=== PATIENT | male | born 1955 | race Caucasian/White ===

== ENCOUNTER 2016-11-28 14:05 | Inpatient (IN) | payer MEDICARE, OTHER ==
[2016-11-28] MEDS ORDERED: HYDROmorphone 1 MG/ML 1 ML SYRINGE IVP STA ×2 (14:35→16:09)
[2016-11-28] MEDS ORDERED: SODIUM CHLORIDE 0.9% 1,000 ML IV STA (14:35)
[2016-11-28] MEDS ORDERED: ONDANSETRON 4 MG/2 ML VIAL IVP STA (14:35)
[2016-11-28] MEDS ORDERED: RX INFO: IV CONTRAST WAS GIVEN 1 EACH MISC MISCELLANE PRN (14:38)
--- NOTE | 2016-11-28 14:38 | ED ---
General Adult HPI - General Chief complaint: Nausea/Vomiting/Diarrhea Stated complaint: diarrhea/no appetite/weakness Time Seen by Provider: 11/28/16 14:30 Source: patient, RN notes reviewed Mode of arrival: ambulatory Limitations: no limitations - History of Present Illness Initial comments: Patient is a 61-year-old male who presents emergency room today with chief complaint of symptoms of nausea vomiting diarrhea times one week. He does admit to pain located in left lower quadrant. Patient describes it as sharp pain currently rates an 8/10. Denies any signs of blood in the emesis or stool. Denies ever having similar symptoms in the past. Denies History of abdominal surgeries. Patient denies any recent fever, chills, shortness of breath, chest pain, back pain, numbness or tingling, dysuria or hematuria, constipation, headaches or visual changes, or any other complaints. - Related Data Home Medications Medication Instructions Recorded Confirmed Morphine Sulfate [Morphine Sulfate 30 mg PO BID 11/28/16 11/28/16 ER] Sertraline [Zoloft] 100 mg PO HS 11/28/16 11/28/16 Zolpidem [Ambien] 10 mg PO HS PRN 11/28/16 11/28/16 busPIRone HCL 15 mg PO BID 11/28/16 11/28/16 Allergies Allergy/AdvReac Type Severity Reaction Status Date / Time No Known Allergies Allergy Verified 11/28/16 14:45 Review of Systems ROS Statement: Those systems with pertinent positive or pertinent negative responses have been documented in the HPI. ROS Other: All systems not noted in ROS Statement are negative. Past Medical History Past Medical History: Heart Failure, COPD, CVA/TIA Additional Past Medical History / Comment(s): chronic pain History of Any Multi-Drug Resistant Organisms: None Reported Additional Past Surgical History / Comment(s): cervical fusion Past Psychological History: Depression Smoking Status: Current every day smoker Past Alcohol Use History: None Reported Past Drug Use History: None Reported General Exam - General Exam Comments Initial Comments: General: The patient is awake and alert, in no distress, and does not appear acutely ill. Eye: Pupils are equal, round and reactive to light, extra-ocular movements are intact. No nystagmus. There is normal conjunctiva bilaterally. No signs of icterus. Ears, nose, mouth and throat: There are moist mucous membranes and no oral lesions. Neck: The neck is supple, there is no tenderness or JVD. Cardiovascular: There is a regular rate and rhythm. No murmur, rub or gallop is appreciated. Respiratory: Lungs are clear to auscultation, respirations are non-labored, breath sounds are equal. No wheezes, stridor, rales, or rhonchi. Gastrointestinal: Normal person. Normal bowel sounds. Soft on palpation. Patient does have tenderness lower quadrant. Mild tenderness epigastric. No rebound tenderness. No guarding. No CVA tenderness. Musculoskeletal: Normal ROM, no tenderness. Strength 5/5. Sensation intact. Pulses equal bilaterally 2+. Neurological: A&O x 3. CN II-XII intact, There are no obvious motor or sensory deficits. Coordination appears grossly intact. Speech is normal. Skin: Skin is warm and dry and no rashes or lesions are noted. Psychiatric: Cooperative, appropriate mood & affect, normal judgment. Limitations: no limitations Course Vital Signs 11/28/16 11/28/16 14:07 15:51 Temperature 98.5 F Pulse Rate 100 74 Respiratory 20 18 Rate Blood Pressure 170/101 148/91 O2 Sat by Pulse 98 99 Oximetry Medical Decision Making - Medical Decision Making Patient's labs reviewed shows 1000 white count. Urine culture pending. Patient 's CT reviewed 1. Findings most compatible with a mild colitis of infectious/ inflammatory etiology. 2. Polypoid filling defect within the descending duodenum. This Is recommended this could relate to it while polypoid mass. 3. Degenerative terminal mild compression deformities at T11 and T12 without retropulsion. Patient will be started on IV antibiotics in the emergency room. Admitted to the hospital. Patient with plan states understanding. - Lab Data Result diagrams: 11/28/16 14:55 11/28/16 14:55 Lab Results 11/28/16 11/28/16 11/28/16 Range/Units 14:55 14:55 14:55 WBC 11.9 H (3.8-10.6) k/uL RBC 5.69 (4.30-5.90) m/uL Hgb 18.0 H (13.0-17.5) gm/dL Hct 52.2 (39.0-53.0) % MCV 91.7 (80.0-100.0) fL MCH 31.6 (25.0-35.0) pg MCHC 34.5 (31.0-37.0) g/dL RDW 12.9 (11.5-15.5) % Plt Count 326 (150-450) k/uL Neutrophils % 79 % Lymphocytes % 13 % Monocytes % 5 % Eosinophils % 0 % Basophils % 0 % Neutrophils # 9.4 H (1.3-7.7) k/uL Lymphocytes # 1.6 (1.0-4.8) k/uL Monocytes # 0.6 (0-1.0) k/uL Eosinophils # 0.0 (0-0.7) k/uL Basophils # 0.0 (0-0.2) k/uL PT 12.8 H (9.0-12.0) sec INR 1.3 (<1.1) APTT 24.0 (22.0-30.0) sec Sodium 140 (137-145) mmol/L Potassium 3.9 (3.5-5.1) mmol/L Chloride 106 (98-107) mmol/L Carbon Dioxide 21 L (22-30) mmol/L Anion Gap 13 mmol/L BUN 17 (9-20) mg/dL Creatinine 0.90 (0.66-1.25) mg/dL Est GFR (MDRD) Af Amer >60 (>60 ml/min/1.73 sqM) Est GFR (MDRD) Non-Af >60 (>60 ml/min/1.73 sqM) Glucose 104 H (74-99) mg/dL Calcium 9.5 (8.4-10.2) mg/dL Total Bilirubin 0.8 (0.2-1.3) mg/dL AST 19 (17-59) U/L ALT 32 (21-72) U/L Alkaline Phosphatase 53 (38-126) U/L Total Protein 7.1 (6.3-8.2) g/dL Albumin 4.2 (3.5-5.0) g/dL Amylase 35 (30-110) U/L Lipase 96 (23-300) U/L Urine Color Urine Appearance (Clear) Urine pH (5.0-8.0) Ur Specific [place] (1.001-1.035) Urine Protein (Negative) Urine Glucose (UA) (Negative) Urine Ketones (Negative) Urine Blood (Negative) Urine Nitrite (Negative) Urine Bilirubin (Negative) Urine Urobilinogen (<2.0) mg/dL Ur Leukocyte Esterase (Negative) Urine RBC (0-5) /hpf Urine WBC (0-5) /hpf Ur Squamous Epith Cells (0-4) /hpf Amorphous Sediment (None) /hpf Urine Bacteria (None) /hpf Hyaline Casts (0-2) /lpf Urine Mucus (None) /hpf Urine Sperm (None) /hpf 11/28/16 Range/Units 15:00 WBC (3.8-10.6) k/uL RBC (4.30-5.90) m/uL Hgb (13.0-17.5) gm/dL Hct (39.0-53.0) % MCV (80.0-100.0) fL MCH (25.0-35.0) pg MCHC (31.0-37.0) g/dL RDW (11.5-15.5) % Plt Count (150-450) k/uL Neutrophils % % Lymphocytes % % Monocytes % % Eosinophils % % Basophils % % Neutrophils # (1.3-7.7) k/uL Lymphocytes # (1.0-4.8) k/uL Monocytes # (0-1.0) k/uL Eosinophils # (0-0.7) k/uL Basophils # (0-0.2) k/uL PT (9.0-12.0) sec INR (<1.1) APTT (22.0-30.0) sec Sodium (137-145) mmol/L Potassium (3.5-5.1) mmol/L Chloride (98-107) mmol/L Carbon Dioxide (22-30) mmol/L Anion Gap mmol/L BUN (9-20) mg/dL Creatinine (0.66-1.25) mg/dL Est GFR (MDRD) Af Amer (>60 ml/min/1.73 sqM) Est GFR (MDRD) Non-Af (>60 ml/min/1.73 sqM) Glucose (74-99) mg/dL Calcium (8.4-10.2) mg/dL Total Bilirubin (0.2-1.3) mg/dL AST (17-59) U/L ALT (21-72) U/L Alkaline Phosphatase (38-126) U/L Total Protein (6.3-8.2) g/dL Albumin (3.5-5.0) g/dL Amylase (30-110) U/L Lipase (23-300) U/L Urine Color Yellow Urine Appearance Clear (Clear) Urine pH 5.5 (5.0-8.0) Ur Specific [place] 1.028 (1.001-1.035) Urine Protein 1+ H (Negative) Urine Glucose (UA) Negative (Negative) Urine Ketones 2+ H (Negative) Urine Blood Trace H (Negative) Urine Nitrite Negative (Negative) Urine Bilirubin Negative (Negative) Urine Urobilinogen 2.0 (<2.0) mg/dL Ur Leukocyte Esterase Negative (Negative) Urine RBC 1 (0-5) /hpf Urine WBC 7 H (0-5) /hpf Ur Squamous Epith Cells 1 (0-4) /hpf Amorphous Sediment Occasional H (None) /hpf Urine Bacteria Occasional H (None) /hpf Hyaline Casts 2 (0-2) /lpf Urine Mucus Many H (None) /hpf Urine Sperm Few H (None) /hpf Disposition Clinical Impression: Colitis Disposition: ADMITTED IP TO THIS [facility] Condition: Stable Time of Disposition: 16:12
[2016-11-28 15:09] LABS: Basophils % (A) 0 %; CH 32.6; CHCM 35.7; Eosinophils % (A) 0 %; HCT 52.2 % (39.0-53.0); HDW 2.32; Luc # (Auto) 0.27; Luc % (Auto) 2; Lymphocytes # (A) 1.6 k/uL (1.0-4.8); Lymphocytes % (A) 13 %; MCH 31.6 pg (25.0-35.0); MCHC 34.5 g/dL (31.0-37.0); MCV 91.7 fL (80.0-100.0); Mean Platelet Volume 6.7; Monocytes # (A) 0.6 k/uL (0-1.0); Monocytes % (A) 5 %; Neutrophils # (A) 9.4 k/uL (1.3-7.7); Neutrophils % (A) 79 %; RBC 5.69 m/uL (4.30-5.90); RDW 12.9 % (11.5-15.5); WBC 11.9 k/uL (3.8-10.6); WBC (Perox) 11.74
[2016-11-28 15:19] LABS: INR 1.3 (<1.1); Prothrombin Time 12.8 sec (9.0-12.0)
[2016-11-28 15:20] LABS: ALT 32 U/L (21-72); AST 19 U/L (17-59); Alkaline Phosphatase 53 U/L (38-126); Amylase 35 U/L (30-110); Anion Gap 13 mmol/L; Blood Urea Nitrogen 17 mg/dL (9-20); Calcium 9.5 mg/dL (8.4-10.2); Carbon Dioxide 21 mmol/L (22-30); Chloride 106 mmol/L (98-107); Glucose 104 mg/dL (74-99); Non-African American GFR(MDRD) >60 (>60 ml/min/1.73 sqM); Potassium 3.9 mmol/L (3.5-5.1); Sodium 140 mmol/L (137-145); Total Bilirubin 0.8 mg/dL (0.2-1.3); Total Protein 7.1 g/dL (6.3-8.2)
[2016-11-28 15:40] LABS: Amorphous Sediment,Urine Occasional /hpf; Appearance,Urine Clear (Clear); Bacteria,Urine Occasional /hpf; Bilirubin,Urine Negative (Negative); Glucose,Urine (UA) Negative (Negative); Ketones,Urine 2+ (Negative); Leukocyte Esterase,Urine Negative (Negative); Mucus,Urine Many /hpf; Nitrite,Urine Negative (Negative); PH, Urine 5.5 (5.0-8.0); Particle Count 11809; Protein,Urine 1+ (Negative); RBC,Urine 1 /hpf (0-5); Specific Gravity,Urine 1.028 (1.001-1.035); Sperm,Urine Few /hpf; Squamous Epithelial Cell,Urine 1 /hpf (0-4); UA Billing (MACRO vs. MICRO) MICRO; WBC,Urine 7 /hpf (0-5)
--- NOTE | 2016-11-28 15:54 | CT ---
EXAMINATION TYPE: CT abdomen pelvis w con DATE OF EXAM: 11/28/2016 3:37 PM COMPARISON: 05/02/2016 report. Note images were not available for comparison at the time of dictation. HISTORY: Pt states of LLQ pain, nausea, and diarrhea. CT DLP: 532.5 mGycm Automated exposure control for dose reduction was used. TECHNIQUE: Helical acquisition of images was performed from the lung bases through the pelvis. CONTRAST: Performed without Oral Contrast and with IV Contrast, patient injected with 100 mL of Omnipaque 300. FINDINGS: LUNG BASES: No significant abnormality is appreciated. LIVER/GB: No significant abnormality is appreciated. PANCREAS: Mild pancreatic atrophy with numerous punctate pancreatic parenchymal calcifications are li hermelinda sequela of chronic pancreatitis. No pancreatic ductal dilatation is evident. SPLEEN: No significant abnormality is seen. ADRENALS: No significant abnormality is seen. KIDNEYS: Left lower pole renal cyst is appreciated measuring 8 mm. Right-sided renal lesion that is s ubcentimeter and too small to accurately characterize is seen within the posterior cortex of the uppe r pole. FREE AIR: No free air is visualized. RETROPERITONEAL ADENOPATHY: None visualized REPRODUCTIVE ORGANS: Again the prostate gland is mildly enlarged and heterogenous diffusely measuring up to 5.4 cm in transverse dimension. URINARY BLADDER: No significant abnormality is seen. PELVIC ADENOPATHY: None visualized. OSSEOUS STRUCTURES: Mild compression deformity of T11 and to a lesser degree of T12 are seen, which are age indeterminant without retropulsion. Mild degenerative changes are present of the thoracolumba r and lumbosacral spine. BOWEL: There is a small hiatal hernia present. Alternating segments of bowel wall thickening and abs ence of bowel wall thickening are seen throughout the large bowel. Long segments of bowel wall thicke esther are most pronounced within the ascending colon, hepatic flexure and transverse colon but also se en at the distal descending colon and sigmoid colon as well as within the rectum. Only mild subtle pe ricolonic fat stranding changes are seen with minimal engorgement of the vasa recta. There is also th ickening of the terminal ileum, likely reactive. Appendix is not enlarged. Polypoid filling defect is seen within the descending duodenum measuring approximately 2 cm. OTHER: Atheromatous changes are seen of the abdominal aorta and its branches, calcific and noncalcifi c. IMPRESSION: 1. FINDINGS MOST COMPATIBLE WITH MILD COLITIS OF INFECTIOUS/INFLAMMATORY ETIOLOGY. COLONOSCOPY IS REC OMMENDED AFTER RESOLUTION OF SYMPTOMS TO EXCLUDE UNDERLYING NEOPLASM. 2. POLYPOID FILLING DEFECT WITHIN THE DESCENDING DUODENUM. ENDOSCOPY IS RECOMMENDED THIS COULD REL ATE TO A DUODENAL POLYP OR MASS. 3. AGE-INDETERMINATE MILD COMPRESSION DEFORMITIES OF T11 AND T12 WITHOUT RETROPULSION.
[2016-11-28] MEDS ORDERED: LEVOFLOXACIN 500MG-D5W PMX 500 MG in DEXTROSE/WATER 1 100ML.BAG IVPB STA (16:09)
[2016-11-28] MEDS ORDERED: ONDANSETRON 4 MG/2 ML VIAL IVP PRN (16:13)
[2016-11-28] MEDS ORDERED: NALOXONE 0.4 MG/ML 1 ML VIAL IV PRN (16:13)
[2016-11-28] MEDS ORDERED: SODIUM CHLORIDE 0.9% 1,000 ML IV ONE (16:13)
[2016-11-28] MEDS ORDERED: metroNIDAZOLE-NS PMX 500 MG in SALINE 1 100ML.BAG IVPB STA (16:19)
[2016-11-28] MEDS ORDERED: POTASSIUM CHLORIDE ER 20 MEQ TAB.ER PO STA (16:57)
[2016-11-28 18:01] VITALS: BMI 25.8
[2016-11-28] MEDS ORDERED: ZOLPIDEM 10 MG TAB PO PRN (18:52)
--- NOTE | 2016-11-28 19:14 | XR ---
EXAMINATION TYPE: XR chest 1V portable DATE OF EXAM: 11/28/2016 7:08 PM COMPARISON: NONE HISTORY: Congestive heart failure TECHNIQUE: Single frontal view of the chest is obtained. FINDINGS: There is no focal air space opacity, pleural effusion, or pneumothorax seen. The cardiac silhouette size is within normal limits. Postop changes are noted to the cervical spine. Patient is rotated. The osseous structures are intact. IMPRESSION: No acute process.
[2016-11-28] MEDS: PANTOPRAZOLE 40 MG/10 ML VIAL IVP SCH (19:34)
[2016-11-28] MEDS: MORPHINE SULFATE ER 30 MG TABLET PO SCH (19:59)
[2016-11-28] MEDS: SERTRALINE 100 MG TAB PO SCH (20:00)
[2016-11-28] MEDS: HEPARIN SODIUM,PORCINE 5,000 UNIT/ML 1 ML VIAL SQ SCH (20:00)
[2016-11-28] MEDS: busPIRone HCl 5 MG TAB PO SCH (20:00)
[2016-11-28] MEDS: metroNIDAZOLE-NS PMX 500 MG in SALINE 1 100ML.BAG IVPB SCH (23:07)
[2016-11-28] MEDS: HYDROmorphone 1 MG/ML 1 ML SYRINGE IV PRN (23:10)
[2016-11-29 08:03] LABS: Basophils % (A) 0 %; CH 31.9; CHCM 34.9; Eosinophils # (A) 0.1 k/uL (0-0.7); Eosinophils % (A) 1 %; HCT 45.1 % (39.0-53.0); HDW 2.36; HGB 15.7 gm/dL (13.0-17.5); Luc # (Auto) 0.29; Luc % (Auto) 2; Lymphocytes % (A) 15 %; MCH 31.8 pg (25.0-35.0); MCHC 34.7 g/dL (31.0-37.0); MCV 91.5 fL (80.0-100.0); Mean Platelet Volume 6.6; Monocytes # (A) 0.7 k/uL (0-1.0); Monocytes % (A) 5 %; Neutrophils # (A) 10.2 k/uL (1.3-7.7); Neutrophils % (A) 76 %; RBC 4.93 m/uL (4.30-5.90); RDW 12.8 % (11.5-15.5); WBC 13.4 k/uL (3.8-10.6); WBC (Perox) 13.45
[2016-11-29 08:16] LABS: ALT 25 U/L (21-72); AST 18 U/L (17-59); Alkaline Phosphatase 44 U/L (38-126); Anion Gap 9 mmol/L; Blood Urea Nitrogen 14 mg/dL (9-20); Calcium 8.9 mg/dL (8.4-10.2); Carbon Dioxide 22 mmol/L (22-30); Chloride 107 mmol/L (98-107); Glucose 85 mg/dL (74-99); Non-African American GFR(MDRD) >60 (>60 ml/min/1.73 sqM); Potassium 3.9 mmol/L (3.5-5.1); Sodium 138 mmol/L (137-145); Total Protein 6.1 g/dL (6.3-8.2)
[2016-11-29] MEDS: busPIRone HCl 5 MG TAB PO SCH ×2 (08:20→20:09)
[2016-11-29] MEDS: HEPARIN SODIUM,PORCINE 5,000 UNIT/ML 1 ML VIAL SQ SCH ×2 (08:20→20:10)
[2016-11-29] MEDS: MORPHINE SULFATE ER 30 MG TABLET PO SCH ×2 (08:21→20:09)
[2016-11-29] MEDS: PANTOPRAZOLE 40 MG/10 ML VIAL IVP SCH (08:21)
[2016-11-29] MEDS: metroNIDAZOLE-NS PMX 500 MG in SALINE 1 100ML.BAG IVPB SCH ×3 (08:59→23:20)
--- NOTE | 2016-11-29 09:29 | P.CONS ---
History of Present Illness - Reason for Consult Consult date: 11/29/16 Colitis Requesting physician: Dylan Cooper - History of Present Illness 61-year-old gentleman patient Dr. Nowak with a past medical history of chronic neck pain with morphine sulfate maintenance, depression, long-standing nicotine cigarette dependency, COPD, CHF, and CVA/TIA. Patient presents with 1 week of nonbloody yellow colored diarrhea with lower abdominal cramping. Patient states he had multiple episodes that started a week ago Tuesday. Still having several episodes a day including several episodes last night. Denies hematemesis hematochezia melena fever or chills. He took some Pepto-Bismol 1 day after the start of his symptoms which change the color of his bowel movements to black. Once he discontinued the Pepto-Bismol his bowel movements cleared up to a yellow color. Pain is mostly in the lower abdomen intermittently crampy. No history of this type of presentation or diarrhea. No recent antibiotics changes in diet medications or recent travels. No sick contacts. Last colonoscopy to his memory may have been between 3-5 years ago in the [place] area he is unsure of the findings. No history of peptic ulcer disease or EGD. Smokes half pack of cigarettes more than 40 years. No history of alcohol abuse, NSAID or aspirin usage. Admission white count 11.9 currently 13.4. Hemoglobin 15.7. MCV 91. Platelets 326. INR 1.3. BUN 17. Creatinine 0.9. Chest x-ray no acute process. CT abdomen and pelvis with IV contrast only reported mild pancreatic atrophy with numerous punctate pancreatic, classification is likely sequelae of chronic pancreatitis. No free air. Small hiatal hernia present. Alternate segments of bowel wall thickening throughout the large bowel more pronounced in the ascending hepatic and transverse colon but also seen in the distal descending colon and sigmoid as well as within the rectum. Thickening of the terminal ileum likely reactive. Appendix not enlarged. Polypoid filling defects seen within the descending duodenum measuring 2 cm. Review of Systems Constitutional: Denies fever, chills, sweats, weight gain, or loss. HEENT: Negative for migraines, blurred vision or loss, earaches, drainage, tinnitus, oral mucosal lesions, dysphagia, or odynophagia. Cardiac: CHF. Negative for chest pain, arrhythmias, or palpitation. Respiratory: COPD. Long-standing nicotine cigarette dependency. Negative for shortness of breath, hemoptysis, cough, or sputum production. Gastrointestinal: See HPI for pertinent findings. Genitourinary: Negative for hematuria, urgency, frequency, polyuria, dysuria, or penile discharge. Musculoskeletal: Chronic back pain with history of cervical fusion. Negative for muscle aches, swelling, arthritis, and arthralgias. Neurologic: History of CVA TIA. Endocrine: Negative for thyroid problems. Skin: Negative for rash or itching. Psychiatric: Negative history for anxiety. History of depression. All systems: negative (See HPI) Past Medical History Past Medical History: Heart Failure, COPD, CVA/TIA Additional Past Medical History / Comment(s): chronic pain History of Any Multi-Drug Resistant Organisms: None Reported Additional Past Surgical History / Comment(s): cervical fusion Past Anesthesia/Blood Transfusion Reactions: No Reported Reaction Past Psychological History: Depression Smoking Status: Current every day smoker Past Alcohol Use History: None Reported Past Drug Use History: None Reported Medications and Allergies Home Medications Medication Instructions Recorded Confirmed Type Morphine Sulfate [Morphine Sulfate 30 mg PO BID 11/28/16 11/28/16 History ER] Sertraline [Zoloft] 100 mg PO HS 11/28/16 11/28/16 History Zolpidem [Ambien] 10 mg PO HS PRN 11/28/16 11/28/16 History busPIRone HCL 15 mg PO BID 11/28/16 11/28/16 History Allergies Allergy/AdvReac Type Severity Reaction Status Date / Time No Known Allergies Allergy Verified 11/28/16 14:45 Physical Exam Vitals: Vital Signs Temp Pulse Pulse Resp BP BP Pulse Ox 11/29/16 07:00 97.7 F 54 L 16 131/75 97 11/28/16 22:30 98.2 F 70 16 138/74 95 11/28/16 17:38 98.2 F 63 16 188/91 97 11/28/16 16:38 98.4 F 73 75 H 158/90 99 Intake and Output 11/28/16 11/29/16 11/29/16 22:59 06:59 14:59 Intake Total 450 Balance 450 Intake: IV 300 Sodium Chloride 0.9% 1, 300 000 ml @ 100 mls/hr IV . Q10H ONE Rx#:[id number] Amount of Fluid Infused ( 150 ml) Other: Voiding Method Toilet # Voids 1 1 # Bowel Movements 1 1 Weight 81.647 kg 81.647 kg General appearance: The patient is alert, oriented, in no acute distress. HET: Head is normocephalic and atraumatic. Pupils are equal and reactive. Oropharynx is clear without lesions. Neck: Supple without lymphadenopathy. Trachea midline. Heart: S1 S2. Regular rate and rhythm. Lungs: No crackles or wheezes are heard. Abdomen: Soft, very mild bilateral lower quadrant abdominal discomfort, nondistended with bowel sounds. No peritoneal signs. No palpable organomegaly or masses. Extremities: Normal skin color and turgor. No cyanosis, rash, ulceration, clubbing, or edema. Radial and pedal pulses are 2/4 bilaterally. Neurological: No focal deficits. Strength and sensation are grossly intact. Results CBC & Chem 7: 11/29/16 07:31 11/29/16 07:31 Labs: Abnormal Lab Results - Last 24 Hours (Table) 11/29/16 11/29/16 Range/Units 07:31 07:31 WBC 13.4 H (3.8-10.6) k/uL Neutrophils # 10.2 H (1.3-7.7) k/uL Total Protein 6.1 L (6.3-8.2) g/dL Albumin 3.4 L (3.5-5.0) g/dL CT scan - abdomen: report reviewed (Reviewed by Dr. Wallace) Assessment and Plan (1) Colitis Narrative/Plan: Gross colitis suspect self-limiting infectious colitis possible inflammatory. Clostridium difficile colitis cannot be excluded. Status: Acute (2) Diarrhea Status: Acute (3) Polyp of duodenum Narrative/Plan: 2 cm polypoid duodenal lesion per CT possible benign possible malignant Status: Acute Plan: 1. Patient has been started on empiric antibiotics Levaquin and Flagyl. 2. Stool studies including stool culture fecal leukocytes Hemoccult and Clostridium difficile testing have been requested. 3. Will proceed with EGD colonoscopy tomorrow for further evaluation. 4. Clear liquid diet. Nothing by mouth after midnight. The computer applications developer has discussed the risks, benefits and alternative therapies for the above-mentioned procedure and for both sedation/analgesia as well as necessary blood product administration, if indicated, as they pertain to this patient. The patient has indicated understanding and acceptance of the risks and procedures discussed. Thank you for this kind referral and the opportunity to participate in the care of your patient. This consultation was discussed with Dr. Wallace. The impression and plan of care have been directed as dictated.
--- NOTE | 2016-11-29 09:57 | HP ---
DATE OF ADMISSION: Chief complaints are nausea, vomiting and abdominal pain and diarrhea. HISTORY OF PRESENT ILLNESS: This 61-year-old gentleman with a past medical history of CHF, history of COPD, CVA/TIA, history of chronic pain syndrome, history of depression, being followed by Alondra Reyes in the outpatient setting, was complaining of abdominal pain, diarrhea for the last one day. Patient was vomiting also. There is no blood in the stool, but there were some melenic stools and because of concerns, patient came to [facility] and admitted for further evaluation and treatment. The patient had a CAT scan of the abdomen. The CAT scan of the abdomen showed mild colitis with long segment of bowel wall thickening most pronounced within the ascending colon, hepatic flexure and transverse colon. Also in the distal descending colon and sigmoid colon as well. The patient also had a polypoid filing defect seen in the descending duodenum measuring approximately 2 cm. Patient was admitted for further evaluation and treatment. There is no history of fever, chills or rigors. No history of headache, loss of consciousness, or seizures. PAST MEDICAL HISTORY: History of CHF, COPD, CVA/TIA, chronic pain syndrome, cervical fusion. Medications prior to admission include home medications are: 1. Buspirone 15 mg p.o. b.i.d. 2. Ambien 10 mg q.h.s. 3. Zoloft 100 mg q.h.s. 4. Morphine sulfate ER 30 mg p.o. daily. Allergies are none. Family history is no history of heart disease or strokes in the family. SOCIAL HISTORY: Previous history of smoking. No history of alcohol intake. REVIEW OF SYSTEMS: ENT: No diminishing hearing or diminished vision. CARDIOVASCULAR: No angina or palpitation. RESPIRATORY: No cough. GI: As mentioned earlier. : No dysuria. NERVOUS SYSTEM: No numbness are weakness. ALLERGY/IMMUNOLOGY: No asthma. MUSCULOSKELETAL: As mentioned earlier. HEMATOLOGY: No history of anemia. ENDOCRINE: No history of diabetes or hypothyroidism. CONSTITUTIONAL: As mentioned earlier. DERMATOLOGY: Negative. PSYCHIATRY: As mentioned earlier. PHYSICAL EXAMINATION: Patient is alert and oriented x3. The pulse is 75, blood pressure 158/90, respirations 20, temperature is 98.4, pulse ox 99% on room air. HEENT: Conjunctivae normal, oral mucosa moist. NECK: No jugular venous distention. No carotid bruit. No lymph node enlargement. CARDIOVASCULAR SYSTEM: S1, S2 muffled, no S3, no S4. RESPIRATORY: Diminished breath sounds at the bases. No rhonchi, no crackles. Abdomen is soft. Mild diffuse discomfort on palpation. Mild diffuse tenderness present. Otherwise, no guarding, no rigidity. No mass palpable. Bowel sounds present. No ascites. No bruit. LEGS: No edema. No swelling. NERVOUS SYSTEM: Higher function as mentioned. Moves all 4 limbs. No focal motor deficits. LYMPHATICS: No lymph node enlargement in the neck, axillae or groin. SKIN: No ulcer, rash or bleeding. LABS: WBC is 11.9, hemoglobin is 18, PT is 12.8. INR is 1.3. ASSESSMENT: 1. Abdominal pain with mild diffuse colitis for evaluation. Possible infectious or ischemic colitis. 2. Polypoid filling defect in the descending colon, rule out polyps. 3. Compression deformity of T11, T12 without any retropulsion. 4. Chronic pain syndrome. 5. Increased WBC. 6. Increased hemoglobin. 7. Possible urinary tract infection, mild. 8. History of congestive heart failure. 9. History of chronic obstructive pulmonary disease. 10. History of cerebrovascular accident, transient ischemic attack. 11. History of chronic pain syndrome. 12. Cervical fusion. 13. History of depression, not otherwise specified. 14. History of nicotine dependence. 15. FULL CODE. RECOMMENDATION: In this 61-year-old gentleman who presented with multiple complex medical issues, will monitor the patient closely. Continue with the current medications. Continue with the symptomatic treatment and broad-spectrum IV antibiotics. Otherwise, Gastroenterology consult, possibly both EGD and colonoscopy. Prognosis guarded because of multiple complex medical issues. Discussed with the patient who understands. Further recommendations to follow. A copy of this will be forwarded to Alondra Reyes and Dr. Nowak.
[2016-11-29] MEDS: ACETAMINOPHEN TAB 325 MG TAB PO PRN (15:41)
[2016-11-29] MEDS ORDERED: PEG 3350-NA SULF,BICARB,CL/KCL 4,000 ML BOTTLE PO ONE (16:00)
[2016-11-29] MEDS ORDERED: LEVOFLOXACIN 500MG-D5W PMX 500 MG in DEXTROSE/WATER 1 100ML.BAG IVPB SCH (16:00)
[2016-11-29] MEDS: PIPERACILLIN-TAZOBACTAM 3.375 GM in DEXTROSE/WATER 1 50ML.BAG IVPB SCH (17:17)
[2016-11-29] MEDS: HYDROmorphone 1 MG/ML 1 ML SYRINGE IV PRN ×2 (17:31→23:28)
[2016-11-29] MEDS: SERTRALINE 100 MG TAB PO SCH (20:10)
[2016-11-29] MEDS: TEMAZEPAM 15 MG CAP PO PRN (23:27)
[2016-11-30] MEDS: PIPERACILLIN-TAZOBACTAM 3.375 GM in DEXTROSE/WATER 1 50ML.BAG IVPB SCH ×3 (00:14→18:07)
--- NOTE | 2016-11-30 05:15 | PN ---
DATE OF SERVICE: 11/29/2016 This 61-year-old gentleman who was admitted with nausea, vomiting, abdominal pain and diarrhea had features of diffuse colitis. Patient also complained of abdominal discomfort. Gastroenterology is planning EGD and colonoscopy. No chest or palpitation. No fever. The chest x-ray shows no acute process. On exam, alert and oriented x3. The pulse is 54, blood pressure 131/75, respirations 16, temperature 97.7, pulse ox 97% on room air. HEENT: Conjunctivae normal. NECK: No jugular venous distention. CARDIOVASCULAR: S1 and S2, muffled. RESPIRATORY: Breath sounds diminished at the bases. No rhonchi or crackles. ABDOMEN: Soft, mild diffuse discomfort. No guarding. No mass palpable. Bowel sounds presents. No ascites. No bruits. LEGS: No edema, no swelling. NERVOUS SYSTEM: Higher function as mentioned earlier. Moves all 4 limbs. No focal deficits. LYMPHATICS: No lymphadenopathy of neck, axillae or groin. SKIN: No ulcers, rashes or bleeding. LABS: WBC 13.4. Otherwise, albumin is 3.4. ASSESSMENT: 1. Abdominal pain with diffuse colitis for evaluation, possibly infectious or ischemic colitis. 2. Polypoid filling defect in the descending colon, rule out polyps. 3. Compression deformity T11, T12 without any retropulsion. 4. Chronic pain syndrome. 5. Increased WBC. 6. Continued abdominal pain. 7. Increased hemoglobin. 8. Urinary tract infection. 9. History of congestive heart failure, ejection fraction unknown. 10. History of chronic obstructive pulmonary disease. 11. History of cerebrovascular accident and transient ischemic attack. 12. History of chronic pain syndrome. 13. History of cervical fusion and degenerative joint disease. 14. History of depression, not otherwise specified. 15. History nicotine dependence. 16. FULL CODE. RECOMMENDATIONS AND DISCUSSION: Recommend to continue current medications. Continues symptomatic treatment. I would recommend change the antibiotic to Zosyn. Continue to monitor the white count closely and Gastroenterology evaluation for endoscopies. Guarded prognosis. Further recommendations to follow.
[2016-11-30] MEDS: busPIRone HCl 5 MG TAB PO SCH ×2 (07:54→22:56)
[2016-11-30] MEDS: PANTOPRAZOLE 40 MG/10 ML VIAL IVP SCH (07:54)
[2016-11-30] MEDS: HEPARIN SODIUM,PORCINE 5,000 UNIT/ML 1 ML VIAL SQ SCH ×2 (07:54→22:57)
[2016-11-30] MEDS: MORPHINE SULFATE ER 30 MG TABLET PO SCH ×2 (07:55→22:57)
[2016-11-30] MEDS: metroNIDAZOLE-NS PMX 500 MG in SALINE 1 100ML.BAG IVPB SCH ×3 (07:56→22:57)
[2016-11-30 08:07] LABS: Basophils % (A) 0 %; CH 31.8; CHCM 34.5; Eosinophils # (A) 0.1 k/uL (0-0.7); Eosinophils % (A) 2 %; HCT 42.1 % (39.0-53.0); HDW 2.35; HGB 14.6 gm/dL (13.0-17.5); Luc # (Auto) 0.23; Luc % (Auto) 3; Lymphocytes # (A) 1.6 k/uL (1.0-4.8); Lymphocytes % (A) 19 %; MCHC 34.6 g/dL (31.0-37.0); MCV 92.6 fL (80.0-100.0); Mean Platelet Volume 6.6; Monocytes # (A) 0.6 k/uL (0-1.0); Monocytes % (A) 7 %; Neutrophils % (A) 70 %; RBC 4.55 m/uL (4.30-5.90); RDW 12.8 % (11.5-15.5); WBC 8.6 k/uL (3.8-10.6); WBC (Perox) 8.85
[2016-11-30 08:31] LABS: Anion Gap 9 mmol/L; Blood Urea Nitrogen 7 mg/dL (9-20); Calcium 8.6 mg/dL (8.4-10.2); Carbon Dioxide 21 mmol/L (22-30); Chloride 110 mmol/L (98-107); Glucose 83 mg/dL (74-99); Non-African American GFR(MDRD) >60 (>60 ml/min/1.73 sqM); Potassium 3.7 mmol/L (3.5-5.1); Sodium 140 mmol/L (137-145)
[2016-11-30] MEDS: ACETAMINOPHEN TAB 325 MG TAB PO PRN (13:06)
[2016-11-30] MEDS ORDERED: IV FLUID CONTINUATION 1,000 ML IV ONE (14:22)
[2016-11-30] MEDS ORDERED: LIDOCAINE 1% INJ 10MG/ML (20 ML MDV) ONE (14:26)
[2016-11-30] MEDS ORDERED: PROPOFOL 10 MG/ML 20 ML VIAL IV ONE (14:26)
--- NOTE | 2016-11-30 15:28 | P.PCN ---
Date of Procedure: 11/30/16 Procedure(s) Performed: Procedure: 1. Esophagogastroduodenoscopy and biopsy. 2. Colonoscopy and biopsy. Preoperative diagnosis: Diarrhea and abnormal CT of the abdomen. Postoperative diagnosis: 1. Mild gastritis and duodenitis. 2. 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 3. Nonspecific colitis consistent with resolving infectious colitis. 4. Flat polyploid area in the cecum probably representing tubulovillous adenoma. 5. Biopsies obtained from the duodenum, antrum, esophagus, random colon as well as duodenal and cecal polyp biopsies. Preparation: GoLYTELY prep. Sedation: Was provided by anesthesia. Brief clinical history: The patient is a 61-year-old male with a past medical history of chronic neck pain with morphine sulfate maintenance, depression, long -standing nicotine cigarette dependency, COPD, CHF, and CVA/TIA, who presented with 1 week of nonbloody, yellow colored, diarrhea with lower abdominal cramping. Patient states he had multiple episodes that started a week ago. Was having several episodes a day including several episodes at night. Denies hematemesis, hematochezia, melena, fever or chills. Pain is mostly in the lower abdomen intermittently crampy. CT of the abdomen and pelvis with IV contrast showed mild pancreatic atrophy with numerous punctate pancreatic, classification likely sequelae of chronic pancreatitis. Small hiatal hernia and a polypoid filling defects seen within the descending duodenum measuring 2 cm. Alternate segments of bowel wall thickening throughout the large bowel more pronounced in the ascending hepatic and transverse colon. The details are summarized in the history and physical and dictated consultation and progress notes. Procedure: with the patient on his left lateral decubitus position and after informed consent and adequate sedation, I passed the Olympus-GIF 160 video upper endoscope through the cricopharyngeus down the esophagus. GE junction was around 40-41 cm from the incisors and there was a small sliding hiatal hernia. no esophagitis or complicated reflux disease. The endoscope was then advanced into the stomach which was insufflated with air and inspected in detail including the retroflex view in the cardia. there was some mottling and erythema in the antrum but no ulcers or erosions. Pyloric channel did not show any ulcers. Duodenal bulb post bulbar area and descending duodenum showed some erythema and minimal friability. in the descending duodenum there was a 2 cm submucosal polypoid area consistent with a lipoma. I obtained biopsies from the duodenum, antrum and esophagus as well as from the duodenal polyp area then the endoscope was withdrawn and I proceeded with the colonoscopy. Perianal area did not show any fissures or fistulas. There were no masses felt on digital rectal examination. The Olympus CFQ 160L video colonoscope was then inserted in the rectum in the usual fashion and advanced to the cecum. The preparation was less than ideal, especially, in the right colon and cecum. There was a flat polypoid area in the cecum consistent with tubular or tubulovillous adenoma measuring around 2-3 cm in greatest dimension. Multiple biopsies were obtained. Otherwise, there were scattered aphthous-like ulcerations seen with, otherwise, normal looking mucosa consistent with resolving self-limited or infectious colitis. I obtained biopsies from the cecum as well as randomly from the colon and I obtained pictures then I retroflexed endoscope in the rectum before the endoscope was withdrawn. The patient tolerated the procedure well. Plan: The patient and his family were reassured. Will await biopsy results. In the meantime, will advance diet and continue symptomatic treatment. Based on the pathology results I anticipate repeating his colonoscopy to address definitively the cecal polyp.
--- NOTE | 2016-11-30 22:21 | PN ---
DATE OF SERVICE: 11/30/2016 This 61-year-old gentleman was admitted with nausea, vomiting, features of colitis as well as duodenal filling defect. The patient has been treated symptomatically. Dr. Wallace performed an EGD which showed mild gastritis and duodenitis and duodenal polyp, likely submucosal lipoma, and nonspecific colitis consistent with resolving infectious colitis was also noted. Otherwise, tubulovillous adenoma in the cecum was also noted. Multiple biopsies were taken, per Dr. Wallace's report. Patient is being closely monitored. On exam, alert and oriented x3. Pulse is 49, blood pressure 127/77, respiration 16, temperature 97.7, pulse ox 98% on room air. HEENT: Conjunctivae normal. NECK: No jugular venous distention. CARDIOVASCULAR SYSTEM: S1, S2 muffled. RESPIRATORY SYSTEM: Breath sounds diminished at the bases. A few scattered rhonchi. No crackles. ABDOMEN: Soft. Mild diffuse discomfort on palpation. No guarding. No mass palpable. LEGS: No edema. No swelling. NERVOUS SYSTEM: No focal deficit. LABS: CBC within normal limits. Sodium 140, potassium 3.7. Stool OB is negative. ASSESSMENT: 1. Abdominal pain, diffuse colitis for evaluation, possibly infectious and ischemic colitis. 2. Polypoid filling defect in the descending colon, possibly submucosal lipoma. 3. Status post esophagogastroduodenoscopy showing gastritis and duodenitis. 4. Status post colonoscopy showing nonspecific colitis consistent with resolving infectious colitis as well as flat polypoid area in the cecum, possibly representing tubulovillous adenoma, status post multiple biopsies in duodenum, antrum, esophagus and random colon as well as duodenal and cecal polyp biopsies. 5. Compression deformity, T11-T12, without any retropulsion. 6. Chronic pain syndrome. 7. Increased white count. 8. Continued abdominal pain. 9. Increased hemoglobin. 10. Urinary tract infection. 11. History of congestive heart failure; ejection fraction unknown. 12. History of chronic obstructive pulmonary disease. 13. History of cerebrovascular accident, transient ischemic attack. 14. History of cervical fusion and degenerative joint disease. 15. History of depression not otherwise specified. 16. History of nicotine dependence. 17. FULL CODE. RECOMMENDATIONS AND DISCUSSION: I recommend to continue with the current medications, continue with the monitoring, symptomatic treatment. Otherwise, at this time I would recommend continuing with the current medications, continue with empiric antibiotics. Await biopsy report. Advance diet per GI. Guarded prognosis. Further recommendations to follow.
[2016-11-30] MEDS: TEMAZEPAM 15 MG CAP PO PRN (22:57)
[2016-11-30] MEDS: SERTRALINE 100 MG TAB PO SCH (22:57)
[2016-12-01] MEDS: PIPERACILLIN-TAZOBACTAM 3.375 GM in DEXTROSE/WATER 1 50ML.BAG IVPB SCH ×2 (02:51→11:29)
[2016-12-01] MEDS: busPIRone HCl 5 MG TAB PO SCH (09:16)
[2016-12-01] MEDS: PANTOPRAZOLE 40 MG/10 ML VIAL IVP SCH (09:16)
[2016-12-01] MEDS: MORPHINE SULFATE ER 30 MG TABLET PO SCH (09:16)
[2016-12-01] MEDS: HEPARIN SODIUM,PORCINE 5,000 UNIT/ML 1 ML VIAL SQ SCH (09:16)
[2016-12-01 09:44] LABS: Basophils # (A) 0.1 k/uL (0-0.2); Basophils % (A) 1 %; CH 31.5; CHCM 33.7; Eosinophils # (A) 0.2 k/uL (0-0.7); Eosinophils % (A) 3 %; HDW 2.27; HGB 15.1 gm/dL (13.0-17.5); Luc # (Auto) 0.17; Luc % (Auto) 2; Lymphocytes # (A) 1.8 k/uL (1.0-4.8); Lymphocytes % (A) 24 %; MCH 31.4 pg (25.0-35.0); MCHC 33.5 g/dL (31.0-37.0); MCV 93.8 fL (80.0-100.0); Mean Platelet Volume 7.1; Monocytes # (A) 0.5 k/uL (0-1.0); Monocytes % (A) 7 %; Neutrophils # (A) 4.8 k/uL (1.3-7.7); Neutrophils % (A) 63 %; RBC 4.79 m/uL (4.30-5.90); RDW 13.1 % (11.5-15.5); WBC 7.5 k/uL (3.8-10.6); WBC (Perox) 7.63
[2016-12-01 10:13] LABS: Anion Gap 7 mmol/L; Blood Urea Nitrogen 7 mg/dL (9-20); Calcium 8.9 mg/dL (8.4-10.2); Carbon Dioxide 29 mmol/L (22-30); Chloride 105 mmol/L (98-107); Glucose 133 mg/dL (74-99); Non-African American GFR(MDRD) >60 (>60 ml/min/1.73 sqM); Potassium 3.8 mmol/L (3.5-5.1); Sodium 141 mmol/L (137-145)
--- NOTE | 2016-12-01 10:22 | P.PN ---
Subjective Principal diagnosis: Diarrhea 61-year-old gentleman presents with 1 week history of nonbloody diarrhea with CT findings of duodenal polyp. Status post EGD colonoscopy yesterday with findings of mild gastritis, duodenitis, duodenal polyp likely submucosal lipoma with nonspecific colitis consistent with resolving infectious colitis. Flat polypoid area in the cecum status post biopsies. Diarrhea has improved. Stool studies were requested prior to colonoscopy, unfortunately were not obtained. He has been afebrile. Tolerating regular diet. Denies abdominal pain. Objective - Vital Signs Vital signs: Vital Signs Temp 97.9 F 12/01/16 07:00 Pulse 50 L 12/01/16 07:00 Resp 16 12/01/16 07:00 BP 123/72 12/01/16 07:00 Pulse Ox 94 L 12/01/16 07:00 Intake & Output 11/30/16 12/01/16 12/01/16 18:59 06:59 18:59 Intake Total 300 400 Balance 300 400 Intake: IV 300 Oral 0 400 Other: Voiding Method Toilet Toilet # Voids 3 1 - Exam General appearance: The patient is alert, oriented, in no acute distress. HET: Head is normocephalic and atraumatic. Pupils are equal and reactive. Oropharynx is clear without lesions. Neck: Supple without lymphadenopathy. Trachea midline. Heart: S1 S2. Regular rate and rhythm. Lungs: No crackles or wheezes are heard. Abdomen: Soft, nontender, nondistended with bowel sounds. No peritoneal signs. No palpable organomegaly or masses. Extremities: Normal skin color and turgor. No cyanosis, rash, ulceration, clubbing, or edema. Radial and pedal pulses are 2/4 bilaterally. Neurological: No focal deficits. Strength and sensation are grossly intact. - Labs CBC & Chem 7: 12/01/16 08:57 12/01/16 08:57 Labs: Abnormal Lab Results - Last 24 Hours (Table) 12/01/16 Range/Units 08:57 BUN 7 L (9-20) mg/dL Glucose 133 H (74-99) mg/dL Assessment and Plan (1) Colitis Narrative/Plan: Status post EGD colonoscopy with suspected self-limiting infectious colitis status post biopsies Status: Acute (2) Diarrhea Status: Acute (3) Polyp of duodenum Narrative/Plan: Suspect lipoma, status post EGD with biopsy Status: Acute Plan: 1. Discharge per medicine. 2. Would advise continuance of antibiotics on discharge for additional 5 days. 3. Return to GI office in 1 week for reevaluation and discussion of biopsy results. 4. Antidiarrheals as needed. 5. Stool studies are still requested if patient is able to submit a sample. Assessment and plan a care discussed with Dr. Wallace.
[2016-12-01] MEDS ORDERED: IPRATROPIUM-ALBUTEROL 3 ML NEB INHALATION PRN (13:02)
[2016-12-01] MEDS: metroNIDAZOLE-NS PMX 500 MG in SALINE 1 100ML.BAG IVPB SCH (13:05)
[2016-12-01 15:48] VITALS: BP 134/67; PULSE 66; RESP 18; TEMP 97.6
[2016-12-01] MEDS ORDERED: metroNIDAZOLE 500 MG TAB PO SCH (16:00)
[2016-12-01] MEDS ORDERED: IPRATROPIUM-ALBUTEROL 3 ML NEB INHALATION SCH (16:00)
[2016-12-01] MEDS ORDERED: SYMBICORT 160-4.5 MCG INHALER INHALATION SCH (20:00)
--- NOTE | 2016-12-02 08:22 | DS ---
DATE OF ADMISSION: 11/28/2016 DATE OF DISCHARGE: 12/01/2016 Patient is admitted secondary to abdominal pain, nonbloody diarrhea. Patient underwent EGD and colonoscopy. EGD showed esophagitis, duodenitis and colonoscopy showed resolving infectious colitis and patient will be discharged on Augmentin. Patient also has COPD exacerbation. Patient will be discharged on systemic steroids and Spiriva will be added to his inhalational breathing treatment regimen. Patient is already taking Spiriva and Albuterol which he was asked to continue. Patient was seen and examined on the day of discharge. Vitals are stable. PHYSICAL EXAMINATION: RESPIRATORY: Significant expiratory wheezing and increased rate into bilateral lung crespo. GENERAL: The patient is alert and oriented x3, not in any acute distress. Well developed, well nourished. HEENT: Pupils are round and equally reacting to light. EOMI. No scleral icterus. No conjunctival pallor. Normocephalic, atraumatic. No pharyngeal erythema. No thyromegaly. CARDIOVASCULAR: S1 and S2 present. No murmurs, rubs, or gallops. ABDOMEN: Soft, nontender, nondistended, normoactive bowel sounds. No palpable organomegaly. MUSCULOSKELETAL: No joint swelling or deformity. EXTREMITIES: No cyanosis, clubbing, or pedal edema. NEUROLOGICAL: Gross neurological examination did not reveal any focal deficits. SKIN: No rashes. on other vitals are stable. He is unknown. Underwent expiratory wheezing and the latter lung crespo. NEUROLOGICAL: Gross neurological examination did not reveal any focal deficits. ASSESSMENT AND PLAN: 1. Infectious colitis leading to diarrhea. 2. Gastritis and duodenitis. 3. Chronic obstructive pulmonary disease with acute exacerbation. 4. Chronic pain syndrome. 5. Asymptomatic bacteria which does not need any antibiotics. Patient will be discharged today and ( ) home. Please refer to my depart summary for further list of discharge medications. Patient will follow with Dr. Wallace in 1 week, Dr. Starr Nowak in 3 to 7 days. Activity as tolerated and regular diet. Spent greater than 35 minutes in total discharge process.
== END 2016-12-01 15:50 | disposition home or self-care (01) | DRG 392 ==
LOC: EC 14:05 → 5MS5E 16:14
PROVIDERS: ADMIT Hospitalist; ATTEND Hospitalist
PROC: 0DB98ZX Excision of Duodenum, Via Natural or Artificial Opening Endoscopic, Diagnostic (ICD-10-PCS; 2016-11-30)
PROC: 0DB78ZX Excision of Stomach, Pylorus, Via Natural or Artificial Opening Endoscopic, Diagnostic (ICD-10-PCS; 2016-11-30)
PROC: 0DB58ZX Excision of Esophagus, Via Natural or Artificial Opening Endoscopic, Diagnostic (ICD-10-PCS; 2016-11-30)
PROC: 0DBH8ZX Excision of Cecum, Via Natural or Artificial Opening Endoscopic, Diagnostic (ICD-10-PCS; principal; 2016-11-30 12:15)
PROC: 0DBE8ZX Excision of Large Intestine, Via Natural or Artificial Opening Endoscopic, Diagnostic (ICD-10-PCS; 2016-11-30 12:15)
DX: A09 Infectious gastroenteritis and colitis, unspecified (principal); K63.3 Ulcer of intestine; I50.9 Heart failure, unspecified; J44.1 Chronic obstructive pulmonary disease with (acute) exacerbation; K86.1 Other chronic pancreatitis; K20.9 Esophagitis, unspecified; D72.829 Elevated white blood cell count, unspecified; K29.70 Gastritis, unspecified, without bleeding; K29.80 Duodenitis without bleeding; D12.0 Benign neoplasm of cecum; K31.7 Polyp of stomach and duodenum; F17.210 Nicotine dependence, cigarettes, uncomplicated; R82.71 Bacteriuria; R06.2 Wheezing; M51.34 Other intervertebral disc degeneration, thoracic region; M47.812 Spondylosis without myelopathy or radiculopathy, cervical region; K44.9 Diaphragmatic hernia without obstruction or gangrene; F32.9 Major depressive disorder, single episode, unspecified; G89.4 Chronic pain syndrome; Z86.73 Personal history of transient ischemic attack (TIA), and cerebral infarction without residual deficits; Z98.1 Arthrodesis status; Z79.899 Other long term (current) drug therapy; Z79.891 Long term (current) use of opiate analgesic
CPT/HCPCS: 36415; 43239; 45380; 71010; 74177; 80048; 80053; 81001; 82150; 82272; 83690; 84484; 85025; 85610; 85730; 88305; 88342

== ENCOUNTER 2016-12-07 09:18 | Inpatient (IN) | payer MEDICARE, OTHER ==
[2016-12-07] MEDS ORDERED: SODIUM CHLORIDE 0.9% 1,000 ML IV STA ×2 (09:26)
[2016-12-07] MEDS ORDERED: IPRATROPIUM-ALBUTEROL 3 ML NEB INHALATION STA (09:30)
[2016-12-07] MEDS ORDERED: ONDANSETRON 4 MG/2 ML VIAL IVP STA (09:31)
[2016-12-07] MEDS ORDERED: HYDROmorphone 1 MG/ML 1 ML SYRINGE IVP STA (09:31)
--- NOTE | 2016-12-07 09:42 | ED ---
Abdominal Pain HPI - General Source: patient, RN notes reviewed Mode of arrival: ambulatory Limitations: no limitations <Arnulfo Arias - Last Filed: 12/07/16 11:11> <Josue Perez - Last Filed: 12/07/16 11:32> - General Chief Complaint: Abdominal Pain Stated Complaint: dehydration Time Seen by Provider: 12/07/16 09:25 - History of Present Illness Initial Comments: 61-year-old male presents emergency Department with chief complaint of abdominal pain, dehydration not feeling well. Patient states he was discharged roughly 5 days ago followed up today with his primary care physician sent back to the hospital for admission. Patient states she's had one meal since discharge states she is unable to eat secondary to pain and no appetite. Patient's been have diarrhea once daily. Patient states on admission he was admitted for colitis and newly diagnosed colon cancer. Patient states that the pain is unbearable and that he is feeling very weak. Patient does have COPD continues to smoke. Patient states she's had some wheezing but denies any chest pain or palpitations. Patient denies fever but complains of chills and some hot flashes. Patient denies any dysuria or hematuria. (Arnulfo Arias) - Related Data Home Medications Medication Instructions Recorded Confirmed Morphine Sulfate [Morphine Sulfate 30 mg PO BID 11/28/16 12/07/16 ER] Sertraline [Zoloft] 100 mg PO HS 11/28/16 12/07/16 Zolpidem [Ambien] 10 mg PO HS PRN 11/28/16 12/07/16 busPIRone HCL 15 mg PO BID 11/28/16 12/07/16 Albuterol Sulfate [Proair Hfa] 2 puff INHALATION RT-Q6H PRN 12/07/16 12/07/16 Budesonide-Formot 160-4.5 Mcg 2 puff INHALATION RT-BID 12/07/16 12/07/16 [Symbicort 160-4.5 Mcg Inhaler] Previous Rx's Medication Instructions Recorded Amoxic-Pot Clav 875-125Mg 1 tab PO Q12HR #14 tablet 12/01/16 [Augmentin 875-125] Omeprazole [PriLOSEC] 40 mg PO AC-BRKFST #14 capsule. 12/01/16 Tiotropium [place] [Spiriva] 1 cap INHALATION DAILY #1 device 12/01/16 predniSONE 10 mg PO DAILY #30 tab 12/01/16 Allergies Allergy/AdvReac Type Severity Reaction Status Date / Time No Known Allergies Allergy Verified 12/07/16 09:50 Review of Systems ROS Other: All systems not noted in ROS Statement are negative. <Arnulfo Arias - Last Filed: 12/07/16 11:11> ROS Other: All systems not noted in ROS Statement are negative. <Josue Perez - Last Filed: 12/07/16 11:32> ROS Statement: Those systems with pertinent positive or pertinent negative responses have been documented in the HPI. Past Medical History Past Medical History: Heart Failure, COPD, CVA/TIA Additional Past Medical History / Comment(s): chronic pain History of Any Multi-Drug Resistant Organisms: None Reported Additional Past Surgical History / Comment(s): cervical fusion Past Anesthesia/Blood Transfusion Reactions: No Reported Reaction Past Psychological History: Depression Smoking Status: Current every day smoker Past Alcohol Use History: None Reported Past Drug Use History: None Reported - Past Family History Mother History Unknown: Yes Father History Unknown: Yes Sister(s) Family Medical History: Cancer Additional Family Medical History / Comment(s): lung cancer <Arnulfo Arias - Last Filed: 12/07/16 11:11> General Exam Limitations: no limitations General appearance: alert, in no apparent distress ENT exam: Present: mucous membranes dry Neck exam: Present: normal inspection, full ROM. Absent: tenderness, meningismus, lymphadenopathy Respiratory exam: Present: wheezes. Absent: normal lung sounds bilaterally, respiratory distress, rales, rhonchi, stridor Cardiovascular Exam: Present: regular rate, normal rhythm, normal heart sounds. Absent: systolic murmur, diastolic murmur, rubs, gallop, clicks GI/Abdominal exam: Present: soft, tenderness (Diffuse moderate tenderness), normal bowel sounds. Absent: distended, guarding, rebound, rigid Back exam: Absent: CVA tenderness (R), CVA tenderness (L) Neurological exam: Present: alert, oriented X3, CN II-XII intact Skin exam: Present: warm, dry, intact, normal color. Absent: rash <Arnulfo Arias - Last Filed: 12/07/16 11:11> Medical Decision Making - Lab Data Result diagrams: 12/07/16 09:37 12/07/16 09:37 <JuanaArnulfo Magdalena - Last Filed: 12/07/16 11:11> - Lab Data Result diagrams: 12/07/16 09:37 12/07/16 09:37 <Josue Perez - Last Filed: 12/07/16 11:32> - Medical Decision Making Patient reevaluated by myself, Dr. Perez. Patient resting comfortably in bed. Abdomen nontender to palpation at this time. Patient states he saw his doctor today and was diagnosed with colon cancer and advised to come back to the hospital. Case was discussed in detail with Dr. Mcwilliams, who will admit for Dr. Nowak. (Josue Perez) - Lab Data Lab Results 12/07/16 12/07/16 12/07/16 Range/Units 09:37 09:37 09:37 WBC 11.6 H (3.8-10.6) k/uL RBC 5.59 (4.30-5.90) m/uL Hgb 17.8 H (13.0-17.5) gm/dL Hct 51.8 (39.0-53.0) % MCV 92.7 (80.0-100.0) fL MCH 31.8 (25.0-35.0) pg MCHC 34.3 (31.0-37.0) g/dL RDW 13.3 (11.5-15.5) % Plt Count 391 (150-450) k/uL Neutrophils % 62 % Lymphocytes % 26 % Monocytes % 8 % Eosinophils % 1 % Basophils % 1 % Neutrophils # 7.1 (1.3-7.7) k/uL Lymphocytes # 3.0 (1.0-4.8) k/uL Monocytes # 0.9 (0-1.0) k/uL Eosinophils # 0.1 (0-0.7) k/uL Basophils # 0.1 (0-0.2) k/uL Sodium 141 (137-145) mmol/L Potassium 4.5 (3.5-5.1) mmol/L Chloride 105 (98-107) mmol/L Carbon Dioxide 21 L (22-30) mmol/L Anion Gap 15 mmol/L BUN 20 (9-20) mg/dL Creatinine 1.07 (0.66-1.25) mg/dL Est GFR (MDRD) Af Amer >60 (>60 ml/min/1.73 sqM) Est GFR (MDRD) Non-Af >60 (>60 ml/min/1.73 sqM) Glucose 104 H (74-99) mg/dL Plasma Lactic Acid Niels 1.9 (0.7-2.0) mmol/L Calcium 10.5 H (8.4-10.2) mg/dL Total Bilirubin 1.7 H (0.2-1.3) mg/dL AST 51 (17-59) U/L ALT 99 H (21-72) U/L Alkaline Phosphatase 57 (38-126) U/L Total Protein 8.3 H (6.3-8.2) g/dL Albumin 4.9 (3.5-5.0) g/dL Amylase 57 (30-110) U/L Lipase 291 (23-300) U/L Urine Color Urine Appearance (Clear) Urine pH (5.0-8.0) Ur Specific [place] (1.001-1.035) Urine Protein (Negative) Urine Glucose (UA) (Negative) Urine Ketones (Negative) Urine Blood (Negative) Urine Nitrite (Negative) Urine Bilirubin (Negative) Urine Urobilinogen (<2.0) mg/dL Ur Leukocyte Esterase (Negative) Urine RBC (0-5) /hpf Urine WBC (0-5) /hpf Urine Bacteria (None) /hpf Hyaline Casts (0-2) /lpf Urine Mucus (None) /hpf 12/07/16 Range/Units 10:05 WBC (3.8-10.6) k/uL RBC (4.30-5.90) m/uL Hgb (13.0-17.5) gm/dL Hct (39.0-53.0) % MCV (80.0-100.0) fL MCH (25.0-35.0) pg MCHC (31.0-37.0) g/dL RDW (11.5-15.5) % Plt Count (150-450) k/uL Neutrophils % % Lymphocytes % % Monocytes % % Eosinophils % % Basophils % % Neutrophils # (1.3-7.7) k/uL Lymphocytes # (1.0-4.8) k/uL Monocytes # (0-1.0) k/uL Eosinophils # (0-0.7) k/uL Basophils # (0-0.2) k/uL Sodium (137-145) mmol/L Potassium (3.5-5.1) mmol/L Chloride (98-107) mmol/L Carbon Dioxide (22-30) mmol/L Anion Gap mmol/L BUN (9-20) mg/dL Creatinine (0.66-1.25) mg/dL Est GFR (MDRD) Af Amer (>60 ml/min/1.73 sqM) Est GFR (MDRD) Non-Af (>60 ml/min/1.73 sqM) Glucose (74-99) mg/dL Plasma Lactic Acid Niels (0.7-2.0) mmol/L Calcium (8.4-10.2) mg/dL Total Bilirubin (0.2-1.3) mg/dL AST (17-59) U/L ALT (21-72) U/L Alkaline Phosphatase (38-126) U/L Total Protein (6.3-8.2) g/dL Albumin (3.5-5.0) g/dL Amylase (30-110) U/L Lipase (23-300) U/L Urine Color Yellow Urine Appearance Cloudy (Clear) Urine pH 5.5 (5.0-8.0) Ur Specific [place] 1.022 (1.001-1.035) Urine Protein 1+ H (Negative) Urine Glucose (UA) Negative (Negative) Urine Ketones Trace H (Negative) Urine Blood Trace H (Negative) Urine Nitrite Negative (Negative) Urine Bilirubin Negative (Negative) Urine Urobilinogen <2.0 (<2.0) mg/dL Ur Leukocyte Esterase Trace H (Negative) Urine RBC 1 (0-5) /hpf Urine WBC 4 (0-5) /hpf Urine Bacteria Rare H (None) /hpf Hyaline Casts 2 (0-2) /lpf Urine Mucus Few H (None) /hpf Disposition <Arnulfo Arias - Last Filed: 12/07/16 11:11> <Josue Perez - Last Filed: 12/07/16 11:32> Clinical Impression: Colitis, Diarrhea, Colon cancer, Intractable abdominal pain Disposition: ADMITTED IP TO THIS [facility] Condition: Fair Referrals: Milton Nowak III, MD [Primary Care Provider] - 1-2 days
--- NOTE | 2016-12-07 10:05 | XR ---
EXAMINATION TYPE: XR chest 2V DATE OF EXAM: 12/07/2016 9:59 AM COMPARISON: Chest x-ray November 28, 2016. HISTORY: Chest pain per order. Weight loss and shortness of breath. TECHNIQUE: Frontal and lateral views of the chest are obtained. FINDINGS: There is no focal air space opacity, pleural effusion, or pneumothorax seen. Underlying em physematous change is not excluded on lateral view with flattened hemidiaphragms noted. The cardiac silhouette size is within normal limits. Some multilevel spurring in the thoracic spine is present. S urgical changes lower cervical spine are partially imaged. IMPRESSION: No acute cardiopulmonary process. No significant change from prior.
--- NOTE | 2016-12-07 10:06 | XR ---
EXAMINATION TYPE: XR KUB DATE OF EXAM: 12/07/2016 9:59 AM CLINICAL HISTORY: Abdominal pain per order. Weight loss and diarrhea per patient. TECHNIQUE: 2 upright KUB images of the abdomen are obtained. COMPARISON: CT abdomen pelvis November 28, 2016. FINDINGS: Scattered gas is seen in non-distended small bowel loops. Gas and fecal material is seen in non-distended colon. Some scattered air-fluid levels are seen, this is nonspecific finding. No pne umoperitoneum is noted. No suspicious calcifications are seen. Lung bases are clear and the visualize d osseous structures are intact. Some vascular calcification in the lower pelvis is redemonstrated. IMPRESSION: Overall nonspecific favor nonobstructive bowel gas pattern.
[2016-12-07 10:17] LABS: Basophils # (A) 0.1 k/uL (0-0.2); Basophils % (A) 1 %; CH 31.8; CHCM 34.5; Eosinophils # (A) 0.1 k/uL (0-0.7); Eosinophils % (A) 1 %; HCT 51.8 % (39.0-53.0); HDW 2.08; HGB 17.8 gm/dL (13.0-17.5); Luc % (Auto) 3; Lymphocytes % (A) 26 %; MCH 31.8 pg (25.0-35.0); MCHC 34.3 g/dL (31.0-37.0); MCV 92.7 fL (80.0-100.0); Mean Platelet Volume 6.8; Monocytes # (A) 0.9 k/uL (0-1.0); Monocytes % (A) 8 %; Neutrophils # (A) 7.1 k/uL (1.3-7.7); Neutrophils % (A) 62 %; RBC 5.59 m/uL (4.30-5.90); RDW 13.3 % (11.5-15.5); WBC 11.6 k/uL (3.8-10.6)
[2016-12-07 10:27] LABS: ALT 99 U/L (21-72); AST 51 U/L (17-59); Alkaline Phosphatase 57 U/L (38-126); Amylase 57 U/L (30-110); Anion Gap 15 mmol/L; Blood Urea Nitrogen 20 mg/dL (9-20); Calcium 10.5 mg/dL (8.4-10.2); Carbon Dioxide 21 mmol/L (22-30); Chloride 105 mmol/L (98-107); Glucose 104 mg/dL (74-99); Non-African American GFR(MDRD) >60 (>60 ml/min/1.73 sqM); Potassium 4.5 mmol/L (3.5-5.1); Sodium 141 mmol/L (137-145); Total Bilirubin 1.7 mg/dL (0.2-1.3); Total Protein 8.3 g/dL (6.3-8.2)
[2016-12-07 11:07] LABS: Appearance,Urine Cloudy (Clear); Bacteria,Urine Rare /hpf; Bilirubin,Urine Negative (Negative); Glucose,Urine (UA) Negative (Negative); Ketones,Urine Trace (Negative); Leukocyte Esterase,Urine Trace (Negative); Mucus,Urine Few /hpf; Nitrite,Urine Negative (Negative); PH, Urine 5.5 (5.0-8.0); Particle Count 11860; Protein,Urine 1+ (Negative); RBC,Urine 1 /hpf (0-5); Specific Gravity,Urine 1.022 (1.001-1.035); UA Billing (MACRO vs. MICRO) MICRO; Urobilinogen,Urine <2.0 mg/dL (<2.0); WBC,Urine 4 /hpf (0-5)
[2016-12-07] MEDS ORDERED: NALOXONE 0.4 MG/ML 1 ML VIAL IV PRN (11:14)
[2016-12-07] MEDS ORDERED: ONDANSETRON 4 MG/2 ML VIAL IVP PRN (11:14)
[2016-12-07] MEDS ORDERED: ALBUTEROL NEBULIZED 2.5 MG/3 ML INHALATION PRN (15:22)
[2016-12-07] MEDS: NICOTINE 14MG/24HR PATCH TRANSDERM SCH (16:22)
[2016-12-07] MEDS: MORPHINE SULFATE ER 30 MG TABLET PO SCH (20:07)
[2016-12-07] MEDS: SERTRALINE 100 MG TAB PO SCH (20:08)
[2016-12-07] MEDS: busPIRone HCl 5 MG TAB PO SCH (20:08)
[2016-12-07] MEDS: SYMBICORT 160-4.5 MCG INHALER INHALATION SCH (20:30)
[2016-12-07] MEDS ORDERED: AMOXIC-POT CLAV 875-125MG 1 EACH TAB PO SCH (21:00)
[2016-12-07] MEDS: ZOLPIDEM 10 MG TAB PO PRN (22:07)
[2016-12-08 08:24] LABS: CH 31.2; CHCM 32.9; HCT 48.3 % (39.0-53.0); HDW 2.08; HGB 15.7 gm/dL (13.0-17.5); MCH 31.1 pg (25.0-35.0); MCHC 32.6 g/dL (31.0-37.0); MCV 95.5 fL (80.0-100.0); Mean Platelet Volume 6.6; RBC 5.06 m/uL (4.30-5.90); RDW 13.2 % (11.5-15.5); WBC 11.4 k/uL (3.8-10.6)
[2016-12-08 08:35] LABS: Anion Gap 8 mmol/L; Blood Urea Nitrogen 18 mg/dL (9-20); Calcium 9.3 mg/dL (8.4-10.2); Carbon Dioxide 26 mmol/L (22-30); Chloride 104 mmol/L (98-107); Glucose 82 mg/dL (74-99); Non-African American GFR(MDRD) >60 (>60 ml/min/1.73 sqM); Potassium 4.8 mmol/L (3.5-5.1); Sodium 138 mmol/L (137-145)
[2016-12-08] MEDS: MORPHINE SULFATE ER 30 MG TABLET PO SCH ×2 (08:50→21:39)
[2016-12-08] MEDS: busPIRone HCl 5 MG TAB PO SCH ×2 (08:50→19:59)
[2016-12-08] MEDS: PANTOPRAZOLE 40 MG TABLET PO SCH (08:50)
[2016-12-08] MEDS: NICOTINE 14MG/24HR PATCH TRANSDERM SCH (08:51)
[2016-12-08] MEDS ORDERED: predniSONE 10 MG TAB PO SCH (09:00)
[2016-12-08] MEDS: SYMBICORT 160-4.5 MCG INHALER INHALATION SCH ×2 (09:18→19:51)
--- NOTE | 2016-12-08 09:18 | HP ---
DATE OF ADMISSION: Patient is a 61-year-old was recently discharged from hospital after he was treated for colitis and esophagitis and duodenitis. Patient was discharged on Augmentin as patient was on Zosyn for colitis. The following day started having diarrhea again, did not each and diffuse nonspecific abdominal pain and nonradiating diffusely in the abdomen, pointing mostly to the epigastric area. We are opting C. diff testing and patient was readmitted and patient was started on IV fluids and Surgical Services were consulted. Patient denied any fever, chills. Patient denied any dysuria. Patient denied any blood in the stools and patient's biopsies from colonoscopy showed colonic adenocarcinoma. REVIEW OF SYSTEMS: All other systems were reviewed and were negative. Home medications include: 1. Morphine sulfate. 2. Sertraline. 3. Zolpidem. 4. Buspirone. 5. Albuterol. 6. Budesonide formoterol. 7. Augmentin. 8. Omeprazole. 9. Tiotropium. 10. Prednisone. ALLERGIES: No known drug allergies. PAST MEDICAL: Significant for congestive heart failure, COPD, CVA, TIA, colitis and recent present diagnosis of ( ) surgery, depression. SOCIAL HISTORY: Patient continues to smoke, denied any alcohol abuse or any drug abuse. FAMILY HISTORY: Lung cancer in sister. PHYSICAL EXAMINATION: VITAL SIGNS: Temperature 97.9, pulse of 68, respiratory rate of 16, blood pressure is 134/64, saturating at 94% on room air. GENERAL: The patient is alert and oriented x3, not in any acute distress. Well developed, well nourished. HEENT: Pupils are round and equally reacting to light. EOMI. No scleral icterus. No conjunctival pallor. Normocephalic, atraumatic. No pharyngeal erythema. No thyromegaly. CARDIOVASCULAR: S1 and S2 present. No murmurs, rubs, or gallops. PULMONARY: Chest is clear to auscultation, no wheezing or crackles. ABDOMEN: Soft, nontender, nondistended, normoactive bowel sounds. No palpable organomegaly. MUSCULOSKELETAL: No joint swelling or deformity. EXTREMITIES: No cyanosis, clubbing, or pedal edema. NEUROLOGICAL: Gross neurological examination did not reveal any focal deficits. SKIN: No rashes. LABORATORY DATA: CBC and CMP are abnormal for elevated WBC count of 11,600. This is secondary to COPD. Patient's hematocrit is elevated secondary to chronic hypoxemia from COPD, bicarbonate of 21, anion gap of 15., lactic acid is 1.9. LDL is minimally elevated, lipase is 291. Urine showed trace ketones, trace blood, 1+ protein, trace leukocyte esterase, trace bacteria, although ( ) has urinary tract infection. Chest x-ray, abdominal x-ray, no significant acute abnormality. ASSESSMENT AND PLAN: 1. Diarrhea. Will obtain Clostridium difficile testing and patient will be started on IV fluids. 2. Continued abdominal pain. Patient will be treated with Protonix and further imaging as per Surgical Services. 3. Recent diagnosis of colonic adenocarcinoma. As mentioned above, patient will need evaluation from Surgery for possible colectomy. 4. Gastritis and duodenitis. Will continue with proton pump inhibitor. 5. Patient was treated for chronic obstructive pulmonary disease with acute exacerbation, will continue with the Protonix for now. 6. Asymptomatic bacteriuria, which does not warrant any antibiotics. Patient was recently treated for infectious colitis. [facility]
[2016-12-08 09:49] VITALS: BMI 23.5
[2016-12-08 11:53] LABS: Glucose,Whole Blood 96 mg/dL (75-99)
--- NOTE | 2016-12-08 12:07 | P.GSCN ---
History of Present Illness Consult date: 12/07/16 Reason for Consult: Surgical eval abnormal colonoscopy biopsy report suggestive of in situ adenocarcinoma History of present illness: A 61-year-old gentleman is being seen for a surgical eval per the request of the attending. Patient underwent a colonoscopy and EGD November 30. Patient states that the workup was for persistent episodes of frequent loose nonbloody stools with left lower quadrant pain onset for the past several months . Patient stated his PCP referred him to gastroenterology service to undergo endoscopic . Patient states that he was at the PCPs office yesterday went over the path report and was told to come to the hospital to be admitted. Patient states he continues to have left lower quadrant pain. With frequent painless nonbloody stools. The colonoscopy report was reviewed. 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 The colon random biopsies path report shows acute colitis with ischemic type features suggestive of lymphocytic colitis. Biopsies of the esophagus chronic esophagitis. With mild chronic gastritis. H. pylori stain negative. Patient states for the last several months he has had no appetite and over the last several weeks has lost "14 pounds unintentionally. Patient states "every time I tried to eat something it goes right through me and causes pain on the left lower quadrant. Patient gives no other significant past abdominal surgical history. Patient states has had cervical spine surgery surgery on his left forearm otherwise no significant past surgical history. Patient denies any episodes of chest pain tightness or pressure heart palpitation. Patient gives no cardiac history. Patient also states he has not been treated in the past for colitis. He does state that over the last several years would have episodes of having frequent loose stools with left lower quadrant pain When questioning patient patient states he has not had episodes of vomiting has not been experiencing any nausea and there's been no blood in the stool. past medical history chronic pain syndrome, depression, COPD.. Patient states that he does smoke cigarettes greater than a 40 year history. Patient denies any use of alcohol Review of Systems Essentially unremarkable except as mentioned in the present illness Past Medical History Past Medical History: Cancer, Heart Failure, COPD, CVA/TIA, GERD/Reflux Additional Past Medical History / Comment(s): Pt recently admitted 11/28/16 with abdominal pain, esophagitis, infectious colitis and exacerbation of his COPD. He had EGD with bx and colonoscopy with bx-states he has also been diagnosed with colon cancer. Other hx: Recent diagnosis of infectious colitis, doudenal and cecal polyps, colon cancer, past chronic pain -in his back and lately abdomin, TIA, tuberculosis 5 yrs ago and completed treatments. History of Any Multi-Drug Resistant Organisms: None Reported Past Surgical History: Orthopedic Surgery Additional Past Surgical History / Comment(s): 12/01/16 EGD with bx and colonoscopy with bx, R forearm steel removed, cervical fusion. Past Anesthesia/Blood Transfusion Reactions: No Reported Reaction Past Psychological History: Depression Additional Psychological History / Comment(s): Pt states his depresssion is stable. He resides with his spouse. He uses no assistive device. Until recent illness he was driving. Smoking Status: Current every day smoker Past Alcohol Use History: None Reported Additional Past Alcohol Use History / Comment(s): Pt states he started smoking in 1969 and is less than a ppd smoker. Past Drug Use History: None Reported - Past Family History Mother History Unknown: Yes Father History Unknown: Yes Additional Family Medical History / Comment(s): Father during his AAA repair. Sister(s) Family Medical History: Cancer Additional Family Medical History / Comment(s): lung cancer Medications and Allergies Home Medications Medication Instructions Recorded Confirmed Type Morphine Sulfate [Morphine Sulfate 30 mg PO BID 11/28/16 12/07/16 History ER] Sertraline [Zoloft] 100 mg PO HS 11/28/16 12/07/16 History Zolpidem [Ambien] 10 mg PO HS PRN 11/28/16 12/07/16 History busPIRone HCL 15 mg PO BID 11/28/16 12/07/16 History Albuterol Sulfate [Proair Hfa] 2 puff INHALATION RT-Q6H PRN 12/07/16 12/07/16 History Budesonide-Formot 160-4.5 Mcg 2 puff INHALATION RT-BID 12/07/16 12/07/16 History [Symbicort 160-4.5 Mcg Inhaler] Allergies Allergy/AdvReac Type Severity Reaction Status Date / Time No Known Allergies Allergy Verified 12/07/16 09:50 Surgical - Exam Vital Signs Temp Pulse Resp BP Pulse Ox 98.8 F 82 20 184/93 99 12/07/16 09:20 12/07/16 09:20 12/07/16 09:20 12/07/16 09:20 12/07/16 09:20 GENERAL APPEARANCE: 61-year-old male patient is alert, oriented, in no acute distress. Sitting up on the edge of the bed currently taking a diet VITAL SIGNS: Reviewed HEENT: Head is normocephalic and atraumatic. Pupils are equal and reactive. The nares are patent. Oropharynx is clear without lesions. NECK: Supple without lymphadenopathy. Traches midline. HEART: S1, S2. Regular rate and rhythm. No murmur noted denying chest pain LUNGS: No crackles or wheezes are heard. Adequate air movement bilaterally no conversational dyspnea noted no cough noted ABDOMEN: Soft, nontender, nondistended with good bowel sounds. No peritoneal signs. No palpable organomegaly or masses. Denying abdominal pain when questioning denying any nausea or vomiting. Does report having 3 loose watery stools since midnight EXTREMITIES: Normal skin color and turgor. No cyanosis, rash, ulceration, clubbing or edema. Radial pedal pulses are 2/4 bilaterally. NEUROLOGICAL: No focal deficits. Strength and sensation are grossly intact. Results - Labs 12/08/16 07:24 12/08/16 07:24 Assessment and Plan Plan: Impression Present on admission left lower quadrant pain suspect due to colitis Chronic pain syndrome opiate dependency COPD with no evidence of acute exacerbation Recent EGD done on November 30 showing gastritis mild with duodenitis History of frequent stooling colonoscopy done November 30 shows acute colitis with ischemic type features suggestive of lymphocytic colitis Colonoscopy 30 of November biopsy colon Cecum biopsy in situ adenocarcinoma Unintentional weight loss 14 pounds Plan Await GIs eval At this time no surgical intervention warranted the patient needs to be treated for the colitis once stabilized will follow-up with further surgical intervention recommendations to address the biopsy of the colon of the cecum showing in situ adenocarcinoma Resume home meds as appropriate Pain control DVT and GI prophylaxis will follow surgical course closely with further surgical recommendations Thank you for allowing us to participate in the surgical management of your patient will follow closely. Patient was updated on the plan of care and the surgical approach. The above dictated assessment and findings were discussed with dr grayson Nair and the plan of care have been dictated as directed. Cindy Jean nurse practitioner acting as a scribe for dr owen
[2016-12-08] MEDS ORDERED: LOPERAMIDE 2 MG CAP PO STA (12:32)
[2016-12-08] MEDS ORDERED: LOPERAMIDE 2 MG CAP PO SCH (13:00)
[2016-12-08] MEDS ORDERED: predniSONE 20 MG TAB PO ONE (13:00)
[2016-12-08] MEDS: TIOTROPIUM 18 MCG/PUFF INHALER INHALATION SCH (13:01)
[2016-12-08] MEDS: HYDROmorphone 1 MG/ML 1 ML SYRINGE IV PRN ×2 (14:20→19:49)
[2016-12-08] MEDS: LOPERAMIDE 2 MG CAP PO SCH ×2 (18:00→21:39)
[2016-12-08] MEDS: CHOLESTYRAMINE (WITH SUGAR) 4 GM PACKET PO SCH (18:00)
[2016-12-08] MEDS: SERTRALINE 100 MG TAB PO SCH (19:59)
--- NOTE | 2016-12-08 20:04 | P.CONS ---
History of Present Illness - Reason for Consult Consult date: 12/08/16 Colon cancer - History of Present Illness The patient is 61-year-old gentleman, who was admitted in late 11/22, with complains of abdominal pain, as well as diarrhea that had been present over the last few weeks and had been progressive during that time. He reported some associated nausea, but no vomiting or any bleeding. He underwent a computed tomography scan of the abdomen and pelvis that was suggestive of possible colitis and mass lesion in the duodenum. He underwent an EGD and colonoscopy with Dr. Wallace on 11/30/16. EGD was normal. On colonoscopy a cecal polyp was found and removed. There was also evidence of colitis. Biopsies showed and adenocarcinoma in situ arising from a tubular polyp from the cecal biopsy. Patchy ischemic type colitis, with a background of possible lymphocytic colitis was noted. The patient was discharged, but readmitted with progressive complains of the same nature. Chest x-ray as well as x-ray KUB were negative. Consult was placed for further evaluation. The patient does not believe that he had a colonoscopy before. He denied any known history of colitis. Review of Systems Constitutional: Reports poor appetite (The liver), Reports weight loss ( Deliberate) Eyes: denies blurred vision, denies pain Ears: deny: decreased hearing, ear discharge, earache, tinnitus Ears, nose, mouth and throat: Denies headache, Denies sore throat Cardiovascular: Denies chest pain, Denies shortness of breath Respiratory: Denies cough Gastrointestinal: Reports as per HPI, Reports abdominal pain, Reports diarrhea, Reports nausea Genitourinary: Reports as per HPI Musculoskeletal: Reports low back pain, Reports neck pain, Reports neck stiffness Integumentary: Denies pruritus, Denies rash Neurological: Reports weakness Psychiatric: Reports depression Endocrine: Reports fatigue, Reports weight change Hematologic/Lymphatic: Reports as per HPI Past Medical History Past Medical History: Cancer, Heart Failure, COPD, CVA/TIA, GERD/Reflux Additional Past Medical History / Comment(s): Pt recently admitted 11/28/16 with abdominal pain, esophagitis, infectious colitis and exacerbation of his COPD. He had EGD with bx and colonoscopy with bx-states he has also been diagnosed with colon cancer. Other hx: Recent diagnosis of infectious colitis, doudenal and cecal polyps, colon cancer, past chronic pain -in his back and lately abdomin, TIA, tuberculosis 5 yrs ago and completed treatments. History of Any Multi-Drug Resistant Organisms: None Reported Past Surgical History: Orthopedic Surgery Additional Past Surgical History / Comment(s): 12/01/16 EGD with bx and colonoscopy with bx, R forearm steel removed, cervical fusion. Past Anesthesia/Blood Transfusion Reactions: No Reported Reaction Past Psychological History: Depression Additional Psychological History / Comment(s): Pt states his depresssion is stable. He resides with his spouse. He uses no assistive device. Until recent illness he was driving. Smoking Status: Current every day smoker Past Alcohol Use History: None Reported Additional Past Alcohol Use History / Comment(s): Pt states he started smoking in 1969 and is less than a ppd smoker. Past Drug Use History: None Reported - Past Family History Mother History Unknown: Yes Father History Unknown: Yes Additional Family Medical History / Comment(s): Father during his AAA repair. Sister(s) Family Medical History: Cancer Additional Family Medical History / Comment(s): lung cancer Medications and Allergies Home Medications Medication Instructions Recorded Confirmed Type Morphine Sulfate [Morphine Sulfate 30 mg PO BID 11/28/16 12/07/16 History ER] Sertraline [Zoloft] 100 mg PO HS 11/28/16 12/07/16 History Zolpidem [Ambien] 10 mg PO HS PRN 11/28/16 12/07/16 History busPIRone HCL 15 mg PO BID 11/28/16 12/07/16 History Albuterol Sulfate [Proair Hfa] 2 puff INHALATION RT-Q6H PRN 12/07/16 12/07/16 History Budesonide-Formot 160-4.5 Mcg 2 puff INHALATION RT-BID 12/07/16 12/07/16 History [Symbicort 160-4.5 Mcg Inhaler] Allergies Allergy/AdvReac Type Severity Reaction Status Date / Time No Known Allergies Allergy Verified 12/07/16 09:50 Physical Exam Vitals: Vital Signs Temp Pulse Resp BP Pulse Ox 12/08/16 14:58 98 F 61 20 118/72 98 12/08/16 07:00 97.9 F 59 L 20 120/76 98 12/07/16 21:07 97.3 F L 61 16 115/73 95 Intake and Output 12/08/16 12/08/16 12/08/16 06:59 14:59 22:59 Intake Total 200 Balance 200 Intake: Oral 200 Other: Voiding Method Toilet Toilet Toilet # Voids 1 # Bowel Movements 1 Weight 74.389 kg Patient Weight 12/09/16 06:59 Weight 74.389 kg - Constitutional General appearance: mild distress - EENT Eyes: EOMI, PERRLA ENT: hearing grossly normal, normal oropharynx - Neck Neck: no lymphadenopathy Thyroid: bilateral: normal size - Respiratory Respiratory: bilateral: CTA - Cardiovascular Rhythm: regular Heart sounds: normal: S1, S2 - Gastrointestinal General gastrointestinal: normal bowel sounds, soft Localized gastrointestinal: tender: RLQ, LLQ - Integumentary Integumentary: normal - Neurologic Neurologic: CNII-XII intact - Musculoskeletal Musculoskeletal: generalized weakness, strength equal bilaterally - Psychiatric Psychiatric: A&O x's 3, appropriate affect Results CBC & Chem 7: 12/08/16 07:24 12/08/16 07:24 Labs: Abnormal Lab Results - Last 24 Hours (Table) 12/08/16 Range/Units 07:24 WBC 11.4 H (3.8-10.6) k/uL Chest x-ray: report reviewed Abdominal x-ray: report reviewed CT scan - abdomen: report reviewed CT scan - pelvis: report reviewed Assessment and Plan (1) Colon cancer Narrative/Plan: The patient has very early stage disease, with actually carcinoma in situ arising in a tubular adenoma. The entire lesion may actually have been removed endoscopically. CT of the abdomen and pelvis did not show any evidence of metastasis, as expected with this early stage disease. Case was discussed with the surgery. The patient does need definitive surgery per guidelines. They will proceed with the same, when the patient is felt to be stable from the colitis standpoint. It is extremely unlikely, that this small in situ, early stage tumor is causing any symptoms. For in situ cancer, after surgery, no further oncologic intervention is required. He will need regular colonoscopy follow-up Status: Acute (2) Colitis Narrative/Plan: This is patchy, and appears to be somewhat ischemic in nature. Interestingly , there is a background of lymphocytic colitis with some infiltration of the mucosa with lymphoplasmacytic cells. Clinically this is more likely to be inflammatory. I will check protein electrophoresis studies, and also discuss with pathology if this could potentially represent a lympho-proliferative disorder Status: Acute
[2016-12-08] MEDS: ZOLPIDEM 10 MG TAB PO PRN (21:39)
[2016-12-09] MEDS: HYDROmorphone 1 MG/ML 1 ML SYRINGE IV PRN ×3 (00:34→08:12)
[2016-12-09] MEDS: NICOTINE 14MG/24HR PATCH TRANSDERM SCH (08:10)
[2016-12-09] MEDS: PANTOPRAZOLE 40 MG TABLET PO SCH (08:10)
[2016-12-09] MEDS: MORPHINE SULFATE ER 30 MG TABLET PO SCH (08:22)
[2016-12-09 08:24] VITALS: BP 145/84; PULSE 66; RESP 20; TEMP 98.2
[2016-12-09] MEDS: busPIRone HCl 5 MG TAB PO SCH (08:24)
[2016-12-09] MEDS: LOPERAMIDE 2 MG CAP PO SCH (08:24)
[2016-12-09] MEDS ORDERED: predniSONE 10 MG TAB PO SCH (09:00)
[2016-12-09] MEDS: SYMBICORT 160-4.5 MCG INHALER INHALATION SCH (09:12)
[2016-12-09] MEDS: TIOTROPIUM 18 MCG/PUFF INHALER INHALATION SCH (09:12)
--- NOTE | 2016-12-09 10:34 | P.CONS ---
History of Present Illness - Reason for Consult Consult date: 12/09/16 Lymphocytic colitis Requesting physician: Ellie Wray - History of Present Illness 61-year-old gentleman patient of Dr. Nowak with a past medical history of chronic neck pain with morphine sulfate maintenance, depression, long-standing nicotine cigarette dependency, COPD, CHF, and CVA/TIA patient presented about a week and a half ago with reports of nonbloody diarrhea for one to 2 weeks. He underwent EGD colonoscopy findings of lymphocytic colitis as well as signet ring adenocarcinoma in situ arising from a tubular adenoma in the cecum. Patient has been evaluated by general surgery there are plans to proceed with bowel resection in the near future. Consultation was requested for management of his lymphocytic colitis. He is still having 3-4 bowel movements a day loose nonbloody in nature with abdominal pain. He was started on loperamide, Questran and prednisone yesterday evening with good response. This morning he denies abdominal pain or diarrhea. Review of Systems Constitutional: Denies fever, chills, sweats, weight gain, or loss. HEENT: Negative for migraines, blurred vision or loss, earaches, drainage, tinnitus, oral mucosal lesions, dysphagia, or odynophagia. Cardiac: CHF. Negative for chest pain, arrhythmias, or palpitation. Respiratory: COPD. Long-standing nicotine cigarette dependency. Negative for shortness of breath, hemoptysis, cough, or sputum production. Gastrointestinal: See HPI for pertinent findings. Genitourinary: Negative for hematuria, urgency, frequency, polyuria, dysuria, or penile discharge. Musculoskeletal: Chronic back pain with history of cervical fusion. Negative for muscle aches, swelling, arthritis, and arthralgias. Neurologic: History of CVA TIA. Endocrine: Negative for thyroid problems. Skin: Negative for rash or itching. Psychiatric: Negative history for anxiety. History of depression. All systems: negative (see HPI) Past Medical History Past Medical History: Cancer, Heart Failure, COPD, CVA/TIA, GERD/Reflux Additional Past Medical History / Comment(s): Pt recently admitted 11/28/16 with abdominal pain, esophagitis, infectious colitis and exacerbation of his COPD. He had EGD with bx and colonoscopy with bx-states he has also been diagnosed with colon cancer. Other hx: Recent diagnosis of infectious colitis, doudenal and cecal polyps, colon cancer, past chronic pain -in his back and lately abdomin, TIA, tuberculosis 5 yrs ago and completed treatments. History of Any Multi-Drug Resistant Organisms: None Reported Past Surgical History: Orthopedic Surgery Additional Past Surgical History / Comment(s): 12/01/16 EGD with bx and colonoscopy with bx, R forearm steel removed, cervical fusion. Past Anesthesia/Blood Transfusion Reactions: No Reported Reaction Past Psychological History: Depression Additional Psychological History / Comment(s): Pt states his depresssion is stable. He resides with his spouse. He uses no assistive device. Until recent illness he was driving. Smoking Status: Current every day smoker Past Alcohol Use History: None Reported Additional Past Alcohol Use History / Comment(s): Pt states he started smoking in 1969 and is less than a ppd smoker. Past Drug Use History: None Reported - Past Family History Mother History Unknown: Yes Father History Unknown: Yes Additional Family Medical History / Comment(s): Father during his AAA repair. Sister(s) Family Medical History: Cancer Additional Family Medical History / Comment(s): lung cancer Medications and Allergies Home Medications Medication Instructions Recorded Confirmed Type Morphine Sulfate [Morphine Sulfate 30 mg PO BID 11/28/16 12/07/16 History ER] Sertraline [Zoloft] 100 mg PO HS 11/28/16 12/07/16 History Zolpidem [Ambien] 10 mg PO HS PRN 11/28/16 12/07/16 History busPIRone HCL 15 mg PO BID 11/28/16 12/07/16 History Albuterol Sulfate [Proair Hfa] 2 puff INHALATION RT-Q6H PRN 12/07/16 12/07/16 History Budesonide-Formot 160-4.5 Mcg 2 puff INHALATION RT-BID 12/07/16 12/07/16 History [Symbicort 160-4.5 Mcg Inhaler] Allergies Allergy/AdvReac Type Severity Reaction Status Date / Time No Known Allergies Allergy Verified 12/07/16 09:50 Physical Exam Vitals: Vital Signs Temp Pulse Resp BP BP Pulse Ox 12/09/16 07:00 98.2 F 66 20 145/84 97 12/09/16 00:36 119/77 12/09/16 00:00 16 12/08/16 21:39 113/62 12/08/16 20:43 97.8 F 55 L 16 122/71 97 12/08/16 14:58 98 F 61 20 118/72 98 Intake and Output 12/08/16 12/09/16 12/09/16 22:59 06:59 14:59 Intake Total 200 Balance 200 Intake: Oral 200 Other: Voiding Method Toilet Toilet AGeneral appearance: The patient is alert, oriented, in no acute distress. HET: Head is normocephalic and atraumatic. Pupils are equal and reactive. Oropharynx is clear without lesions. Neck: Supple without lymphadenopathy. Trachea midline. Heart: S1 S2. Regular rate and rhythm. Lungs: No crackles or wheezes are heard. Abdomen: Soft, nontender, nondistended with bowel sounds. No peritoneal signs. No palpable organomegaly or masses. Extremities: Normal skin color and turgor. No cyanosis, rash, ulceration, clubbing, or edema. Radial and pedal pulses are 2/4 bilaterally. Neurological: No focal deficits. Strength and sensation are grossly intact.m Results CBC & Chem 7: 12/08/16 07:24 12/08/16 07:24 Assessment and Plan (1) Lymphocytic colitis Status: Acute (2) Colon cancer Status: Acute Plan: 1. Agreeable for discharge. Questran 4 g twice daily. 2. Prednisone 30 mg daily 7 days, 25 mg daily 7 days, 20 mg times daily 7 days, 15 g daily 7 days, 10 mg daily 7 days. Prescription provided. 3. Loperamide 2 mg 3-4 times daily as needed for diarrhea titrate to keep bowel movements less than 4 times a day. Prescription provided. 4. Return to GI office in 7-[address] Wallace. 5. Follow-up with general surgery is advised. 6. Avoid NSAIDs as it can exacerbate colitis. 7. Diet as tolerated. Thank you for this kind referral and the opportunity to participate in the care of your patient. This consultation was discussed with Dr. Jett. The impression and plan of care have been directed as dictated.
[2016-12-09] MEDS: CHOLESTYRAMINE (WITH SUGAR) 4 GM PACKET PO SCH (11:00)
--- NOTE | 2016-12-09 14:25 | P.PN ---
Subjective 61-year-old male being seen on rounds this morning Dr. Lamb surgeon to discuss with the patient the plan of care. From a surgical perspective the patient would be appropriate to be discharged today in seen in the outpatient setting within the week. Patient did undergo an EGD and colonoscopy in November from GI service the findings showed lymphocytic colitis as well as a in situ adenocarcinoma from a tubular adenoma in the cecum. Dr. Lamb did discuss with the patient this is probably an incidental finding and that there would be a plan to surgically address it with a bowel resection in the near future but did not need to be done now that the colitis needed to be addressed. Patient continues to state that he has had nonbloody stools but less abdominal pain. Objective - Vital Signs Vital signs: Vital Signs Temp 98.2 F 12/09/16 07:00 Pulse 66 12/09/16 07:00 Resp 20 12/09/16 07:00 BP 145/84 12/09/16 07:00 Pulse Ox 97 12/09/16 07:00 Intake & Output 12/08/16 12/09/16 12/09/16 18:59 06:59 18:59 Intake Total 200 Balance 200 Weight 74.389 kg Intake: Oral 200 Other: Voiding Method Toilet Toilet - Exam Physical exam 61-year-old gentleman looking older than stated age resting in bed appears in no acute distress Lungs essentially clear adequate air movement Heart S1-S2 audible regular Abdomen soft and not distended bowel tones present currently denying any abdominal pain when questioning Extremities no edema - Labs CBC & Chem 7: 12/08/16 07:24 12/08/16 07:24 Assessment and Plan Plan: Impression Present on admission left lower quadrant pain suspect due to colitis Chronic pain syndrome opiate dependency COPD with no evidence of acute exacerbation Recent EGD done on November 30 showing gastritis mild with duodenitis History of frequent stooling colonoscopy done November 30 shows acute colitis with ischemic type features suggestive of lymphocytic colitis Colonoscopy 30 of November biopsy colon Cecum biopsy in situ adenocarcinoma Unintentional weight loss 14 pounds Plan Await GIs eval At this time no surgical intervention warranted the patient needs to be treated for the colitis once stabilized will follow-up with further surgical intervention recommendations to address the biopsy of the colon of the cecum showing in situ adenocarcinoma Resume home meds as appropriate Pain control DVT and GI prophylaxis will follow surgical course closely with further surgical recommendations From a surgical perspective patient is felt to be appropriate to be discharged we'll see patient in the outpatient setting and a follow-up visit for to the timing of the discharge to medical l service The above dictated assessment and findings were discussed with dr grayson Nair and the plan of care have been dictated as directed. Cindy Jean nurse practitioner acting as a scribe for dr owen
--- NOTE | 2016-12-09 19:41 | P.PN ---
Subjective Date of service 12/08/2016 Progress note being dictated for Dr. Mcwilliams. Interval history: This a 61-year-old gentleman admitted with abdominal pain, diarrhea, gastritis, duodenitis in a patient with recent diagnosis of colonic adenocarcinoma. Underwent EGD and colonoscopy November 30; Colon cecum biopsies reported adenocarcinoma, colon pathology reported acute colitis with ischemic features suggestive of lymphocytic colitis. to have continuous nonbloody diarrhea, abdominal pain, greater in left lower quadrant. states his food goes right through him. Denies nausea or vomiting Denies chest pain, palpitations or increasing shortness of breath. Objective - Vital Signs Vital signs: Vital Signs Temp 98 F 12/08/16 14:58 Pulse 61 12/08/16 14:58 Resp 20 12/08/16 14:58 BP 118/72 12/08/16 14:58 Pulse Ox 98 12/08/16 14:58 Intake & Output 12/07/16 12/08/16 12/08/16 18:59 06:59 18:59 Intake Total 1000 Balance 1000 Weight 74.389 kg Intake: Amount of Fluid Infused ( 1000 ml) Other: Voiding Method Toilet Toilet Toilet # Voids 1 1 # Bowel Movements 1 1 - Exam PHYSICAL EXAM: VITAL SIGNS: As above GENERAL: [Sitting up at side of bed, no acute distress] HEENT: [Pupils equal conjunctiva normal. No scleral icterus, Normocephalic] NECK: [Supple, no JVD] RESPIRATORY EFFORT:[Normal] LUNGS: [Lungs clear to auscultation, no wheezes rhonchi or crackles] CARDIOVASCULAR[regular S1 and S2, no edema] GI: [Abdomen soft, nondistended, nontender, positive bowel sounds. No guarding no rigidity] PSYCH: [Alert and oriented -3, mood and affect normal.] NEURO: No focal deficits, moves all 4 extremities, strength and sensation grossly intact - Labs CBC & Chem 7: 12/08/16 07:24 12/08/16 07:24 Labs: Abnormal Lab Results - Last 24 Hours (Table) 12/08/16 Range/Units 07:24 WBC 11.4 H (3.8-10.6) k/uL Assessment and Plan Plan: 1. Diarrhea, negative for C. difficile. 2. [Abdominal pain-left lower quadrant, lymphocytic colitis per endoscopy pathology. . 3. Recent colonoscopy of 11/30 with diagnosis of colonic adenocarcinoma] 4. Gastritis and duodenitis per recent EGD 5. COPD with no acute exacerbation 6. [Asymptomatic bacturia, in a patient recently treated for infectious colitis , antibiotics not warranted.]. Plan: Continue on current medication regime ,monitoring and symptomatic treatment. Maintain PPI, IV fluid hydration. GI consulted regarding findings of lymphocytic colitis with bowel resection after infection/inflammation treated as per surgery. Prognosis guarded. Further recommendations to follow. The impression and plan of care has been dictated as directed. : I performed a H&P examination of this patient and discussed the same with the dictator. I agree with the dictator's note. Any additional findings/opinions/ etc. will be noted.
--- NOTE | 2016-12-09 19:55 | P.DS ---
Providers Date of admission: 12/07/16 12:05 Expected date of discharge: 12/09/16 Attending physician: Dylan Mcwilliams Consults: Dr. Adonis Glass, general surgery Dr. Minna Jimenez, GI Dr. Leung, Oncology Primary care physician: Milton [facility] Course: Final Diagnoses: 1. Diarrhea, negative for C. difficile. 2. [Abdominal pain-left lower quadrant, lymphocytic colitis per endoscopy pathology. . 3. Recent colonoscopy of 11/30 with diagnosis of colonic adenocarcinoma] 4. Gastritis and duodenitis per recent EGD 5. COPD with no acute exacerbation 6. [Asymptomatic bacturia, in a patient recently treated for infectious colitis , antibiotics not warranted.]. Hospital course:This a 61-year-old gentleman admitted with abdominal pain, diarrhea, gastritis, duodenitis in a patient with recent diagnosis of colonic adenocarcinoma. Underwent EGD and colonoscopy November 30; Colon cecum biopsies reported adenocarcinoma, colon pathology reported acute colitis with ischemic features suggestive of lymphocytic colitis. Evaluated by oncology; early stage disease, recommends surgery with no further oncology intervention required at this time. CT of abdomen and pelvis did not report evidence of metastasis. Evaluated by surgery; stabilize colitis prior to surgery. Evaluated by GI. Maintained on loperamide , Questran and prednisone . Significant clinical improvement with diarrhea subsiding on the day of discharge. Patient has been cleared for discharge by all consults. Patient is being discharged home in a stable condition with guarded prognosis. The impression and plan of care has been dictated as directed. : I performed a H&P examination of this patient and discussed the same with the dictator. I agree with the dictator's note. Any additional findings/opinions/ etc. will be noted. Patient Condition at Discharge: Stable Plan - Discharge Summary New Discharge Prescriptions: Cholestyramine (with Sugar) [Questran Packet] 4 gm PO BID #60 packet Loperamide [Imodium] 2 mg PO QID PRN #120 capsule PRN Reason: Diarrhea Nicotine 14Mg/24Hr Patch [Habitrol] 1 patch TRANSDERM DAILY #30 patch predniSONE 0 mg PO DIRECTED #70 tab Discharge Medication List Morphine Sulfate [Morphine Sulfate ER] 30 mg PO BID 11/28/16 [History] Sertraline [Zoloft] 100 mg PO HS 11/28/16 [History] Zolpidem [Ambien] 10 mg PO HS PRN 11/28/16 [History] busPIRone HCL 15 mg PO BID 11/28/16 [History] Omeprazole [PriLOSEC] 40 mg PO ELIAS-DMITRIYFST #14 capsule. 12/01/16 [Rx] Tiotropium Roff [Spiriva] 1 cap INHALATION DAILY #1 device 12/01/16 [Rx] Albuterol Sulfate [Proair Hfa] 2 puff INHALATION RT-Q6H PRN 12/07/16 [History] Budesonide-Formot 160-4.5 Mcg [Symbicort 160-4.5 Mcg Inhaler] 2 puff INHALATION RT-BID 12/07/16 [History] Cholestyramine (with Sugar) [Questran Packet] 4 gm PO BID #60 packet 12/09/16 [ Rx] Loperamide [Imodium] 2 mg PO QID PRN #120 capsule 12/09/16 [Rx] Nicotine 14Mg/24Hr Patch [Habitrol] 1 patch TRANSDERM DAILY #30 patch 12/09/16 [ Rx] predniSONE 0 mg PO DIRECTED #70 tab 12/09/16 [Rx] Follow up Appointment(s)/Referral(s): Phong Leung MD [STAFF PHYSICIAN] - As Needed Hilton Wallace MD [STAFF PHYSICIAN] - 12/21/16 4:30 pm Milton Nowak III, MD [Primary Care Provider] - 12/14/16 8:30 am Ellie Wray MD [STAFF PHYSICIAN] - 12/16/16 3:00 pm (Call and confirm appointment prior to discharge.) Ambulatory/Diagnostic Orders: Complete Blood Count w/diff [LAB.AMB] Time Frame: 3 Days, Location: Determined By Patient Patient Instructions/Handouts: Loperamide (By mouth), Cholestyramine (By mouth) , Prednisone (By mouth), Nicotine (Absorbed through the skin), Colorectal Cancer (DC) Activity/Diet/Wound Care/Special Instructions: No NSAIDS No SMoking Diet as tolerated Activity as tolerated Discharge Disposition: HOME SELF-CARE
[2016-12-10 13:58] LABS: Free Kappa Lt Chain Qnt, Serum 1.45 mg/dL (0.33 - 1.94); Kappa/Lambda Light Chain Ratio 1.11 (0.26 - 1.65)
== END 2016-12-09 14:40 | disposition home or self-care (01) | DRG 392 ==
LOC: EC 09:18 → 5ONC 12:05
PROVIDERS: ADMIT Hospitalist; ATTEND Hospitalist
DX: K52.832 Lymphocytic colitis (principal); I50.9 Heart failure, unspecified; C18.0 Malignant neoplasm of cecum; F11.20 Opioid dependence, uncomplicated; E86.0 Dehydration; J44.9 Chronic obstructive pulmonary disease, unspecified; K29.80 Duodenitis without bleeding; R82.71 Bacteriuria; G89.4 Chronic pain syndrome; K29.50 Unspecified chronic gastritis without bleeding; R23.2 Flushing; R11.0 Nausea; R53.1 Weakness; K21.0 Gastro-esophageal reflux disease with esophagitis; M54.5 Low back pain; D01.0 Carcinoma in situ of colon; M54.2 Cervicalgia; F32.9 Major depressive disorder, single episode, unspecified; R09.02 Hypoxemia; R63.4 Abnormal weight loss; R68.83 Chills (without fever); F17.210 Nicotine dependence, cigarettes, uncomplicated; Z79.899 Other long term (current) drug therapy; Z80.1 Family history of malignant neoplasm of trachea, bronchus and lung; Z86.73 Personal history of transient ischemic attack (TIA), and cerebral infarction without residual deficits; Z71.3 Dietary counseling and surveillance; Z79.51 Long term (current) use of inhaled steroids; Z79.52 Long term (current) use of systemic steroids; Z98.1 Arthrodesis status; Z86.19 Personal history of other infectious and parasitic diseases; Z86.11 Personal history of tuberculosis; Z87.19 Personal history of other diseases of the digestive system; Z82.49 Family history of ischemic heart disease and other diseases of the circulatory system; Z86.010 Personal history of colon polyps
CPT/HCPCS: 36415; 71020; 74000; 80048; 80053; 81001; 82150; 83605; 83690; 83883; 84165; 85025; 85027; 86334; 87040; 87324; 94640

== ENCOUNTER 2016-12-10 14:13 | Inpatient (IN) | payer MEDICARE, OTHER ==
[2016-12-10] MEDS ORDERED: ONDANSETRON 4 MG/2 ML VIAL IVP STA (15:16)
[2016-12-10] MEDS ORDERED: HYDROmorphone 1 MG/ML 1 ML SYRINGE IVP STA (15:16)
[2016-12-10] MEDS ORDERED: SODIUM CHLORIDE 0.9% 1,000 ML IV STA (15:16)
[2016-12-10 16:03] LABS: Appearance,Urine Cloudy (Clear); Bacteria,Urine Occasional /hpf; Bilirubin,Urine Negative (Negative); Glucose,Urine (UA) Negative (Negative); Granular Casts,Urine 9 /lpf (0); Ketones,Urine Negative (Negative); Leukocyte Esterase,Urine Trace (Negative); Mucus,Urine Many /hpf; Nitrite,Urine Negative (Negative); PH, Urine 5.5 (5.0-8.0); Particle Count 15719; Protein,Urine 2+ (Negative); RBC,Urine 1 /hpf (0-5); Specific Gravity,Urine 1.028 (1.001-1.035); Sperm,Urine Occasional /hpf; Squamous Epithelial Cell,Urine <1 /hpf (0-4); UA Billing (MACRO vs. MICRO) MICRO; WBC,Urine 2 /hpf (0-5)
--- NOTE | 2016-12-10 16:10 | ED ---
General Adult HPI - General Chief complaint: Abdominal Pain Stated complaint: revisit abd pain Time Seen by Provider: 12/10/16 14:49 Source: patient, RN notes reviewed Mode of arrival: ambulatory Limitations: no limitations - History of Present Illness Initial comments: Patient is a 61-year-old male who presents emergency room today with a chief complaint of increased nausea vomiting diarrhea and abdominal pain over the last 2 weeks. Patient does admit that he was recently diagnosed with colon cancer of colonoscopy. States was recently admitted and discharged just yesterday due to the symptoms. Patient states that still having same symptoms at home. States still having abdominal pain with nausea vomiting diarrhea. Patient states he has noticed dark black bowel movements. Denies any signs of blood in the emesis. Patient denies any other complaints. Patient denies any recent fever, chills, shortness of breath, chest pain, back pain, numbness or tingling, dysuria or hematuria, constipation or diarrhea, headaches or visual changes, or any other complaints. - Related Data Home Medications Medication Instructions Recorded Confirmed Morphine Sulfate [Morphine Sulfate 30 mg PO BID 11/28/16 12/10/16 ER] Sertraline [Zoloft] 100 mg PO HS 11/28/16 12/10/16 Zolpidem [Ambien] 10 mg PO HS PRN 11/28/16 12/10/16 busPIRone HCL 15 mg PO BID 11/28/16 12/10/16 Albuterol Sulfate [Proair Hfa] 2 puff INHALATION RT-Q6H PRN 12/07/16 12/10/16 Budesonide-Formot 160-4.5 Mcg 2 puff INHALATION RT-BID 12/07/16 12/10/16 [Symbicort 160-4.5 Mcg Inhaler] Previous Rx's Medication Instructions Recorded Omeprazole [PriLOSEC] 40 mg PO BLACKFSJuan #14 capsule. 12/01/16 Tiotropium [place] [Spiriva] 1 cap INHALATION DAILY #1 device 12/01/16 Cholestyramine (with Sugar) 4 gm PO BID #60 packet 12/09/16 [Questran Packet] Loperamide [Imodium] 2 mg PO QID PRN #120 capsule 12/09/16 predniSONE 0 mg PO DIRECTED #70 tab 12/09/16 Allergies Allergy/AdvReac Type Severity Reaction Status Date / Time No Known Allergies Allergy Verified 12/10/16 15:54 Review of Systems ROS Statement: Those systems with pertinent positive or pertinent negative responses have been documented in the HPI. ROS Other: All systems not noted in ROS Statement are negative. Past Medical History Past Medical History: Cancer, Heart Failure, COPD, CVA/TIA, GERD/Reflux Additional Past Medical History / Comment(s): Pt recently admitted 11/28/16 with abdominal pain, esophagitis, infectious colitis and exacerbation of his COPD. He had EGD with bx and colonoscopy with bx-states he has also been diagnosed with colon cancer. Other hx: Recent diagnosis of infectious colitis, doudenal and cecal polyps, colon cancer, past chronic pain -in his back and lately abdomin, TIA, tuberculosis 5 yrs ago and completed treatments. History of Any Multi-Drug Resistant Organisms: None Reported Past Surgical History: Orthopedic Surgery Additional Past Surgical History / Comment(s): 12/01/16 EGD with bx and colonoscopy with bx, R forearm steel removed, cervical fusion. Past Anesthesia/Blood Transfusion Reactions: No Reported Reaction Past Psychological History: Depression Additional Psychological History / Comment(s): Pt states his depresssion is stable. He resides with his spouse. He uses no assistive device. Until recent illness he was driving. Smoking Status: Current every day smoker Past Alcohol Use History: None Reported Additional Past Alcohol Use History / Comment(s): Pt states he started smoking in 1969 and is less than a ppd smoker. Past Drug Use History: None Reported - Past Family History Mother History Unknown: Yes Father History Unknown: Yes Additional Family Medical History / Comment(s): Father during his AAA repair. Sister(s) Family Medical History: Cancer Additional Family Medical History / Comment(s): lung cancer General Exam - General Exam Comments Initial Comments: General: The patient is awake and alert, in no distress, and does not appear acutely ill. Eye: Pupils are equal, round and reactive to light, extra-ocular movements are intact. No nystagmus. There is normal conjunctiva bilaterally. No signs of icterus. Ears, nose, mouth and throat: There are moist mucous membranes and no oral lesions. Neck: The neck is supple, there is no tenderness or JVD. Cardiovascular: There is a regular rate and rhythm. No murmur, rub or gallop is appreciated. Respiratory: Lungs are clear to auscultation, respirations are non-labored, breath sounds are equal. No wheezes, stridor, rales, or rhonchi. Gastrointestinal: No increased abdomen. Normal bowel sounds. Abdomen soft on palpation. Patient does have mild diffuse tenderness throughout the abdomen. No rebound tenderness. No guarding. No CVA tenderness. Musculoskeletal: Normal ROM, no tenderness. Strength 5/5. Sensation intact. Pulses equal bilaterally 2+. Neurological: A&O x 3. CN II-XII intact, There are no obvious motor or sensory deficits. Coordination appears grossly intact. Speech is normal. Skin: Skin is warm and dry and no rashes or lesions are noted. Psychiatric: Cooperative, appropriate mood & affect, normal judgment. Limitations: no limitations Course Vital Signs 12/10/16 12/10/16 14:46 15:25 Temperature 97.6 F 97.0 F L Pulse Rate 124 H 89 Respiratory 18 16 Rate Blood Pressure 136/95 164/119 O2 Sat by Pulse 98 96 Oximetry Medical Decision Making - Medical Decision Making Patient reexamined at this time and feels improved here in the emergency room but is still having some discomfort to the abdomen. States still feeling nauseated and having pain. Patient's labs reviewed does show 22,000 white count. Bicarb decreased from previous labs from 1 day ago. Patient does have increased diarrhea. Patient is currently on steroids 30 mg of prednisone. Case discussed and seen by admitting physician here in the ER. - Lab Data Result diagrams: 12/10/16 15:59 12/10/16 15:59 Lab Results 12/10/16 12/10/16 12/10/16 Range/Units 15:26 15:26 15:41 WBC (3.8-10.6) k/uL RBC (4.30-5.90) m/uL Hgb (13.0-17.5) gm/dL Hct (39.0-53.0) % MCV (80.0-100.0) fL MCH (25.0-35.0) pg MCHC (31.0-37.0) g/dL RDW (11.5-15.5) % Plt Count (150-450) k/uL Neutrophils % % Lymphocytes % % Monocytes % % Eosinophils % % Basophils % % Neutrophils # (1.3-7.7) k/uL Lymphocytes # (1.0-4.8) k/uL Monocytes # (0-1.0) k/uL Eosinophils # (0-0.7) k/uL Basophils # (0-0.2) k/uL Sodium (137-145) mmol/L Potassium (3.5-5.1) mmol/L Chloride (98-107) mmol/L Carbon Dioxide (22-30) mmol/L Anion Gap mmol/L BUN (9-20) mg/dL Creatinine (0.66-1.25) mg/dL Est GFR (MDRD) Af Amer (>60 ml/min/1.73 sqM) Est GFR (MDRD) Non-Af (>60 ml/min/1.73 sqM) Glucose (74-99) mg/dL Plasma Lactic Acid Niels (0.7-2.0) mmol/L Calcium (8.4-10.2) mg/dL Total Bilirubin (0.2-1.3) mg/dL AST (17-59) U/L ALT (21-72) U/L Alkaline Phosphatase (38-126) U/L Total Protein (6.3-8.2) g/dL Albumin (3.5-5.0) g/dL Lipase (23-300) U/L Urine Color Yellow Urine Appearance Cloudy (Clear) Urine pH 5.5 (5.0-8.0) Ur Specific [place] 1.028 (1.001-1.035) Urine Protein 2+ H (Negative) Urine Glucose (UA) Negative (Negative) Urine Ketones Negative (Negative) Urine Blood Trace H (Negative) Urine Nitrite Negative (Negative) Urine Bilirubin Negative (Negative) Urine Urobilinogen 4.0 (<2.0) mg/dL Ur Leukocyte Esterase Trace H (Negative) Urine RBC 1 (0-5) /hpf Urine WBC 2 (0-5) /hpf Ur Squamous Epith Cells <1 (0-4) /hpf Urine Bacteria Occasional H (None) /hpf Granular Casts 9 (0) /lpf Urine Mucus Many H (None) /hpf Urine Sperm Occasional H (None) /hpf Stool Occult Blood Negative (Negative) C. difficile (EIA) Intrp Negative (Negative) 12/10/16 12/10/16 12/10/16 Range/Units 15:59 15:59 15:59 WBC 22.5 H (3.8-10.6) k/uL RBC 6.23 H (4.30-5.90) m/uL Hgb 19.6 H D (13.0-17.5) gm/dL Hct 57.0 H (39.0-53.0) % MCV 91.5 (80.0-100.0) fL MCH 31.5 (25.0-35.0) pg MCHC 34.4 (31.0-37.0) g/dL RDW 13.1 (11.5-15.5) % Plt Count 405 (150-450) k/uL Neutrophils % 87 % Lymphocytes % 5 % Monocytes % 6 % Eosinophils % 0 % Basophils % 0 % Neutrophils # 19.6 H (1.3-7.7) k/uL Lymphocytes # 1.1 (1.0-4.8) k/uL Monocytes # 1.3 H (0-1.0) k/uL Eosinophils # 0.0 (0-0.7) k/uL Basophils # 0.0 (0-0.2) k/uL Sodium 137 (137-145) mmol/L Potassium 4.7 (3.5-5.1) mmol/L Chloride 108 H (98-107) mmol/L Carbon Dioxide 19 L (22-30) mmol/L Anion Gap 10 mmol/L BUN 23 H (9-20) mg/dL Creatinine 1.00 (0.66-1.25) mg/dL Est GFR (MDRD) Af Amer >60 (>60 ml/min/1.73 sqM) Est GFR (MDRD) Non-Af >60 (>60 ml/min/1.73 sqM) Glucose 126 H (74-99) mg/dL Plasma Lactic Acid Niels 1.6 (0.7-2.0) mmol/L Calcium 10.1 (8.4-10.2) mg/dL Total Bilirubin 1.1 (0.2-1.3) mg/dL AST 21 (17-59) U/L ALT 70 (21-72) U/L Alkaline Phosphatase 52 (38-126) U/L Total Protein 7.3 (6.3-8.2) g/dL Albumin 4.3 (3.5-5.0) g/dL Lipase 73 (23-300) U/L Urine Color Urine Appearance (Clear) Urine pH (5.0-8.0) Ur Specific [place] (1.001-1.035) Urine Protein (Negative) Urine Glucose (UA) (Negative) Urine Ketones (Negative) Urine Blood (Negative) Urine Nitrite (Negative) Urine Bilirubin (Negative) Urine Urobilinogen (<2.0) mg/dL Ur Leukocyte Esterase (Negative) Urine RBC (0-5) /hpf Urine WBC (0-5) /hpf Ur Squamous Epith Cells (0-4) /hpf Urine Bacteria (None) /hpf Granular Casts (0) /lpf Urine Mucus (None) /hpf Urine Sperm (None) /hpf Stool Occult Blood (Negative) C. difficile (EIA) Intrp (Negative) Disposition Clinical Impression: Dehydration, Leukocytosis, Nausea vomiting and diarrhea, Colitis, Polyp of duodenum Disposition: ADMITTED IP TO THIS [facility] Condition: Stable Time of Disposition: 17:43
[2016-12-10 16:15] LABS: Basophils % (A) 0 %; CH 31.7; CHCM 34.8; Eosinophils % (A) 0 %; HDW 2.18; HGB 19.6 gm/dL (13.0-17.5); Luc # (Auto) 0.41; Luc % (Auto) 2; Lymphocytes # (A) 1.1 k/uL (1.0-4.8); Lymphocytes % (A) 5 %; MCH 31.5 pg (25.0-35.0); MCHC 34.4 g/dL (31.0-37.0); MCV 91.5 fL (80.0-100.0); Mean Platelet Volume 6.7; Monocytes # (A) 1.3 k/uL (0-1.0); Monocytes % (A) 6 %; Neutrophils # (A) 19.6 k/uL (1.3-7.7); Neutrophils % (A) 87 %; RBC 6.23 m/uL (4.30-5.90); RDW 13.1 % (11.5-15.5); WBC (Perox) 22.71
[2016-12-10 16:23] LABS: ALT 70 U/L (21-72); AST 21 U/L (17-59); Alkaline Phosphatase 52 U/L (38-126); Anion Gap 10 mmol/L; Blood Urea Nitrogen 23 mg/dL (9-20); Calcium 10.1 mg/dL (8.4-10.2); Carbon Dioxide 19 mmol/L (22-30); Chloride 108 mmol/L (98-107); Glucose 126 mg/dL (74-99); Non-African American GFR(MDRD) >60 (>60 ml/min/1.73 sqM); Potassium 4.7 mmol/L (3.5-5.1); Sodium 137 mmol/L (137-145); Total Bilirubin 1.1 mg/dL (0.2-1.3); Total Protein 7.3 g/dL (6.3-8.2)
[2016-12-10 16:25] LABS: WBC 22.5 k/uL (3.8-10.6)
--- NOTE | 2016-12-10 16:39 | XR ---
EXAMINATION TYPE: XR KUB DATE OF EXAM ORDERED: 12/10/2016 4:33 PM HISTORY: pain. COMPARISON: Previous study dated 12/07/2016. FINDINGS: The abdominal gas pattern is within normal limits. There is no evidence of obstruction or free air. There are scattered air-fluid levels. There are stable phleboliths within the pelvis. IMPRESSION: NO ACUTE INTRA-ABDOMINAL ABNORMALITY.
[2016-12-10] MEDS ORDERED: NALOXONE 0.4 MG/ML 1 ML VIAL IV PRN (17:43)
[2016-12-10] MEDS ORDERED: ONDANSETRON 4 MG/2 ML VIAL IVP PRN (17:43)
[2016-12-10] MEDS ORDERED: LORazepam 2 MG/ML SYRINGE IV PRN (17:43)
[2016-12-10] MEDS ORDERED: SODIUM CHLORIDE 0.9% 1,000 ML IV ONE (17:43)
[2016-12-10] MEDS: HYDROmorphone 1 MG/ML 1 ML SYRINGE IV PRN ×2 (18:16→21:55)
--- NOTE | 2016-12-10 20:00 | HP ---
DATE OF ADMISSION: 12/10/2016 REASON FOR ADMISSION: Persistent diarrhea. HISTORY OF PRESENTING ILLNESS: This is a 61-year-old gentleman who was discharged home on 12/09/2016. He comes into the hospital with persistent diarrhea and focal abdominal pain on the left side. Patient was admitted to the hospital previously for persistent symptoms for about 2 to 3 months, underwent an EGD and colonoscopy. Patient was noted to have findings of adenocarcinoma in situ and diffuse inflammation along the colon, concerning for lymphocytic colitis. Patient was discharged home on a burst of steroids to follow up outpatient for additional treatment plans. The patient was feeling well for a few hours on discharge; however, noted to have about 5 to 6 bowel associated with crampy abdominal pain, predominantly on the left abdominal quadrant. Patient also had multiple episodes of chills overnight; hence came back into the emergency room today for further evaluation. In the ER, abdominal flat panel did not reveal any free air. Laboratory values were noted to show a white count of 22,000 from 11,000 on discharge and hemoglobin and hematocrit concerning for hemoconcentration with a non-anion gap metabolic acidosis as well. Home medications include: 1. Morphine. 2. Sertraline. 3. Zolpidem. 4. Buspirone. 5. Albuterol. 6. Budesonide. 7. Omeprazole. 8. Tiotropium. 9. Prednisone. 10. Prednisolone. 11. Loperamide. 12. Questran. Doses were appropriately reviewed and reconciled on admission. Past medical history includes: 1. Congestive heart failure, diastolic in nature. 2. COPD. 3. CVA. 4. Colitis. 5. Depression. 6. Adenocarcinoma in situ of the colon. 7. Lymphocytic colitis. Past surgical history includes colonoscopy and EGD. FAMILY HISTORY: Significant for lung carcinoma. SOCIAL HISTORY: Ongoing tobacco use. Denies illicit drug use or alcohol use. REVIEW OF SYSTEMS: Fourteen-point review of systems was done; none pertinent other than was mentioned above PHYSICAL EXAM: VITALS: Temperature 97.9. Heart rate is 95; it was initially 124 on emergency room admission. Blood pressure 162/105. Saturating 95% on room air. GENERAL APPEARANCE: Alert, oriented x3. Does not appear to be in distress. LUNGS: Diminished breath sounds all over. No rhonchi, wheezes or crackles. HEART: S1, S2 heard. Regular rate and rhythm. At the time of my evaluation, a pansystolic murmur is appreciated. ABDOMEN: Soft. Focally tender to palpation on the left side. LOWER EXTREMITIES: No significant edema noted. NEURO: No focal motor or sensory deficits noted. Laboratory data include hemoglobin of 19.6, hematocrit of 57, white count of 22.5, platelets of 405; sodium 137, potassium 4.7, chloride 108, bicarb 19. BUN 23, creatinine 1. C difficile toxin is negative. ASSESSMENT AND PLAN: 1. Acute exacerbation of lymphocytic colitis. Rule out an infectious etiology. 2. Recent diagnosis of adenocarcinoma of the colon. 3. Hypertension. 4. Non-anion gap metabolic acidosis secondary to persistent watery diarrhea. 5. Chronic obstructive pulmonary disease that is stable. 6. Suspected sepsis, likely secondary to an inflammatory etiology; however, underlying infectious etiology causing the flare is not ruled out at this time. 7. Hypertension, slightly accelerated. 8. Depression. 9. Chronic pain syndrome. PLAN: With the patient's current symptomatology and elevated white count, will start the patient empirically on intra-abdominal organism coverage with Rocephin and Flagyl. Patient will also be started on a higher dose of steroids with Solu-Medrol 60 mg q.8 hours. If it is an acute inflammation of lymphocytic colitis as was seen on the recent colonoscopy, would benefit from this higher dose within the next 24 to 48 hours. C difficile toxin is negative; hence will start the patient on Imodium at this time. If patient's symptoms continue to persist, will repeat a CT scan of the abdomen and pelvis in the next 24 hours. GI consultation will also be obtained, depending on patient's clinical status tomorrow. Patient is on Protonix with high-dose steroids. Will continue ongoing care. SCDs for DVT prophylaxis. Will follow.
[2016-12-10] MEDS: SYMBICORT 160-4.5 MCG INHALER INHALATION SCH (20:20)
[2016-12-10] MEDS: LOPERAMIDE 2 MG CAP PO SCH (21:09)
[2016-12-10] MEDS: methylPREDNISolone SOD SUCCI 125 MG/2 ML VIAL IV SCH (21:09)
[2016-12-10] MEDS: SERTRALINE 100 MG TAB PO SCH (21:10)
[2016-12-10] MEDS: busPIRone HCl 5 MG TAB PO SCH (21:10)
[2016-12-10] MEDS: metroNIDAZOLE-NS PMX 500 MG in SALINE 1 100ML.BAG IVPB SCH (21:48)
[2016-12-11] MEDS: methylPREDNISolone SOD SUCCI 125 MG/2 ML VIAL IV SCH ×3 (02:01→18:03)
[2016-12-11] MEDS: LOPERAMIDE 2 MG CAP PO SCH ×4 (02:01→18:03)
[2016-12-11] MEDS: PANTOPRAZOLE 40 MG TABLET PO SCH (07:31)
[2016-12-11] MEDS: INSULIN LISPRO (humaLOG) 300 UNIT/3 ML VIAL SQ SCH ×4 (07:31→21:19)
[2016-12-11] MEDS: busPIRone HCl 5 MG TAB PO SCH ×2 (07:31→20:59)
[2016-12-11 07:34] LABS: Glucose,Whole Blood 120 mg/dL (75-99)
[2016-12-11] MEDS: HYDROmorphone 1 MG/ML 1 ML SYRINGE IV PRN ×5 (07:34→22:45)
[2016-12-11] MEDS: metroNIDAZOLE-NS PMX 500 MG in SALINE 1 100ML.BAG IVPB SCH ×3 (08:36→20:59)
[2016-12-11 09:18] LABS: ALT 63 U/L (21-72); AST 35 U/L (17-59); Alkaline Phosphatase 43 U/L (38-126); Anion Gap 11 mmol/L; Blood Urea Nitrogen 19 mg/dL (9-20); Carbon Dioxide 21 mmol/L (22-30); Chloride 105 mmol/L (98-107); Glucose 122 mg/dL (74-99); Non-African American GFR(MDRD) >60 (>60 ml/min/1.73 sqM); Potassium 4.5 mmol/L (3.5-5.1); Sodium 137 mmol/L (137-145); Total Bilirubin 1.1 mg/dL (0.2-1.3); Total Protein 5.9 g/dL (6.3-8.2)
[2016-12-11 09:22] LABS: Basophils % (A) 0 %; CH 31.7; CHCM 33.2; Eosinophils % (A) 0 %; HCT 49.8 % (39.0-53.0); HDW 2.06; Luc # (Auto) 0.18; Luc % (Auto) 1; Lymphocytes % (A) 5 %; MCH 30.7 pg (25.0-35.0); MCHC 32.1 g/dL (31.0-37.0); MCV 95.6 fL (80.0-100.0); Mean Platelet Volume 7.1; Monocytes # (A) 0.6 k/uL (0-1.0); Monocytes % (A) 3 %; Neutrophils # (A) 18.3 k/uL (1.3-7.7); Neutrophils % (A) 91 %; RBC 5.21 m/uL (4.30-5.90); RDW 13.2 % (11.5-15.5); WBC 20.1 k/uL (3.8-10.6); WBC (Perox) 20.15
[2016-12-11 12:00] LABS: Glucose,Whole Blood 98 mg/dL (75-99)
[2016-12-11] MEDS: SYMBICORT 160-4.5 MCG INHALER INHALATION SCH ×2 (12:19→19:31)
[2016-12-11 13:24] VITALS: BMI 23.5
[2016-12-11 13:40] LABS: Hemoglobin A1C 5.8 % (4.2-6.1)
--- NOTE | 2016-12-11 16:26 | P.PN ---
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 Patient was discharged on a dose of steroids however came back in to the hospital with 6 bowel movements on the day of admission. Patient denies having any nausea vomiting or bloody bowel movements. However patient was noted to have episodes of chills or graft I evaluated the patient and emergency room started patient on Rocephin and the Flagyl for intra- abdominal prophylaxis patient was also put on slight medical 60 every 6 with the lymphocytic colitis a previous computed tomography scan showed diffuse inflammation. Today patient states that he continues to be ill denies any significant improvement has had only 1 bowel movement this morning Denies having fevers chills nausea vomiting. Has not been really able to tolerate diet Objective - Vital Signs Vital signs: Vital Signs Temp 97.4 F L 12/11/16 15:00 Pulse 63 12/11/16 15:00 Resp 19 12/11/16 15:00 BP 138/69 12/11/16 15:00 Pulse Ox 97 12/11/16 15:00 Intake & Output 12/10/16 12/11/16 12/11/16 18:59 06:59 18:59 Weight 74.389 kg Other: Voiding Method Toilet # Voids 2 2 - Exam Physical exam Gen. appearance oriented 3 in no distress Neck is supple no JVD Lungs good air entry clear to auscultation no rhonchi or wheezing Heart S1-S2 heard regular rate and rhythm no murmurs appreciated Abdomen soft nontender some focal tenderness appreciated Neurologically cranial nerves II-12 grossly intact no focal motor or sensory deficits noted Skin no abnormalities appreciated - Labs CBC & Chem 7: 12/11/16 08:07 12/11/16 08:07 Labs: Abnormal Lab Results - Last 24 Hours (Table) 12/11/16 12/11/16 12/11/16 Range/Units 07:31 08:07 08:07 WBC 20.1 H (3.8-10.6) k/uL Neutrophils # 18.3 H (1.3-7.7) k/uL Carbon Dioxide 21 L (22-30) mmol/L Glucose 122 H (74-99) mg/dL POC Glucose (mg/dL) 120 H (75-99) mg/dL Total Protein 5.9 L (6.3-8.2) g/dL Albumin 3.3 L (3.5-5.0) g/dL Assessment and Plan Plan: #1 acute exacerbation of lymphocytic colitis underlying infectious etiology #2 adenocarcinoma the colon #3 hypertension #4 anion gap metabolic acidosis that is improved #5 COPD #6 suspected sepsis continue antibiotic therapy #7 hypertension #8 depression per graph #9 chronic pain syndrome Plan continue antibiotic therapy will obtain a computed tomography scan of the abdomen pelvis with oral contrast if anything on the findings we'll obtain a GI consultation thereafter. IV fluids at 100 mL will be initiated today continue current management DVT prophylaxis.
[2016-12-11] MEDS: SODIUM CHLORIDE 0.9% 1,000 ML IV SCH (16:52)
[2016-12-11] MEDS: IOHEXOL 350 MG/ML 25 ML BOTTLE (ORAL USE) PO PRN ×2 (16:52→18:03)
[2016-12-11 17:17] LABS: Glucose,Whole Blood 103 mg/dL (75-99)
--- NOTE | 2016-12-11 19:00 | CT ---
EXAMINATION TYPE: CT abdomen pelvis wo con DATE OF EXAM: 12/11/2016 6:44 PM COMPARISON: 11/28/2016 INDICATION: Persistent Nausea, vomiting and diarrhea DLP: 401 mGycm, Automated exposure control for dose reduction was used. CONTRAST: 0 mL of Omnipaque 300. Study performed with Oral Contrast TECHNIQUE: Axial images were obtained from above the diaphragm to the pubic rami in the axial plane a t 5 mm thick sections. Reconstructed images are reviewed on the computer in the coronal plane. FINDINGS: Limited CT sections are obtained the lung bases. The lung bases are clear. CT ABDOMEN: Filling defects previously described within the second portion of the duodenum remain pre sent on the current examination. Liver: Normal Spleen: Normal Pancreas: Normal Adrenal glands: The adrenal glands are normal. Gallbladder: Normal Kidneys: No masses are evident. No hydronephrosis is present. No cysts are present. Delayed images were obtained through the kidneys, which remain unremarkable. Aorta: Vascular calcification is within the aorta. Inferior vena cava: Normal. CT PELVIS: There is some wall thickening through the proximal descending colon. Subtle inflammatory changes ana luisa cent. Correlate for colitis. There are scattered diverticuli within the sigmoid colon. No acute diver ticulitis sigmoid colon. There are loops of bowel which are incompletely distended or lack oral contr ast limiting their evaluation. Contrast extends distal small bowel loops. Appendix: Normal as visualized. Urinary bladder: Normal. Genitourinary structures: Prostate is prominent. Osseous structures: No suspicious lytic or sclerotic lesions. IMPRESSIONS: 1. Clinical correlation recommended for ascending colon colitis 2. Follow-up of filling defects within the 2nd-3rd portions of duodenum is again recommended.
[2016-12-11] MEDS: SERTRALINE 100 MG TAB PO SCH (20:59)
[2016-12-11 21:16] LABS: Glucose,Whole Blood 130 mg/dL (75-99)
[2016-12-12] MEDS: LOPERAMIDE 2 MG CAP PO SCH ×4 (01:53→18:02)
[2016-12-12] MEDS: methylPREDNISolone SOD SUCCI 125 MG/2 ML VIAL IV SCH ×3 (01:53→18:54)
[2016-12-12] MEDS: SODIUM CHLORIDE 0.9% 1,000 ML IV SCH ×3 (01:54→23:51)
[2016-12-12] MEDS: HYDROmorphone 1 MG/ML 1 ML SYRINGE IV PRN ×4 (03:09→21:16)
[2016-12-12 07:31] LABS: Glucose,Whole Blood 111 mg/dL (75-99)
[2016-12-12] MEDS: SYMBICORT 160-4.5 MCG INHALER INHALATION SCH ×2 (08:00→19:14)
[2016-12-12] MEDS: INSULIN LISPRO (humaLOG) 300 UNIT/3 ML VIAL SQ SCH ×4 (08:39→21:16)
[2016-12-12] MEDS: metroNIDAZOLE-NS PMX 500 MG in SALINE 1 100ML.BAG IVPB SCH ×3 (08:47→23:51)
[2016-12-12] MEDS: PANTOPRAZOLE 40 MG TABLET PO SCH (08:47)
[2016-12-12] MEDS: busPIRone HCl 5 MG TAB PO SCH ×2 (08:47→21:16)
[2016-12-12 09:41] LABS: Basophils % (A) 0 %; CH 31.4; Eosinophils % (A) 0 %; HCT 43.7 % (39.0-53.0); HDW 2.06; HGB 14.5 gm/dL (13.0-17.5); Luc # (Auto) 0.16; Luc % (Auto) 1; Lymphocytes # (A) 0.6 k/uL (1.0-4.8); Lymphocytes % (A) 3 %; MCH 31.7 pg (25.0-35.0); MCHC 33.2 g/dL (31.0-37.0); MCV 95.7 fL (80.0-100.0); Mean Platelet Volume 6.9; Monocytes # (A) 0.5 k/uL (0-1.0); Monocytes % (A) 3 %; Neutrophils # (A) 16.6 k/uL (1.3-7.7); Neutrophils % (A) 93 %; RBC 4.57 m/uL (4.30-5.90); RDW 13.2 % (11.5-15.5); WBC 17.8 k/uL (3.8-10.6); WBC (Perox) 18.68
[2016-12-12 09:57] LABS: ALT 59 U/L (21-72); AST 24 U/L (17-59); Alkaline Phosphatase 37 U/L (38-126); Anion Gap 10 mmol/L; Blood Urea Nitrogen 20 mg/dL (9-20); Calcium 8.8 mg/dL (8.4-10.2); Carbon Dioxide 23 mmol/L (22-30); Chloride 105 mmol/L (98-107); Glucose 170 mg/dL (74-99); Non-African American GFR(MDRD) >60 (>60 ml/min/1.73 sqM); Potassium 4.1 mmol/L (3.5-5.1); Sodium 138 mmol/L (137-145); Total Bilirubin 0.6 mg/dL (0.2-1.3); Total Protein 5.5 g/dL (6.3-8.2)
[2016-12-12 12:15] LABS: Glucose,Whole Blood 92 mg/dL (75-99)
[2016-12-12] MEDS ORDERED: MESALAMINE 250 MG CAPSULE.ER PO STA (12:20)
--- NOTE | 2016-12-12 12:20 | P.PN ---
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 Patient was discharged on a dose of steroids however came back in to the hospital with 6 bowel movements on the day of admission. Patient denies having any nausea vomiting or bloody bowel movements. However patient was noted to have episodes of chills or graft I evaluated the patient and emergency room started patient on Rocephin and the Flagyl for intra- abdominal prophylaxis patient was also put on slight medical 60 every 6 with the lymphocytic colitis a previous computed tomography scan showed diffuse inflammation. Today patient states that he continues to be ill denies any significant improvement has had only 1 bowel movement this morning Denies having fevers chills nausea vomiting. Has not been really able to tolerate diet 12/12/2016 Patient continues to have loose bowel movements. States to have diffuse abdominal pain. Has not tolerated any significant oral intake. CT of the abdomen pelvis was reviewed. Was noted to have significant inflammation around the ascending colon and there is some filling defect in the second and third part of the duodenum. Is having any significant fevers chills at this time Objective - Vital Signs Vital signs: Vital Signs Temp 97.8 F 12/12/16 07:00 Pulse 56 L 12/12/16 07:00 Resp 18 12/12/16 07:00 BP 117/69 12/12/16 07:00 Pulse Ox 94 L 12/12/16 07:00 Intake & Output 12/11/16 12/12/16 12/12/16 18:59 06:59 18:59 Weight 74.389 kg Other: Voiding Method Toilet # Voids 2 3 # Bowel Movements 2 - Exam Physical exam Gen. appearance oriented 3 in no distress Neck is supple no JVD Lungs good air entry clear to auscultation no rhonchi or wheezing Heart S1-S2 heard regular rate and rhythm no murmurs appreciated Abdomen soft nontender some focal tenderness appreciated Neurologically cranial nerves II-12 grossly intact no focal motor or sensory deficits noted Skin no abnormalities appreciated - Labs CBC & Chem 7: 12/12/16 08:53 12/12/16 08:53 Labs: Abnormal Lab Results - Last 24 Hours (Table) 12/11/16 12/11/16 12/12/16 Range/Units 17:03 21:14 07:08 WBC (3.8-10.6) k/uL Neutrophils # (1.3-7.7) k/uL Lymphocytes # (1.0-4.8) k/uL Glucose (74-99) mg/dL POC Glucose (mg/dL) 103 H 130 H 111 H (75-99) mg/dL Alkaline Phosphatase (38-126) U/L Total Protein (6.3-8.2) g/dL Albumin (3.5-5.0) g/dL 12/12/16 12/12/16 Range/Units 08:53 08:53 WBC 17.8 H (3.8-10.6) k/uL Neutrophils # 16.6 H (1.3-7.7) k/uL Lymphocytes # 0.6 L (1.0-4.8) k/uL Glucose 170 H (74-99) mg/dL POC Glucose (mg/dL) (75-99) mg/dL Alkaline Phosphatase 37 L (38-126) U/L Total Protein 5.5 L (6.3-8.2) g/dL Albumin 3.1 L (3.5-5.0) g/dL Assessment and Plan Plan: #1 acute exacerbation of lymphocytic colitis underlying infectious etiology #2 adenocarcinoma the colon #3 hypertension #4 anion gap metabolic acidosis that is improved #5 COPD #6 suspected sepsis continue antibiotic therapy #7 hypertension #8 depression per graph #9 chronic pain syndrome Plan Continue with the assignment of 60 mg every 8 hours. Continue the Rocephin and Flagyl to cover for intra-abdominal organisms We'll obtain a GI consultation patient did have a recent upper endoscopy the filling defect on the computed tomography scan would need. Need to be further investigated. With patient having lymphocytic colitis question of adding Mesalamine. We'll start the first dose will defer to the GI subspecialist in regards to use of that agent thereafter IV fluids at 100 mL will be initiated today continue current management DVT prophylaxis.
[2016-12-12 17:19] LABS: Glucose,Whole Blood 89 mg/dL (75-99)
[2016-12-12] MEDS: ALBUTEROL NEBULIZED 2.5 MG/3 ML INHALATION PRN (19:14)
[2016-12-12] MEDS: SERTRALINE 100 MG TAB PO SCH (21:16)
[2016-12-12] MEDS: ZOLPIDEM 10 MG TAB PO PRN (21:21)
[2016-12-12 21:25] LABS: Glucose,Whole Blood 156 mg/dL (75-99)
[2016-12-13] MEDS: LOPERAMIDE 2 MG CAP PO SCH ×4 (01:03→17:55)
[2016-12-13] MEDS: HYDROmorphone 1 MG/ML 1 ML SYRINGE IV PRN ×5 (01:58→21:29)
[2016-12-13] MEDS: methylPREDNISolone SOD SUCCI 125 MG/2 ML VIAL IV SCH ×3 (04:07→17:54)
[2016-12-13 07:05] LABS: Glucose,Whole Blood 98 mg/dL (75-99)
[2016-12-13] MEDS: INSULIN LISPRO (humaLOG) 300 UNIT/3 ML VIAL SQ SCH ×4 (07:51→21:21)
[2016-12-13] MEDS: PANTOPRAZOLE 40 MG TABLET PO SCH (07:52)
[2016-12-13] MEDS: busPIRone HCl 5 MG TAB PO SCH ×2 (07:52→21:22)
[2016-12-13] MEDS: SODIUM CHLORIDE 0.9% 1,000 ML IV SCH ×2 (07:53→17:56)
[2016-12-13] MEDS: ALBUTEROL NEBULIZED 2.5 MG/3 ML INHALATION PRN (08:15)
[2016-12-13] MEDS: SYMBICORT 160-4.5 MCG INHALER INHALATION SCH ×2 (08:16→23:40)
[2016-12-13 08:53] LABS: ALT 67 U/L (21-72); AST 40 U/L (17-59); Alkaline Phosphatase 41 U/L (38-126); Anion Gap 10 mmol/L; Blood Urea Nitrogen 18 mg/dL (9-20); Calcium 8.8 mg/dL (8.4-10.2); Carbon Dioxide 22 mmol/L (22-30); Chloride 106 mmol/L (98-107); Glucose 114 mg/dL (74-99); Magnesium 2.2 mg/dL (1.6-2.3); Non-African American GFR(MDRD) >60 (>60 ml/min/1.73 sqM); Potassium 4.5 mmol/L (3.5-5.1); Sodium 138 mmol/L (137-145); Total Bilirubin 0.8 mg/dL (0.2-1.3); Total Protein 5.8 g/dL (6.3-8.2)
[2016-12-13 08:54] LABS: Basophils # (A) 0.1 k/uL (0-0.2); Basophils % (A) 0 %; CH 31.4; CHCM 32.5; Eosinophils % (A) 0 %; HCT 44.6 % (39.0-53.0); HDW 2.19; HGB 14.8 gm/dL (13.0-17.5); Luc # (Auto) 0.22; Luc % (Auto) 1; Lymphocytes # (A) 0.7 k/uL (1.0-4.8); Lymphocytes % (A) 4 %; MCH 32.3 pg (25.0-35.0); MCHC 33.1 g/dL (31.0-37.0); MCV 97.3 fL (80.0-100.0); Mean Platelet Volume 8.8; Monocytes # (A) 1.2 k/uL (0-1.0); Monocytes % (A) 7 %; Neutrophils # (A) 15.8 k/uL (1.3-7.7); Neutrophils % (A) 88 %; RBC 4.58 m/uL (4.30-5.90); RDW 13.3 % (11.5-15.5); WBC 17.9 k/uL (3.8-10.6); WBC (Perox) 17.92
[2016-12-13] MEDS: metroNIDAZOLE-NS PMX 500 MG in SALINE 1 100ML.BAG IVPB SCH ×3 (09:04→21:22)
[2016-12-13 12:11] LABS: Glucose,Whole Blood 214 mg/dL (75-99)
[2016-12-13] MEDS: MESALAMINE 250 MG CAPSULE.ER PO SCH (12:25)
--- NOTE | 2016-12-13 13:16 | P.PN ---
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 Patient was discharged on a dose of steroids however came back in to the hospital with 6 bowel movements on the day of admission. Patient denies having any nausea vomiting or bloody bowel movements. However patient was noted to have episodes of chills or graft I evaluated the patient and emergency room started patient on Rocephin and the Flagyl for intra- abdominal prophylaxis patient was also put on slight medical 60 every 6 with the lymphocytic colitis a previous computed tomography scan showed diffuse inflammation. Today patient states that he continues to be ill denies any significant improvement has had only 1 bowel movement this morning Denies having fevers chills nausea vomiting. Has not been really able to tolerate diet 12/12/2016 Patient continues to have loose bowel movements. States to have diffuse abdominal pain. Has not tolerated any significant oral intake. CT of the abdomen pelvis was reviewed. Was noted to have significant inflammation around the ascending colon and there is some filling defect in the second and third part of the duodenum. Is having any significant fevers chills at this time 12/13/2016 Patient states to have a formed bowel movement today Continues to have pain however slightly improved No fevers nausea vomiting, chest pain, difficulty breathing Objective - Vital Signs Vital signs: Vital Signs Temp 97.8 F 12/13/16 07:00 Pulse 62 12/13/16 08:28 Resp 18 12/13/16 07:00 BP 124/71 12/13/16 07:00 Pulse Ox 96 12/13/16 07:00 Intake & Output 12/12/16 12/13/16 12/13/16 18:59 06:59 18:59 Intake Total 1430 500 Balance 1430 500 Intake: IV 950 500 Sodium Chloride 0.9% 1, 800 000 ml @ 100 mls/hr IV . Q10H [facility] Rx#:[id number] cefTRIAXone 1 mg In 50 Sodium Chloride 0.9% 50 ml @ 100 mls/hr IVPB Q24H [facility] Rx#:[id number] cefTRIAXone 1,000 mg In 0 400 Sodium Chloride 0.9% 50 ml @ 100 mls/hr IVPB Q24H [facility] Rx#:[id number] metroNIDAZOLE-NS PMX 500 100 100 mg In Saline 1 100ml.bag @ 100 mls/hr IVPB TID [facility] Rx#:[id number] Oral 480 Other: # Voids 1 1 # Bowel Movements 1 1 - Exam Physical exam Gen. appearance oriented 3 in no distress Neck is supple no JVD Lungs good air entry clear to auscultation no rhonchi or wheezing Heart S1-S2 heard regular rate and rhythm no murmurs appreciated Abdomen soft nontender some focal tenderness appreciated Neurologically cranial nerves II-12 grossly intact no focal motor or sensory deficits noted Skin no abnormalities appreciated - Labs CBC & Chem 7: 12/13/16 07:35 12/13/16 07:35 Labs: Abnormal Lab Results - Last 24 Hours (Table) 12/12/16 12/13/16 12/13/16 Range/Units 21:06 07:35 07:35 WBC 17.9 H (3.8-10.6) k/uL Plt Count 103 L D (150-450) k/uL Neutrophils # 15.8 H (1.3-7.7) k/uL Lymphocytes # 0.7 L (1.0-4.8) k/uL Monocytes # 1.2 H (0-1.0) k/uL Glucose 114 H (74-99) mg/dL POC Glucose (mg/dL) 156 H (75-99) mg/dL Total Protein 5.8 L (6.3-8.2) g/dL Albumin 3.2 L (3.5-5.0) g/dL 12/13/16 Range/Units 12:06 WBC (3.8-10.6) k/uL Plt Count (150-450) k/uL Neutrophils # (1.3-7.7) k/uL Lymphocytes # (1.0-4.8) k/uL Monocytes # (0-1.0) k/uL Glucose (74-99) mg/dL POC Glucose (mg/dL) 214 H (75-99) mg/dL Total Protein (6.3-8.2) g/dL Albumin (3.5-5.0) g/dL Assessment and Plan Plan: #1 acute exacerbation of lymphocytic colitis underlying infectious etiology #2 adenocarcinoma the colon #3 hypertension #4 anion gap metabolic acidosis that is improved #5 COPD #6 suspected sepsis continue antibiotic therapy #7 hypertension #8 depression per graph #9 chronic pain syndrome Plan Continue with the assignment of 60 mg every 8 hours. Continue the Rocephin and Flagyl to cover for intra-abdominal organisms, day 3 await GI consultation patient did have a recent upper endoscopy the filling defect on the computed tomography scan would need. Need to be further investigated. With patient having lymphocytic colitis question of adding Mesalamine. We'll start the first dose will defer to the GI subspecialist in regards to use of that agent thereafter IV fluids at 100 mL \ continue current management DVT prophylaxis.
[2016-12-13 17:13] LABS: Glucose,Whole Blood 88 mg/dL (75-99)
[2016-12-13 21:15] LABS: Glucose,Whole Blood 145 mg/dL (75-99)
[2016-12-13] MEDS: SERTRALINE 100 MG TAB PO SCH (21:21)
[2016-12-13] MEDS: ZOLPIDEM 10 MG TAB PO PRN (21:28)
[2016-12-14] MEDS: SYMBICORT 160-4.5 MCG INHALER INHALATION SCH ×2 (00:02→07:49)
[2016-12-14] MEDS: LOPERAMIDE 2 MG CAP PO SCH ×3 (02:52→12:42)
[2016-12-14] MEDS: methylPREDNISolone SOD SUCCI 125 MG/2 ML VIAL IV SCH (03:49)
[2016-12-14] MEDS: HYDROmorphone 1 MG/ML 1 ML SYRINGE IV PRN ×3 (04:08→12:43)
[2016-12-14] MEDS: SODIUM CHLORIDE 0.9% 1,000 ML IV SCH ×2 (05:28→14:13)
[2016-12-14 07:38] LABS: Glucose,Whole Blood 95 mg/dL (75-99)
[2016-12-14 07:48] VITALS: BP 149/81; RESP 20; TEMP 97.8
[2016-12-14] MEDS: metroNIDAZOLE-NS PMX 500 MG in SALINE 1 100ML.BAG IVPB SCH (07:51)
[2016-12-14] MEDS: busPIRone HCl 5 MG TAB PO SCH (07:51)
[2016-12-14] MEDS: INSULIN LISPRO (humaLOG) 300 UNIT/3 ML VIAL SQ SCH ×2 (07:51→12:40)
[2016-12-14] MEDS: MESALAMINE 250 MG CAPSULE.ER PO SCH (07:51)
[2016-12-14] MEDS: PANTOPRAZOLE 40 MG TABLET PO SCH (07:51)
[2016-12-14 09:40] LABS: Basophils % (A) 0 %; CH 31.8; CHCM 33.4; Eosinophils % (A) 0 %; HCT 43.8 % (39.0-53.0); HDW 2.21; HGB 14.6 gm/dL (13.0-17.5); Luc % (Auto) 1; Lymphocytes # (A) 0.6 k/uL (1.0-4.8); Lymphocytes % (A) 4 %; MCH 31.9 pg (25.0-35.0); MCHC 33.3 g/dL (31.0-37.0); MCV 95.7 fL (80.0-100.0); Mean Platelet Volume 6.8; Monocytes # (A) 0.8 k/uL (0-1.0); Monocytes % (A) 6 %; Neutrophils # (A) 13.3 k/uL (1.3-7.7); Neutrophils % (A) 89 %; RBC 4.58 m/uL (4.30-5.90); RDW 13.3 % (11.5-15.5); WBC (Perox) 14.18
[2016-12-14 10:07] LABS: ALT 156 U/L (21-72); AST 61 U/L (17-59); Alkaline Phosphatase 39 U/L (38-126); Anion Gap 7 mmol/L; Blood Urea Nitrogen 17 mg/dL (9-20); Calcium 8.6 mg/dL (8.4-10.2); Carbon Dioxide 25 mmol/L (22-30); Chloride 107 mmol/L (98-107); Glucose 188 mg/dL (74-99); Non-African American GFR(MDRD) >60 (>60 ml/min/1.73 sqM); Potassium 3.9 mmol/L (3.5-5.1); Sodium 139 mmol/L (137-145); Total Bilirubin 0.5 mg/dL (0.2-1.3); Total Protein 5.4 g/dL (6.3-8.2)
[2016-12-14] MEDS: ALBUTEROL NEBULIZED 2.5 MG/3 ML INHALATION PRN (11:43)
[2016-12-14 11:54] LABS: Glucose,Whole Blood 82 mg/dL (75-99)
[2016-12-14 11:56] VITALS: PULSE 66
--- NOTE | 2016-12-14 13:44 | P.CONS ---
History of Present Illness - Reason for Consult Consult date: 12/14/16 Lymphocytic colitis Requesting physician: Paco Mayfield - History of Present Illness 61-year-old gentleman patient of Dr. Nowak with a past medical history of chronic neck pain with morphine sulfate maintenance, depression, long-standing nicotine cigarette dependency, COPD, CHF, and CVA/TIA patient presented about 2 weeks ago with reports of nonbloody diarrhea for one to 2 weeks. He underwent EGD colonoscopy 12/01/16 findings of lymphocytic colitis as well as signet ring adenocarcinoma in situ arising from a tubular adenoma in the cecum. Patient has been evaluated by general surgery there are plans to proceed with bowel resection in the near future. He was placed on prednisone Questran and loperamide with good response prior to discharge in fact he reported minimal abdominal discomfort and no diarrhea on discharge. He was discharged last with prednisone, Questran, and loperamide for treatment of his colitis. Consultation was requested for management of his lymphocytic colitis. Readmitted 24 hours later with reported loose nonbloody bowel movements and abdominal discomfort. He is still having 3-4 bowel movements a day loose nonbloody in nature with abdominal pain. Nursing staff reports bowel movements that are smal and formed/soft. CT abdomen and pelvis reported thickening proximal descending colon correlate for colitis. White count 22.5 presently 15. Hemoglobin 14.6. Stool occult blood negative. Clostridium difficile negative. Review of Systems Constitutional: Denies fever, chills, sweats, weight gain, or loss. HEENT: Negative for migraines, blurred vision or loss, earaches, drainage, tinnitus, oral mucosal lesions, dysphagia, or odynophagia. Cardiac: CHF. Negative for chest pain, arrhythmias, or palpitation. Respiratory: COPD. Long-standing nicotine cigarette dependency. Negative for shortness of breath, hemoptysis, cough, or sputum production. Gastrointestinal: See HPI for pertinent findings. Genitourinary: Negative for hematuria, urgency, frequency, polyuria, dysuria, or penile discharge. Musculoskeletal: Chronic back pain with history of cervical fusion. Negative for muscle aches, swelling, arthritis, and arthralgias. Neurologic: History of CVA TIA. Endocrine: Negative for thyroid problems. Skin: Negative for rash or itching. Psychiatric: Negative history for anxiety. History of depression. All systems: negative (See HPI) Past Medical History Past Medical History: Cancer, Heart Failure, COPD, CVA/TIA, GERD/Reflux Additional Past Medical History / Comment(s): Pt recently admitted 11/28/16 with abdominal pain, esophagitis, infectious colitis and exacerbation of his COPD. He had EGD with bx and colonoscopy with bx-states he has also been diagnosed with colon cancer. Other hx: Recent diagnosis of infectious colitis, doudenal and cecal polyps, colon cancer, past chronic pain -in his back and lately abdomin, TIA, tuberculosis 5 yrs ago and completed treatments. History of Any Multi-Drug Resistant Organisms: None Reported Past Surgical History: Orthopedic Surgery, Tonsillectomy Additional Past Surgical History / Comment(s): 12/01/16 EGD with bx and colonoscopy with bx, sx on R forearm to removed a peiece of steel from work related accident, cervical fusion. Past Anesthesia/Blood Transfusion Reactions: No Reported Reaction Past Psychological History: Depression Additional Psychological History / Comment(s): Pt states his depression is stable. He resides with his spouse,1 son. has 5 steps to get into home. He uses no assistive device.has no home care sevices. 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 Past Drug Use History: None Reported - Past Family History Mother History Unknown: Yes Father History Unknown: Yes Additional Family Medical History / Comment(s): Father during his AAA repair. Sister(s) Family Medical History: Cancer Additional Family Medical History / Comment(s): lung cancer Medications and Allergies Home Medications Medication Instructions Recorded Confirmed Type Morphine Sulfate [Morphine Sulfate 30 mg PO BID 11/28/16 12/10/16 History ER] Sertraline [Zoloft] 100 mg PO HS 11/28/16 12/10/16 History Zolpidem [Ambien] 10 mg PO HS PRN 11/28/16 12/10/16 History busPIRone HCL 15 mg PO BID 11/28/16 12/10/16 History Albuterol Sulfate [Proair Hfa] 2 puff INHALATION RT-Q6H PRN 12/07/16 12/10/16 History Budesonide-Formot 160-4.5 Mcg 2 puff INHALATION RT-BID 12/07/16 12/10/16 History [Symbicort 160-4.5 Mcg Inhaler] Allergies Allergy/AdvReac Type Severity Reaction Status Date / Time No Known Allergies Allergy Verified 12/10/16 15:54 Physical Exam Vitals: Vital Signs Temp Pulse Resp BP Pulse Ox 12/14/16 07:00 97.8 F 50 L 20 149/81 95 12/13/16 23:00 97.0 F L 65 16 124/69 97 12/13/16 14:43 97.3 F L 64 16 128/65 95 Intake and Output 12/13/16 12/14/16 12/14/16 22:59 06:59 14:59 Intake Total 200 Balance 200 Intake: Oral 200 Other: # Voids 1 1 # Bowel Movements 0 1 General appearance: The patient is alert, oriented, in no acute distress. HET: Head is normocephalic and atraumatic. Pupils are equal and reactive. Oropharynx is clear without lesions. Neck: Supple without lymphadenopathy. Trachea midline. Heart: S1 S2. Regular rate and rhythm. Lungs: No crackles or wheezes are heard. Abdomen: Soft, mild mid abdominal tenderness, nondistended with bowel sounds. No peritoneal signs. No palpable organomegaly or masses. Extremities: Normal skin color and turgor. No cyanosis, rash, ulceration, clubbing, or edema. Radial and pedal pulses are 2/4 bilaterally. Neurological: No focal deficits. Strength and sensation are grossly intact. Results CBC & Chem 7: 12/14/16 09:18 12/14/16 09:18 Labs: Abnormal Lab Results - Last 24 Hours (Table) 12/13/16 12/13/16 12/14/16 Range/Units 12:06 21:05 09:18 WBC 15.0 H (3.8-10.6) k/uL Neutrophils # 13.3 H (1.3-7.7) k/uL Lymphocytes # 0.6 L (1.0-4.8) k/uL POC Glucose (mg/dL) 214 H 145 H (75-99) mg/dL CT scan - abdomen: report reviewed (reviewed by Dr. mcginnis) Assessment and Plan (1) Lymphocytic colitis Status: Acute (2) Colon cancer Status: Acute Plan: 1. Medications reviewed. Discontinue IV steroids change to prednisone 30 mg daily. Entocort preferred but is not formulary at this hospital. 2. Discontinue mesalamine; GI research shows no difference in placebo effect when treating lymphocytic colitis. 3. Questran 4 g twice daily 2 hours before or after meals. 4. Agree with loperamide 4 times daily. 5. Light diet as tolerated. 6. Monitor bowel movement frequency and consistency, record for evaluation. 7. Overall patient appears clinically stable and fairly comfortable considering his symptoms. No further workup at this time. We'll follow with you. Thank you for this kind referral and the opportunity to participate in the care of your patient. This consultation was discussed with Dr. Mcginnis. The impression and plan of care have been directed as dictated.
[2016-12-14] MEDS ORDERED: metroNIDAZOLE 500 MG TAB PO SCH (16:00)
--- NOTE | 2016-12-14 17:59 | P.DS ---
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 Patient was discharged on a dose of steroids however came back in to the hospital with 6 bowel movements on the day of admission. Patient denies having any nausea vomiting or bloody bowel movements. However patient was noted to have episodes of chills or graft I evaluated the patient and emergency room started patient on Rocephin and the Flagyl for intra- abdominal prophylaxis patient was also put on slight medical 60 every 6 with the lymphocytic colitis a previous computed tomography scan showed diffuse inflammation. Today patient states that he continues to be ill denies any significant improvement has had only 1 bowel movement this morning Denies having fevers chills nausea vomiting. Has not been really able to tolerate diet 12/12/2016 Patient continues to have loose bowel movements. States to have diffuse abdominal pain. Has not tolerated any significant oral intake. CT of the abdomen pelvis was reviewed. Was noted to have significant inflammation around the ascending colon and there is some filling defect in the second and third part of the duodenum. Is having any significant fevers chills at this time 12/13/2016 Patient states to have a formed bowel movement today Continues to have pain however slightly improved No fevers nausea vomiting, chest pain, difficulty breathing 12/14/16 tolerating diet formed bowel movements tolerating activity. - Exam Physical exam Gen. appearance oriented 3 in no distress Neck is supple no JVD Lungs good air entry clear to auscultation no rhonchi or wheezing Heart S1-S2 heard regular rate and rhythm no murmurs appreciated Abdomen soft nontender some focal tenderness appreciated Neurologically cranial nerves II-12 grossly intact no focal motor or sensory deficits noted Skin no abnormalities appreciated Assessment and Plan Plan: #1 acute exacerbation of lymphocytic colitis underlying infectious etiology. prednisone . #2 adenocarcinoma the colon #3 hypertension #4 anion gap metabolic acidosis that is improved #5 COPD #6 suspected sepsis continue antibiotic therapy #7 hypertension #8 depression #9 chronic pain syndrome. Does appear to be more concerned about pain medications and not being able to receive them discussed, that he would given his home regimen for 10 -12 days needs to follow up with his PCP some pain seeking behaviour is questioned, as does not seem to have questions or concerns in regards to his recent diagnosis of cancer. intraabdominal abx prednisone 30mg follow up with Dr grayson roy Patient Condition at Discharge: Stable Plan - Discharge Summary New Discharge Prescriptions: Cholestyramine (with Sugar) [Questran Packet] 4 gm PO BID@1000,1800 #20 packet Ciprofloxacin HCl [Cipro] 500 mg PO Q12HR #10 tablet Loperamide [Imodium] 4 mg PO Q6H #20 cap Morphine Sulfate ER [Ms Contin] 30 mg PO Q12HR #24 tab metroNIDAZOLE [Flagyl] 500 mg PO TID #15 tab predniSONE 30 mg PO DAILY #10 tab Discharge Medication List Morphine Sulfate [Morphine Sulfate ER] 30 mg PO BID 11/28/16 [History] Sertraline [Zoloft] 100 mg PO HS 11/28/16 [History] Zolpidem [Ambien] 10 mg PO HS PRN 11/28/16 [History] busPIRone HCL 15 mg PO BID 11/28/16 [History] Omeprazole [PriLOSEC] 40 mg PO AC-BRKFST #14 capsule. 12/01/16 [Rx] Tiotropium [place] [Spiriva] 1 cap INHALATION DAILY #1 device 12/01/16 [Rx] Albuterol Sulfate [Proair Hfa] 2 puff INHALATION RT-Q6H PRN 12/07/16 [History] Budesonide-Formot 160-4.5 Mcg [Symbicort 160-4.5 Mcg Inhaler] 2 puff INHALATION RT-BID 12/07/16 [History] Cholestyramine (with Sugar) [Questran Packet] 4 gm PO BID #60 packet 12/09/16 [ Rx] Loperamide [Imodium] 2 mg PO QID PRN #120 capsule 12/09/16 [Rx] Cholestyramine (with Sugar) [Questran Packet] 4 gm PO BID@1000,1800 #20 packet 12/14/16 [Rx] Ciprofloxacin HCl [Cipro] 500 mg PO Q12HR #10 tablet 12/14/16 [Rx] Loperamide [Imodium] 4 mg PO Q6H #20 cap 12/14/16 [Rx] Morphine Sulfate ER [Ms Contin] 30 mg PO Q12HR #24 tab 12/14/16 [Rx] metroNIDAZOLE [Flagyl] 500 mg PO TID #15 tab 12/14/16 [Rx] predniSONE 30 mg PO DAILY #10 tab 12/14/16 [Rx] Follow up Appointment(s)/Referral(s): Milton Nowak III, MD [Primary Care Provider] - 12/17/16 1:00 pm (With CABRERA Boss) Ellie Wray MD [STAFF PHYSICIAN] - 12/24/16 8:45 am Minna Jett MD [STAFF PHYSICIAN] - 1 Week (Office unavailable at this time, please call for appointment. ) Patient Instructions/Handouts: Ulcerative Colitis (DC) Activity/Diet/Wound Care/Special Instructions: Cardiac diet. NO smoking, cessation information provided. Discharge Disposition: HOME SELF-CARE
[2016-12-14] MEDS ORDERED: CHOLESTYRAMINE (WITH SUGAR) 4 GM PACKET PO SCH (18:00)
[2016-12-15] MEDS ORDERED: predniSONE 10 MG TAB PO SCH (09:00)
== END 2016-12-14 14:17 | disposition home or self-care (01) | DRG 872 ==
LOC: EC 14:13 → 4MS4W 17:56
PROVIDERS: ADMIT Internal Medicine; ATTEND Internal Medicine
DX: A41.9 Sepsis, unspecified organism (principal); E87.2 Acidosis; C18.9 Malignant neoplasm of colon, unspecified; I11.0 Hypertensive heart disease with heart failure; I50.32 Chronic diastolic (congestive) heart failure; F32.9 Major depressive disorder, single episode, unspecified; K21.9 Gastro-esophageal reflux disease without esophagitis; K52.832 Lymphocytic colitis; J44.9 Chronic obstructive pulmonary disease, unspecified; F17.200 Nicotine dependence, unspecified, uncomplicated; G89.4 Chronic pain syndrome; Z79.899 Other long term (current) drug therapy; Z86.73 Personal history of transient ischemic attack (TIA), and cerebral infarction without residual deficits
CPT/HCPCS: 36415; 74000; 74176; 80053; 81001; 82272; 83036; 83605; 83690; 83735; 85025; 87045; 87046; 87324; 94640; 96361; 96365; 96375; 99285

== ENCOUNTER → 2017-10-04 | Outpatient (CLI) | payer MEDICARE ==
--- NOTE | 2017-10-04 12:20 | CT ---
EXAMINATION TYPE: CT abdomen pelvis w con DATE OF EXAM: 10/04/2017 COMPARISON: 12/11/2016 HISTORY: 62-year-old male LLQ pain TECHNIQUE: Contiguous axial scanning of the abdomen and pelvis following administration of 100 ml Omn ipaque 300 IV contrast. Delayed images through the kidneys and coronal/sagittal reconstructions perf ormed. CT DLP: 889 mGycm Automated exposure control for dose reduction was used. FINDINGS: The heart is normal size without pericardial effusion. Lung bases clear without pleural effusion. Tiny hiatal hernia. Liver is borderline enlarged measuring 17.0 cm craniocaudal. No focal lesion is seen. Portal venous s ystem is patent. No biliary ductal dilatation. Gallbladder, adrenal glands, spleen, and mildly atrophic pancreas show no gross abnormality. Tiny 8 mm nodularity along the junction of the second and third portions of the duodenum, and axial i mage 33 and coronal image 44 shows low density suggestive of a small lipoma. The prominent nodularity seen on prior exam is not evident. Borderline enlarged 1.5 cm portacaval lymph node. Otherwise, no mesenteric or retroperitoneal lymphad enopathy seen. Moderate atherosclerotic plaque and calcifications within the abdominal aorta and iliac arteries with out aneurysm. Postsurgical changes of partial descending colonic resection with ileocolonic anastomosis just prior to the hepatic flexure. There is some mural based nodularity in this region, axial image 34 which can be correlated with direct visualization. Refer to coronal image 34 and 39. Oral contrast has progres sed to the mid transverse colon. Mild to moderate stool is present. Occasional proximal sigmoid diver ticulosis. No pericolonic inflammatory change. No dilated small bowel, free fluid, or free air. Mild circumferential bladder wall thickening likely secondary to chronic bladder wall hypertrophy. Pr ostate gland is enlarged at 5.6 cm wide with a posterior impression on to the bladder base. No abnorm al fluid collection in the pelvis or pelvic lymphadenopathy seen. Bones: Mild degenerative changes at the hips. Endplate spondylosis lower thoracic spine. No osseous d estructive process. IMPRESSION: 1. RIGHT-SIDED ILEOCOLONIC ANASTOMOSIS AFTER PARTIAL ASCENDING COLON RESECTION. THERE IS SOME NODULAR MURAL THICKENING OF THE COLON AT THE ANASTOMOSIS FOR WHICH DIRECT VISUALIZATION IS RECOMMENDED TO EX CLUDE POLYPS OR ABNORMAL MUCOSAL MASS. 2. A COUPLE DIVERTICULA ALONG THE PROXIMAL SIGMOID. NO EVIDENCE FOR ACUTE DIVERTICULITIS. 3. BORDERLINE ENLARGED 1.5 CM PORTACAVAL LYMPH NODE IN THE UPPER ABDOMEN IS NONSPECIFIC, PROBABLY KENNA CTIVE/POST INFLAMMATORY. 4. PROSTATOMEGALY (5.6 CM WIDE). MILD CIRCUMFERENTIAL BLADDER WALL THICKENING COULD REFLECT CYSTITIS OR CHRONIC BLADDER WALL HYPERTROPHY SUCH IN THE SETTING OF BPH.
== END | disposition home or self-care (01) ==
LOC: RADCTMAIN 09:39
PROVIDERS: ATTEND Surgery
DX: N40.0 Benign prostatic hyperplasia without lower urinary tract symptoms (principal); K63.89 Other specified diseases of intestine; K57.30 Diverticulosis of large intestine without perforation or abscess without bleeding; N32.89 Other specified disorders of bladder; Z98.890 Other specified postprocedural states
CPT/HCPCS: 74177; Q9967

== ENCOUNTER → 2017-11-15 | Day surgery (SDC) | payer MEDICARE ==
[2017-11-10 12:01] VITALS: BMI 25.8
[~2017-11-15] MED LIST: LACTATED RINGERS 1,000 ML IV SCH; LIDOCAINE 1% 20 ML VIAL (10MG/ML) FOR IV START INTRADERMA ONE; LIDOCAINE 1% INJ 10MG/ML (20 ML MDV) ONE; MIDAZOLAM 2 MG/2 ML VIAL ONE; PROPOFOL 10 MG/ML 20 ML VIAL IV ONE; fentaNYL (PF) 50 MCG/ML 2 ML AMP ONE
[2017-11-15 07:55] VITALS: TEMP 98
--- NOTE | 2017-11-15 09:01 | P.DS ---
Providers Attending physician: Ellie Wray Primary care physician: Milton Nowak Plan - Discharge Summary New Discharge Prescriptions: No Action busPIRone HCL 30 mg PO BID Sertraline [Zoloft] 100 mg PO HS Budesonide-Formot 160-4.5 Mcg [Symbicort 160-4.5 Mcg Inhaler] 2 puff INHALATION RT-BID Albuterol Sulfate [Proair Hfa] 2 puff INHALATION RT-Q6H PRN PRN Reason: Shortness Of Breath Or Wheezing Morphine Sulfate ER [Ms Contin] 30 mg PO Q12HR #24 tab HYDROcodone/APAP 10-325MG [[place] 10-325] 1 tab PO Q6H PRN PRN Reason: Pain Discharge Medication List Sertraline [Zoloft] 100 mg PO HS 11/28/16 [History] busPIRone HCL 30 mg PO BID 11/28/16 [History] Albuterol Sulfate [Proair Hfa] 2 puff INHALATION RT-Q6H PRN 12/07/16 [History] Budesonide-Formot 160-4.5 Mcg [Symbicort 160-4.5 Mcg Inhaler] 2 puff INHALATION RT-BID 12/07/16 [History] Morphine Sulfate ER [Ms Contin] 30 mg PO Q12HR #24 tab 12/14/16 [Rx] HYDROcodone/APAP 10-325MG [[place] 10-325] 1 tab PO Q6H PRN 11/10/17 [History] Follow up Appointment(s)/Referral(s): Ellie Wray MD [STAFF PHYSICIAN] - As Needed Patient Instructions/Handouts: *Surgery [facility] - (Anesthesia) Endoscopy Discharge Instructions, Colonoscopy (DC) Activity/Diet/Wound Care/Special Instructions: REST TODAY, ENCOURAGE FLUIDS AT HOME Call office on Tuesday for results of polypectomy Any questions or concerns call Dr. Lamb Discharge Disposition: HOME SELF-CARE
--- NOTE | 2017-11-15 09:01 | P.OP ---
Date of Procedure: 11/15/17 Preoperative Diagnosis: Right colon resection for cancer, CT questionable change at the anastomosis Postoperative Diagnosis: No evidence of recurrent cancer, polyp at distal transverse colon, enlarged firm prostate Procedure(s) Performed: Colonoscopy, polypectomy Anesthesia: MAC Surgeon: Ellie Wray Estimated Blood Loss (ml): 0 IV fluids (ml): 500 Pathology: other (Polyp distal transverse colon) Condition: stable Disposition: PACU Indications for Procedure: Patient prior right colon cancer status post resection recent computed tomography scan suspicious for changes at anastomosis Operative Findings: No evidence of recurrence at anastomosis, polyp distal transverse colon, firm prostate Description of Procedure: Patient was taken to the endoscopy suite and placed in the left lateral decubitus position. Following sedation rectal exam was performed. Patient's prostate was noted to be firm no masses otherwise noted. Colonoscope was passed through the anus into the rectum. He was passed to the sigmoid colon splenic flexure to the transverse colon. In the distal transverse colon a small polyp was identified which was removed with snare polypectomy and retrieved. Scope continued to be advanced to the area of the hepatic flexure were anastomosis was identified. No evidence of recurrence abnormality was seen at the anastomosis. The scope was carefully withdrawn taking approximately 6 minutes to withdraw the scope. No lesions of concern were noted in the transverse colon. No lesions of concern in the left colon or sigmoid colon. Scope was brought down to the rectum where it was retroflexed no lesions of concern identified. Impression/plan: 1. No evidence of recurrent disease at the anastomosis 2. Polyps removed from distal transverse colon await results Plan: 1. Most likely repeat scope in 2-3 years secondary to polyp retrieved from distal transverse colon
[2017-11-15 09:05] VITALS: RESP 16
[2017-11-15 09:20] VITALS: BP 106/66; PULSE 58
== END | disposition home or self-care (01) ==
LOC: ORWHC2ENDO 07:04
PROVIDERS: ATTEND Surgery
DX: D12.3 Benign neoplasm of transverse colon (principal); J44.9 Chronic obstructive pulmonary disease, unspecified; K21.9 Gastro-esophageal reflux disease without esophagitis; I50.9 Heart failure, unspecified; F41.9 Anxiety disorder, unspecified; N40.0 Benign prostatic hyperplasia without lower urinary tract symptoms; Z90.49 Acquired absence of other specified parts of digestive tract; Z98.0 Intestinal bypass and anastomosis status; Z86.73 Personal history of transient ischemic attack (TIA), and cerebral infarction without residual deficits; Z08 Encounter for follow-up examination after completed treatment for malignant neoplasm; Z87.891 Personal history of nicotine dependence; Z79.891 Long term (current) use of opiate analgesic; Z85.038 Personal history of other malignant neoplasm of large intestine
CPT/HCPCS: 45385; 88305; J2250; J2001; J3010; J2704

== ENCOUNTER 2018-09-11 08:14 | Emergency (ER) | payer MEDICARE ==
[2018-09-11] MEDS ORDERED: SODIUM CHLORIDE 0.9% 1,000 ML IV STA (08:41)
[2018-09-11] MEDS ORDERED: SODIUM CHLORIDE 0.9% 500 ML 500 ML IV STA (08:41)
--- NOTE | 2018-09-11 09:01 | ED ---
General Adult HPI - General Chief complaint: Urogenital Stated complaint: Unable to urinate Time Seen by Provider: 09/11/18 08:20 Source: patient, RN notes reviewed Mode of arrival: ambulatory Limitations: no limitations - History of Present Illness Initial comments: 63-year-old male presents emergency Department with chief complaint of unable to urinate. Patient states that this has been having for last few days worsen. He states she's only had a few drops of the last 12 hours. Patient states she 's had no history of any large prostate. Patient denies any nausea vomiting. He does complain of lower abdominal pain and pressure. Patient denies flank pain, chest pain, shortness breath, fever, chills, dysuria or hematuria. - Related Data Home Medications Medication Instructions Recorded Confirmed busPIRone HCL 30 mg PO BID 11/28/16 09/11/18 Albuterol Sulfate [Proair Hfa] 2 puff INHALATION RT-Q6H PRN 12/07/16 09/11/18 Budesonide-Formot 160-4.5 Mcg 2 puff INHALATION RT-BID 12/07/16 09/11/18 [Symbicort 160-4.5 Mcg Inhaler] DULoxetine HCL [Cymbalta] 30 mg PO DAILY 09/11/18 09/11/18 Pantoprazole [Protonix] 40 mg PO DAILY 09/11/18 09/11/18 oxyCODONE HCL/ACETAMINOPHEN 1 tab PO QID PRN 09/11/18 09/11/18 [Percocet 10-325 mg] Previous Rx's Medication Instructions Recorded Phenazopyridine [Pyridium] 200 mg PO TID #6 tablet 09/11/18 Sulfamethox-Tmp 800-160Mg [Bactrim 1 each PO Q12HR #20 tab 09/11/18 Ds] Allergies Allergy/AdvReac Type Severity Reaction Status Date / Time No Known Allergies Allergy Verified 09/11/18 09:23 Review of Systems ROS Statement: Those systems with pertinent positive or pertinent negative responses have been documented in the HPI. ROS Other: All systems not noted in ROS Statement are negative. Past Medical History Past Medical History: Cancer, Heart Failure, COPD, CVA/TIA, GERD/Reflux Additional Past Medical History / Comment(s): states "current lower left abdominal pain with alot of gas",Pt recently admitted 11/28/16 with abdominal pain, esophagitis, infectious colitis and exacerbation of his COPD. He had EGD with bx and colonoscopy with bx-states he has also been diagnosed with colon cancer-no chemo or rad. Other hx: Recent diagnosis of infectious colitis, doudenal and cecal polyps, colon cancer, past chronic pain -in his back and lately abdomin, TIA, tuberculosis 5 yrs ago and completed treatments. History of Any Multi-Drug Resistant Organisms: None Reported Past Surgical History: Appendectomy, Bowel Resection, Orthopedic Surgery, Tonsillectomy Additional Past Surgical History / Comment(s): 12/01/16 EGD with bx and colonoscopy with bx, sx on R forearm to removed a piece of steel from work related accident, cervical fusion. Past Anesthesia/Blood Transfusion Reactions: No Reported Reaction Past Psychological History: Depression Smoking Status: Current some day smoker Past Alcohol Use History: None Reported Past Drug Use History: None Reported - Past Family History Mother History Unknown: Yes Father History Unknown: Yes Additional Family Medical History / Comment(s): Father during his AAA repair. Sister(s) Family Medical History: Cancer Additional Family Medical History / Comment(s): lung cancer General Exam Limitations: no limitations General appearance: alert, in no apparent distress Head exam: Present: atraumatic, normocephalic, normal inspection Eye exam: Present: normal appearance, PERRL, EOMI. Absent: scleral icterus, conjunctival injection, periorbital swelling ENT exam: Present: normal exam, normal oropharynx, mucous membranes moist Neck exam: Present: normal inspection. Absent: tenderness, meningismus, lymphadenopathy Respiratory exam: Present: normal lung sounds bilaterally. Absent: respiratory distress, wheezes, rales, rhonchi, stridor Cardiovascular Exam: Present: regular rate, normal rhythm, normal heart sounds. Absent: systolic murmur, diastolic murmur, rubs, gallop, clicks GI/Abdominal exam: Present: soft, tenderness (Moderate suprapubic), normal bowel sounds. Absent: distended, guarding, rebound, rigid Back exam: Absent: CVA tenderness (R), CVA tenderness (L) Skin exam: Present: warm, dry, intact, normal color. Absent: rash Course Vital Signs 09/11/18 08:16 Temperature 98.2 F Pulse Rate 94 Respiratory 18 Rate Blood Pressure 182/100 O2 Sat by Pulse 98 Oximetry Medical Decision Making - Medical Decision Making 63-year-old male presented for difficult to urinate. Patient states he had no urine output recently Muñoz catheter was placed so minimal output. Symptoms most likely related to urinary tract infection. Patient will be given Rocephin emergency department patient was offered admission the hospital with states that he rather go home. Patient advised follow-up with on-call surgeon. Return parameters were discussed. - Lab Data Result diagrams: 09/11/18 08:50 09/11/18 08:50 Lab Results 09/11/18 09/11/18 09/11/18 Range/Units 08:50 08:50 08:50 WBC 11.1 H (3.8-10.6) k/uL RBC 5.90 (4.30-5.90) m/uL Hgb 17.9 H (13.0-17.5) gm/dL Hct 54.4 H (39.0-53.0) % MCV 92.2 (80.0-100.0) fL MCH 30.4 (25.0-35.0) pg MCHC 32.9 (31.0-37.0) g/dL RDW 12.7 (11.5-15.5) % Plt Count 329 (150-450) k/uL Neutrophils % 60 % Lymphocytes % 30 % Monocytes % 7 % Eosinophils % 1 % Basophils % 1 % Neutrophils # 6.7 (1.3-7.7) k/uL Lymphocytes # 3.3 (1.0-4.8) k/uL Monocytes # 0.7 (0-1.0) k/uL Eosinophils # 0.1 (0-0.7) k/uL Basophils # 0.1 (0-0.2) k/uL Sodium 139 (137-145) mmol/L Potassium 4.2 (3.5-5.1) mmol/L Chloride 105 (98-107) mmol/L Carbon Dioxide 24 (22-30) mmol/L Anion Gap 10 mmol/L BUN 18 (9-20) mg/dL Creatinine 1.12 (0.66-1.25) mg/dL Est GFR (CKD-EPI)AfAm 81 (>60 ml/min/1.73 sqM) Est GFR (CKD-EPI)NonAf 70 (>60 ml/min/1.73 sqM) Glucose 109 H (74-99) mg/dL Calcium 9.7 (8.4-10.2) mg/dL Total Bilirubin 0.6 (0.2-1.3) mg/dL AST 22 (17-59) U/L ALT 26 (21-72) U/L Alkaline Phosphatase 51 (38-126) U/L Total Protein 7.7 (6.3-8.2) g/dL Albumin 4.7 (3.5-5.0) g/dL Amylase 38 (30-110) U/L Lipase 144 (23-300) U/L Urine Color Light Red Urine Appearance Cloudy (Clear) Urine pH 5.5 (5.0-8.0) Ur Specific [place] 1.026 (1.001-1.035) Urine Protein 1+ H (Negative) Urine Glucose (UA) Negative (Negative) Urine Ketones Trace H (Negative) Urine Blood Large H (Negative) Urine Nitrite Negative (Negative) Urine Bilirubin Negative (Negative) Urine Urobilinogen 4.0 (<2.0) mg/dL Ur Leukocyte Esterase Trace H (Negative) Urine RBC >182 H (0-5) /hpf Urine WBC 59 H (0-5) /hpf Urine Bacteria Rare H (None) /hpf Urine Mucus Rare H (None) /hpf Disposition Clinical Impression: Urinary tract infection, Colonic mass, Abdominal pain Disposition: HOME SELF-CARE Condition: Stable Instructions (If sedation given, give patient instructions): Urinary Tract Infection in Men (ED) Additional Instructions: Please return to the Emergency Department if symptoms worsen or any other concerns. Please follow-up with surgeon discussed possibility need for exploratory surgery or colonoscopy. Prescriptions: Phenazopyridine [Pyridium] 200 mg PO TID #6 tablet Sulfamethox-Tmp 800-160Mg [Bactrim Ds] 1 each PO Q12HR #20 tab Is patient prescribed a controlled substance at d/c from ED?: No Referrals: Milton Nowak III, MD [Primary Care Provider] - 1-2 days Ck Brink MD [STAFF PHYSICIAN] - 1-2 days Time of Disposition: 10:49
[2018-09-11] MEDS ORDERED: ONDANSETRON 4 MG/2 ML VIAL IVP STA (09:02)
[2018-09-11] MEDS ORDERED: MORPHINE SULFATE 4 MG/ML SYRINGE IVP STA (09:02)
[2018-09-11 09:09] LABS: Basophils # (A) 0.1 k/uL (0-0.2); Basophils % (A) 1 %; Eosinophils # (A) 0.1 k/uL (0-0.7); Eosinophils % (A) 1 %; HCT 54.4 % (39.0-53.0); HGB 17.9 gm/dL (13.0-17.5); Lymphocytes # (A) 3.3 k/uL (1.0-4.8); Lymphocytes % (A) 30 %; MCH 30.4 pg (25.0-35.0); MCHC 32.9 g/dL (31.0-37.0); MCV 92.2 fL (80.0-100.0); Mean Platelet Volume 6.2; Monocytes # (A) 0.7 k/uL (0-1.0); Monocytes % (A) 7 %; Neutrophils # (A) 6.7 k/uL (1.3-7.7); Neutrophils % (A) 60 %; Platelet Count 329 k/uL (150-450); RDW 12.7 % (11.5-15.5); WBC 11.1 k/uL (3.8-10.6)
[2018-09-11 09:19] LABS: Albumin 4.7 g/dL (3.5-5.0); Appearance,Urine Cloudy (Clear); Bacteria,Urine Rare /hpf; Bilirubin,Urine Negative (Negative); Blood,Urine Large (Negative); Calcium 9.7 mg/dL (8.4-10.2); Color,Urine Light Red; Glucose,Urine (UA) Negative (Negative); Ketones,Urine Trace (Negative); Leukocyte Esterase,Urine Trace (Negative); Mucus,Urine Rare /hpf; Nitrite,Urine Negative (Negative); PH, Urine 5.5 (5.0-8.0); Potassium 4.2 mmol/L (3.5-5.1); Protein,Urine 1+ (Negative); RBC,Urine >182 /hpf (0-5); Specific Gravity,Urine 1.026 (1.001-1.035); Total Bilirubin 0.6 mg/dL (0.2-1.3); Total Protein 7.7 g/dL (6.3-8.2); WBC,Urine 59 /hpf (0-5)
--- NOTE | 2018-09-11 10:34 | CT ---
EXAMINATION TYPE: CT abdomen pelvis w con DATE OF EXAM: 09/11/2018 COMPARISON: 10/04/2017 HISTORY: Right flank pain, dysuria, gross hematuria. CT DLP: 821.5 mGycm Automated exposure control for dose reduction was used. TECHNIQUE: Helical acquisition of images was performed from the lung bases through the pelvis. CONTRAST: Performed without Oral Contrast and with IV Contrast, patient injected with 100 mL of Isovue 300. FINDINGS: LUNG BASES: Minimal bibasilar subsegmental dependent atelectasis is seen. LIVER/GB: Hepatic parenchyma is diffusely hypoattenuated in comparison to that of the spleen, most co mmonly seen in hepatic steatosis. This finding limits evaluation for hepatic masses. No gross evidenc e of hepatic mass is seen. No intrahepatic biliary ductal dilatation. No cholelithiasis PANCREAS: Pancreatic parenchymal calcifications are noted, sequela chronic pancreatitis. SPLEEN: No significant abnormality is seen. ADRENALS: No significant abnormality is seen. KIDNEYS: Right 7 mm renal cyst is noted. No hydronephrosis of either kidney. REPRODUCTIVE ORGANS: Prostate gland is heterogenous containing central zone calcifications. URINARY BLADDER: Area is noted within the urinary bladder with Munroe catheter placement. Air is like ly from recent instrumentation. Catheter tip tents the urinary bladder wall. There is circumferential urinary bladder wall thickening. PELVIC ADENOPATHY: None visualized. OSSEOUS STRUCTURES: Moderate multilevel degenerative changes are noted of the spine. BOWEL: Large bowel anastomotic site is seen at the hepatic flexure. Soft tissue density surrounds th is anastomotic site from series 201 image 21 through 29. OTHER: Moderate calcific and noncalcific atheromatous plaquing is seen of the abdominal aorta and its branches. IMPRESSION: 1. CIRCUMFERENTIAL URINARY BLADDER WALL THICKENING, LIKELY DUE TO CYSTITIS. CORRELATE WITH URINALYSIS . AIR WITHIN THE URINARY BLADDER MAY BE ON THE BASIS OF AIR PRODUCING INFECTIOUS ORGANISM OR MORE LIK JUDD FROM RECENT INSTRUMENTATION IS A MUNROE CATHETER IS PRESENT. 2. SOFT TISSUE DENSITY SURROUNDING THE COLONIC ANASTOMOTIC SITE AT THE HEPATIC FLEXURE. RECURRENT KELSIE PLASM IS POSSIBLE.
[2018-09-11] MEDS ORDERED: NALOXONE 0.4 MG/ML 1 ML VIAL IV PRN (11:03)
--- NOTE | 2018-09-11 11:03 | ED ---
Medical Decision Making - Medical Decision Making Patient stated that he change his mind and would like to be admitted at this time. Patient be admitted for IV antibiotics and surgery consult. - Lab Data Result diagrams: 09/11/18 08:50 09/11/18 08:50 Lab Results 09/11/18 09/11/18 09/11/18 Range/Units 08:50 08:50 08:50 WBC 11.1 H (3.8-10.6) k/uL RBC 5.90 (4.30-5.90) m/uL Hgb 17.9 H (13.0-17.5) gm/dL Hct 54.4 H (39.0-53.0) % MCV 92.2 (80.0-100.0) fL MCH 30.4 (25.0-35.0) pg MCHC 32.9 (31.0-37.0) g/dL RDW 12.7 (11.5-15.5) % Plt Count 329 (150-450) k/uL Neutrophils % 60 % Lymphocytes % 30 % Monocytes % 7 % Eosinophils % 1 % Basophils % 1 % Neutrophils # 6.7 (1.3-7.7) k/uL Lymphocytes # 3.3 (1.0-4.8) k/uL Monocytes # 0.7 (0-1.0) k/uL Eosinophils # 0.1 (0-0.7) k/uL Basophils # 0.1 (0-0.2) k/uL Sodium 139 (137-145) mmol/L Potassium 4.2 (3.5-5.1) mmol/L Chloride 105 (98-107) mmol/L Carbon Dioxide 24 (22-30) mmol/L Anion Gap 10 mmol/L BUN 18 (9-20) mg/dL Creatinine 1.12 (0.66-1.25) mg/dL Est GFR (CKD-EPI)AfAm 81 (>60 ml/min/1.73 sqM) Est GFR (CKD-EPI)NonAf 70 (>60 ml/min/1.73 sqM) Glucose 109 H (74-99) mg/dL Calcium 9.7 (8.4-10.2) mg/dL Total Bilirubin 0.6 (0.2-1.3) mg/dL AST 22 (17-59) U/L ALT 26 (21-72) U/L Alkaline Phosphatase 51 (38-126) U/L Total Protein 7.7 (6.3-8.2) g/dL Albumin 4.7 (3.5-5.0) g/dL Amylase 38 (30-110) U/L Lipase 144 (23-300) U/L Urine Color Light Red Urine Appearance Cloudy (Clear) Urine pH 5.5 (5.0-8.0) Ur Specific [place] 1.026 (1.001-1.035) Urine Protein 1+ H (Negative) Urine Glucose (UA) Negative (Negative) Urine Ketones Trace H (Negative) Urine Blood Large H (Negative) Urine Nitrite Negative (Negative) Urine Bilirubin Negative (Negative) Urine Urobilinogen 4.0 (<2.0) mg/dL Ur Leukocyte Esterase Trace H (Negative) Urine RBC >182 H (0-5) /hpf Urine WBC 59 H (0-5) /hpf Urine Bacteria Rare H (None) /hpf Urine Mucus Rare H (None) /hpf Disposition Clinical Impression: Urinary tract infection, Colonic mass, Abdominal pain Disposition: ADMITTED IP TO THIS HOSP Condition: Stable Instructions (If sedation given, give patient instructions): Urinary Tract Infection in Men (ED) Additional Instructions: Please return to the Emergency Department if symptoms worsen or any other concerns. Please follow-up with surgeon discussed possibility need for exploratory surgery or colonoscopy. Prescriptions: Phenazopyridine [Pyridium] 200 mg PO TID #6 tablet Sulfamethox-Tmp 800-160Mg [Bactrim Ds] 1 each PO Q12HR #20 tab Referrals: Milton Nowak III, MD [Primary Care Provider] - 1-2 days Ck Brink MD [STAFF PHYSICIAN] - 1-2 days
[2018-09-11] MEDS ORDERED: ALBUTEROL NEBULIZED 2.5 MG/3 ML INHALATION PRN (11:06)
[2018-09-11] MEDS ORDERED: LORazepam 2 MG/ML INJ IV STA (11:39)
[2018-09-11] MEDS: SODIUM CHLORIDE 0.9% 1,000 ML IV SCH ×2 (11:49→20:27)
[2018-09-11] MEDS ORDERED: IPRATROPIUM-ALBUTEROL 3 ML NEB INHALATION PRN (15:17)
--- NOTE | 2018-09-11 15:23 | P.HPIM ---
History of Present Illness Reason for [id number] gentleman came with complaints of urinary retention and hematuria and started yesterday. Patient had hematuria today morning as well and patient was comparing of dysuria as well as suprapubic pain. Patient denied any fever chills nausea vomiting. CAT scan of the abdomen was opted which showed bladder thickening consistent with either cystitis or a malignancy for which patient will need cystoscopy patient will be admitted and neurology will be consulted patient had a history of colon cancer and the head colectomy in the past: Cancer is in remission although the CAT scan did show some soft tissue density around the colonic anastomotic site. General surgery was consulted from ER. Patient does have leukocytosis. Patient denied any fever chills denied any prostate problems. Review of Systems REVIEW OF SYSTEMS: CONSTITUTIONAL: No fever, no malaise, no fatigue. HEENT: No recent visual problems or hearing problems. Denied any sore throat. CARDIOVASCULAR: No chest pain, orthopnea, PND, no palpitations, no syncope. PULMONARY: No shortness of breath, no cough, no hemoptysis. GASTROINTESTINAL: No diarrhea, no nausea, no vomiting, no abdominal pain. NEUROLOGICAL: No headaches, no weakness, no numbness. HEMATOLOGICAL: Denies any bleeding or petechiae. GENITOURINARY: As mentioned in HPI MUSCULOSKELETAL/RHEUMATOLOGICAL: Denies any joint pain, swelling, or any muscle pain. ENDOCRINE: Denies any polyuria or polydipsia. The rest of the 14-point review of systems is negative. Past Medical History Past Medical History: Cancer, Heart Failure, COPD, CVA/TIA, GERD/Reflux Additional Past Medical History / Comment(s): states "current lower left abdominal pain with alot of gas",Pt recently admitted 11/28/16 with abdominal pain, esophagitis, infectious colitis and exacerbation of his COPD. He had EGD with bx and colonoscopy with bx-states he has also been diagnosed with colon cancer-no chemo or rad. Other hx: Recent diagnosis of infectious colitis, doudenal and cecal polyps, colon cancer, past chronic pain -in his back and lately abdomin, TIA, tuberculosis 5 yrs ago and completed treatments. History of Any Multi-Drug Resistant Organisms: None Reported Past Surgical History: Appendectomy, Bowel Resection, Orthopedic Surgery, Tonsillectomy Additional Past Surgical History / Comment(s): 12/01/16 EGD with bx and colonoscopy with bx, sx on R forearm to removed a piece of steel from work related accident, cervical fusion. Past Anesthesia/Blood Transfusion Reactions: No Reported Reaction Past Psychological History: Depression Smoking Status: Current some day smoker Past Alcohol Use History: None Reported Past Drug Use History: None Reported - Past Family History Mother History Unknown: Yes Father History Unknown: Yes Additional Family Medical History / Comment(s): Father during his AAA repair. Sister(s) Family Medical History: Cancer Additional Family Medical History / Comment(s): lung cancer Medications and Allergies Home Medications Medication Instructions Recorded Confirmed Type busPIRone HCL 30 mg PO BID 11/28/16 09/11/18 History Albuterol Sulfate [Proair Hfa] 2 puff INHALATION RT-Q6H PRN 12/07/16 09/11/18 History Budesonide-Formot 160-4.5 Mcg 2 puff INHALATION RT-BID 12/07/16 09/11/18 History [Symbicort 160-4.5 Mcg Inhaler] DULoxetine HCL [Cymbalta] 30 mg PO DAILY 09/11/18 09/11/18 History Pantoprazole [Protonix] 40 mg PO DAILY 09/11/18 09/11/18 History Phenazopyridine [Pyridium] 200 mg PO TID #6 tablet 09/11/18 Rx Sulfamethox-Tmp 800-160Mg [Bactrim 1 each PO Q12HR #20 tab 09/11/18 Rx Ds] oxyCODONE HCL/ACETAMINOPHEN 1 tab PO QID PRN 09/11/18 09/11/18 History [Percocet 10-325 mg] Allergies Allergy/AdvReac Type Severity Reaction Status Date / Time No Known Allergies Allergy Verified 09/11/18 09:23 Physical Exam Vitals: Vital Signs Temp Pulse Resp BP Pulse Ox 09/11/18 13:23 98.4 F 73 16 127/85 95 09/11/18 11:51 98.0 F 75 18 160/88 96 09/11/18 08:16 98.2 F 94 18 182/100 98 Intake and Output 09/11/18 09/11/18 09/11/18 06:59 14:59 22:59 Other: Weight 81.647 kg PHYSICAL EXAMINATION: GENERAL: The patient is alert and oriented x3, not in any acute distress. Well developed, well nourished. HEENT: Pupils are round and equally reacting to light. EOMI. No scleral icterus. No conjunctival pallor. Normocephalic, atraumatic. No pharyngeal erythema. No thyromegaly. CARDIOVASCULAR: S1 and S2 present. No murmurs, rubs, or gallops. PULMONARY: Significant expiratory wheezing on exam ABDOMEN: Soft, nontender, nondistended, normoactive bowel sounds. No palpable organomegaly. MUSCULOSKELETAL: No joint swelling or deformity. EXTREMITIES: No cyanosis, clubbing, or pedal edema. NEUROLOGICAL: Gross neurological examination did not reveal any focal deficits. SKIN: No rashes. Results CBC & Chem 7: 09/11/18 08:50 09/11/18 08:50 Labs: Abnormal Lab Results - Last 24 Hours (Table) 09/11/18 09/11/18 09/11/18 Range/Units 08:50 08:50 08:50 WBC 11.1 H (3.8-10.6) k/uL Hgb 17.9 H (13.0-17.5) gm/dL Hct 54.4 H (39.0-53.0) % Glucose 109 H (74-99) mg/dL Urine Protein 1+ H (Negative) Urine Ketones Trace H (Negative) Urine Blood Large H (Negative) Ur Leukocyte Esterase Trace H (Negative) Urine RBC >182 H (0-5) /hpf Urine WBC 59 H (0-5) /hpf Urine Bacteria Rare H (None) /hpf Urine Mucus Rare H (None) /hpf Assessment and Plan Plan: Hematuria urinary tension: Possibility of UTI, patient is on Rocephin which will be continued neurology will be consulted for for cystoscopy -COPD with possible exacerbation we'll continue with inhaled steroids inhalational treatments if patient doesn't improve will use the systemic steroids. -History of colon cancer in remission with some density in the colonic anastomotic site, Gen. surgery was consulted -Leukocytosis can be reactive or May be secondary to urinary tract infection -Gastroesophageal reflux disease -Patient will need a pharmacologic GI prophylaxis, will not require pharmacologic DVT prophylaxis as patient has which
[2018-09-11] MEDS ORDERED: PEG 3350-NA SULF,BICARB,CL/KCL 4,000 ML BOTTLE PO ONE (15:34)
[2018-09-11] MEDS: IPRATROPIUM-ALBUTEROL 3 ML NEB INHALATION SCH ×2 (16:22→20:14)
[2018-09-11] MEDS: TAMSULOSIN 0.4 MG CAP.ER.24H PO SCH (16:58)
[2018-09-11] MEDS: oxyCODONE-APAP 10-325MG 1 EACH TAB PO PRN (17:07)
--- NOTE | 2018-09-11 17:45 | P.PN ---
Progress Note - Text Progress Note Date: 09/11/18 Patient will be scheduled for colonoscopy in the a.m.
--- NOTE | 2018-09-11 17:57 | P.GSCN ---
History of Present Illness Consult date: 09/11/18 History of present illness: This is a 63-year-old gentleman who came to the hospital difficulty with urination and hematuria. He was evaluated in the emergency room. In the emergency room he had inflamed as well as bloody urine. He was admitted to the hospital for further evaluation. He had a CAT scan that was incompletely evaluated. He has a history of colon cancer and had a colectomy by in 2017. Prior to this blood which is been in the last 24 hours he does have problems with a slowing urinary stream frequent and incomplete voiding dribbling as well as nocturia. He is not seen a urologist before. He was not on urologic medication prior to this hospitalization is now on tamsulosin and Bactrim. Review of Systems All systems: negative - Genitourinary Reports as per HPI Past Medical History Past Medical History: Cancer, Heart Failure, COPD, CVA/TIA, GERD/Reflux Additional Past Medical History / Comment(s): states "current lower left abdominal pain with alot of gas",Pt recently admitted 11/28/16 with abdominal pain, esophagitis, infectious colitis and exacerbation of his COPD. He had EGD with bx and colonoscopy with bx-states he has also been diagnosed with colon cancer-no chemo or rad. Other hx: Recent diagnosis of infectious colitis, doudenal and cecal polyps, colon cancer, past chronic pain -in his back and lately abdomin, TIA, tuberculosis 5 yrs ago and completed treatments. History of Any Multi-Drug Resistant Organisms: None Reported Past Surgical History: Appendectomy, Bowel Resection, Orthopedic Surgery, Tonsillectomy Additional Past Surgical History / Comment(s): 12/01/16 EGD with bx and colonoscopy with bx, sx on R forearm to removed a piece of steel from work related accident, cervical fusion. Past Anesthesia/Blood Transfusion Reactions: No Reported Reaction Smoking Status: Current some day smoker - Past Family History Mother History Unknown: Yes Father History Unknown: Yes Additional Family Medical History / Comment(s): Father during his AAA repair. Sister(s) Family Medical History: Cancer Additional Family Medical History / Comment(s): lung cancer Medications and Allergies Home Medications Medication Instructions Recorded Confirmed Type busPIRone HCL 30 mg PO BID 11/28/16 09/11/18 History Albuterol Sulfate [Proair Hfa] 2 puff INHALATION RT-Q6H PRN 12/07/16 09/11/18 History Budesonide-Formot 160-4.5 Mcg 2 puff INHALATION RT-BID 12/07/16 09/11/18 History [Symbicort 160-4.5 Mcg Inhaler] DULoxetine HCL [Cymbalta] 30 mg PO DAILY 09/11/18 09/11/18 History Pantoprazole [Protonix] 40 mg PO DAILY 09/11/18 09/11/18 History Phenazopyridine [Pyridium] 200 mg PO TID #6 tablet 09/11/18 Rx Sulfamethox-Tmp 800-160Mg [Bactrim 1 each PO Q12HR #20 tab 09/11/18 Rx Ds] oxyCODONE HCL/ACETAMINOPHEN 1 tab PO QID PRN 09/11/18 09/11/18 History [Percocet 10-325 mg] Allergies Allergy/AdvReac Type Severity Reaction Status Date / Time No Known Allergies Allergy Verified 09/11/18 09:23 Surgical - Exam Vital Signs Temp Pulse Resp BP Pulse Ox 98.2 F 94 18 182/100 98 09/11/18 08:16 09/11/18 08:16 09/11/18 08:16 09/11/18 08:16 09/11/18 08:16 - General well developed, well nourished - Eyes PERRL - ENT no hearing loss - Neck trachea midline - Respiratory normal expansion, normal respiratory effort - Cardiovascular Rhythm: regular - Abdomen Abdomen: soft, non tender - Genitourinary Prostate is 40-50 g benign normal penis with no external lesions, testicles present - Rectum Rectum: normal sphincter tone - Integumentary no rash, no growths - Musculoskeletal normal gait, normal posture - Psychiatric oriented to time, oriented to person, oriented to place, speech is normal, memory intact Results - Labs 09/11/18 08:50 09/11/18 08:50 Abnormal Lab Results - Last 24 Hours (Table) 09/11/18 09/11/18 09/11/18 Range/Units 08:50 08:50 08:50 WBC 11.1 H (3.8-10.6) k/uL Hgb 17.9 H (13.0-17.5) gm/dL Hct 54.4 H (39.0-53.0) % Glucose 109 H (74-99) mg/dL Urine Protein 1+ H (Negative) Urine Ketones Trace H (Negative) Urine Blood Large H (Negative) Ur Leukocyte Esterase Trace H (Negative) Urine RBC >182 H (0-5) /hpf Urine WBC 59 H (0-5) /hpf Urine Bacteria Rare H (None) /hpf Urine Mucus Rare H (None) /hpf Diabetes panel 09/11/18 Range/Units 08:50 Sodium 139 (137-145) mmol/L Potassium 4.2 (3.5-5.1) mmol/L Chloride 105 (98-107) mmol/L Carbon Dioxide 24 (22-30) mmol/L BUN 18 (9-20) mg/dL Creatinine 1.12 (0.66-1.25) mg/dL Glucose 109 H (74-99) mg/dL Calcium 9.7 (8.4-10.2) mg/dL AST 22 (17-59) U/L ALT 26 (21-72) U/L Alkaline Phosphatase 51 (38-126) U/L Total Protein 7.7 (6.3-8.2) g/dL Albumin 4.7 (3.5-5.0) g/dL Calcium panel 09/11/18 Range/Units 08:50 Calcium 9.7 (8.4-10.2) mg/dL Albumin 4.7 (3.5-5.0) g/dL Pituitary panel 09/11/18 Range/Units 08:50 Sodium 139 (137-145) mmol/L Potassium 4.2 (3.5-5.1) mmol/L Chloride 105 (98-107) mmol/L Carbon Dioxide 24 (22-30) mmol/L BUN 18 (9-20) mg/dL Creatinine 1.12 (0.66-1.25) mg/dL Glucose 109 H (74-99) mg/dL Calcium 9.7 (8.4-10.2) mg/dL Adrenal panel 09/11/18 Range/Units 08:50 Sodium 139 (137-145) mmol/L Potassium 4.2 (3.5-5.1) mmol/L Chloride 105 (98-107) mmol/L Carbon Dioxide 24 (22-30) mmol/L BUN 18 (9-20) mg/dL Creatinine 1.12 (0.66-1.25) mg/dL Glucose 109 H (74-99) mg/dL Calcium 9.7 (8.4-10.2) mg/dL Total Bilirubin 0.6 (0.2-1.3) mg/dL AST 22 (17-59) U/L ALT 26 (21-72) U/L Alkaline Phosphatase 51 (38-126) U/L Total Protein 7.7 (6.3-8.2) g/dL Albumin 4.7 (3.5-5.0) g/dL - Imaging CT scan - abdomen: report reviewed, image reviewed CT scan - pelvis: report reviewed, image reviewed Assessment and Plan Assessment: Impression: Gross hematuria possible urinary infection. 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 Recommendations: Urine has been cultured. He has been placed on Bactrim and tamsulosin. Pending the results as to when cystoscopy would be appropriate. If he continues to void well and has a urine infection and I would wait until after the infection is treated before performing cystoscopy. If there is no infection and cystoscopy will be performed when the blood clears. Most likely this can be done in the office. I'll follow this patient with you.
[2018-09-11] MEDS: SYMBICORT 160-4.5 MCG INHALER INHALATION SCH (20:14)
[2018-09-11] MEDS: busPIRone HCl 10 MG TAB PO SCH (20:24)
[2018-09-11] MEDS ORDERED: MELATONIN 5 MG TABLET PO PRN (23:10)
[2018-09-12] MEDS: IPRATROPIUM-ALBUTEROL 3 ML NEB INHALATION SCH ×4 (07:14→20:37)
[2018-09-12] MEDS: SYMBICORT 160-4.5 MCG INHALER INHALATION SCH ×2 (07:14→20:37)
[2018-09-12 09:11] LABS: HCT 46.9 % (39.0-53.0); HGB 15.2 gm/dL (13.0-17.5); MCH 30.6 pg (25.0-35.0); MCHC 32.5 g/dL (31.0-37.0); MCV 94.1 fL (80.0-100.0); Mean Platelet Volume 6.8; Platelet Count 265 k/uL (150-450); RBC 4.98 m/uL (4.30-5.90); RDW 12.7 % (11.5-15.5); WBC 8.1 k/uL (3.8-10.6)
[2018-09-12 09:23] LABS: Anion Gap 4 mmol/L; Blood Urea Nitrogen 11 mg/dL (9-20); Carbon Dioxide 26 mmol/L (22-30); Chloride 109 mmol/L (98-107); Glucose 96 mg/dL (74-99); Potassium 4.5 mmol/L (3.5-5.1); Sodium 139 mmol/L (137-145)
[2018-09-12] MEDS ORDERED: IV FLUID CONTINUATION 1,000 ML IV ONE (10:50)
[2018-09-12] MEDS ORDERED: PROPOFOL 10 MG/ML 20 ML VIAL IV ONE (10:53)
[2018-09-12] MEDS ORDERED: LIDOCAINE 1% INJ 10MG/ML (20 ML MDV) ONE (10:53)
--- NOTE | 2018-09-12 10:54 | P.GSCN ---
History of Present Illness Consult date: 09/12/18 Reason for Consult: Possible colonic mass History of present illness: This a 63-year-old male who's had a previous right colectomy by Dr. Leilani clifford. Patient was admitted through the emergency room with complaints of urinary retention and dysuria. Patient underwent CAT scan and was found have thickening of the colonic anastomosis near the hepatic flexure. I been consult for colonoscopy to evaluate this area. Patient denies any difficulty having bowel movements. Past Medical History Past Medical History: Cancer, Heart Failure, COPD, CVA/TIA, GERD/Reflux Additional Past Medical History / Comment(s): states "current lower left abdominal pain with alot of gas",Pt recently admitted 11/28/16 with abdominal pain, esophagitis, infectious colitis and exacerbation of his COPD. He had EGD with bx and colonoscopy with bx-states he has also been diagnosed with colon cancer-no chemo or rad. Other hx: Recent diagnosis of infectious colitis, doudenal and cecal polyps, colon cancer, past chronic pain -in his back and lately abdomin, TIA, tuberculosis 5 yrs ago and completed treatments. History of Any Multi-Drug Resistant Organisms: None Reported Past Surgical History: Appendectomy, Bowel Resection, Orthopedic Surgery, Tonsillectomy Additional Past Surgical History / Comment(s): 12/01/16 EGD with bx and colonoscopy with bx, sx on R forearm to removed a piece of steel from work related accident, cervical fusion. Past Anesthesia/Blood Transfusion Reactions: No Reported Reaction Smoking Status: Current some day smoker - Past Family History Mother History Unknown: Yes Father History Unknown: Yes Additional Family Medical History / Comment(s): Father during his AAA repair. Sister(s) Family Medical History: Cancer Additional Family Medical History / Comment(s): lung cancer Medications and Allergies Home Medications Medication Instructions Recorded Confirmed Type busPIRone HCL 30 mg PO BID 11/28/16 09/11/18 History Albuterol Sulfate [Proair Hfa] 2 puff INHALATION RT-Q6H PRN 12/07/16 09/11/18 History Budesonide-Formot 160-4.5 Mcg 2 puff INHALATION RT-BID 12/07/16 09/11/18 History [Symbicort 160-4.5 Mcg Inhaler] DULoxetine HCL [Cymbalta] 30 mg PO DAILY 09/11/18 09/11/18 History Pantoprazole [Protonix] 40 mg PO DAILY 09/11/18 09/11/18 History Phenazopyridine [Pyridium] 200 mg PO TID #6 tablet 09/11/18 Rx Sulfamethox-Tmp 800-160Mg [Bactrim 1 each PO Q12HR #20 tab 09/11/18 Rx Ds] oxyCODONE HCL/ACETAMINOPHEN 1 tab PO QID PRN 09/11/18 09/11/18 History [Percocet 10-325 mg] Allergies Allergy/AdvReac Type Severity Reaction Status Date / Time No Known Allergies Allergy Verified 09/11/18 09:23 Surgical - Exam Vital Signs Temp Pulse Resp BP Pulse Ox 98.2 F 94 18 182/100 98 09/11/18 08:16 09/11/18 08:16 09/11/18 08:16 09/11/18 08:16 09/11/18 08:16 - General well developed, well nourished, no distress - Eyes PERRL - ENT normal pinna - Neck no masses - Respiratory normal expansion - Cardiovascular Rhythm: regular - Abdomen Abdomen: soft, non tender Results - Labs 09/12/18 08:11 09/12/18 08:11 Abnormal Lab Results - Last 24 Hours (Table) 09/12/18 Range/Units 08:11 Chloride 109 H (98-107) mmol/L Diabetes panel 09/12/18 Range/Units 08:11 Sodium 139 (137-145) mmol/L Potassium 4.5 (3.5-5.1) mmol/L Chloride 109 H (98-107) mmol/L Carbon Dioxide 26 (22-30) mmol/L BUN 11 (9-20) mg/dL Creatinine 1.00 (0.66-1.25) mg/dL Glucose 96 (74-99) mg/dL Calcium 9.0 (8.4-10.2) mg/dL Calcium panel 09/12/18 Range/Units 08:11 Calcium 9.0 (8.4-10.2) mg/dL Pituitary panel 09/12/18 Range/Units 08:11 Sodium 139 (137-145) mmol/L Potassium 4.5 (3.5-5.1) mmol/L Chloride 109 H (98-107) mmol/L Carbon Dioxide 26 (22-30) mmol/L BUN 11 (9-20) mg/dL Creatinine 1.00 (0.66-1.25) mg/dL Glucose 96 (74-99) mg/dL Calcium 9.0 (8.4-10.2) mg/dL Adrenal panel 09/12/18 Range/Units 08:11 Sodium 139 (137-145) mmol/L Potassium 4.5 (3.5-5.1) mmol/L Chloride 109 H (98-107) mmol/L Carbon Dioxide 26 (22-30) mmol/L BUN 11 (9-20) mg/dL Creatinine 1.00 (0.66-1.25) mg/dL Glucose 96 (74-99) mg/dL Calcium 9.0 (8.4-10.2) mg/dL - Imaging CT scan - abdomen: report reviewed (Soft tissue density at the ileocolonic anastomosis) Assessment and Plan Assessment: Possible colonic mass. Patient will undergo colonoscopy to evaluate the ileocolonic anastomosis
--- NOTE | 2018-09-12 11:05 | P.OP ---
Date of Procedure: 09/12/18 Preoperative Diagnosis: Possible right colon mass Postoperative Diagnosis: Normal colonoscopy status post right colectomy No evidence of ileocolonic anastomotic mass Procedure(s) Performed: Colonoscopy Anesthesia: MAC Surgeon: Ck Brink Pathology: none sent Condition: stable Disposition: PACU Description of Procedure: The patient's placed on the endoscopy table in the lateral position. He received IV sedation. Digital rectal exam is performed this revealed no abnormalities. Flexible colonoscope was then placed patient anus and passed throughout the colon. Patient had a previous right collecting. The ileocolonic anastomosis visualized near the hepatic flexure. There is no evidence of any obstruction of the ileocolonic anastomosis. There is no evidence of any masses seen in the colon. The scope could not be passed into the ileocolonic anastomosis. However there is free stool and fluid coming in through the ileocolonic anastomosis. This point the scope was withdrawn. The remainder of the transverse colon, descending colon sigmoid colon and rectum appeared normal. The scope was withdrawn for patient.
[2018-09-12] MEDS: busPIRone HCl 10 MG TAB PO SCH ×2 (12:04→22:02)
[2018-09-12] MEDS: TAMSULOSIN 0.4 MG CAP.ER.24H PO SCH (12:04)
[2018-09-12] MEDS: PANTOPRAZOLE 40 MG TABLET PO SCH (12:04)
[2018-09-12] MEDS: DULoxetine HCL 30 MG CAPSULE.DR PO SCH (12:04)
[2018-09-12] MEDS: SODIUM CHLORIDE 0.9% 1,000 ML IV SCH ×2 (12:08→18:39)
[2018-09-12] MEDS: oxyCODONE-APAP 10-325MG 1 EACH TAB PO PRN ×2 (12:17→18:28)
--- NOTE | 2018-09-12 15:23 | P.PN ---
Subjective Progress Note Date: 09/12/18 The patient had a normal colonoscopy today. He should be sent home on antibiotic is no culture was done. I will see in the office in 2 weeks for cystoscopy Objective - Vital Signs Vital signs: Vital Signs Temp 97.9 F 09/12/18 11:59 Pulse 62 09/12/18 11:59 Resp 16 09/12/18 11:59 BP 144/86 09/12/18 11:59 Pulse Ox 99 09/12/18 11:59 Intake & Output 09/11/18 09/12/18 09/12/18 18:59 06:59 18:59 Intake Total 1250 200 Output Total 101 161 Balance -101 1250 39 Weight 81.647 kg Intake: IV 150 Intake, IV Titration 1250 50 Amount Sodium Chloride 0.9% 1, 1200 000 ml @ 100 mls/hr IV . Q10H [facility] Rx#:[id number] cefTRIAXone 1,000 mg In 50 50 Sodium Chloride 0.9% 50 ml @ 100 mls/hr IVPB Q12HR [facility] Rx#:[id number] Output: Post Void Residual 101 161 Other: Voiding Method Toilet Toilet Toilet # Voids 3 # Bowel Movements 3 - Labs CBC & Chem 7: 09/12/18 08:11 09/12/18 08:11 Labs: Abnormal Lab Results - Last 24 Hours (Table) 09/12/18 Range/Units 08:11 Chloride 109 H (98-107) mmol/L
--- NOTE | 2018-09-12 17:19 | P.PN ---
Subjective Progress Note Date: 09/12/18 Hospital course:Reason for [id number] gentleman came with complaints of urinary retention and hematuria and started yesterday. Patient had hematuria today morning as well and patient was comparing of dysuria as well as suprapubic pain. Patient denied any fever chills nausea vomiting. CAT scan of the abdomen was opted which showed bladder thickening consistent with either cystitis or a malignancy for which patient will need cystoscopy patient will be admitted and neurology will be consulted patient had a history of colon cancer and the head colectomy in the past: Cancer is in remission although the CAT scan did show some soft tissue density around the colonic anastomotic site. General surgery was consulted from ER. Patient does have leukocytosis. Patient denied any fever chills denied any prostate problems. 09/12/2018 Maintaining nebulized bronchodilators, Symbicort, Rocephin with O2 sats of high 90s on room air. NPO,scheduled for colonoscopy today. Reports multiple voiding with no further hematuria. Denies abdominal pain. Received Percocet during the night for chronic back pain. Afebrile, normal WBC. Urine culture ordered Evaluated by urology with cystoscopy recommended pending no infection and clearance of hematuria.Mild pressure with voiding reported. REVIEW OF SYSTEMS: CONSTITUTIONAL: No fever, no malaise, no fatigue. HEENT: No recent visual problems or hearing problems. Denied any sore throat. CARDIOVASCULAR: No chest pain, orthopnea, PND, no palpitations, no syncope. PULMONARY: No shortness of breath, no cough, no hemoptysis. GASTROINTESTINAL: No diarrhea, no nausea, no vomiting, no abdominal pain. NEUROLOGICAL: No headaches, no weakness, no numbness. HEMATOLOGICAL: Denies any bleeding or petechiae. GENITOURINARY: No further hematuria ENDOCRINE: Denies any polyuria or polydipsia. The rest of the 14-point review of systems is negative. Active Medications Albuterol/Ipratropium (Duoneb 0.5 Mg-3 Mg/3 Ml Soln) 3 ml INHALATION RT-QID PRN PRN Reason: Shortness Of Breath Or Wheezing Albuterol/Ipratropium (Duoneb 0.5 Mg-3 Mg/3 Ml Soln) 3 ml INHALATION RT-QID [facility] Last Admin: 09/12/18 11:30 Dose: 3 ml Budesonide/Formoterol Fumarate (Symbicort 160-4.5 Mcg Inhaler) 2 puff INHALATION RT-BID [facility] Last Admin: 09/12/18 07:14 Dose: 2 puff Buspirone HCl (Buspar) 30 mg PO BID [facility] Last Admin: 09/12/18 12:04 Dose: 30 mg Duloxetine HCl (Cymbalta) 30 mg PO DAILY [facility] Last Admin: 09/12/18 12:04 Dose: 30 mg Ceftriaxone Sodium 1,000 mg/ (Sodium Chloride) 50 mls @ 100 mls/hr IVPB Q12HR [facility] Last Admin: 09/12/18 08:14 Dose: 100 mls/hr Sodium Chloride (Saline 0.9%) 1,000 mls @ 100 mls/hr IV .Q10H [facility] Last Admin: 09/12/18 12:08 Dose: 100 mls/hr Melatonin (Melatonin) 5 mg PO HS PRN PRN Reason: Insomnia Naloxone HCl (Narcan) 0.2 mg IV Q2M PRN PRN Reason: Opioid Reversal Oxycodone/Acetaminophen (Percocet 10-325) 1 each PO QID PRN PRN Reason: Pain Last Admin: 09/12/18 12:17 Dose: 1 each Pantoprazole Sodium (Protonix) 40 mg PO AC-BRKFST [facility] Last Admin: 09/12/18 12:04 Dose: Not Given Tamsulosin HCl (Flomax) 0.4 mg PO PC-BRKFST [facility] Last Admin: 09/12/18 12:04 Dose: 0.4 mg Objective - Vital Signs Vital signs: Vital Signs Temp 97.9 F 09/12/18 11:59 Pulse 62 09/12/18 11:59 Resp 16 09/12/18 11:59 BP 144/86 09/12/18 11:59 Pulse Ox 99 09/12/18 11:59 Intake & Output 09/11/18 09/12/18 09/12/18 18:59 06:59 18:59 Intake Total 1250 150 Output Total 101 Balance -101 1250 150 Weight 81.647 kg Intake: IV 150 Intake, IV Titration 1250 Amount Sodium Chloride 0.9% 1, 1200 000 ml @ 100 mls/hr IV . Q10H [facility] Rx#:[id number] cefTRIAXone 1,000 mg In 50 Sodium Chloride 0.9% 50 ml @ 100 mls/hr IVPB Q12HR [facility] Rx#:[id number] Output: Post Void Residual 101 Other: Voiding Method Toilet Toilet Toilet # Voids 3 # Bowel Movements 3 - Exam GENERAL: The patient is alert and oriented x3, not in any acute distress. HEENT: Pupils are round and equally reacting to light. EOMI. No scleral icterus. No conjunctival pallor. Normocephalic, atraumatic. CARDIOVASCULAR: S1 and S2 present. No murmurs, rubs, or gallops. PULMONARY: Significant expiratory wheezing on exam ABDOMEN: Soft, nontender, nondistended, normoactive bowel sounds. No palpable organomegaly. MUSCULOSKELETAL: No joint swelling or deformity. EXTREMITIES: No cyanosis, clubbing, or pedal edema. NEUROLOGICAL: Gross neurological examination did not reveal any focal deficits. SKIN: No rashes. - Labs CBC & Chem 7: 09/12/18 08:11 09/12/18 08:11 Labs: Abnormal Lab Results - Last 24 Hours (Table) 09/12/18 Range/Units 08:11 Chloride 109 H (98-107) mmol/L Assessment and Plan Assessment: Hematuria ,Possible UTI -COPD with possible exacerbation -History of colon cancer in remission with some density in the colonic anastomotic site -Leukocytosis can be reactive,possibly secondary to urinary tract infection -Gastroesophageal reflux disease -BPH Plan: Continue on current medication regime ,monitoring and symptomatic treatment. Urine culture ordered. Continue on Flomax. Maintain nebulized bronchodilators, antibiotics. Follow closely with urology and general surgery. Discharge planning in progress for tomorrow. Increase ambulation as tolerated. The impression and plan of care has been dictated as directed. : I performed a history and examination of this patient, discussed the same with the dictator. I agree with the dictator's note ,documented as a scribe. Any additional findings or plans will be noted.
[2018-09-12] MEDS ORDERED: TEMAZEPAM 15 MG CAP PO PRN (22:55)
[2018-09-13] MEDS: oxyCODONE-APAP 10-325MG 1 EACH TAB PO PRN (00:05)
[2018-09-13] MEDS: SODIUM CHLORIDE 0.9% 1,000 ML IV SCH ×2 (04:09→13:19)
[2018-09-13] MEDS: IPRATROPIUM-ALBUTEROL 3 ML NEB INHALATION SCH ×3 (07:27→15:17)
[2018-09-13] MEDS: SYMBICORT 160-4.5 MCG INHALER INHALATION SCH (07:27)
[2018-09-13 07:58] LABS: Basophils % (A) 0 %; Eosinophils # (A) 0.2 k/uL (0-0.7); Eosinophils % (A) 2 %; HCT 47.4 % (39.0-53.0); HGB 15.4 gm/dL (13.0-17.5); Lymphocytes # (A) 2.7 k/uL (1.0-4.8); Lymphocytes % (A) 31 %; MCH 30.7 pg (25.0-35.0); MCHC 32.5 g/dL (31.0-37.0); MCV 94.7 fL (80.0-100.0); Mean Platelet Volume 6.3; Monocytes # (A) 0.5 k/uL (0-1.0); Monocytes % (A) 5 %; Neutrophils # (A) 5.4 k/uL (1.3-7.7); Neutrophils % (A) 60 %; Platelet Count 297 k/uL (150-450); RDW 12.7 % (11.5-15.5)
[2018-09-13 08:03] LABS: Anion Gap 4 mmol/L; Blood Urea Nitrogen 11 mg/dL (9-20); Calcium 8.9 mg/dL (8.4-10.2); Carbon Dioxide 26 mmol/L (22-30); Chloride 110 mmol/L (98-107); Glucose 100 mg/dL (74-99); Potassium 4.6 mmol/L (3.5-5.1); Sodium 140 mmol/L (137-145)
[2018-09-13] MEDS: PANTOPRAZOLE 40 MG TABLET PO SCH (08:45)
[2018-09-13] MEDS: TAMSULOSIN 0.4 MG CAP.ER.24H PO SCH (08:45)
[2018-09-13] MEDS: busPIRone HCl 10 MG TAB PO SCH (08:45)
[2018-09-13] MEDS: DULoxetine HCL 30 MG CAPSULE.DR PO SCH (08:45)
[2018-09-13 11:58] VITALS: BP 146/84; PULSE 72; RESP 17; TEMP 98.1
== END 2018-09-13 15:45 | disposition other institution (70) ==
LOC: EC 08:14 → 3NMEDONC 14:42
PROVIDERS: ADMIT Hospitalist; ATTEND Hospitalist
DX: N39.0 Urinary tract infection, site not specified (principal); K63.89 Other specified diseases of intestine; R33.9 Retention of urine, unspecified; J44.9 Chronic obstructive pulmonary disease, unspecified; K21.9 Gastro-esophageal reflux disease without esophagitis; F32.9 Major depressive disorder, single episode, unspecified; F17.200 Nicotine dependence, unspecified, uncomplicated; Z79.51 Long term (current) use of inhaled steroids; Z79.899 Other long term (current) drug therapy; Z85.038 Personal history of other malignant neoplasm of large intestine; Z87.19 Personal history of other diseases of the digestive system; Z90.49 Acquired absence of other specified parts of digestive tract; Z98.1 Arthrodesis status
CPT/HCPCS: 99285; 51702; 96365; 96375 ×3; 96361; 36415; 94640 ×2; 80053; 80048 ×2; 82150; 83690; 85025 ×2; 85027; 81001; 87086; 74177; 45378; G0378 ×3; J2060; J2270; J2405; J0696 ×3; Q9967

== ENCOUNTER → 2019-08-25 | Outpatient (CLI) | payer MEDICARE ==
--- NOTE | 2019-08-25 13:50 | CT ---
EXAMINATION TYPE: CT abdomen pelvis w con DATE OF EXAM: 08/25/2019 COMPARISON: HISTORY: Follow up colon cancer. LLQ pain with diarrhea. CT DLP: 1642.4 mGycm Automated exposure control for dose reduction was used. TECHNIQUE: Helical acquisition of images from the lung bases through the pelvis have been completed. CONTRAST: Performed with Oral Contrast and with IV Contrast, patient injected with 100 mL of Isovue 300. FINDINGS: LUNG BASES: No significant abnormality is appreciated. AORTA: Atheromatous changes are present without sizable aneurysm LIVER/GB: The liver shows low attenuation likely due to hepatic steatosis. The liver is enlarged. Gal lbladder is unremarkable.. PANCREAS: No significant abnormality is seen. SPLEEN: No significant abnormality is seen. ADRENALS: No significant abnormality is seen. KIDNEYS: Small cortical cyst are associated with the right and left kidney REPRODUCTIVE ORGANS: Prostate is enlarged and shows associated calcification BOWEL: Scattered diverticular changes associated with the colon. Previous identified findings at the level of the hepatic flexure are not identified, recurrence is not evident FREE AIR: No Free Air visible. ASCITES: None visible. PELVIC ADENOPATHY: None visualized. RETROPERITONEAL ADENOPATHY: No Retroperitoneal Adenopathy visible. URINARY BLADDER: No significant abnormality is seen. OSSEOUS STRUCTURES: No significant abnormality is seen. IMPRESSION: NO EVIDENT RECURRENCE. Hepatomegaly, possible hepatic steatosis.
== END | disposition home or self-care (01) ==
LOC: RADCTMAIN 08:34
PROVIDERS: ATTEND Surgery
DX: R16.1 Splenomegaly, not elsewhere classified (principal); C18.9 Malignant neoplasm of colon, unspecified
CPT/HCPCS: 74177; Q9967

== ENCOUNTER → 2020-09-29 | Outpatient (CLI) | payer MEDICARE ==
--- NOTE | 2020-09-29 15:33 | XR ---
Cervical spine HISTORY: Cervical fusion and weakness and increased numbness and pain in both arms and neck 6 views of the cervical spine Postop changes are noted at C5-6 and C6-7, intervertebral blocks with screws have been placed. Obliqu e images show foraminal encroachment on the left at C3-4, C4-5 and C5-6 and on the right at C3-4 and C4-5, lower foramina not well seen bilaterally. Dense calcifications are present in the distribution of the carotid bulbs. Cervical vertebral bodies show preserved height. There is some loss of disc height at C3-4. Minimal r etrolisthesis grade 1 C3-4. Prevertebral soft tissues are normal. There may be a spinal curvature. IMPRESSION: Postop changes, degenerative disc disease, additional findings above.
== END | disposition home or self-care (01) ==
LOC: RADXRYALE 14:03
PROVIDERS: ATTEND Physician Assistant Medical
DX: M43.12 Spondylolisthesis, cervical region (principal); M50.30 Other cervical disc degeneration, unspecified cervical region; M50.80 Other cervical disc disorders, unspecified cervical region
CPT/HCPCS: 72050

== ENCOUNTER → 2020-10-17 | Outpatient (CLI) | payer MEDICARE ==
--- NOTE | 2020-10-17 18:55 | US ---
EXAMINATION TYPE: US carotid duplex BILAT DATE OF EXAM: 10/17/2020 COMPARISON: NONE CLINICAL HISTORY: I65.21 Occlusion stenosis of right carot, I65.22. EXAM MEASUREMENTS: RIGHT: Peak Systolic Velocity (PSV) cm/sec ----- Right CCA: 87.1 ----- Right ICA: 79.5 ----- Right ECA: 124.6 ICA/CCA ratio: 0.9 RIGHT: End Diastole cm/sec ----- Right CCA: 25.7 ----- Right ICA: 26.7 ----- Right ECA: 22.4 LEFT: Peak Systolic Velocity (PSV) cm/sec ----- Left CCA: 97.4 ----- Left ICA: 75.9 ----- Left ECA: 70.1 ICA/CCA ratio: 0.8 LEFT: End Diastole cm/sec ----- Left CCA: 27.0 ----- Left ICA: 30.7 ----- Left ECA: 14.1 VERTEBRALS (direction of flow): Right Vertebral: Antegrade Left Vertebral: Antegrade Rhythm: Normal Bilateral intimal thickening, elevated velocities: right proximal CCA and left proximal CCA, no signi ficant stenosis. IMPRESSION: 1. Bilateral intimal thickening and atherosclerotic plaque with no significant hemodynamic stenosis a s visualized. Criteria for Assigning % of Stenosis / Diameter reduction (Estimation based on the indirect measurements of the internal carotid artery velocities (ICA PSV). 1. Normal (no stenosis)=ICA PSV < 125 cm/s: ratio < 2.0: ICA EDV<40 cm/s. 2. Less than 50% stenosis=ICA PSV < 125 cm/s: ratio < 2.0: ICA EDV<40 cm/s. 3. 50 to 69% stenosis=ICA PSV of 125 to 230 cm/s: ration 2.0 ? 4.0: ICA EDV 40-100 cm/s. 4. Greater than 70% stenosis to near occlusion= ICA PSV > 230 cm/s: ratio > 4.0: ICA EDV > 100 cm/s. 5. Near occlusion= ICA PSV velocities may be low or undetectable: variable ratio and ICA EDV. 6. Total occlusion=unable to detect flow.
== END ==
LOC: RADUSWWP 15:55
PROVIDERS: ATTEND Family Medicine
DX: I65.22 Occlusion and stenosis of left carotid artery (principal); I65.21 Occlusion and stenosis of right carotid artery
CPT/HCPCS: 93880

== ENCOUNTER 2022-02-27 14:44 | Emergency (ER) | payer MEDICARE ==
[2022-02-27] MEDS ORDERED: LIDOCAINE 1% INJ 10MG/ML (5 ML VIAL-PF) SQ ONE (15:19)
[2022-02-27] MEDS ORDERED: DIPH,PERTUS(ACELL)TETVAC-LF 0.5 ML VIAL IM ONE (15:20)
--- NOTE | 2022-02-27 15:28 | XR ---
EXAMINATION TYPE: XR elbow complete LT DATE OF EXAM: 02/27/2022 3:19 PM INDICATION: Patient age:Male; 66 years old; Reason for study: laceration; COMPARISON: None TECHNIQUE: The left elbow was examined in AP, lateral, and oblique projections. FINDINGS: No evidence of any acute osseous pathology, joint dislocation, or soft tissue swelling is n oted. No evidence of joint effusion is present. IMPRESSION: No evidence of acute fracture.
--- NOTE | 2022-02-27 16:16 | ED ---
Wound/Laceration HPI - General Chief Complaint: Wound/Laceration Stated Complaint: L arm lac Time Seen by Provider: 02/27/22 15:07 Source: patient, family Mode of arrival: wheelchair Limitations: no limitations - History of Present Illness Initial Comments: Patient is a 66-year-old male presenting with chief complaint of left arm laceration. Patient was standing on a chair and fell through a chicken coop window sustaining a laceration to the left forearm. Fell from approximately a 2 foot height, he denies any head or neck injury. He denies any loss of consciousness or use of blood thinners. Denies any extremity pain. Denies any nausea, vomiting, headache, vision changes, chest pain, shortness of breath, numbness, tingling, weakness, loss of range of motion, dizziness. - Related Data Home Medications Medication Instructions Recorded Confirmed busPIRone HCL 30 mg PO BID 11/28/16 09/11/18 Albuterol Sulfate [Proair Hfa] 2 puff INHALATION RT-Q6H PRN 12/07/16 09/11/18 Budesonide-Formot 160-4.5 Mcg 2 puff INHALATION RT-BID 12/07/16 09/11/18 [Symbicort 160-4.5 Mcg Inhaler] DULoxetine HCL [Cymbalta] 30 mg PO DAILY 09/11/18 09/11/18 Pantoprazole [Protonix] 40 mg PO DAILY 09/11/18 09/11/18 oxyCODONE HCL/ACETAMINOPHEN 1 tab PO QID PRN 09/11/18 09/11/18 [Percocet 10-325 mg] Previous Rx's Medication Instructions Recorded Tamsulosin [Flomax] 0.4 mg PO PC-BRKFST #30 cap.er.24h 09/13/18 Zolpidem Tartrate [Ambien] 5 mg PO HS PRN 3 Days #3 tab 09/13/18 cefUROXime axetiL [Ceftin] 500 mg PO BID #14 tab 09/13/18 Sulfamethox-Tmp 800-160Mg [Bactrim 1 tab PO Q12HR 5 Days #10 tab 02/27/22 DS 800-160 mg] Allergies Allergy/AdvReac Type Severity Reaction Status Date / Time No Known Allergies Allergy Verified 02/27/22 14:49 Review of Systems ROS Statement: Those systems with pertinent positive or pertinent negative responses have been documented in the HPI. ROS Other: All systems not noted in ROS Statement are negative. Past Medical History Past Medical History: Cancer, Heart Failure, COPD, CVA/TIA, GERD/Reflux Additional Past Medical History / Comment(s): states "current lower left abdominal pain with alot of gas",Pt recently admitted 11/28/16 with abdominal pain, esophagitis, infectious colitis and exacerbation of his COPD. He had EGD with bx and colonoscopy with bx-states he has also been diagnosed with colon cancer-no chemo or rad. Other hx: Recent diagnosis of infectious colitis, doudenal and cecal polyps, colon cancer, past chronic pain -in his back and lately abdomin, TIA, tuberculosis 5 yrs ago and completed treatments. History of Any Multi-Drug Resistant Organisms: None Reported Past Surgical History: Appendectomy, Bowel Resection, Orthopedic Surgery, Tonsillectomy Additional Past Surgical History / Comment(s): 12/01/16 EGD with bx and colonoscopy with bx, sx on R forearm to removed a piece of steel from work related accident, cervical fusion. Past Anesthesia/Blood Transfusion Reactions: No Reported Reaction Past Psychological History: Depression Past Alcohol Use History: None Reported Past Drug Use History: None Reported - Past Family History Mother History Unknown: Yes Father History Unknown: Yes Additional Family Medical History / Comment(s): Father during his AAA repair. Sister(s) Family Medical History: Cancer Additional Family Medical History / Comment(s): lung cancer General Exam Limitations: no limitations General appearance: alert, in no apparent distress Head exam: Present: atraumatic, normocephalic, normal inspection Eye exam: Present: normal appearance, EOMI. Absent: scleral icterus, periorbital swelling Neck exam: Present: normal inspection, full ROM. Absent: tenderness Respiratory exam: Present: normal lung sounds bilaterally. Absent: respiratory distress, wheezes, rales, rhonchi, stridor Cardiovascular Exam: Present: regular rate, normal rhythm, normal heart sounds. Absent: systolic murmur, diastolic murmur, rubs, gallop, clicks Extremities exam: Present: full ROM. Absent: tenderness, joint swelling Neurological exam: Present: alert, oriented X3, CN II-XII intact Expanded Patient oriented to: Present: person, place, time Speech: Present: fluid speech Cranial nerves: EOM's Intact: Normal, Facial Sensation: Normal Sensory exam: Upper Extremity Light Touch: Normal, Lower Extremity Light Touch: Normal Motor strength exam: RUE: 5, LUE: 5, RLE: 5, LLE: 5 Eye Response: (4) open spontaneously Motor Response: (6) obeys commands Verbal Response: (5) oriented Vero Total: 15 Psychiatric exam: Present: normal affect, normal mood Skin exam: Present: warm, dry, normal color. Absent: rash Expanded Type of lesion: Present: laceration (5 cm linear laceration to the left forearm) Course Vital Signs 02/27/22 02/27/22 14:46 17:27 Temperature 98.0 F 98.4 F Pulse Rate 87 78 Respiratory 18 16 Rate Blood Pressure 177/102 139/78 O2 Sat by Pulse 96 98 Oximetry Procedures - Laceration Laceration #1 Consent Obtained: verbal consent Indication: laceration Site: upper extremity Description: linear Depth: simple, single layer (Fascia is visible) Anesthetic Used: lidocaine 1%, with epi, without epi Anesthesia Technique: local infiltration Amount (mls): 5 Pre-repair: wound explored, irrigated extensively, deep structures intact Type of Sutures: nylon Size of Sutures: 4-0 Number of Sutures: 9 Technique: simple, interrupted Complications: bleeding (Visible hematoma after procedure) Patient Tolerated Procedure: well Medical Decision Making - Medical Decision Making Patient is a 66-year-old male presenting with chief complaint of laceration to the left forearm. This was sustained after falling off a chair and threw window with his chicken coop. Patient denies any head injury, no head or neck pain, no loss of consciousness, no use of blood thinners. On examination there are no focal neurological deficits, there is a 5 cm laceration to the left forearm. The fascia is visible, no joint involvement. Wound is anesthetized with lidocaine 1% without epi, initially 6 simple interrupted sutures were applied to the wound using 4-0 nylon. Wound developed a hematoma and continued to have some bleeding, and additional 3 sutures were added and lidocaine 1% with epi was utilized to help control the bleeding. Pressure was applied and pressure dres sing was applied, after observation bleeding had ceased. Patient started on antibiotics due to proximity to the elbow. Tetanus was updated. Educated on supportive treatment. Instructed to have sutures removed in 7-10 days. Report back to ER if any new or worsening symptoms. Follow-up with your PCP. I educated on return parameters answered all questions. Patient conveyed verbal understanding and agreed to the plan. I discussed this case with my attending Dr. Chou. Disposition Clinical Impression: Laceration Disposition: HOME SELF-CARE Condition: Good Instructions (If sedation given, give patient instructions): Care For Your Stitches (ED), Laceration (ED) Additional Instructions: Follow-up with PCP. Report back to ER with any new or worsening symptoms. Take medication as prescribed. Sutures may be removed in 7-10 days, this can be done at your PCP, this ER, or local urgent care. Monitor for signs of infection, including but not limited to redness, swelling, discharge, warmth, pain, fever, chills. Prescriptions: Sulfamethox-Tmp 800-160Mg [Bactrim DS 800-160 mg] 1 tab PO Q12HR 5 Days #10 tab Is patient prescribed a controlled substance at d/c from ED?: No Referrals: Arnulfo Blackwell DO [Primary Care Provider] - 1-2 days Time of Disposition: 16:15
[2022-02-27] MEDS ORDERED: LIDOCAINE 1%-EPI 1:100,000 20 ML VIAL SQ STA (16:27)
[2022-02-27] MEDS ORDERED: SULFAMETHOX-TMP 800-160MG 1 EACH TAB PO STA (17:22)
[2022-02-27 17:30] VITALS: BP 139/78; PULSE 78; RESP 16; TEMP 98.4
== END 2022-02-27 17:27 | disposition home or self-care (01) ==
LOC: EC 14:44
DX: S51.812A Laceration without foreign body of left forearm, initial encounter (principal); J44.9 Chronic obstructive pulmonary disease, unspecified; K21.9 Gastro-esophageal reflux disease without esophagitis; I50.9 Heart failure, unspecified; Z86.73 Personal history of transient ischemic attack (TIA), and cerebral infarction without residual deficits; Z79.899 Other long term (current) drug therapy; Z79.51 Long term (current) use of inhaled steroids; Z23 Encounter for immunization; W07.XXXA Fall from chair, initial encounter; Y92.009 Unspecified place in unspecified non-institutional (private) residence as the place of occurrence of the external cause
CPT/HCPCS: 73080; 90715; 99283; 12002; 90471; J2001

== ENCOUNTER → 2023-02-04 | Outpatient (CLI) | payer MEDICARE ==
--- NOTE | 2023-02-04 11:42 | XR ---
EXAMINATION TYPE: XR cervical spine comp DATE OF EXAM: 02/04/2023 COMPARISON: 09/29/2020 HISTORY: History of neck surgery TECHNIQUE: 5 view cervical spine FINDINGS: Disc spacers are present at C5-6 and C6-7. Remaining disc heights appear preserved. Prevert ebral space appears normal. Posterior spinal lamellar line is intact. There is some right foraminal n arrowing present C3-4 to a milder degree C4-5. Moderate foraminal narrowing is present on the left at C3-4 due to mild degree C4-5 C5-6 Note is made of vascular calcification in the regions of the carotid bifurcations. IMPRESSION: 1. Upper cervical spine foraminal stenosis similar to comparison. 2. Carotid artery calcifications
== END | disposition home or self-care (01) ==
LOC: RADXRMAIN 07:25
PROVIDERS: ATTEND Physical Medicine & Rehabilitation
DX: M50.30 Other cervical disc degeneration, unspecified cervical region (principal); M99.71 Connective tissue and disc stenosis of intervertebral foramina of cervical region; I25.10 Atherosclerotic heart disease of native coronary artery without angina pectoris
CPT/HCPCS: 72050

== ENCOUNTER 2023-06-30 08:26 | Inpatient (IN) | payer MEDICARE ==
[2023-06-30] MEDS ORDERED: NALOXONE 0.4 MG/ML 1 ML VIAL IV PRN (08:52)
[2023-06-30] MEDS ORDERED: ACETAMINOPHEN TAB 325 MG TAB PO PRN (08:52)
--- NOTE | 2023-06-30 09:02 | ED ---
General Adult HPI - General Chief complaint: Shortness of Breath Stated complaint: ANNEMARIE Time Seen by Provider: 06/30/23 08:30 Source: patient, EMS Mode of arrival: EMS Limitations: no limitations - History of Present Illness Initial comments: Dictation was produced using [employer] dictation software. please excuse any grammatical, word or spelling errors. Chief Complaint: 67-year-old male transferred from outside emergency department for further care History of Present Illness: Patient 67-year-old male he has past medical history of tobacco abuse. He presented to [facility] emergency department where he was evaluated for 1 week of pleuritic chest pain and shortness of breath. States that it's a sharp pain to his right lower anterior chest. He ended up having a CT angiography of the chest which showed a right hilar mass extending into the mediastinum. Patient has no fever or constitutional symptoms. Patient was told he was transferred to our facility for something going on with his right lung. The ROS documented in this emergency department record has been reviewed and confirmed by me. Those systems with pertinent positive or negative responses have been documented in the HPI. All other systems are other negative and/or noncontributory. - Related Data Home Medications Medication Instructions Recorded Confirmed busPIRone HCL 30 mg PO BID 11/28/16 09/11/18 Albuterol Sulfate [Proair Hfa] 2 puff INHALATION RT-Q6H PRN 12/07/16 09/11/18 Budesonide-Formot 160-4.5 Mcg 2 puff INHALATION RT-BID 12/07/16 09/11/18 [Symbicort 160-4.5 Mcg Inhaler] DULoxetine HCL [Cymbalta] 30 mg PO DAILY 09/11/18 09/11/18 Pantoprazole [Protonix] 40 mg PO DAILY 09/11/18 09/11/18 oxyCODONE HCL/ACETAMINOPHEN 1 tab PO QID PRN 09/11/18 09/11/18 [Percocet 10-325 mg] Previous Rx's Medication Instructions Recorded Tamsulosin [Flomax] 0.4 mg PO PC-BRKFST #30 cap.er.24h 09/13/18 Zolpidem Tartrate [Ambien] 5 mg PO HS PRN 3 Days #3 tab 09/13/18 cefUROXime axetiL [Ceftin] 500 mg PO BID #14 tab 09/13/18 Sulfamethox-Tmp 800-160Mg [Bactrim 1 tab PO Q12HR 5 Days #10 tab 02/27/22 DS 800-160 mg] Allergies Allergy/AdvReac Type Severity Reaction Status Date / Time No Known Allergies Allergy Verified 06/30/23 08:36 Review of Systems ROS Statement: Those systems with pertinent positive or pertinent negative responses have been documented in the HPI. ROS Other: All systems not noted in ROS Statement are negative. Past Medical History Past Medical History: Cancer, Heart Failure, COPD, CVA/TIA, GERD/Reflux Additional Past Medical History / Comment(s): states "current lower left abdominal pain with alot of gas",Pt recently admitted 11/28/16 with abdominal p ain, esophagitis, infectious colitis and exacerbation of his COPD. He had EGD with bx and colonoscopy with bx-states he has also been diagnosed with colon cancer-no chemo or rad. Other hx: Recent diagnosis of infectious colitis, doudenal and cecal polyps, colon cancer, past chronic pain -in his back and lately abdomin, TIA, tuberculosis 5 yrs ago and completed treatments. History of Any Multi-Drug Resistant Organisms: None Reported Past Surgical History: Appendectomy, Bowel Resection, Orthopedic Surgery, Tonsillectomy Additional Past Surgical History / Comment(s): 12/01/16 EGD with bx and colonoscopy with bx, sx on R forearm to removed a piece of steel from work related accident, cervical fusion. Past Anesthesia/Blood Transfusion Reactions: No Reported Reaction Past Psychological History: Depression Smoking Status: Current every day smoker Past Alcohol Use History: None Reported Past Drug Use History: None Reported - Past Family History Mother History Unknown: Yes Father History Unknown: Yes Additional Family Medical History / Comment(s): Father during his AAA repair. Sister(s) Family Medical History: Cancer Additional Family Medical History / Comment(s): lung cancer General Exam - General Exam Comments Initial Comments: PHYSICAL EXAM: General Impression: Alert and oriented x3, not in acute distress HEENT: Normocephalic atraumatic, extra-ocular movements intact, pupils equal and reactive to light bilaterally, mucous membranes moist. Cardiovascular: Heart regular rate and rhythm Chest: Able to complete full sentences, no retractions, no tachypnea, mild wheezing diffusely Abdomen: abdomen soft, non-tender, non-distended, no organomegaly Musculoskeletal: Pulses present and equal in all extremities, no peripheral e yves Motor: no focal deficits noted Neurological: CN II-XII grossly intact, no focal motor or sensory deficits noted Skin: Intact with no visualized rashes Psych: Normal affect and mood Limitations: no limitations Course Vital Signs 06/30/23 08:28 Temperature 97.9 F Pulse Rate 112 H Respiratory 24 Rate Blood Pressure 143/110 O2 Sat by Pulse 94 L Oximetry EKG Findings - EKG Comments: EKG Findings:: My EKG interpretation: Ventricular rate 94, sinus rhythm, MN interval 147, QRS 70, QTC 394. No MN prolongation, no QTC prolongation, no ST or T-wave changes noted. Overall, this EKG is unremarkable Medical Decision Making - Medical Decision Making Was pt. sent in by a medical professional or institution (, [facility], [employer]ING [employer]ILER, urgent care, hospital, or retirement...) When possible be specific @ -No Did you speak to anyone other than the patient for history (EMS, parent, family, police, friend...)? What history was obtained from this source @ -No Did you review nursing and triage notes (agree or disagree)? Why? @ -I reviewed and agree with nursing and triage notes Were old charts reviewed (outside hosp., previous admission, EMS record, old EKG, old radiological studies, urgent care reports/EKG's, retirement records)? Report findings @ -Ernesto documentation from [facility] was reviewed. Labs were within acceptable limits. He did have a CT angiography which showed a right hilar mass extending into the right mediastinum. Differential Diagnosis (chest pain, altered mental status, abdominal pain women, abdominal pain men, vaginal bleeding, musculoskeletal, weakness, fever, dyspnea, syncope, headache, dizziness, GI bleed, back pain, seizure, CVA, palpatations, mental health)? @ -Differential Dyspnea: Coronary syndrome, arrhythmia, tamponade, asthma, COPD, pulmonary embolism, pneumonia, pneumothorax, pulmonary effusion, anaphylaxis, diabetic ketoacidosis, flailed chest, pulmonary contusion, diaphragmatic rupture, anemia, neuromuscular, this is not meant to be an all-inclusive list. EKG interpreted by me (3pts min.). @ -See above X-rays interpreted by me (1pt min.). @ -None done CT interpreted by me (1pt min.). @ -None done U/S interpreted by me (1pt. min.). @ -None done What testing was considered but not performed or refused? (CT, X-rays, U/S, labs)? Why? @ -None What meds were considered but not given or refused? Why? @ -None Did you discuss the management of the patient with other professionals (professionals i.e. DrAnder, PA, R[employer] BACKING STENCILER, lab, RT, psych nurse, social services analyst, farmworker field crop, teacher, front desk officer, director case management)? Give summary @ - Hospitalist for admission Was smoking cessation discussed for >3mins.? @ -No Was critical care preformed (if so, how long)? @ -No Were there social determinants of health that impacted care today? How? (Homelessness, low income, unemployed, alcoholism, drug addiction, transportation, low edu. Level, literacy, decrease access to med. care, [facility], rehab)? @ -No Was there de-escalation of care discussed even if they declined (Discuss DNR or withdrawal of care, Hospice)? DNR status @ -No What co-morbidities impacted this encounter? (DM, HTN, Smoking, COPD, CAD, Cancer, CVA, ARF, Chemo, Hep., AIDS, mental health diagnosis, sleep apnea, morbid obesity)? @ -None Was patient admitted / discharged? Hospital course, mention meds given and route, prescriptions, significant lab abnormalities, going to OR and other pertinent info. @ -67-year-old male transferred from outside emergency department for suspicious pulmonary mass. Vital signs stable. Patient will be admitted with pulmonary consult. Undiagnosed new problem with uncertain prognosis? @ -No Drug Therapy requiring intensive monitoring for toxicity (Heparin, Nitro, Insulin, Cardizem)? @ -No Were any procedures done? @ -No Diagnosis/symptom? Acute, or Chronic, or Acute on Chronic? Uncomplicated (without systemic symptoms) or Complicated (systemic symptoms)? @ -Lung mass Side effects of treatment? @ -No Exacerbation, Progression, or Severe Exacerbation? @ -No Poses a threat to life or bodily function? How? (Chest pain, [place], [place], pneumonia, PE, COPD, DKA, ARF, appy, cholecystitis, CVA, Diverticulitis, Homicidal, Suicidal, threat to staff... and all critical care pts) @ -yes Disposition Clinical Impression: Lung mass Disposition: ADMITTED IP TO THIS HOSP Condition: Fair Referrals: Arnulfo Blackwell DO [Primary Care Provider] - 1-2 days Decision Time: 09:02
--- NOTE | 2023-06-30 10:39 | XR ---
EXAMINATION TYPE: XR chest 1V portable DATE OF EXAM: 06/30/2023 HISTORY: Shortness of breath. COMPARISON: 12/07/2026 TECHNIQUE: Single view of the chest is submitted. FINDINGS: Demonstrated are scattered senescent parenchymal change. Increased opacity right hilum may reflect underlying mass or infiltrate. There is also paratracheal f ullness suggesting adenopathy. CT recommended to exclude malignancy. The heart is stable. Degenerative changes are seen of the dorsal spine. IMPRESSION: 1. Increased opacity right hilum may reflect underlying mass.There is also paratracheal fullness sug gesting adenopathy. CT recommended to exclude malignancy.
--- NOTE | 2023-06-30 11:28 | P.CNPUL ---
History of Present Illness Consult date: 06/30/23 Requesting physician: Tru Gonzalez Reason for consult: COPD, hypoxemia, abnormal CXR/CT Chief complaint: Shortness of breath, cough, congestion History of present illness: This is a pleasant 67-year-old male patient with a known history of colon cancer, infectious colitis, tuberculosis greater than 5 years ago and completed treatment, congestive heart failure, chronic obstructive pulmonary disease, CVA/TIAs, chronic and ongoing tobacco dependence of greater than 50 years. He had been having issues with increasing shortness of breath and right-sided pleuritic type chest discomfort and was seen at [facility] where he had a chest x-ray reveals increased opacity of the right hilum reflecting underlying mass. There is also paratracheal fullness suggesting adenopathy and a CAT scan that revealed a significant right hilar mass and mediastinal lymphadenopathy. He was referred here for further treatment. He is seen today in consultation in the emergency department. Currently sitting up in a stretcher. Awake and alert. He is dyspneic with conversation. Dyspneic with minimal minimal exertion. Bronchospastic and wheezing. He denies any significant weight loss. He denies any hemoptysis. Review of Systems REVIEW OF SYSTEMS: CONSTITUTIONAL: Denies any recent significant weight loss or weight gain. EYES: Denies change in vision. EARS, NOSE, MOUTH, THROAT: Denies headaches, denies sore throat. CARDIOVASCULAR: Right-sided pleuritic chest pain, palpitations or syncopal episodes. RESPIRATORY: Positive for shortness of breath, cough, congestion no hemoptysis. GASTROINTESTINAL: Denies change in appetite, denies abdominal pain GENITOURINARY: Denies hematuria, denies infections. MUSKULOSKELETAL: Denies pain, denies swelling. INTEGUMENTARY: Denies rash, denies eczema. NEUROLOGICAL: Denies recent memory loss, no recent seizure activity. PSYCHIATRIC: Denies anxiety, denies depression. HEMATOLOGIC/LYMPHATIC: Denies anemia, denies enlarged lymph nodes. Past Medical History Past Medical History: Cancer, Heart Failure, COPD, CVA/TIA, GERD/Reflux Additional Past Medical History / Comment(s): states "current lower left abdominal pain with alot of gas",Pt recently admitted 11/28/16 with abdominal pain, esophagitis, infectious colitis and exacerbation of his COPD. He had EGD with bx and colonoscopy with bx-states he has also been diagnosed with colon cancer-no chemo or rad. Other hx: Recent diagnosis of infectious colitis, doudenal and cecal polyps, colon cancer, past chronic pain -in his back and lately abdomin, TIA, tuberculosis 5 yrs ago and completed treatments. History of Any Multi-Drug Resistant Organisms: None Reported Past Surgical History: Appendectomy, Bowel Resection, Orthopedic Surgery, Tonsillectomy Additional Past Surgical History / Comment(s): 12/01/16 EGD with bx and colonoscopy with bx, sx on R forearm to removed a piece of steel from work related accident, cervical fusion. Past Anesthesia/Blood Transfusion Reactions: No Reported Reaction Smoking Status: Current every day smoker - Past Family History Mother History Unknown: Yes Father History Unknown: Yes Additional Family Medical History / Comment(s): Father during his AAA repair. Sister(s) Family Medical History: Cancer Additional Family Medical History / Comment(s): lung cancer Medications and Allergies Home Medications Medication Instructions Recorded Confirmed Type busPIRone HCL 30 mg PO BID 11/28/16 09/11/18 History Albuterol Sulfate [Proair Hfa] 2 puff INHALATION RT-Q6H PRN 12/07/16 09/11/18 History Budesonide-Formot 160-4.5 Mcg 2 puff INHALATION RT-BID 12/07/16 09/11/18 History [Symbicort 160-4.5 Mcg Inhaler] DULoxetine HCL [Cymbalta] 30 mg PO DAILY 09/11/18 09/11/18 History Pantoprazole [Protonix] 40 mg PO DAILY 09/11/18 09/11/18 History oxyCODONE HCL/ACETAMINOPHEN 1 tab PO QID PRN 09/11/18 09/11/18 History [Percocet 10-325 mg] Tamsulosin [Flomax] 0.4 mg PO PC-BRKFST #30 cap.er.24h 09/13/18 Rx Zolpidem Tartrate [Ambien] 5 mg PO HS PRN 3 Days #3 tab 09/13/18 Rx cefUROXime axetiL [Ceftin] 500 mg PO BID #14 tab 09/13/18 Rx Sulfamethox-Tmp 800-160Mg [Bactrim 1 tab PO Q12HR 5 Days #10 tab 02/27/22 Rx DS 800-160 mg] Allergies Allergy/AdvReac Type Severity Reaction Status Date / Time No Known Allergies Allergy Verified 06/30/23 08:36 Physical Exam Vitals: Vital Signs Temp Pulse Pulse Resp BP BP Pulse Ox 06/30/23 10:50 97.8 F 91 20 159/83 94 L 06/30/23 10:29 101 H 22 151/101 94 L 06/30/23 09:59 94 22 164/94 94 L 06/30/23 09:14 106 H 20 175/105 94 L 06/30/23 08:28 97.9 F 112 H 24 143/110 94 L Intake and Output 06/29/23 06/30/23 06/30/23 22:59 06:59 14:59 Other: Weight 99.79 kg GENERAL EXAM: Alert, obese, 67-year-old male, on 2 L nasal cannula, fairly comfortable in no apparent distress. HEAD: Normocephalic. EYES: Normal reaction of pupils, equal size. NOSE: Clear with pink turbinates. THROAT: No erythema or exudates. NECK: No masses, no JVD. CHEST: No chest wall deformity. LUNGS: Equal air entry with bilateral wheezing, diminished. CVS: S1 and S2 normal with no audible murmur, regular rhythm. ABDOMEN: No hepatosplenomegaly, normal bowel sounds, no guarding or rigidity. SPINE: No scoliosis or deformity SKIN: No rashes CENTRAL NERVOUS SYSTEM: No focal deficits, tone is normal in all 4 extremities. EXTREMITIES: There is no peripheral edema. No clubbing, no cyanosis. Perip heral pulses are intact. Results - Diagnostic Findings Chest x-ray: image reviewed Assessment and Plan Assessment: Acute hypoxemic respiratory failure secondary to an acute exacerbation of chronic obstructive pulmonary disease Right hilar mass and mediastinal lymphadenopathy suspicious for malignancy Chronic and ongoing tobacco dependence of greater than 50 years Hypertension History of CVA/TIAs Have history of colon cancer status post right colectomy Gastroesophageal reflux disease Benign prosthetic hyperplasia History of depression Plan: The patient was seen and evaluated Computed tomography scan, chest x-ray, labs and medications reviewed Initiate DuoNeb inhalations, Pulmicort and Perforomist inhalations Initiate IV Solu-Medrol Plan for bronchoscopy with biopsies in a.m. Nothing by mouth after midnight Discussed in detail with the patient and his and daughter who are at the bedside Agreeable to the plan Educated regarding the importance of complete smoking cessation NicoDerm patch will be offered We will continue to follow and make further recommendations based on his clinical status I have personally seen and examined the patient, performed the documentation and the assessment and plan as written. Number of minutes spent on the visit: 20.
[2023-06-30] MEDS: IPRATROPIUM-ALBUTEROL 3 ML NEB INHALATION SCH ×3 (11:35→19:53)
[2023-06-30] MEDS: methylPREDNISolone SOD SUCCI 125 MG/2 ML VIAL IV SCH ×3 (15:13→21:31)
[2023-06-30] MEDS: PANTOPRAZOLE 40 MG TABLET PO SCH (15:14)
[2023-06-30] MEDS: NICOTINE 21MG/24HR PATCH TRANSDERM SCH (15:14)
--- NOTE | 2023-06-30 15:14 | P.HPIM ---
History of Present Illness H&P Date: 06/30/23 Patient is a 67-year-old male with history of colon cancer status post resection and supposedly in remission, tobacco dependence, hypertension, COPD, chronic back pain presented for right-sided chest pain and increased shortness of breath. He claims that he has been noticing increase shortness of breath and right-sided chest pain for the last few days. He has very minimal cough, nonproductive, denies any abdominal pain, palpitations, nausea, vomiting, urinary or bowel complaints. He initially presented to [facility]. At the hospital he was noted to have WBC of 11.16, creatinine of 1.36, protein increased over 8.4. CTA chest showed right hilar 5 cm mass with right hilar bronchovascular compression with probable postobstructive pneumonia and multiple scattered right pulmonary nodules. Patient was also hypoxic and started on oxygen. He was sent transferred over to our facility. On arrival to our emergency department, temperature was 97.9, pulse 112, blood pressure 143/110, respiratory rate 24, saturating at 94% on 2 L. Patient being admitted for acute hypoxic respiratory failure likely in the setting of lung mass as well as possible postobstructive pneumonia as well as COPD exacerbation. Pulmonology consulted. Patient claims that he has not seen oncology in over 2 years. Pertinent positives and negatives as discussed in HPI, a complete review of systems was performed and all other systems are negative. Patient seen and examined at bedside. Vital signs reviewed General: nontoxic, no distress, appears at stated age, obese Derm: warm, dry Head: atraumatic, normocephalic, symmetric Eyes: EOMI, no lid lag, anicteric sclera, pupils equal round reactive to light ENT: Nose and ears atraumatic Neck: No thyromegaly, supple Mouth: no lip lesion, mucus membranes moist Cardiovascular: S1S2 reg, no murmur, no edema Lungs: Scattered wheeze, no accessory muscle use, supplemental oxygen Abdominal: soft, nontender to palpation, no guarding, no appreciable organomegaly Ext: no gross muscle atrophy, muscle strength muscle strength 5 out of 5 in all 4 extremities, no contractures Neuro: CN II-XII grossly intact Psych: Alert, oriented, appropriate affect Assessment/Plan: Active: Right lung mass suspected metastatic disease versus primary malignancy History of colon cancer status post resection Acute hypoxic respiratory failure Acute COPD exacerbation Tobacco dependence -Pulmonology note reviewed, pending bronchoscopy tomorrow -On bronchodilators as well as IV Solu-Medrol 60 mg every 6 hours -Continue to wean oxygen -Counseled regarding smoking cessation -Patient will likely need oncology follow-up outpatient Chronic: Hypertension GERD Chronic pain Depression The patient is admitted with an anticipated greater than 2 midnight stay as inpatient status for evaluation of acute COPD exacerbation. Surrogate decision-maker: Spouse CODE STATUS: Full code DVT prophylaxis: SCDs Anticipated discharge date: Pending clinical course Anticipated discharge place: Pending clinical course A total of 55 minutes was spent on the care of this complex patient more than 50% of the time was spent in counseling and care coordination. Past Medical History Past Medical History: Cancer, Heart Failure, COPD, CVA/TIA, GERD/Reflux Additional Past Medical History / Comment(s): states "current lower left abdominal pain with alot of gas",Pt recently admitted 11/28/16 with abdominal pain, esophagitis, infectious colitis and exacerbation of his COPD. He had EGD with bx and colonoscopy with bx-states he has also been diagnosed with colon cancer-no chemo or rad. Other hx: Recent diagnosis of infectious colitis, doudenal and cecal polyps, colon cancer, past chronic pain -in his back and lately abdomin, TIA, tuberculosis 5 yrs ago and completed treatments. History of Any Multi-Drug Resistant Organisms: None Reported Past Surgical History: Appendectomy, Bowel Resection, Orthopedic Surgery, Tonsillectomy Additional Past Surgical History / Comment(s): 12/01/16 EGD with bx and colonoscopy with bx, sx on R forearm to removed a piece of steel from work related accident, cervical fusion. Past Anesthesia/Blood Transfusion Reactions: No Reported Reaction Smoking Status: Current every day smoker - Past Family History Mother History Unknown: Yes Father History Unknown: Yes Additional Family Medical History / Comment(s): Father during his AAA repair. Sister(s) Family Medical History: Cancer Additional Family Medical History / Comment(s): lung cancer Medications and Allergies Home Medications Medication Instructions Recorded Confirmed Type busPIRone HCL 30 mg PO BID 11/28/16 06/30/23 History Budesonide-Formot 160-4.5 Mcg 2 puff INHALATION RT-BID 12/07/16 06/30/23 History [Symbicort 160-4.5 Mcg Inhaler] DULoxetine HCL [Cymbalta] 30 mg PO DAILY 09/11/18 06/30/23 History Pantoprazole [Protonix] 40 mg PO DAILY 09/11/18 06/30/23 History oxyCODONE HCL/ACETAMINOPHEN 1 tab PO Q6H PRN 09/11/18 06/30/23 History [Percocet 10-325 mg] Amoxic-Pot Clav 875-125Mg 1 tab PO BID 06/30/23 06/30/23 History [Augmentin 875-125] Doxycycline Monohydrate 100 mg PO BID 06/30/23 06/30/23 History Losartan [Cozaar] 25 mg PO DAILY 06/30/23 06/30/23 History Mirtazapine 45 mg PO HS 06/30/23 06/30/23 History amLODIPine [Norvasc] 5 mg PO DAILY 06/30/23 06/30/23 History Allergies Allergy/AdvReac Type Severity Reaction Status Date / Time No Known Allergies Allergy Verified 06/30/23 08:36 Physical Exam Vitals: Vital Signs Temp Pulse Pulse Resp BP BP Pulse Ox 06/30/23 11:47 106 H 06/30/23 11:39 95 06/30/23 11:35 101 H 06/30/23 10:50 97.8 F 91 20 159/83 94 L 06/30/23 10:29 101 H 22 151/101 94 L 06/30/23 09:59 94 22 164/94 94 L 06/30/23 09:14 106 H 20 175/105 94 L 06/30/23 08:28 97.9 F 112 H 24 143/110 94 L Intake and Output 06/30/23 06/30/23 06/30/23 06:59 14:59 22:59 Other: Weight 99.79 kg Thrombosis Risk Factor Assmnt - Choose All That Apply Each Factor Represents 1 point: Abnormal pulmonary function (COPD) Other Risk Factors: No Thrombosis Risk Factor Assessment Total Risk Factor Score: 1 Thrombosis Risk Factor Assessment Level: Low Risk
[2023-06-30] MEDS: oxyCODONE-APAP 10-325MG 1 EACH TAB PO PRN ×2 (15:19→21:31)
[2023-06-30] MEDS: SODIUM CHLORIDE 0.9% 1,000 ML IV SCH (18:27)
[2023-06-30] MEDS: BUDESONIDE 1 MG/2 ML NEBU INHALATION SCH (19:53)
[2023-06-30] MEDS: FORMOTEROL FUMARATE 20 MCG/2 ML NEBU INHALATION SCH (19:53)
[2023-06-30] MEDS ORDERED: SYMBICORT 160-4.5 MCG INHALER INHALATION SCH (20:00)
[2023-06-30] MEDS: busPIRone HCl 10 MG TAB PO SCH (21:37)
[2023-06-30] MEDS: MIRTAZAPINE 45 MG TABLET PO SCH (21:37)
[2023-06-30 22:23] LABS: Glucose,Whole Blood 218 mg/dL (70-110)
[2023-06-30] MEDS: IPRATROPIUM-ALBUTEROL 3 ML NEB INHALATION PRN (22:24)
[2023-06-30 22:46] LABS: Basophils % (A) 0 %; Eosinophils % (A) 0 %; HCT 47.6 % (39.0-53.0); HGB 15.8 gm/dL (13.0-17.5); Lymphocytes % (A) 7 %; MCH 31.8 pg (25.0-35.0); MCHC 33.2 g/dL (31.0-37.0); MCV 95.7 fL (80.0-100.0); Mean Platelet Volume 7.6; Monocytes # (A) 0.7 k/uL (0-1.0); Monocytes % (A) 4 %; Neutrophils # (A) 13.4 k/uL (1.3-7.7); Neutrophils % (A) 88 %; Platelet Count 312 k/uL (150-450); RBC 4.97 m/uL (4.30-5.90); RDW 12.6 % (11.5-15.5); WBC 15.2 k/uL (3.8-10.6)
[2023-06-30] MEDS ORDERED: ALPRAZolam 0.5 MG TAB PO STA (22:46)
[2023-06-30 23:02] LABS: African American GFR (CKD) 61 (>60 ml/min/1.73 sqM); Anion Gap 15 mmol/L; Blood Urea Nitrogen 27 mg/dL (9-20); Calcium 9.9 mg/dL (8.4-10.2); Carbon Dioxide 19 mmol/L (22-30); Chloride 104 mmol/L (98-107); Glucose 211 mg/dL (74-99); Magnesium 1.8 mg/dL (1.6-2.3); Non-African American GFR(CKD) 53 (>60 ml/min/1.73 sqM); Potassium 4.7 mmol/L (3.5-5.1); Sodium 138 mmol/L (137-145)
--- NOTE | 2023-06-30 23:39 | XR ---
EXAM: XR Chest, 1 View CLINICAL HISTORY: XR Reason: Resp distress TECHNIQUE: Frontal view of the chest. COMPARISON: June 30, 2023 FINDINGS: Lungs: Unremarkable. No consolidation. Pleural space: Unremarkable. No pneumothorax. Heart: Unremarkable. No cardiomegaly. Mediastinum: Unremarkable. Normal mediastinal contour. Bones/joints: Previous 2 level fusion the lower cervical spine. Mild osteophytosis in the lower thoracic spine. No acute fracture. Lymph nodes: Mild perihilar soft tissue fullness. Possible mass or lymphadenopathy, similar to previous. Upper abdomen: Unremarkable as visualized. No pneumoperitoneum under the diaphragm. IMPRESSION: Mild right perihilar soft tissue fullness. Possible mass or lymphadenopathy, similar to previous. CT was recommended. No acute change identified.
[2023-07-01] MEDS ORDERED: SODIUM CHLORIDE 0.9% 1,000 ML IV ONE (00:02)
[2023-07-01] MEDS: SODIUM CHLORIDE 0.9% 1,000 ML IV SCH ×4 (01:01→18:43)
[2023-07-01 02:35] LABS: Basophils % (A) 0 %; Eosinophils % (A) 0 %; HCT 44.5 % (39.0-53.0); HGB 14.9 gm/dL (13.0-17.5); Lymphocytes # (A) 0.9 k/uL (1.0-4.8); Lymphocytes % (A) 7 %; MCH 31.8 pg (25.0-35.0); MCHC 33.4 g/dL (31.0-37.0); MCV 95.1 fL (80.0-100.0); Mean Platelet Volume 7.8; Monocytes # (A) 0.4 k/uL (0-1.0); Monocytes % (A) 3 %; Neutrophils # (A) 11.8 k/uL (1.3-7.7); Neutrophils % (A) 89 %; Platelet Count 306 k/uL (150-450); RBC 4.68 m/uL (4.30-5.90); RDW 12.6 % (11.5-15.5); WBC 13.3 k/uL (3.8-10.6)
[2023-07-01 02:45] LABS: African American GFR (CKD) 68 (>60 ml/min/1.73 sqM); Anion Gap 11 mmol/L; Blood Urea Nitrogen 26 mg/dL (9-20); Calcium 9.4 mg/dL (8.4-10.2); Carbon Dioxide 21 mmol/L (22-30); Chloride 106 mmol/L (98-107); Glucose 170 mg/dL (74-99); Non-African American GFR(CKD) 59 (>60 ml/min/1.73 sqM); Potassium 4.3 mmol/L (3.5-5.1); Sodium 138 mmol/L (137-145)
[2023-07-01] MEDS: methylPREDNISolone SOD SUCCI 125 MG/2 ML VIAL IV SCH ×3 (07:27→18:45)
[2023-07-01] MEDS: BUDESONIDE 1 MG/2 ML NEBU INHALATION SCH ×2 (08:43→21:24)
[2023-07-01] MEDS: IPRATROPIUM-ALBUTEROL 3 ML NEB INHALATION SCH ×4 (08:44→21:24)
[2023-07-01] MEDS: FORMOTEROL FUMARATE 20 MCG/2 ML NEBU INHALATION SCH ×2 (08:44→21:24)
[2023-07-01] MEDS ORDERED: MIDAZOLAM 2 MG/2 ML VIAL ONE (08:49)
[2023-07-01] MEDS ORDERED: LIDOCAINE 1% INJ 10MG/ML (20 ML MDV) ONE (08:49)
[2023-07-01] MEDS ORDERED: SUCCINYLCHOLINE CHLORIDE 200 MG/10 ML VIAL IV ONE (08:49)
[2023-07-01] MEDS ORDERED: PROPOFOL 10 MG/ML 20 ML VIAL IV ONE (08:49)
[2023-07-01] MEDS ORDERED: fentaNYL (PF) 50 MCG/ML 2 ML AMP ONE (08:49)
[2023-07-01] MEDS ORDERED: DEXTROSE 50% SYRINGE 50 ML IVP PRN ×2 (09:18)
[2023-07-01] MEDS ORDERED: IV FLUID CONTINUATION 1,000 ML IV ONE (09:32)
[2023-07-01] MEDS ORDERED: LACTATED RINGERS 1,000 ML IV ONE (10:31)
[2023-07-01 12:02] LABS: Glucose,Whole Blood 141 mg/dL (70-110)
--- NOTE | 2023-07-01 12:32 | OP ---
OPERATIVE REPORT DATE OF SERVICE : PROCEDURES PERFORMED: Bronchoscopy, multiple endobronchial biopsies of the anterior right upper lobe bronchus/right upper lobe. Bronchoalveolar lavage of the right upper lobe/anterior segment. Multiple trans-carinal EVANS needle aspiration of lymph nodes, station 4R. PREOPERATIVE DIAGNOSIS: Right hilar mass, highly suspicious for small cell lung cancer. POSTOPERATIVE DIAGNOSIS: Right hilar mass, highly suspicious for small cell lung cancer. ANESTHESIA USED: The patient was given general anesthetic. DESCRIPTION OF PROCEDURE: The patient was prepared according to the bronchoscopy protocol. He was brought into the bronchoscopy suite, and he was placed in the supine position, was intubated by [employer], and after intubation, the patient was connected to the ventilator, and an adapter was applied to the proximal end of the endotracheal tube. After sedation and general anesthesia, the bronchoscope was advanced through the adapter down to the distal end of the endotracheal tube. Thorough examination was done of the ken, right upper lobe, right middle lobe, right lower lobe, left upper lobe, lingula, and left lower lobe. There were definite abnormalities noted in the anterior segment of the right upper lobe, but no clear-cut evidence of endobronchial tumor. Then, multiple endobronchial biopsies were done from the abnormal looking mucosa of the anterior segment of the right upper lobe, and lavage of the right upper lobe anterior segment was performed. Then, moving down to the ken, using a EVANS needle, multiple trans-carinal aspirates were performed from station 4R lymph nodes. Procedure was well tolerated. There was no evidence of any complications, and the patient tolerated the procedure well. MMODL / IJN: [id number] /
--- NOTE | 2023-07-01 13:01 | P.PN ---
Subjective Progress Note Date: 07/01/23 This is a pleasant 67-year-old male patient with a known history of colon cancer, infectious colitis, tuberculosis greater than 5 years ago and completed treatment, congestive heart failure, chronic obstructive pulmonary disease, CVA/TIAs, chronic and ongoing tobacco dependence of greater than 50 years. He had been having issues with increasing shortness of breath and right-sided pleuritic type chest discomfort and was seen at [facility] where he had a chest x-ray reveals increased opacity of the right hilum reflecting underlying mass. There is also paratracheal fullness suggesting adenopathy and a CAT scan that revealed a significant right hilar mass and mediastinal lymphadenopathy. He was referred here for further treatment. He is seen today in consultation in the emergency department. Currently sitting up in a stretcher. Awake and alert. He is dyspneic with conversation. Dyspneic with minimal minimal exertion. Bronchospastic and wheezing. He denies any significant weight loss. He denies any hemoptysis. The patient is seen today 07/01/2023 in follow-up on the regular medical floor. He is sitting up in bed. Awake and alert in no acute distress. He is maintaining O2 saturations in the mid 90s on 2 L/m per nasal cannula. He denies any worsening shortness of breath, cough or congestion. He still has some end expiratory wheezing. The plan is for bronchoscopy with biopsies today. He remains nothing by mouth. He is continued on DuoNeb inhalations, Pulmicort and Perforomist inhalations, Solu-Medrol. NicoDerm patches in place. 0.9 normal saline at 75 ML's per hour. White count 13.3. Hemoglobin 14.9. Sodium 138. Potassium 4.3. Bicarb 21. BUN 26. Creatinine 1.26. Glucose 170. Lactic acid 1.7. Objective - Vital Signs Vital signs: Vital Signs Temp 97.6 F 07/01/23 09:45 Pulse 76 07/01/23 12:25 Resp 18 07/01/23 11:06 BP 111/71 07/01/23 11:45 Pulse Ox 96 07/01/23 11:45 FiO2 Intake & Output 06/30/23 07/01/23 07/01/23 18:59 06:59 18:59 Intake Total 240 400 Balance 240 400 Weight 99.79 kg 99.79 kg Intake: IV 400 Intake, IV Titration 240 Amount Sodium Chloride 0.9% 1, 240 000 ml @ 20 mls/hr IV . Q24H [facility] Rx#:[id number] Other: Voiding Method Toilet Toilet # Voids 2 - Exam GENERAL EXAM: Alert, pleasant, obese, 67-year-old male, on 2 L nasal cannula, comfortable in no apparent distress. HEAD: Normocephalic. EYES: Normal reaction of pupils, equal size. NOSE: Clear with pink turbinates. THROAT: No erythema or exudates. NECK: No masses, no JVD. CHEST: No chest wall deformity. LUNGS: Equal air entry with bilateral wheezing, diminished. CVS: S1 and S2 normal with no audible murmur, regular rhythm. ABDOMEN: No hepatosplenomegaly, normal bowel sounds, no guarding or rigidity. SPINE: No scoliosis or deformity SKIN: No rashes CENTRAL NERVOUS SYSTEM: No focal deficits, tone is normal in all 4 extremities. EXTREMITIES: There is no peripheral edema. No clubbing, no cyanosis. Peripheral pulses are intact. - Labs CBC & Chem 7: 07/01/23 02:12 07/01/23 02:12 Labs: Abnormal Lab Results - Last 24 Hours (Table) 06/30/23 06/30/23 06/30/23 Range/Units 22:21 22:36 22:36 WBC 15.2 H (3.8-10.6) k/uL Neutrophils # 13.4 H (1.3-7.7) k/uL Lymphocytes # (1.0-4.8) k/uL Carbon Dioxide 19 L (22-30) mmol/L BUN 27 H (9-20) mg/dL Creatinine 1.39 H (0.66-1.25) mg/dL Glucose 211 H (74-99) mg/dL POC Glucose (mg/dL) 218 H (70-110) mg/dL Plasma Lactic Acid Niels (0.7-2.0) mmol/L 06/30/23 07/01/23 07/01/23 Range/Units 22:36 02:12 02:12 WBC 13.3 H (3.8-10.6) k/uL Neutrophils # 11.8 H (1.3-7.7) k/uL Lymphocytes # 0.9 L (1.0-4.8) k/uL Carbon Dioxide 21 L (22-30) mmol/L BUN 26 H (9-20) mg/dL Creatinine 1.26 H (0.66-1.25) mg/dL Glucose 170 H (74-99) mg/dL POC Glucose (mg/dL) (70-110) mg/dL Plasma Lactic Acid Niels 4.5 H* (0.7-2.0) mmol/L 07/01/23 07/01/23 Range/Units 02:12 12:00 WBC (3.8-10.6) k/uL Neutrophils # (1.3-7.7) k/uL Lymphocytes # (1.0-4.8) k/uL Carbon Dioxide (22-30) mmol/L BUN (9-20) mg/dL Creatinine (0.66-1.25) mg/dL Glucose (74-99) mg/dL POC Glucose (mg/dL) 141 H (70-110) mg/dL Plasma Lactic Acid Niels 2.5 H* (0.7-2.0) mmol/L Assessment and Plan Assessment: Acute hypoxemic respiratory failure secondary to an acute exacerbation of chronic obstructive pulmonary disease Right hilar mass and mediastinal lymphadenopathy suspicious for malignancy, status post bronchoscopy and biopsies today 07/01/2023 Chronic and ongoing tobacco dependence of greater than 50 years Hypertension History of CVA/TIAs Have history of colon cancer status post right colectomy Gastroesophageal reflux disease Benign prosthetic hyperplasia History of depression Plan: The patient was seen and evaluated Labs and medications reviewed Continue the current treatment plan Bronchoscopy with biopsies performed today Again educated regarding the importance of complete smoking cessation NicoDerm patch in place We will continue to follow I have personally seen and examined the patient, performed the documentation and the assessment and plan as written. Number of minutes spent on the visit: 10.
[2023-07-01] MEDS: INSULIN ASPART (NovoLOG) 100 UNIT/ML VIAL SQ SCH ×5 (13:08→20:57)
[2023-07-01] MEDS: busPIRone HCl 10 MG TAB PO SCH ×2 (13:12→20:55)
[2023-07-01] MEDS: NICOTINE 21MG/24HR PATCH TRANSDERM SCH (13:12)
[2023-07-01] MEDS: PANTOPRAZOLE 40 MG TABLET PO SCH (13:12)
[2023-07-01] MEDS: amLODIPine 5 MG TAB PO SCH (13:12)
[2023-07-01] MEDS: LOSARTAN 25 MG TAB PO SCH (13:12)
[2023-07-01] MEDS: DULoxetine HCL 30 MG CAPSULE.DR PO SCH (13:12)
--- NOTE | 2023-07-01 13:27 | P.PN ---
Subjective Progress Note Date: 07/01/23 Hospital Course: 67-year-old male with history of colon cancer status post resection and supposedly in remission, tobacco dependence, hypertension, COPD, chronic back pain presented for right-sided chest pain and increased shortness of breath. He initially presented to [facility]. At the hospital he was noted to have WBC of 11.16, creatinine of 1.36, protein increased over 8.4. CTA chest showed right hilar 5 cm mass with right hilar bronchovascular compression with probable postobstructive pneumonia and multiple scattered right pulmonary nodules. Patient was also hypoxic and started on oxygen. He was sent transferred over to our facility. On arrival to our emergency department, temperature was 97.9, pulse 112, blood pressure 143/110, respiratory rate 24, saturating at 94% on 2 L. Patient being admitted for acute hypoxic respiratory failure likely in the setting of lung mass as well as possible postobstructive pneumonia as well as COPD exacerbation. Pulmonology consulted. Bronchoscopy completed, showed definite abnormalities noted in the anterior segment of right upper lobe, multiple endobronchial biopsies were done as well as needle aspiration of lymph nodes. Subjective: Patient seen and examined at bedside. No acute events overnight. Pertinent positives and negatives as discussed above, a complete review of systems was performed and all other systems are negative. Vitals Signs Reviewed. General: nontoxic, no distress, appears at stated age, obese Derm: warm, dry Head: atraumatic, normocephalic, symmetric Eyes: EOMI, no lid lag, anicteric sclera, pupils equal round reactive to light ENT: Nose and ears atraumatic Neck: No thyromegaly, supple Mouth: no lip lesion, mucus membranes moist Cardiovascular: S1S2 reg, no murmur, no edema Lungs: Scattered wheeze, no accessory muscle use, supplemental oxygen Abdominal: soft, nontender to palpation, no guarding, no appreciable organomegaly Ext: no gross muscle atrophy, muscle strength muscle strength 5 out of 5 in all 4 extremities, no contractures Neuro: CN II-XII grossly intact Psych: Alert, oriented, appropriate affect Data Reviewed Today: Pertinent Labs: WBC 13.3, bicarb 21, creatinine 1.26, lactate 1.7 Imaging: No new imaging Assessment and Plan: Patient is critically ill, prognosis guarded Acute hypoxic respiratory failure Acute COPD exacerbation Right lung mass suspected metastatic disease versus primary malignancy History of colon cancer status post resection Tobacco dependence Leukocytosis, likely reactive, steroid induced, improving Metabolic acidosis, improving -Bronchoscopy note reviewed, biopsies pending -On bronchodilators as well as IV Solu-Medrol 60 mg every 6 hours, monitor blood sugars as well as -Continue to wean oxygen -Counseled regarding smoking cessation -Patient will likely need oncology follow-up outpatient -Repeat CBC and BMP tomorrow Resolved: Resolved Chronic: Hypertension GERD Chronic pain Depression DVT ppx: SCDs Code status: Full code Anticipated discharge place: Pending clinical course Anticipated discharge time: Pending clinical course Objective - Vital Signs Vital signs: Vital Signs Temp 97.6 F 07/01/23 09:45 Pulse 76 07/01/23 12:25 Resp 18 07/01/23 11:06 BP 111/71 07/01/23 11:45 Pulse Ox 96 07/01/23 11:45 FiO2 Intake & Output 06/30/23 07/01/23 07/01/23 18:59 06:59 18:59 Intake Total 240 400 Balance 240 400 Weight 99.79 kg 99.79 kg Intake: IV 400 Intake, IV Titration 240 Amount Sodium Chloride 0.9% 1, 240 000 ml @ 20 mls/hr IV . Q24H [facility] Rx#:[id number] Other: Voiding Method Toilet Toilet # Voids 2 - Labs CBC & Chem 7: 07/01/23 02:12 07/01/23 02:12 Labs: Abnormal Lab Results - Last 24 Hours (Table) 06/30/23 06/30/23 06/30/23 Range/Units 22:21 22:36 22:36 WBC 15.2 H (3.8-10.6) k/uL Neutrophils # 13.4 H (1.3-7.7) k/uL Lymphocytes # (1.0-4.8) k/uL Carbon Dioxide 19 L (22-30) mmol/L BUN 27 H (9-20) mg/dL Creatinine 1.39 H (0.66-1.25) mg/dL Glucose 211 H (74-99) mg/dL POC Glucose (mg/dL) 218 H (70-110) mg/dL Plasma Lactic Acid Niels (0.7-2.0) mmol/L 06/30/23 07/01/23 07/01/23 Range/Units 22:36 02:12 02:12 WBC 13.3 H (3.8-10.6) k/uL Neutrophils # 11.8 H (1.3-7.7) k/uL Lymphocytes # 0.9 L (1.0-4.8) k/uL Carbon Dioxide 21 L (22-30) mmol/L BUN 26 H (9-20) mg/dL Creatinine 1.26 H (0.66-1.25) mg/dL Glucose 170 H (74-99) mg/dL POC Glucose (mg/dL) (70-110) mg/dL Plasma Lactic Acid Niels 4.5 H* (0.7-2.0) mmol/L 07/01/23 07/01/23 Range/Units 02:12 12:00 WBC (3.8-10.6) k/uL Neutrophils # (1.3-7.7) k/uL Lymphocytes # (1.0-4.8) k/uL Carbon Dioxide (22-30) mmol/L BUN (9-20) mg/dL Creatinine (0.66-1.25) mg/dL Glucose (74-99) mg/dL POC Glucose (mg/dL) 141 H (70-110) mg/dL Plasma Lactic Acid Niels 2.5 H* (0.7-2.0) mmol/L
[2023-07-01 17:29] LABS: Glucose,Whole Blood 195 mg/dL (70-110)
[2023-07-01] MEDS ORDERED: ALPRAZolam 0.25 MG TAB PO STA (20:07)
[2023-07-01 20:40] LABS: Glucose,Whole Blood 189 mg/dL (70-110)
[2023-07-01] MEDS: MIRTAZAPINE 45 MG TABLET PO SCH (20:55)
[2023-07-01] MEDS: oxyCODONE-APAP 10-325MG 1 EACH TAB PO PRN (20:56)
[2023-07-02] MEDS: methylPREDNISolone SOD SUCCI 125 MG/2 ML VIAL IV SCH ×4 (00:19→17:23)
[2023-07-02] MEDS: SODIUM CHLORIDE 0.9% 1,000 ML IV SCH ×2 (02:41→05:56)
[2023-07-02] MEDS: IPRATROPIUM-ALBUTEROL 3 ML NEB INHALATION PRN (06:04)
[2023-07-02 06:19] LABS: Basophils % (A) 0 %; Eosinophils % (A) 0 %; HCT 44.7 % (39.0-53.0); HGB 14.4 gm/dL (13.0-17.5); Lymphocytes # (A) 1.1 k/uL (1.0-4.8); Lymphocytes % (A) 6 %; MCH 31.3 pg (25.0-35.0); MCHC 32.2 g/dL (31.0-37.0); MCV 97.3 fL (80.0-100.0); Mean Platelet Volume 8.3; Monocytes # (A) 0.6 k/uL (0-1.0); Monocytes % (A) 4 %; Neutrophils # (A) 15.6 k/uL (1.3-7.7); Neutrophils % (A) 89 %; Platelet Count 318 k/uL (150-450); RDW 13.2 % (11.5-15.5); WBC 17.6 k/uL (3.8-10.6)
[2023-07-02] MEDS: oxyCODONE-APAP 10-325MG 1 EACH TAB PO PRN ×2 (06:29→17:47)
[2023-07-02 06:40] LABS: African American GFR (CKD) 76 (>60 ml/min/1.73 sqM); Anion Gap 8 mmol/L; Blood Urea Nitrogen 24 mg/dL (9-20); Carbon Dioxide 24 mmol/L (22-30); Chloride 107 mmol/L (98-107); Glucose 136 mg/dL (74-99); Non-African American GFR(CKD) 66 (>60 ml/min/1.73 sqM); Potassium 5.1 mmol/L (3.5-5.1); Sodium 139 mmol/L (137-145)
[2023-07-02 07:20] LABS: Glucose,Whole Blood 154 mg/dL (70-110)
[2023-07-02] MEDS: BUDESONIDE 1 MG/2 ML NEBU INHALATION SCH ×2 (07:47→19:23)
[2023-07-02] MEDS: IPRATROPIUM-ALBUTEROL 3 ML NEB INHALATION SCH ×4 (07:47→19:23)
[2023-07-02] MEDS: FORMOTEROL FUMARATE 20 MCG/2 ML NEBU INHALATION SCH ×2 (07:47→19:23)
[2023-07-02] MEDS: NICOTINE 21MG/24HR PATCH TRANSDERM SCH (09:47)
[2023-07-02] MEDS: busPIRone HCl 10 MG TAB PO SCH ×2 (09:48→22:07)
[2023-07-02] MEDS: LOSARTAN 25 MG TAB PO SCH (09:48)
[2023-07-02] MEDS: DOXYCYCLINE 100 MG CAP PO SCH ×2 (09:48→22:07)
[2023-07-02] MEDS: amLODIPine 5 MG TAB PO SCH (09:48)
[2023-07-02] MEDS: DULoxetine HCL 30 MG CAPSULE.DR PO SCH (09:48)
[2023-07-02] MEDS: PANTOPRAZOLE 40 MG TABLET PO SCH (09:48)
[2023-07-02] MEDS: INSULIN ASPART (NovoLOG) 100 UNIT/ML VIAL SQ SCH ×4 (10:01→22:08)
--- NOTE | 2023-07-02 12:38 | P.PN ---
Subjective Progress Note Date: 07/02/23 This is a pleasant 67-year-old male patient with a known history of colon cancer, infectious colitis, tuberculosis greater than 5 years ago and completed treatment, congestive heart failure, chronic obstructive pulmonary disease, CVA/TIAs, chronic and ongoing tobacco dependence of greater than 50 years. He had been having issues with increasing shortness of breath and right-sided pleuritic type chest discomfort and was seen at [facility] where he had a chest x-ray reveals increased opacity of the right hilum reflecting underlying mass. There is also paratracheal fullness suggesting adenopathy and a CAT scan that revealed a significant right hilar mass and mediastinal lymphadenopathy. He was referred here for further treatment. He is seen today in consultation in the emergency department. Currently sitting up in a stretcher. Awake and alert. He is dyspneic with conversation. Dyspneic with minimal minimal exertion. Bronchospastic and wheezing. He denies any significant weight loss. He denies any hemoptysis. The patient is seen today 07/01/2023 in follow-up on the regular medical floor. He is sitting up in bed. Awake and alert in no acute distress. He is maintaining O2 saturations in the mid 90s on 2 L/m per nasal cannula. He denies any worsening shortness of breath, cough or congestion. He still has some end expiratory wheezing. The plan is for bronchoscopy with biopsies today. He remains nothing by mouth. He is continued on DuoNeb inhalations, Pulmicort and Perforomist inhalations, Solu-Medrol. NicoDerm patches in place. 0.9 normal saline at 75 ML's per hour. White count 13.3. Hemoglobin 14.9. Sodium 138. Potassium 4.3. Bicarb 21. BUN 26. Creatinine 1.26. Glucose 170. Lactic acid 1.7. The patient is seen today 07/02/2023 in follow-up on the regular medical floor. He is currently resting in bed. Awake and alert in no acute distress. Not back to his baseline. Still somewhat bronchospastic and wheezing. He is some chest wall discomfort from coughing. He is maintaining O2 saturation in the 90s on 3 L/m per nasal cannula. He is afebrile. Hemodynamically stable. He did undergo bronchoscopy with BAL and biopsies yesterday. Tolerated the procedure well. Cultures pending. Cytology pending. White count 17.6. Hemoglobin 14.4. Sodium 139. Potassium 5.1. Bicarb 24. BUN 24. Creatinine 1.16. Glucose 136. He is continued on DuoNeb inhalations, Pulmicort and Perforomist inhalations, Solu-Medrol. NicoDerm patch in place. Objective - Vital Signs Vital signs: Vital Signs Temp 97.8 F 07/02/23 07:20 Pulse 92 07/02/23 10:57 Resp 20 07/02/23 08:00 BP 115/65 07/02/23 07:20 Pulse Ox 99 07/02/23 07:50 FiO2 Intake & Output 07/01/23 07/02/23 07/02/23 18:59 06:59 18:59 Intake Total 1300 Balance 1300 Weight 99.79 kg Intake: IV 400 Intake, IV Titration 900 Amount Sodium Chloride 0.9% 1, 900 000 ml @ 75 mls/hr IV . [id number] [facility] Rx#:[id number] Other: Voiding Method Toilet Toilet Toilet # Voids 2 # Bowel Movements 0 - Exam GENERAL EXAM: Alert, obese, 67-year-old male, on 3 L nasal cannula, comfortable in no apparent distress. HEAD: Normocephalic. EYES: Normal reaction of pupils, equal size. NOSE: Clear with pink turbinates. THROAT: No erythema or exudates. NECK: No masses, no JVD. CHEST: No chest wall deformity. LUNGS: Equal air entry with bilateral wheezing, diminished. CVS: S1 and S2 normal with no audible murmur, regular rhythm. ABDOMEN: No hepatosplenomegaly, normal bowel sounds, no guarding or rigidity. SPINE: No scoliosis or deformity SKIN: No rashes CENTRAL NERVOUS SYSTEM: No focal deficits, tone is normal in all 4 extremities. EXTREMITIES: There is no peripheral edema. No clubbing, no cyanosis. Peripheral pulses are intact. - Labs CBC & Chem 7: 07/02/23 05:27 07/02/23 05:27 Labs: Abnormal Lab Results - Last 24 Hours (Table) 07/01/23 07/01/23 07/02/23 Range/Units 17:25 20:38 05:27 WBC (3.8-10.6) k/uL Neutrophils # (1.3-7.7) k/uL BUN (9-20) mg/dL Glucose (74-99) mg/dL POC Glucose (mg/dL) 195 H 189 H (70-110) mg/dL Hemoglobin A1c 6.5 H (<=6.0) % 07/02/23 07/02/23 07/02/23 Range/Units 05:27 05:27 07:19 WBC 17.6 H (3.8-10.6) k/uL Neutrophils # 15.6 H (1.3-7.7) k/uL BUN 24 H (9-20) mg/dL Glucose 136 H (74-99) mg/dL POC Glucose (mg/dL) 154 H (70-110) mg/dL Hemoglobin A1c (<=6.0) % Microbiology - Last 24 Hours (Table) 07/01/23 10:00 Gram Stain - Preliminary Bronchoalviolar Lavage - Right Assessment and Plan Assessment: Acute hypoxemic respiratory failure secondary to an acute exacerbation of chronic obstructive pulmonary disease Right hilar mass and mediastinal lymphadenopathy suspicious for malignancy, status post bronchoscopy and biopsies on 07/01/2023 Chronic and ongoing tobacco dependence of greater than 50 years Hypertension History of CVA/TIAs History of colon cancer status post right colectomy Gastroesophageal reflux disease Benign prosthetic hyperplasia History of depression Plan: The patient was seen and evaluated Labs and medications reviewed Bronchoscopy cultures and cytology pending Continue bronchodilators, steroids Add empiric antibiotics in the form of doxycycline NicoDerm patch in place Titrate down the FiO2 as tolerated We will continue to follow I have personally seen and examined the patient, performed the documentation and the assessment and plan as written. Number of minutes spent on the visit: 10.
[2023-07-02 12:44] LABS: Glucose,Whole Blood 329 mg/dL (70-110)
--- NOTE | 2023-07-02 14:52 | P.PN ---
Subjective Progress Note Date: 07/02/23 Hospital Course: 67-year-old male with history of colon cancer status post resection and supposedly in remission, tobacco dependence, hypertension, COPD, chronic back pain presented for right-sided chest pain and increased shortness of breath. He initially presented to [facility]. At the hospital he was noted to have WBC of 11.16, creatinine of 1.36, protein increased over 8.4. CTA chest showed right hilar 5 cm mass with right hilar bronchovascular compression with probable postobstructive pneumonia and multiple scattered right pulmonary nodules. Patient was also hypoxic and started on oxygen. He was sent transferred over to our facility. On arrival to our emergency department, temperature was 97.9, pulse 112, blood pressure 143/110, respiratory rate 24, saturating at 94% on 2 L. Patient being admitted for acute hypoxic respiratory failure likely in the setting of lung mass as well as possible postobstructive pneumonia as well as COPD exacerbation. Pulmonology consulted. Bronchoscopy completed, showed definite abnormalities noted in the anterior segment of right upper lobe, multiple endobronchial biopsies were done as well as needle aspiration of lymph nodes. Subjective: Patient seen and examined at bedside. No acute events overnight. Continues to have shortness of breath, slightly improved. Pertinent positives and negatives as discussed above, a complete review of systems was performed and all other systems are negative. Vitals Signs Reviewed. General: nontoxic, no distress, appears at stated age, obese Derm: warm, dry Head: atraumatic, normocephalic, symmetric Eyes: EOMI, no lid lag, anicteric sclera, pupils equal round reactive to light ENT: Nose and ears atraumatic Neck: No thyromegaly, supple Mouth: no lip lesion, mucus membranes moist Cardiovascular: S1S2 reg, no murmur, no edema Lungs: Scattered wheeze, no accessory muscle use, supplemental oxygen Abdominal: soft, nontender to palpation, no guarding, no appreciable org anomegaly Ext: no gross muscle atrophy, muscle strength muscle strength 5 out of 5 in all 4 extremities, no contractures Neuro: CN II-XII grossly intact Psych: Alert, oriented, appropriate affect Data Reviewed Today: Pertinent Labs: WBC 17.6, creatinine 1.16, magnesium 2, A1c 6.5 Imaging: No new imaging Assessment and Plan: Patient is critically ill, prognosis guarded Acute hypoxic respiratory failure Acute COPD exacerbation Right lung mass suspected metastatic disease versus primary malignancy History of colon cancer status post resection Tobacco dependence Leukocytosis, likely reactive, steroid induced Type 2 diabetes, A1c 6.5 -Pulmonology note reviewed, doxycycline 100 mg twice a day as needed, continue current regimen -BAL Gram stain shows no organisms -Pathology pending -On bronchodilators as well as IV Solu-Medrol 60 mg every 6 hours, monitor blood sugars as well as mental status -Sliding scale insulin, monitor for hypoglycemia -Continue to wean oxygen -Counseled regarding smoking cessation -Patient will likely need oncology follow-up outpatient -Repeat CBC and BMP tomorrow Resolved: Metabolic acidosis Chronic: Hypertension GERD Chronic pain Depression DVT ppx: SCDs Code status: Full code Anticipated discharge place: Pending clinical course Anticipated discharge time: Pending clinical course Objective - Vital Signs Vital signs: Vital Signs Temp 97.6 F 07/02/23 12:45 Pulse 105 H 07/02/23 14:42 Resp 21 07/02/23 12:45 BP 149/70 07/02/23 12:45 Pulse Ox 94 L 07/02/23 12:45 FiO2 Intake & Output 07/01/23 07/02/23 07/02/23 18:59 06:59 18:59 Intake Total 1300 Balance 1300 Weight 99.79 kg Intake: IV 400 Intake, IV Titration 900 Amount Sodium Chloride 0.9% 1, 900 000 ml @ 75 mls/hr IV . [id number] [facility] Rx#:[id number] Other: Voiding Method Toilet Toilet Toilet # Voids 2 # Bowel Movements 0 - Labs CBC & Chem 7: 07/02/23 05:27 07/02/23 05:27 Labs: Abnormal Lab Results - Last 24 Hours (Table) 07/01/23 07/01/23 07/02/23 Range/Units 17:25 20:38 05:27 WBC (3.8-10.6) k/uL Neutrophils # (1.3-7.7) k/uL BUN (9-20) mg/dL Glucose (74-99) mg/dL POC Glucose (mg/dL) 195 H 189 H (70-110) mg/dL Hemoglobin A1c 6.5 H (<=6.0) % 07/02/23 07/02/23 07/02/23 Range/Units 05:27 05:27 07:19 WBC 17.6 H (3.8-10.6) k/uL Neutrophils # 15.6 H (1.3-7.7) k/uL BUN 24 H (9-20) mg/dL Glucose 136 H (74-99) mg/dL POC Glucose (mg/dL) 154 H (70-110) mg/dL Hemoglobin A1c (<=6.0) % 07/02/23 Range/Units 12:43 WBC (3.8-10.6) k/uL Neutrophils # (1.3-7.7) k/uL BUN (9-20) mg/dL Glucose (74-99) mg/dL POC Glucose (mg/dL) 329 H (70-110) mg/dL Hemoglobin A1c (<=6.0) % Microbiology - Last 24 Hours (Table) 07/01/23 10:00 Gram Stain - Preliminary Bronchoalviolar Lavage - Right
[2023-07-02 17:01] LABS: Glucose,Whole Blood 288 mg/dL (70-110)
[2023-07-02 21:03] LABS: Glucose,Whole Blood 190 mg/dL (70-110)
[2023-07-02] MEDS: MIRTAZAPINE 45 MG TABLET PO SCH (22:07)
[2023-07-02] MEDS: ALPRAZolam 0.5 MG TAB PO PRN (22:08)
[2023-07-03] MEDS: methylPREDNISolone SOD SUCCI 125 MG/2 ML VIAL IV SCH ×4 (00:41→17:51)
[2023-07-03 06:44] LABS: Basophils % (A) 0 %; Eosinophils % (A) 0 %; HCT 42.2 % (39.0-53.0); HGB 14.2 gm/dL (13.0-17.5); Lymphocytes # (A) 1.2 k/uL (1.0-4.8); Lymphocytes % (A) 7 %; MCH 32.6 pg (25.0-35.0); MCHC 33.6 g/dL (31.0-37.0); MCV 96.9 fL (80.0-100.0); Mean Platelet Volume 8.2; Monocytes # (A) 0.7 k/uL (0-1.0); Monocytes % (A) 4 %; Neutrophils % (A) 87 %; Platelet Count 301 k/uL (150-450); RBC 4.35 m/uL (4.30-5.90); RDW 12.8 % (11.5-15.5)
[2023-07-03 06:59] LABS: African American GFR (CKD) 87 (>60 ml/min/1.73 sqM); Anion Gap 7 mmol/L; Blood Urea Nitrogen 25 mg/dL (9-20); Calcium 9.2 mg/dL (8.4-10.2); Carbon Dioxide 27 mmol/L (22-30); Chloride 104 mmol/L (98-107); Glucose 129 mg/dL (74-99); Non-African American GFR(CKD) 75 (>60 ml/min/1.73 sqM); Sodium 138 mmol/L (137-145)
[2023-07-03] MEDS: BUDESONIDE 1 MG/2 ML NEBU INHALATION SCH ×2 (07:14→17:57)
[2023-07-03] MEDS: IPRATROPIUM-ALBUTEROL 3 ML NEB INHALATION SCH ×4 (07:14→17:57)
[2023-07-03] MEDS: FORMOTEROL FUMARATE 20 MCG/2 ML NEBU INHALATION SCH ×2 (07:14→17:57)
[2023-07-03 07:47] LABS: Glucose,Whole Blood 134 mg/dL (70-110)
[2023-07-03] MEDS: INSULIN ASPART (NovoLOG) 100 UNIT/ML VIAL SQ SCH ×4 (07:48→21:27)
[2023-07-03] MEDS: busPIRone HCl 10 MG TAB PO SCH ×2 (08:35→21:27)
[2023-07-03] MEDS: NICOTINE 21MG/24HR PATCH TRANSDERM SCH (08:35)
[2023-07-03] MEDS: DULoxetine HCL 30 MG CAPSULE.DR PO SCH (08:35)
[2023-07-03] MEDS: PANTOPRAZOLE 40 MG TABLET PO SCH (08:36)
[2023-07-03] MEDS: LOSARTAN 25 MG TAB PO SCH (08:36)
[2023-07-03] MEDS: DOXYCYCLINE 100 MG CAP PO SCH (08:36)
[2023-07-03] MEDS: amLODIPine 5 MG TAB PO SCH (08:36)
--- NOTE | 2023-07-03 11:57 | XR ---
EXAMINATION TYPE: XR chest 1V portable DATE OF EXAM: 07/03/2023 11:43 AM CLINICAL INDICATION:Male, 67 years old with history of Hypoxia, lung mass; [facility] COMPARISON: Chest radiograph 06/30/2023 TECHNIQUE: XR chest 1V portable Frontal view of the chest. FINDINGS: Lungs/Pleura: Interval progression of hazy right lung airspace opacities at right lung space opacitie s. Right perihilar fullness is again identified. Pulmonary vascularity: Unremarkable. Heart/mediastinum: Cardiomediastinal silhouette is unremarkable. Musculoskeletal: No acute osseous pathology. Partially visualized cervical fusion hardware. IMPRESSION: Progression of right mid and lower lung airspace opacities concerning for developing airspace disease . Prominent right mediastinal soft tissue better visualized on recent CT chest.
[2023-07-03 12:40] LABS: Glucose,Whole Blood 184 mg/dL (70-110)
[2023-07-03] MEDS: oxyCODONE-APAP 10-325MG 1 EACH TAB PO PRN ×2 (13:14→18:47)
--- NOTE | 2023-07-03 13:48 | P.PN ---
Subjective Progress Note Date: 07/03/23 This is a pleasant 67-year-old male patient with a known history of colon cancer, infectious colitis, tuberculosis greater than 5 years ago and completed treatment, congestive heart failure, chronic obstructive pulmonary disease, CVA/TIAs, chronic and ongoing tobacco dependence of greater than 50 years. He had been having issues with increasing shortness of breath and right-sided pleuritic type chest discomfort and was seen at [facility] where he had a chest x-ray reveals increased opacity of the right hilum reflecting underlying mass. There is also paratracheal fullness suggesting adenopathy and a CAT scan that revealed a significant right hilar mass and mediastinal lymphadenopathy. He was referred here for further treatment. He is seen today in consultation in the emergency department. Currently sitting up in a stretcher. Awake and alert. He is dyspneic with conversation. Dyspneic with minimal minimal exertion. Bronchospastic and wheezing. He denies any significant weight loss. He denies any hemoptysis. The patient is seen today 07/01/2023 in follow-up on the regular medical floor. He is sitting up in bed. Awake and alert in no acute distress. He is maintaining O2 saturations in the mid 90s on 2 L/m per nasal cannula. He denies any worsening shortness of breath, cough or congestion. He still has some end expiratory wheezing. The plan is for bronchoscopy with biopsies today. He remains nothing by mouth. He is continued on DuoNeb inhalations, Pulmicort and Perforomist inhalations, Solu-Medrol. NicoDerm patches in place. 0.9 normal saline at 75 ML's per hour. White count 13.3. Hemoglobin 14.9. Sodium 138. Potassium 4.3. Bicarb 21. BUN 26. Creatinine 1.26. Glucose 170. Lactic acid 1.7. The patient is seen today 07/02/2023 in follow-up on the regular medical floor. He is currently resting in bed. Awake and alert in no acute distress. Not back to his baseline. Still somewhat bronchospastic and wheezing. He is some chest wall discomfort from coughing. He is maintaining O2 saturation in the 90s on 3 L/m per nasal cannula. He is afebrile. Hemodynamically stable. He did undergo bronchoscopy with BAL and biopsies yesterday. Tolerated the procedure well. Cultures pending. Cytology pending. White count 17.6. Hemoglobin 14.4. Sodium 139. Potassium 5.1. Bicarb 24. BUN 24. Creatinine 1.16. Glucose 136. He is continued on DuoNeb inhalations, Pulmicort and Perforomist inhalations, Solu-Medrol. NicoDerm patch in place. The patient is seen today 07/03/2023 in follow-up on the regular medical floor. He is currently resting in bed. Awake and alert in no acute distress. He is still quite dyspneic with minimal exertion. Dyspneic with conversation. Continues with a loose nonproductive cough. Continue with wheezing. Maintaining O2 saturations in the 90s on 3 L/m per nasal cannula. He is continued on DuoNeb inhalations, Pulmicort and Perforomist inhalations, IV Solu- Medrol. Remains on antibiotics in the form of doxycycline. NicoDerm patch in place. Chest x-ray showing progression of the right mid and lower lung airspace opacities concerning for developing airspace disease. Prominent right mediastinal soft tissue mass better visualized on CT. Bronchial wash cultures are pending. Cytology pending. White count 16.0. Hemoglobin 14.2. Sodium 138. Potassium 5.0. Bicarb 27. BUN 25. Creatinine 1.04. Glucose 129. Objective - Vital Signs Vital signs: Vital Signs Temp 97.7 F 07/03/23 12:35 Pulse 73 07/03/23 12:35 Resp 18 07/03/23 12:35 BP 134/67 07/03/23 12:35 Pulse Ox 96 07/03/23 12:35 FiO2 Intake & Output 07/02/23 07/03/23 07/03/23 18:59 06:59 18:59 Other: Voiding Method Toilet Toilet Toilet # Voids 4 - Exam GENERAL EXAM: Alert, pleasant 67-year-old male, on 3 L nasal cannula, fairly comfortable in no apparent distress. HEAD: Normocephalic. EYES: Normal reaction of pupils, equal size. NOSE: Clear with pink turbinates. THROAT: No erythema or exudates. NECK: No masses, no JVD. CHEST: No chest wall deformity. LUNGS: Equal air entry with bilateral wheezing, diminished. CVS: S1 and S2 normal with no audible murmur, regular rhythm. ABDOMEN: No hepatosplenomegaly, normal bowel sounds, no guarding or rigidity. SPINE: No scoliosis or deformity SKIN: No rashes CENTRAL NERVOUS SYSTEM: No focal deficits, tone is normal in all 4 extremities. EXTREMITIES: There is no peripheral edema. No clubbing, no cyanosis. Peripheral pulses are intact. - Labs CBC & Chem 7: 07/03/23 05:39 07/03/23 05:39 Labs: Abnormal Lab Results - Last 24 Hours (Table) 07/02/23 07/02/23 07/03/23 Range/Units 17:00 21:01 05:39 WBC 16.0 H (3.8-10.6) k/uL Neutrophils # 14.0 H (1.3-7.7) k/uL BUN (9-20) mg/dL Glucose (74-99) mg/dL POC Glucose (mg/dL) 288 H 190 H (70-110) mg/dL 07/03/23 07/03/23 07/03/23 Range/Units 05:39 07:46 12:35 WBC (3.8-10.6) k/uL Neutrophils # (1.3-7.7) k/uL BUN 25 H (9-20) mg/dL Glucose 129 H (74-99) mg/dL POC Glucose (mg/dL) 134 H 184 H (70-110) mg/dL Microbiology - Last 24 Hours (Table) 07/01/23 10:00 Gram Stain - Preliminary Bronchoalviolar Lavage - Right Bronchial Washings Culture - Preliminary 07/01/23 10:00 Acid Fast Bacilli Smear - Preliminary Bronchoalviolar Lavage - Right Assessment and Plan Assessment: Acute hypoxemic respiratory failure secondary to an acute exacerbation of chronic obstructive pulmonary disease follow-up chest x-ray showing increased pace disease in the right lung. Procalcitonin 0.06. Right hilar mass and mediastinal lymphadenopathy suspicious for malignancy, status post bronchoscopy and biopsies on 07/01/2023 Chronic and ongoing tobacco dependence of greater than 50 years Hypertension History of CVA/TIAs History of colon cancer status post right colectomy Gastroesophageal reflux disease Benign prosthetic hyperplasia History of depression Plan: The patient was seen and evaluated Chest x-ray, labs and medications reviewed We'll change from doxycycline to Zosyn Bronchoscopy cultures and cytology pending Continue bronchodilators, steroids NicoDerm patch in place Titrate down the FiO2 as tolerated We will continue to follow I have personally seen and examined the patient, performed the documentation and the assessment and plan as written. Number of minutes spent on the visit: 10.
--- NOTE | 2023-07-03 14:18 | P.PN ---
Subjective Progress Note Date: 07/03/23 Hospital Course: 67-year-old male with history of colon cancer status post resection and suppos edly in remission, tobacco dependence, hypertension, COPD, chronic back pain presented for right-sided chest pain and increased shortness of breath. He initially presented to [facility]. At the hospital he was noted to have WBC of 11.16, creatinine of 1.36, protein increased over 8.4. CTA chest showed right hilar 5 cm mass with right hilar bronchovascular compression with probable postobstructive pneumonia and multiple scattered right pulmonary nodules. Patient was also hypoxic and started on oxygen. He was sent transferred over to our facility. On arrival to our emergency department, temperature was 97.9, pulse 112, blood pressure 143/110, respiratory rate 24, saturating at 94% on 2 L. Patient being admitted for acute hypoxic respiratory failure likely in the setting of lung mass as well as possible postobstructive pneumonia as well as COPD exacerbation. Pulmonology consulted. Bronchoscopy completed, showed definite abnormalities noted in the anterior segment of right upper lobe, multiple endobronchial biopsies were done as well as needle aspiration of lymph nodes. Subjective: Patient seen and examined at bedside. No acute events overnight. Continues to have shortness of breath, slightly improved. Pertinent positives and negatives as discussed above, a complete review of systems was performed and all other systems are negative. Vitals Signs Reviewed. General: nontoxic, no distress, appears at stated age, obese Derm: warm, dry Head: atraumatic, normocephalic, symmetric Eyes: EOMI, no lid lag, anicteric sclera, pupils equal round reactive to light ENT: Nose and ears atraumatic Neck: No thyromegaly, supple Mouth: no lip lesion, mucus membranes moist Cardiovascular: S1S2 reg, no murmur, no edema Lungs: Scattered wheeze, no accessory muscle use, supplemental oxygen Abdominal: soft, nontender to palpation, no guarding, no appreciable organomegaly Ext: no gross muscle atrophy, muscle strength muscle strength 5 out of 5 in all 4 extremities, no contractures Neuro: CN II-XII grossly intact Psych: Alert, oriented, appropriate affect Data Reviewed Today: Pertinent Labs: WBC 16, creatinine 1.04, blood sugars range between 129-190 Imaging: Chest x-ray independently interpreted, shows right middle lobe opacity Assessment and Plan: Patient is critically ill, prognosis guarded Acute hypoxic respiratory failure Acute COPD exacerbation Right lung mass suspected metastatic disease versus primary malignancy History of colon cancer status post resection Tobacco dependence Leukocytosis, likely reactive, steroid induced Type 2 diabetes, A1c 6.5 -Pulmonology note reviewed, doxycycline and switch to IV Zosyn 3.375 g every 8 hours -BAL Gram stain shows no growth to date -Pathology pending -On bronchodilators as well as IV Solu-Medrol 60 mg every 6 hours, monitor blood sugars as well as mental status -Sliding scale insulin, monitor for hypoglycemia -Continue to wean oxygen -Counseled regarding smoking cessation -Patient will likely need oncology follow-up outpatient -Repeat CBC and BMP tomorrow Resolved: Metabolic acidosis Chronic: Hypertension GERD Chronic pain Depression DVT ppx: SCDs Code status: Full code Anticipated discharge place: Pending clinical course Anticipated discharge time: Pending clinical course Objective - Vital Signs Vital signs: Vital Signs Temp 97.7 F 07/03/23 12:35 Pulse 82 07/03/23 14:07 Resp 18 07/03/23 12:35 BP 134/67 07/03/23 12:35 Pulse Ox 96 07/03/23 12:35 FiO2 Intake & Output 07/02/23 07/03/23 07/03/23 18:59 06:59 18:59 Other: Voiding Method Toilet Toilet Toilet # Voids 4 - Labs CBC & Chem 7: 07/03/23 05:39 07/03/23 05:39 Labs: Abnormal Lab Results - Last 24 Hours (Table) 07/02/23 07/02/23 07/03/23 Range/Units 17:00 21:01 05:39 WBC 16.0 H (3.8-10.6) k/uL Neutrophils # 14.0 H (1.3-7.7) k/uL BUN (9-20) mg/dL Glucose (74-99) mg/dL POC Glucose (mg/dL) 288 H 190 H (70-110) mg/dL 07/03/23 07/03/23 07/03/23 Range/Units 05:39 07:46 12:35 WBC (3.8-10.6) k/uL Neutrophils # (1.3-7.7) k/uL BUN 25 H (9-20) mg/dL Glucose 129 H (74-99) mg/dL POC Glucose (mg/dL) 134 H 184 H (70-110) mg/dL Microbiology - Last 24 Hours (Table) 07/01/23 10:00 Gram Stain - Preliminary Bronchoalviolar Lavage - Right Bronchial Washings Culture - Preliminary 07/01/23 10:00 Acid Fast Bacilli Smear - Preliminary Bronchoalviolar Lavage - Right
[2023-07-03] MEDS: PIPERACILLIN-TAZOBACTAM 3.375 GM in SODIUM CHLORIDE 0.9% 100 ML IVPB SCH (15:54)
[2023-07-03 17:09] LABS: Glucose,Whole Blood 228 mg/dL (70-110)
[2023-07-03 21:00] LABS: Glucose,Whole Blood 188 mg/dL (70-110)
[2023-07-03] MEDS: ALPRAZolam 0.5 MG TAB PO PRN (21:27)
[2023-07-03] MEDS: MIRTAZAPINE 45 MG TABLET PO SCH (21:28)
[2023-07-04] MEDS: PIPERACILLIN-TAZOBACTAM 3.375 GM in SODIUM CHLORIDE 0.9% 100 ML IVPB SCH ×3 (00:40→17:14)
[2023-07-04] MEDS: methylPREDNISolone SOD SUCCI 125 MG/2 ML VIAL IV SCH ×4 (00:40→17:35)
[2023-07-04] MEDS: oxyCODONE-APAP 10-325MG 1 EACH TAB PO PRN ×3 (00:46→17:17)
[2023-07-04] MEDS: BUDESONIDE 1 MG/2 ML NEBU INHALATION SCH ×2 (07:41→18:17)
[2023-07-04] MEDS: FORMOTEROL FUMARATE 20 MCG/2 ML NEBU INHALATION SCH ×2 (07:42→18:17)
[2023-07-04] MEDS: IPRATROPIUM-ALBUTEROL 3 ML NEB INHALATION SCH ×4 (07:42→18:17)
[2023-07-04 07:46] LABS: Glucose,Whole Blood 126 mg/dL (70-110)
[2023-07-04] MEDS: INSULIN ASPART (NovoLOG) 100 UNIT/ML VIAL SQ SCH ×4 (08:17→22:38)
[2023-07-04] MEDS: PANTOPRAZOLE 40 MG TABLET PO SCH (09:17)
[2023-07-04] MEDS: LOSARTAN 25 MG TAB PO SCH (09:17)
[2023-07-04] MEDS: amLODIPine 5 MG TAB PO SCH (09:17)
[2023-07-04] MEDS: busPIRone HCl 10 MG TAB PO SCH ×2 (09:17→22:39)
[2023-07-04] MEDS: DULoxetine HCL 30 MG CAPSULE.DR PO SCH (09:17)
[2023-07-04] MEDS: NICOTINE 21MG/24HR PATCH TRANSDERM SCH (09:17)
[2023-07-04 11:01] LABS: Blood Urea Nitrogen 23.6 mg/dL (9.0-27.0); Calcium 9.3 mg/dL (8.7-10.3); Carbon Dioxide 28.9 mmol/L (21.6-31.8); Chloride 103 mmol/L (96-109); Glucose 134 mg/dL (70-110); Potassium 4.7 mmol/L (3.5-5.5); Sodium 141 mmol/L (135-145)
[2023-07-04 11:04] LABS: Basophils # (A) 0.02 X 10*3/uL (0.00-0.10); Basophils % (A) 0.1 %; Eosinophils # (A) 0 X 10*3/uL (0.04-0.35); Eosinophils % (A) 0 %; HGB 14.4 g/dL (13.0-17.0); Lymphocytes # (A) 1.39 X 10*3/uL (0.90-5.00); Lymphocytes % (A) 8.3 %; MCH 31.2 pg (27.0-32.0); MCHC 33.5 g/dL (32.0-37.0); MCV 93.3 FL (80.0-97.0); Monocytes # (A) 1.05 X 10*3/uL (0.20-1.00); Monocytes % (A) 6.3 %; NRBC Per 100 WBC 0 X 10*3/uL (0.00-0.01); Neutrophils % (A) 84.5 %; Platelet Count 316 X 10*3/uL (140-440); RBC 4.61 X 10*6/uL (4.40-5.60)
[2023-07-04 12:11] LABS: Glucose,Whole Blood 145 mg/dL (70-110)
--- NOTE | 2023-07-04 12:16 | P.PN ---
Subjective Progress Note Date: 07/04/23 This is a pleasant 67-year-old male patient with a known history of colon cancer, infectious colitis, tuberculosis greater than 5 years ago and completed treatment, congestive heart failure, chronic obstructive pulmonary disease, CVA/TIAs, chronic and ongoing tobacco dependence of greater than 50 years. He had been having issues with increasing shortness of breath and right-sided pleuritic type chest discomfort and was seen at [facility] where he had a chest x-ray reveals increased opacity of the right hilum reflecting underlying mass. There is also paratracheal fullness suggesting adenopathy and a CAT scan that revealed a significant right hilar mass and mediastinal lymphadenopathy. He was referred here for further treatment. He is seen today in consultation in the emergency department. Currently sitting up in a stretcher. Awake and alert. He is dyspneic with conversation. Dyspneic with minimal minimal exertion. Bronchospastic and wheezing. He denies any significant weight loss. He denies any hemoptysis. The patient is seen today 07/01/2023 in follow-up on the regular medical floor. He is sitting up in bed. Awake and alert in no acute distress. He is maintaining O2 saturations in the mid 90s on 2 L/m per nasal cannula. He denies any worsening shortness of breath, cough or congestion. He still has some end expiratory wheezing. The plan is for bronchoscopy with biopsies today. He remains nothing by mouth. He is continued on DuoNeb inhalations, Pulmicort and Perforomist inhalations, Solu-Medrol. NicoDerm patches in place. 0.9 normal saline at 75 ML's per hour. White count 13.3. Hemoglobin 14.9. Sodium 138. Potassium 4.3. Bicarb 21. BUN 26. Creatinine 1.26. Glucose 170. Lactic acid 1.7. The patient is seen today 07/02/2023 in follow-up on the regular medical floor. He is currently resting in bed. Awake and alert in no acute distress. Not back to his baseline. Still somewhat bronchospastic and wheezing. He is some chest wall discomfort from coughing. He is maintaining O2 saturation in the 90s on 3 L/m per nasal cannula. He is afebrile. Hemodynamically stable. He did undergo bronchoscopy with BAL and biopsies yesterday. Tolerated the procedure well. Cultures pending. Cytology pending. White count 17.6. Hemoglobin 14.4. Sodium 139. Potassium 5.1. Bicarb 24. BUN 24. Creatinine 1.16. Glucose 136. He is continued on DuoNeb inhalations, Pulmicort and Perforomist inhalations, Solu-Medrol. NicoDerm patch in place. The patient is seen today 07/03/2023 in follow-up on the regular medical floor. He is currently resting in bed. Awake and alert in no acute distress. He is still quite dyspneic with minimal exertion. Dyspneic with conversation. Continues with a loose nonproductive cough. Continue with wheezing. Maintaining O2 saturations in the 90s on 3 L/m per nasal cannula. He is continued on DuoNeb inhalations, Pulmicort and Perforomist inhalations, IV Solu- Medrol. Remains on antibiotics in the form of doxycycline. NicoDerm patch in place. Chest x-ray showing progression of the right mid and lower lung airspace opacities concerning for developing airspace disease. Prominent right mediastinal soft tissue mass better visualized on CT. Bronchial wash cultures are pending. Cytology pending. White count 16.0. Hemoglobin 14.2. Sodium 138. Potassium 5.0. Bicarb 27. BUN 25. Creatinine 1.04. Glucose 129. The patient is seen today 07/04/2023 in follow-up on the regular medical floor. He is awake and alert in no acute distress. He is breathing bit easier today compared to yesterday. Still with some wheezing. Still with dyspnea on conversation. Dyspnea with minimal exertion. He is maintaining O2 saturations in the 90s on 3 L/m per nasal cannula. Bronchial wash cultures revealed no growth. White count 16.8. Hemoglobin 14.4. Platelets 316. Sodium 141. Potassium 4.7. Bicarb 29. BUN 24. Creatinine 1.0. Glucose 134. He remains on DuoNeb inhalations, Pulmicort and Perforomist inhalations, IV Solu-Medrol. Antibiotics in the form of Zosyn. NicoDerm patch in place. Objective - Vital Signs Vital signs: Vital Signs Temp 97.4 F L 07/04/23 07:40 Pulse 68 07/04/23 11:52 Resp 18 07/04/23 07:40 BP 131/78 07/04/23 07:40 Pulse Ox 95 07/04/23 07:40 FiO2 Intake & Output 07/03/23 07/04/23 07/04/23 18:59 06:59 18:59 Other: Voiding Method Toilet Toilet # Voids 1 2 - Exam GENERAL EXAM: Alert, oriented, pleasant 67-year-old male, resting in bed on 3 L nasal cannula, fairly comfortable in no apparent distress. HEAD: Normocephalic. EYES: Normal reaction of pupils, equal size. NOSE: Clear with pink turbinates. THROAT: No erythema or exudates. NECK: No masses, no JVD. CHEST: No chest wall deformity. LUNGS: Equal air entry with bilateral wheezing, diminished. CVS: S1 and S2 normal with no audible murmur, regular rhythm. ABDOMEN: No hepatosplenomegaly, normal bowel sounds, no guarding or rigidity. SPINE: No scoliosis or deformity SKIN: No rashes CENTRAL NERVOUS SYSTEM: No focal deficits, tone is normal in all 4 extremities. EXTREMITIES: There is no peripheral edema. No clubbing, no cyanosis. Peripheral pulses are intact. - Labs CBC & Chem 7: 07/04/23 07:11 07/04/23 07:11 Labs: Abnormal Lab Results - Last 24 Hours (Table) 07/03/23 07/03/23 07/03/23 Range/Units 12:35 17:07 20:59 WBC (4.50-10.00) X 10*3/uL Neutrophils # (1.80-7.70) X 10*3/uL Monocytes # (0.20-1.00) X 10*3/uL Eosinophils # (0.04-0.35) X 10*3/uL BUN/Creatinine Ratio (12.00-20.00) Ratio Glucose (70-110) mg/dL POC Glucose (mg/dL) 184 H 228 H 188 H (70-110) mg/dL 07/04/23 07/04/23 07/04/23 Range/Units 07:11 07:11 07:45 WBC 16.80 H (4.50-10.00) X 10*3/uL Neutrophils # 14.20 H (1.80-7.70) X 10*3/uL Monocytes # 1.05 H (0.20-1.00) X 10*3/uL Eosinophils # 0 L (0.04-0.35) X 10*3/uL BUN/Creatinine Ratio 23.60 H (12.00-20.00) Ratio Glucose 134 H (70-110) mg/dL POC Glucose (mg/dL) 126 H (70-110) mg/dL Microbiology - Last 24 Hours (Table) 07/01/23 10:00 Gram Stain - Final Bronchoalviolar Lavage - Right Bronchial Washings Culture - Final Assessment and Plan Assessment: Acute hypoxemic respiratory failure secondary to an acute exacerbation of chronic obstructive pulmonary disease follow-up chest x-ray showing increased pace disease in the right lung. Initiated on Zosyn. Right hilar mass and mediastinal lymphadenopathy suspicious for malignancy, status post bronchoscopy and biopsies on 07/01/2023 Chronic and ongoing tobacco dependence of greater than 50 years Hypertension History of CVA/TIAs History of colon cancer status post right colectomy Gastroesophageal reflux disease Benign prosthetic hyperplasia History of depression Plan: The patient was seen and evaluated Labs and medications reviewed Continue Zosyn and bronchodilators, steroids Repeat a pro-calcitonin Bronchoscopy cultures and cytology pending Titrate down the FiO2 as tolerated We will continue to follow This patient was seen independently by the nurse practitioner I have personally seen and examined the patient, performed the documentation and the assessment and plan as written. Number of minutes spent on the visit: 22.
--- NOTE | 2023-07-04 14:33 | P.PN ---
Subjective Progress Note Date: 07/04/23 Hospital Course: 67-year-old male with history of colon cancer status post resection and suppos edly in remission, tobacco dependence, hypertension, COPD, chronic back pain presented for right-sided chest pain and increased shortness of breath. He initially presented to [facility]. At the hospital he was noted to have WBC of 11.16, creatinine of 1.36, protein increased over 8.4. CTA chest showed right hilar 5 cm mass with right hilar bronchovascular compression with probable postobstructive pneumonia and multiple scattered right pulmonary nodules. Patient was also hypoxic and started on oxygen. He was sent transferred over to our facility. On arrival to our emergency department, temperature was 97.9, pulse 112, blood pressure 143/110, respiratory rate 24, saturating at 94% on 2 L. Patient being admitted for acute hypoxic respiratory failure likely in the setting of lung mass as well as possible postobstructive pneumonia as well as COPD exacerbation. Pulmonology consulted. Bronchoscopy completed, showed definite abnormalities noted in the anterior segment of right upper lobe, multiple endobronchial biopsies were done as well as needle aspiration of lymph nodes. Subjective: Patient seen and examined at bedside. No acute events overnight. Continues to have shortness of breath, slightly improved. Chest pain has resolved. Pertinent positives and negatives as discussed above, a complete review of systems was performed and all other systems are negative. Vitals Signs Reviewed. General: nontoxic, no distress, appears at stated age, obese Derm: warm, dry Head: atraumatic, normocephalic, symmetric Eyes: EOMI, no lid lag, anicteric sclera, pupils equal round reactive to light ENT: Nose and ears atraumatic Neck: No thyromegaly, supple Mouth: no lip lesion, mucus membranes moist Cardiovascular: S1S2 reg, no murmur, no edema Lungs: Scattered wheeze, no accessory muscle use, supplemental oxygen Abdominal: soft, nontender to palpation, no guarding, no appreciable organomegaly Ext: no gross muscle atrophy, muscle strength muscle strength 5 out of 5 in all 4 extremities, no contractures Neuro: CN II-XII grossly intact Psych: Alert, oriented, appropriate affect Data Reviewed Today: Pertinent Labs: WBC 16.8, potassium 4.7, creatinine 1, blood sugars range between 126-188 Imaging: No new imaging Assessment and Plan: Patient is critically ill, prognosis guarded Acute hypoxic respiratory failure Acute COPD exacerbation Right lung mass suspected metastatic disease versus primary malignancy History of colon cancer status post resection Tobacco dependence Leukocytosis, likely reactive, steroid induced Type 2 diabetes, A1c 6.5 -Pulmonology note reviewed, continue current therapy, IV Zosyn 3.375 g every 8 hours, repeat pro calcitonin -BAL Gram stain shows no growth to date -Pathology pending -On bronchodilators as well as IV Solu-Medrol 60 mg every 6 hours, monitor blood sugars as well as mental status -Sliding scale insulin, monitor for hypoglycemia -Continue to wean oxygen -Counseled regarding smoking cessation -Patient will likely need oncology follow-up outpatient -Repeat CBC and BMP tomorrow Resolved: Metabolic acidosis Chronic: Hypertension GERD Chronic pain Depression DVT ppx: SCDs Code status: Full code Anticipated discharge place: Pending clinical course Anticipated discharge time: Pending clinical course Objective - Vital Signs Vital signs: Vital Signs Temp 97.8 F 07/04/23 12:12 Pulse 74 07/04/23 12:12 Resp 18 07/04/23 12:12 BP 131/74 07/04/23 12:12 Pulse Ox 98 07/04/23 12:12 FiO2 Intake & Output 07/03/23 07/04/23 07/04/23 18:59 06:59 18:59 Other: Voiding Method Toilet Toilet # Voids 1 2 3 - Labs CBC & Chem 7: 07/04/23 07:11 07/04/23 07:11 Labs: Abnormal Lab Results - Last 24 Hours (Table) 07/03/23 07/03/23 07/04/23 Range/Units 17:07 20:59 07:11 WBC 16.80 H (4.50-10.00) X 10*3/uL Neutrophils # 14.20 H (1.80-7.70) X 10*3/uL Monocytes # 1.05 H (0.20-1.00) X 10*3/uL Eosinophils # 0 L (0.04-0.35) X 10*3/uL BUN/Creatinine Ratio (12.00-20.00) Ratio Glucose (70-110) mg/dL POC Glucose (mg/dL) 228 H 188 H (70-110) mg/dL 07/04/23 07/04/23 07/04/23 Range/Units 07:11 07:45 12:10 WBC (4.50-10.00) X 10*3/uL Neutrophils # (1.80-7.70) X 10*3/uL Monocytes # (0.20-1.00) X 10*3/uL Eosinophils # (0.04-0.35) X 10*3/uL BUN/Creatinine Ratio 23.60 H (12.00-20.00) Ratio Glucose 134 H (70-110) mg/dL POC Glucose (mg/dL) 126 H 145 H (70-110) mg/dL Microbiology - Last 24 Hours (Table) 07/01/23 10:00 Gram Stain - Final Bronchoalviolar Lavage - Right Bronchial Washings Culture - Final
[2023-07-04 17:19] LABS: Glucose,Whole Blood 155 mg/dL (70-110)
[2023-07-04 20:27] LABS: Glucose,Whole Blood 283 mg/dL (70-110)
[2023-07-04] MEDS: ALPRAZolam 0.5 MG TAB PO PRN (22:38)
[2023-07-04] MEDS: MIRTAZAPINE 45 MG TABLET PO SCH (22:39)
[2023-07-05] MEDS: oxyCODONE-APAP 10-325MG 1 EACH TAB PO PRN ×3 (00:55→21:40)
[2023-07-05] MEDS: PIPERACILLIN-TAZOBACTAM 3.375 GM in SODIUM CHLORIDE 0.9% 100 ML IVPB SCH ×2 (02:18→09:33)
[2023-07-05] MEDS: methylPREDNISolone SOD SUCCI 125 MG/2 ML VIAL IV SCH ×4 (02:18→17:37)
[2023-07-05 06:34] LABS: Basophils % (A) 0 %; Eosinophils % (A) 0 %; HCT 43.5 % (39.0-53.0); HGB 14.3 gm/dL (13.0-17.5); Lymphocytes # (A) 0.9 k/uL (1.0-4.8); Lymphocytes % (A) 6 %; MCH 31.7 pg (25.0-35.0); MCV 96.1 fL (80.0-100.0); Mean Platelet Volume 7.6; Monocytes # (A) 0.8 k/uL (0-1.0); Monocytes % (A) 5 %; Neutrophils % (A) 87 %; Platelet Count 303 k/uL (150-450); RBC 4.52 m/uL (4.30-5.90); RDW 12.8 % (11.5-15.5); WBC 16.1 k/uL (3.8-10.6)
[2023-07-05 06:46] LABS: African American GFR (CKD) 86 (>60 ml/min/1.73 sqM); Anion Gap 5 mmol/L; Blood Urea Nitrogen 29 mg/dL (9-20); Carbon Dioxide 32 mmol/L (22-30); Chloride 103 mmol/L (98-107); Glucose 133 mg/dL (74-99); Magnesium 2.4 mg/dL (1.6-2.3); Non-African American GFR(CKD) 74 (>60 ml/min/1.73 sqM); Potassium 4.7 mmol/L (3.5-5.1); Sodium 140 mmol/L (137-145)
[2023-07-05 07:37] LABS: Glucose,Whole Blood 152 mg/dL (70-110)
[2023-07-05] MEDS: IPRATROPIUM-ALBUTEROL 3 ML NEB INHALATION SCH ×4 (08:14→18:28)
[2023-07-05] MEDS: BUDESONIDE 1 MG/2 ML NEBU INHALATION SCH ×2 (08:14→18:28)
[2023-07-05] MEDS: FORMOTEROL FUMARATE 20 MCG/2 ML NEBU INHALATION SCH ×2 (08:14→18:27)
[2023-07-05] MEDS: busPIRone HCl 10 MG TAB PO SCH ×2 (09:33→21:41)
[2023-07-05] MEDS: DULoxetine HCL 30 MG CAPSULE.DR PO SCH (09:33)
[2023-07-05] MEDS: LOSARTAN 25 MG TAB PO SCH (09:33)
[2023-07-05] MEDS: NICOTINE 21MG/24HR PATCH TRANSDERM SCH (09:33)
[2023-07-05] MEDS: amLODIPine 5 MG TAB PO SCH (09:34)
[2023-07-05] MEDS: PANTOPRAZOLE 40 MG TABLET PO SCH (09:34)
[2023-07-05] MEDS: INSULIN ASPART (NovoLOG) 100 UNIT/ML VIAL SQ SCH ×4 (09:34→21:41)
--- NOTE | 2023-07-05 11:53 | P.PN ---
Subjective Progress Note Date: 07/05/23 This is a pleasant 67-year-old male patient with a known history of colon cancer, infectious colitis, tuberculosis greater than 5 years ago and completed treatment, congestive heart failure, chronic obstructive pulmonary disease, CVA/TIAs, chronic and ongoing tobacco dependence of greater than 50 years. He had been having issues with increasing shortness of breath and right-sided pleuritic type chest discomfort and was seen at [facility] where he had a chest x-ray reveals increased opacity of the right hilum reflecting underlying mass. There is also paratracheal fullness suggesting adenopathy and a CAT scan that revealed a significant right hilar mass and mediastinal lymphadenopathy. He was referred here for further treatment. He is seen today in consultation in the emergency department. Currently sitting up in a stretcher. Awake and alert. He is dyspneic with conversation. Dyspneic with minimal minimal exertion. Bronchospastic and wheezing. He denies any significant weight loss. He denies any hemoptysis. The patient is seen today 07/01/2023 in follow-up on the regular medical floor. He is sitting up in bed. Awake and alert in no acute distress. He is maintaining O2 saturations in the mid 90s on 2 L/m per nasal cannula. He denies any worsening shortness of breath, cough or congestion. He still has some end expiratory wheezing. The plan is for bronchoscopy with biopsies today. He remains nothing by mouth. He is continued on DuoNeb inhalations, Pulmicort and Perforomist inhalations, Solu-Medrol. NicoDerm patches in place. 0.9 normal saline at 75 ML's per hour. White count 13.3. Hemoglobin 14.9. Sodium 138. Potassium 4.3. Bicarb 21. BUN 26. Creatinine 1.26. Glucose 170. Lactic acid 1.7. The patient is seen today 07/02/2023 in follow-up on the regular medical floor. He is currently resting in bed. Awake and alert in no acute distress. Not back to his baseline. Still somewhat bronchospastic and wheezing. He is some chest wall discomfort from coughing. He is maintaining O2 saturation in the 90s on 3 L/m per nasal cannula. He is afebrile. Hemodynamically stable. He did undergo bronchoscopy with BAL and biopsies yesterday. Tolerated the procedure well. Cultures pending. Cytology pending. White count 17.6. Hemoglobin 14.4. Sodium 139. Potassium 5.1. Bicarb 24. BUN 24. Creatinine 1.16. Glucose 136. He is continued on DuoNeb inhalations, Pulmicort and Perforomist inhalations, Solu-Medrol. NicoDerm patch in place. The patient is seen today 07/03/2023 in follow-up on the regular medical floor. He is currently resting in bed. Awake and alert in no acute distress. He is still quite dyspneic with minimal exertion. Dyspneic with conversation. Continues with a loose nonproductive cough. Continue with wheezing. Maintaining O2 saturations in the 90s on 3 L/m per nasal cannula. He is continued on DuoNeb inhalations, Pulmicort and Perforomist inhalations, IV Solu- Medrol. Remains on antibiotics in the form of doxycycline. NicoDerm patch in place. Chest x-ray showing progression of the right mid and lower lung airspace opacities concerning for developing airspace disease. Prominent right mediastinal soft tissue mass better visualized on CT. Bronchial wash cultures are pending. Cytology pending. White count 16.0. Hemoglobin 14.2. Sodium 138. Potassium 5.0. Bicarb 27. BUN 25. Creatinine 1.04. Glucose 129. The patient is seen today 07/04/2023 in follow-up on the regular medical floor. He is awake and alert in no acute distress. He is breathing bit easier today compared to yesterday. Still with some wheezing. Still with dyspnea on conversation. Dyspnea with minimal exertion. He is maintaining O2 saturations in the 90s on 3 L/m per nasal cannula. Bronchial wash cultures revealed no growth. White count 16.8. Hemoglobin 14.4. Platelets 316. Sodium 141. Potassium 4.7. Bicarb 29. BUN 24. Creatinine 1.0. Glucose 134. He remains on DuoNeb inhalations, Pulmicort and Perforomist inhalations, IV Solu-Medrol. Antibiotics in the form of Zosyn. NicoDerm patch in place. The patient is seen today 07/05/2023 in follow-up on the regular medical floor. He is resting in bed. Awake and alert in no acute distress. He has been slow to progress. Still not back to his baseline. Still wheezing. He is maintaining O2 saturations in the 90s on 3 L/m per nasal cannula. He has normal saline at 20 ML's per hour. Lung biopsies still pending. Gram stain revealed no growth. White count 16.1. Hemoglobin 14.3. Sodium 140. Potassium 4.7. Bicarb 32. BUN 29. Creatinine 1.05. Glucose 133. Procalcitonin level was 0.07. He is currently on Zosyn. Remains on DuoNeb inhalations, Pulmicort and Perforomist inhalations, Solu-Medrol. NicoDerm patch in place. Objective - Vital Signs Vital signs: Vital Signs Temp 97.4 F L 07/05/23 07:19 Pulse 76 07/05/23 08:30 Resp 20 07/05/23 07:19 BP 116/68 07/05/23 07:19 Pulse Ox 96 07/05/23 07:19 FiO2 Intake & Output 07/04/23 07/05/23 07/05/23 18:59 06:59 18:59 Other: Voiding Method Toilet Toilet # Voids 3 2 - Exam GENERAL EXAM: Alert, pleasant 67-year-old male, on 3 L nasal cannula, fairly comfortable in no apparent distress. HEAD: Normocephalic. EYES: Normal reaction of pupils, equal size. NOSE: Clear with pink turbinates. THROAT: No erythema or exudates. NECK: No masses, no JVD. CHEST: No chest wall deformity. LUNGS: Equal air entry with bilateral wheezing, diminished. CVS: S1 and S2 normal with no audible murmur, regular rhythm. ABDOMEN: No hepatosplenomegaly, normal bowel sounds, no guarding or rigidity. SPINE: No scoliosis or deformity SKIN: No rashes CENTRAL NERVOUS SYSTEM: No focal deficits, tone is normal in all 4 extremities. EXTREMITIES: There is no peripheral edema. No clubbing, no cyanosis. Peripheral pulses are intact. - Labs CBC & Chem 7: 07/05/23 05:41 07/05/23 05:41 Labs: Abnormal Lab Results - Last 24 Hours (Table) 07/04/23 07/04/23 07/04/23 Range/Units 12:10 17:18 20:23 WBC (3.8-10.6) k/uL Neutrophils # (1.3-7.7) k/uL Lymphocytes # (1.0-4.8) k/uL Carbon Dioxide (22-30) mmol/L BUN (9-20) mg/dL Glucose (74-99) mg/dL POC Glucose (mg/dL) 145 H 155 H 283 H (70-110) mg/dL Magnesium (1.6-2.3) mg/dL 07/05/23 07/05/23 07/05/23 Range/Units 05:41 05:41 07:22 WBC 16.1 H (3.8-10.6) k/uL Neutrophils # 14.0 H (1.3-7.7) k/uL Lymphocytes # 0.9 L (1.0-4.8) k/uL Carbon Dioxide 32 H (22-30) mmol/L BUN 29 H (9-20) mg/dL Glucose 133 H (74-99) mg/dL POC Glucose (mg/dL) 152 H (70-110) mg/dL Magnesium 2.4 H (1.6-2.3) mg/dL Microbiology - Last 24 Hours (Table) 07/01/23 10:00 Gram Stain - Final Bronchoalviolar Lavage - Right Bronchial Washings Culture - Final Assessment and Plan Assessment: Acute hypoxemic respiratory failure secondary to an acute exacerbation of c hronic obstructive pulmonary disease follow-up chest x-ray showing increased opacities in the right lung. Right hilar mass and mediastinal lymphadenopathy suspicious for malignancy, status post bronchoscopy and biopsies on 07/01/2023 Chronic and ongoing tobacco dependence of greater than 50 years Hypertension History of CVA/TIAs History of colon cancer status post right colectomy Gastroesophageal reflux disease Benign prosthetic hyperplasia History of depression Plan: The patient was seen and evaluated Labs and medications reviewed Pro-calcitonin within normal limits Discontinue Zosyn Continue bronchodilators and steroids Pathology still pending Titrate down the FiO2 as tolerated We will continue to follow This patient was seen independently by the nurse practitioner I have personally seen and examined the patient, performed the documentation and the assessment and plan as written. Number of minutes spent on the visit: 23.
--- NOTE | 2023-07-05 11:59 | CA ---
Transthoracic Echo Report Name: Valentín Ramos Age: 67 Gender: M : 1955 Exam Date: 07/05/2023 08:47 Exam Location: [facility] Ht (in): 70 Wt (lb): 220 Ordering Physician: Nena Cooper Attending/Referring Phys: Production Officer Lupe Bhatt RDCS Procedure CPT: Indications: Dyspnea, effusions Cardiac Hx: Technical Quality: Technically difficult study Contrast 1: Total Dose (mL): Contrast 2: Total Dose (mL): MEASUREMENTS (Male / Female) Normal Values 2D ECHO LV Diastolic Diameter PLAX 4.1 cm 4.2 - 5.9 / 3.9 - 5.3 cm LV Systolic Diameter PLAX 3.1 cm IVS Diastolic Thickness 1.2 cm 0.6 - 1.0 / 0.6 - 0.9 cm LVPW Diastolic Thickness 1.2 cm 0.6 - 1.0 / 0.6 - 0.9 cm LV Relative Wall Thickness 0.6 RV Internal Dim ED PLAX 3.1 cm LVOT Diameter 2.5 cm LA Systolic Diameter LX 2.8 cm 3.0 - 4.0 / 2.7 - 3.8 cm LV Diastolic Volume MOD BP 67.7 cm??? 67 - 155 / 56 - 104 cm??? LV Systolic Volume MOD BP 16.8 cm??? 22 - 58 / 19 - 49 cm??? LV Ejection Fraction MOD BP 75.2 % >= 55 % LV Diastolic Volume MOD 4C 88.7 cm??? LV Systolic Volume MOD 4C 26.0 cm??? LV Ejection Fraction MOD 4C 70.7 % LV Diastolic Length 4C 7.7 cm LV Systolic Length 4C 5.8 cm LV Diastolic Volume MOD 2C 47.7 cm??? LV Systolic Volume MOD 2C 9.9 cm??? LV Ejection Fraction MOD 2C 79.3 % LV Diastolic Length 2C 7.0 cm LV Systolic Length 2C 6.6 cm LA Volume 53.0 cm??? 18 - 58 / 22 - 52 cm??? LA Volume Index 23.6 cm???/m??? 16 - 28 cm???/m??? M-MODE Aortic Root Diameter MM 3.9 cm MV E Point Septal Separation 0.3 cm AV Cusp Separation MM 2.3 cm DOPPLER AV Peak Velocity 225.5 cm/s AV Peak Gradient 20.3 mmHg AV Mean Velocity 155.2 cm/s AV Mean Gradient 11.0 mmHg AV Velocity Time Integral 48.4 cm MV Area PHT 2.6 cm??? Mitral E Point Velocity 114.7 cm/s Mitral A Point Velocity 130.2 cm/s Mitral E to A Ratio 0.9 MV Deceleration Time 292.1 ms MV E' Velocity 9.5 cm/s Mitral E to MV E' Ratio 12.0 TR Peak Velocity 327.1 cm/s TR Peak Gradient 42.8 mmHg Right Ventricular Systolic Press 47.5 mmHg FINDINGS Left Ventricle Left ventricular ejection fraction is estimated at 70-75 %. Mildly increased septal wall thickness. Left ventricular cavity size normal. Right Ventricle Normal right ventricular size. Moderate pulmonary hypertension. Right ventricular systolic pressure estimated at 48 mm hg. Right Atrium Right atrium not well visualized. Left Atrium Normal left atrial size. Mitral Valve Mitral annular calcification. Trace mitral regurgitation. Aortic Valve Aortic valve sclerosis. Mild aortic stenosis with a peak gradient of 20 mmHg and a mean gradient of 11 mmHg. Tricuspid Valve Tricuspid valve not well visualized. Mild tricuspid regurgitation. Pulmonic Valve Pulmonic valve not well visualized. No pulmonic regurgitation. Pericardium No pericardial effusion. Aorta Mild aortic dilatation at the level of the sinuses of valsalva 39 mm CONCLUSIONS Normal LV systolic function Moderate pulmonary hypertension Mild aortic stenosis Previewed by: Dr. Cheikh Jett MD (Electronically Signed) Final Date: 05 July 2023 11:58
[2023-07-05 12:04] LABS: Glucose,Whole Blood 246 mg/dL (70-110)
--- NOTE | 2023-07-05 15:55 | P.PN ---
Subjective Progress Note Date: 07/05/23 Hospital Course: 67-year-old male with history of colon cancer status post resection and supposedly in remission, tobacco dependence, hypertension, COPD, chronic back pain presented for right-sided chest pain and increased shortness of breath. He initially presented to [facility]. At the hospital he was noted to have WBC of 11.16, creatinine of 1.36, protein increased over 8.4. CTA chest showed right hilar 5 cm mass with right hilar bronchovascular compression with probable postobstructive pneumonia and multiple scattered right pulmonary nodules. Patient was also hypoxic and started on oxygen. He was sent transferred over to our facility. On arrival to our emergency department, temperature was 97.9, pulse 112, blood pressure 143/110, respiratory rate 24, saturating at 94% on 2 L. Patient being admitted for acute hypoxic respiratory failure likely in the setting of lung mass as well as possible postobstructive pneumonia as well as COPD exacerbation. Pulmonology consulted. Bronchoscopy completed, showed definite abnormalities noted in the anterior segment of right upper lobe, multiple endobronchial biopsies were done as well as needle aspiration of lymph nodes. Echocardiogram showed normal LV systolic function, moderate pulmonary hypertension. Subjective: Patient seen and examined at bedside. No acute events overnight. Continues to have shortness of breath, slightly improved. Chest pain has resolved. Pertinent positives and negatives as discussed above, a complete review of systems was performed and all other systems are negative. Vitals Signs Reviewed. General: nontoxic, no distress, appears at stated age, obese Derm: warm, dry Head: atraumatic, normocephalic, symmetric Eyes: EOMI, no lid lag, anicteric sclera, pupils equal round reactive to light ENT: Nose and ears atraumatic Neck: No thyromegaly, supple Mouth: no lip lesion, mucus membranes moist Cardiovascular: S1S2 reg, no murmur, no edema Lungs: Scattered wheeze, no accessory muscle use, supplemental oxygen Abdominal: soft, nontender to palpation, no guarding, no appreciable organomegaly Ext: no gross muscle atrophy, muscle strength muscle strength 5 out of 5 in all 4 extremities, no contractures Neuro: CN II-XII grossly intact Psych: Alert, oriented, appropriate affect Data Reviewed Today: Pertinent Labs: WBC 16.1, potassium 4.7, creatinine 1.05, blood sugars range between 1:30 10/07/2045, magnesium 2.4 Imaging: No new imaging Assessment and Plan: Patient is critically ill, prognosis guarded Acute hypoxic respiratory failure Acute COPD exacerbation Right lung mass suspected metastatic disease versus primary malignancy History of colon cancer status post resection Tobacco dependence Leukocytosis, likely reactive, steroid induced Type 2 diabetes, A1c 6.5 -Pulmonology note reviewed, continue current therapy, IV Zosyn discontinued -BAL Gram stain shows no growth to date -Pathology pending -On bronchodilators as well as IV Solu-Medrol 60 mg every 6 hours, monitor blood sugars as well as mental status -Sliding scale insulin, monitor for hypoglycemia -Continue to wean oxygen -Counseled regarding smoking cessation -Patient will likely need oncology follow-up outpatient -Repeat CBC and BMP tomorrow Resolved: Metabolic acidosis Chronic: Hypertension GERD Chronic pain Depression DVT ppx: SCDs Code status: Full code Anticipated discharge place: Likely home with home care Anticipated discharge time: Pending clinical course Objective - Vital Signs Vital signs: Vital Signs Temp 98.0 F 07/05/23 11:57 Pulse 76 07/05/23 15:53 Resp 20 07/05/23 11:57 BP 125/70 07/05/23 11:57 Pulse Ox 96 07/05/23 11:57 FiO2 Intake & Output 07/04/23 07/05/23 07/05/23 18:59 06:59 18:59 Other: Voiding Method Toilet Toilet # Voids 3 2 - Labs CBC & Chem 7: 07/05/23 05:41 07/05/23 05:41 Labs: Abnormal Lab Results - Last 24 Hours (Table) 07/04/23 07/04/23 07/05/23 Range/Units 17:18 20:23 05:41 WBC 16.1 H (3.8-10.6) k/uL Neutrophils # 14.0 H (1.3-7.7) k/uL Lymphocytes # 0.9 L (1.0-4.8) k/uL Carbon Dioxide (22-30) mmol/L BUN (9-20) mg/dL Glucose (74-99) mg/dL POC Glucose (mg/dL) 155 H 283 H (70-110) mg/dL Magnesium (1.6-2.3) mg/dL 11/28/23 11/28/23 11/28/23 Range/Units 05:41 07:22 12:00 WBC (3.8-10.6) k/uL Neutrophils # (1.3-7.7) k/uL Lymphocytes # (1.0-4.8) k/uL Carbon Dioxide 32 H (22-30) mmol/L BUN 29 H (9-20) mg/dL Glucose 133 H (74-99) mg/dL POC Glucose (mg/dL) 152 H 246 H (70-110) mg/dL Magnesium 2.4 H (1.6-2.3) mg/dL
[2023-07-05 16:54] LABS: Glucose,Whole Blood 115 mg/dL (70-110)
[2023-07-05 20:58] LABS: Glucose,Whole Blood 269 mg/dL (70-110)
[2023-07-05] MEDS: ALPRAZolam 0.5 MG TAB PO PRN (21:40)
[2023-07-05] MEDS: MIRTAZAPINE 45 MG TABLET PO SCH (22:13)
[2023-07-06] MEDS: methylPREDNISolone SOD SUCCI 125 MG/2 ML VIAL IV SCH ×3 (00:06→12:11)
[2023-07-06 07:33] LABS: Glucose,Whole Blood 143 mg/dL (70-110)
[2023-07-06] MEDS: FORMOTEROL FUMARATE 20 MCG/2 ML NEBU INHALATION SCH (07:57)
[2023-07-06] MEDS: BUDESONIDE 1 MG/2 ML NEBU INHALATION SCH (07:57)
[2023-07-06] MEDS: IPRATROPIUM-ALBUTEROL 3 ML NEB INHALATION SCH ×3 (07:57→15:40)
[2023-07-06] MEDS: INSULIN ASPART (NovoLOG) 100 UNIT/ML VIAL SQ SCH ×2 (10:16→12:11)
[2023-07-06] MEDS: amLODIPine 5 MG TAB PO SCH (10:53)
[2023-07-06] MEDS: NICOTINE 21MG/24HR PATCH TRANSDERM SCH (10:53)
[2023-07-06] MEDS: DULoxetine HCL 30 MG CAPSULE.DR PO SCH (10:54)
[2023-07-06] MEDS: LOSARTAN 25 MG TAB PO SCH (10:54)
[2023-07-06] MEDS: PANTOPRAZOLE 40 MG TABLET PO SCH (10:55)
[2023-07-06] MEDS: busPIRone HCl 10 MG TAB PO SCH (11:13)
[2023-07-06 11:55] LABS: Glucose,Whole Blood 286 mg/dL (70-110)
[2023-07-06] MEDS: oxyCODONE-APAP 10-325MG 1 EACH TAB PO PRN (12:12)
[2023-07-06] MEDS: ALPRAZolam 0.5 MG TAB PO PRN (12:17)
[2023-07-06 12:39] VITALS: PULSE 68; TEMP 97.4
--- NOTE | 2023-07-06 13:29 | P.PN ---
Subjective Progress Note Date: 07/06/23 This is a pleasant 67-year-old male patient with a known history of colon cancer, infectious colitis, tuberculosis greater than 5 years ago and completed treatment, congestive heart failure, chronic obstructive pulmonary disease, CVA/TIAs, chronic and ongoing tobacco dependence of greater than 50 years. He had been having issues with increasing shortness of breath and right-sided pleuritic type chest discomfort and was seen at [facility] where he had a chest x-ray reveals increased opacity of the right hilum reflecting underlying mass. There is also paratracheal fullness suggesting adenopathy and a CAT scan that revealed a significant right hilar mass and mediastinal lymphadenopathy. He was referred here for further treatment. He is seen today in consultation in the emergency department. Currently sitting up in a stretcher. Awake and alert. He is dyspneic with conversation. Dyspneic with minimal minimal exertion. Bronchospastic and wheezing. He denies any significant weight loss. He denies any hemoptysis. The patient is seen today 07/01/2023 in follow-up on the regular medical floor. He is sitting up in bed. Awake and alert in no acute distress. He is maintaining O2 saturations in the mid 90s on 2 L/m per nasal cannula. He denies any worsening shortness of breath, cough or congestion. He still has some end expiratory wheezing. The plan is for bronchoscopy with biopsies today. He remains nothing by mouth. He is continued on DuoNeb inhalations, Pulmicort and Perforomist inhalations, Solu-Medrol. NicoDerm patches in place. 0.9 normal saline at 75 ML's per hour. White count 13.3. Hemoglobin 14.9. Sodium 138. Potassium 4.3. Bicarb 21. BUN 26. Creatinine 1.26. Glucose 170. Lactic acid 1.7. The patient is seen today 07/02/2023 in follow-up on the regular medical floor. He is currently resting in bed. Awake and alert in no acute distress. Not back to his baseline. Still somewhat bronchospastic and wheezing. He is some chest wall discomfort from coughing. He is maintaining O2 saturation in the 90s on 3 L/m per nasal cannula. He is afebrile. Hemodynamically stable. He did undergo bronchoscopy with BAL and biopsies yesterday. Tolerated the procedure well. Cultures pending. Cytology pending. White count 17.6. Hemoglobin 14.4. Sodium 139. Potassium 5.1. Bicarb 24. BUN 24. Creatinine 1.16. Glucose 136. He is continued on DuoNeb inhalations, Pulmicort and Perforomist inhalations, Solu-Medrol. NicoDerm patch in place. The patient is seen today 07/03/2023 in follow-up on the regular medical floor. He is currently resting in bed. Awake and alert in no acute distress. He is still quite dyspneic with minimal exertion. Dyspneic with conversation. Continues with a loose nonproductive cough. Continue with wheezing. Maintaining O2 saturations in the 90s on 3 L/m per nasal cannula. He is continued on DuoNeb inhalations, Pulmicort and Perforomist inhalations, IV Solu- Medrol. Remains on antibiotics in the form of doxycycline. NicoDerm patch in place. Chest x-ray showing progression of the right mid and lower lung airspace opacities concerning for developing airspace disease. Prominent right mediastinal soft tissue mass better visualized on CT. Bronchial wash cultures are pending. Cytology pending. White count 16.0. Hemoglobin 14.2. Sodium 138. Potassium 5.0. Bicarb 27. BUN 25. Creatinine 1.04. Glucose 129. The patient is seen today 07/04/2023 in follow-up on the regular medical floor. He is awake and alert in no acute distress. He is breathing bit easier today compared to yesterday. Still with some wheezing. Still with dyspnea on conversation. Dyspnea with minimal exertion. He is maintaining O2 saturations in the 90s on 3 L/m per nasal cannula. Bronchial wash cultures revealed no growth. White count 16.8. Hemoglobin 14.4. Platelets 316. Sodium 141. Potassium 4.7. Bicarb 29. BUN 24. Creatinine 1.0. Glucose 134. He remains on DuoNeb inhalations, Pulmicort and Perforomist inhalations, IV Solu-Medrol. Antibiotics in the form of Zosyn. NicoDerm patch in place. The patient is seen today 07/05/2023 in follow-up on the regular medical floor. He is resting in bed. Awake and alert in no acute distress. He has been slow to progress. Still not back to his baseline. Still wheezing. He is maintaining O2 saturations in the 90s on 3 L/m per nasal cannula. He has normal saline at 20 ML's per hour. Lung biopsies still pending. Gram stain revealed no growth. White count 16.1. Hemoglobin 14.3. Sodium 140. Potassium 4.7. Bicarb 32. BUN 29. Creatinine 1.05. Glucose 133. Procalcitonin level was 0.07. He is currently on Zosyn. Remains on DuoNeb inhalations, Pulmicort and Perforomist inhalations, Solu-Medrol. NicoDerm patch in place. The patient is seen today 07/06/2023 in follow-up on the regular medical floor. He is awake and alert in no acute distress. He is feeling better today and nearly back to his baseline. He denies any worsening shortness of breath, cough or congestion. No hemoptysis. He is continued on DuoNeb inhalations, Pulmicort and Perforomist inhalations, IV Solu-Medrol. NicoDerm patch in place. Bronchial wash cultures revealed no growth. Blood glucose 143. Biopsies from station 4 lymph node was positive for small cell carcinoma. Objective - Vital Signs Vital signs: Vital Signs Temp 97.4 F L 07/06/23 11:50 Pulse 76 07/06/23 11:57 Resp 20 07/06/23 11:50 BP 122/65 07/06/23 11:50 Pulse Ox 97 07/06/23 11:50 FiO2 Intake & Output 07/05/23 07/06/23 07/06/23 18:59 06:59 18:59 Intake Total 100 Balance 100 Intake: Intake, IV Titration 100 Amount Piperacillin-Tazobactam 3 100 .375 gm In Sodium Chloride 0.9% 100 ml @ 25 mls/hr IVPB Q8HR [facility] Rx# :[id number] Other: Voiding Method Toilet - Exam GENERAL EXAM: Alert, pleasant 67-year-old male, on 3 L nasal cannula, resting in bed, comfortable in no apparent distress. HEAD: Normocephalic. EYES: Normal reaction of pupils, equal size. NOSE: Clear with pink turbinates. THROAT: No erythema or exudates. NECK: No masses, no JVD. CHEST: No chest wall deformity. LUNGS: Equal air entry with end expiratory bilateral wheezing, diminished. CVS: S1 and S2 normal with no audible murmur, regular rhythm. ABDOMEN: No hepatosplenomegaly, normal bowel sounds, no guarding or rigidity. SPINE: No scoliosis or deformity SKIN: No rashes CENTRAL NERVOUS SYSTEM: No focal deficits, tone is normal in all 4 extremities. EXTREMITIES: There is no peripheral edema. No clubbing, no cyanosis. Peripheral pulses are intact. - Labs CBC & Chem 7: 07/05/23 05:41 07/05/23 05:41 Labs: Abnormal Lab Results - Last 24 Hours (Table) 07/05/23 07/05/23 07/06/23 Range/Units 16:53 20:57 07:25 POC Glucose (mg/dL) 115 H 269 H 143 H (70-110) mg/dL 07/06/23 Range/Units 11:53 POC Glucose (mg/dL) 286 H (70-110) mg/dL Assessment and Plan Assessment: Acute hypoxemic respiratory failure secondary to an acute exacerbation of chronic obstructive pulmonary disease follow-up chest x-ray showing increased opacities in the right lung. Right hilar mass and mediastinal lymphadenopathy suspicious for malignancy, status post bronchoscopy and biopsies on 07/01/2023. 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 Alvarenga next week This patient was seen independently by the nurse practitioner I have personally seen and examined the patient, performed the documentation and the assessment and plan as written. Number of minutes spent on the visit: 22.
--- NOTE | 2023-07-06 13:30 | P.DS ---
Providers Date of admission: 06/30/23 08:52 Expected date of discharge: 07/06/23 Attending physician: Tru Gonzalez MD Consults: 06/30/23 08:52 Consult Physician Routine Consulting Provider: Andres Alvarenga Consult Reason/Comments: lung mass Do you want consulting provider notified?: Yes Primary care physician: Arnulfo Proctor Hospital Course: Discharge Diagnosis: Acute hypoxic respiratory failure Acute COPD exacerbation Small cell lung cancer History of colon cancer status post resection Tobacco dependence Leukocytosis, likely reactive, steroid induced Type 2 diabetes, A1c 6.5 Hospital Course: 67-year-old male with history of colon cancer status post resection and supposedly in remission, tobacco dependence, hypertension, COPD, chronic back pain presented for right-sided chest pain and increased shortness of breath. He initially presented to [facility]. At the hospital he was noted to have WBC of 11.16, creatinine of 1.36, protein increased over 8.4. CTA chest showed right hilar 5 cm mass with right hilar bronchovascular compression with probable postobstructive pneumonia and multiple scattered right pulmonary nodules. Patient was also hypoxic and started on oxygen. He was sent transferred over to our facility. On arrival to our emergency department, temperature was 97.9, pulse 112, blood pressure 143/110, respiratory rate 24, saturating at 94% on 2 L. Patient being admitted for acute hypoxic respiratory failure likely in the setting of lung mass as well as possible postobstructive pneumonia as well as COPD exacerbation. Pulmonology consulted. Bronchoscopy completed, showed definite abnormalities noted in the anterior segment of right upper lobe, multiple endobronchial biopsies were done as well as needle aspiration of lymph nodes. Biopsy came back positive for small cell carcinoma. Echocardiogram showed normal LV systolic function, moderate pulmonary hypertension. Patient being discharged on steroid taper, inhalers. He will follow-up with pulmonology and oncology outpatient. Patient seen and examined at bedside. Vital signs reviewed and stable. General: nontoxic, no distress, appears at stated age, obese Derm: warm, dry Head: atraumatic, normocephalic, symmetric Eyes: EOMI, no lid lag, anicteric sclera, pupils equal round reactive to light ENT: Nose and ears atraumatic Neck: No thyromegaly, supple Mouth: no lip lesion, mucus membranes moist Cardiovascular: S1S2 reg, no murmur, no edema Lungs: Scattered wheeze, no accessory muscle use, supplemental oxygen Abdominal: soft, nontender to palpation, no guarding, no appreciable organomegaly Ext: no gross muscle atrophy, muscle strength muscle strength 5 out of 5 in all 4 extremities, no contractures Neuro: CN II-XII grossly intact Psych: Alert, oriented, appropriate affect A total of 33 minutes of time were spent preparing this complex discharge summary. Patient was discharged on 07/06/23 at 13:27. Patient Condition at Discharge: Stable Plan - Discharge Summary New Discharge Prescriptions: New predniSONE 10 mg PO DIRECTED #50 tab Albuterol Inhaler [Ventolin Hfa Inhaler] 1 - 2 puff INHALATION Q6H PRN #1 each PRN Reason: Shortness Of Breath Or Wheezing Continue busPIRone HCL 30 mg PO BID oxyCODONE HCL/ACETAMINOPHEN [Percocet 10-325 mg] 1 tab PO Q6H PRN PRN Reason: Pain DULoxetine HCL [Cymbalta] 30 mg PO DAILY Pantoprazole [Protonix] 40 mg PO DAILY Losartan [Cozaar] 25 mg PO DAILY amLODIPine [Norvasc] 5 mg PO DAILY Mirtazapine 45 mg PO HS Budesonide-Formot 160-4.5 Mcg [Symbicort 160-4.5 Mcg Inhaler] 2 puff INHALATION RT-BID #1 each Discontinued Doxycycline Monohydrate 100 mg PO BID Amoxic-Pot Clav 875-125Mg [Augmentin 875-125] 1 tab PO BID Discharge Medication List busPIRone HCL 30 mg PO BID 11/28/16 [History] DULoxetine HCL [Cymbalta] 30 mg PO DAILY 09/11/18 [History] Pantoprazole [Protonix] 40 mg PO DAILY 09/11/18 [History] oxyCODONE HCL/ACETAMINOPHEN [Percocet 10-325 mg] 1 tab PO Q6H PRN 09/11/18 [History] Losartan [Cozaar] 25 mg PO DAILY 06/30/23 [History] Mirtazapine 45 mg PO HS 06/30/23 [History] amLODIPine [Norvasc] 5 mg PO DAILY 06/30/23 [History] Albuterol Inhaler [Ventolin Hfa Inhaler] 1 - 2 puff INHALATION Q6H PRN #1 each 07/06/23 [Rx] Budesonide-Formot 160-4.5 Mcg [Symbicort 160-4.5 Mcg Inhaler] 2 puff INHALATION RT-BID #1 each 07/06/23 [Rx] predniSONE 10 mg PO DIRECTED #50 tab 07/06/23 [Rx] Follow up Appointment(s)/Referral(s): Arnulfo Blackwell DO [Primary Care Provider] - 1-2 days Andres Alvarenga MD [STAFF PHYSICIAN] - 1 Week Phong Leung [STAFF PHYSICIAN] - 1 Week Patient Instructions/Handouts: COPD (Chronic Obstructive Pulmonary Disease) (DC), Lung Cancer (DC) Activity/Diet/Wound Care/Special Instructions: Please see your Milling Machine Tender and oncologist. Discharge Disposition: HOME WITH HOME HEALTH SERVICES
[2023-07-06 13:42] VITALS: BP 133/73; RESP 16
[2023-07-06 14:14] VITALS: BMI 31.5
--- NOTE | 2023-07-08 13:04 | CDI ---
Documentation Clarification Form Date: 07/08/2023 12:52:18 PM From: Lilly Lees Phone: Admit Date: 06/30/2023 08:52:00 AM Patient Name: Valentín Ramos Visit Number: [id number] Discharge Date: 07/06/2023 04:27:00 PM ATTENTION: The Clinical Documentation Specialists (CDI) and [facility] Coding Staff appreciate your assistance in clarifying documentation. Please respond to the clarification below the line at the bottom and electronically sign. The CDI & [facility] Coding staff will review the response and follow-up if needed. Please note: Queries are made part of the Legal Health Record. If you have any questions, please contact the author of this message via ITS. Dr. Tru Gonzalez Your patient has the documented diagnosis of unspecified CHF per Medical Hx Notes. Additional information regarding the type and acuity of CHF is requested. History/Risk Factors: 67yo M, AHRF, AECOPD, RUL Cx w mets to lymph nodes, cigar smoker, HTN, Hx CVA & colon Cx, GERD, BPH Clinical Indicators: VS/Pulse OX: 94 Echocardiogram Results: Normal LV systolic function. ModeratePHTN. Mildaortic stenosis Chest X Ray: Heart: Unremarkable. Nocardiomegaly. Treatment: Still withdyspneaon conversation. Dyspneawith minimal exertion. He is maintaining O2 saturations in the 90s on 3 L/m per nasal cannula. In your professional opinion, can you please clarify the acuity & type of CHF if known? [ ] Acute Systolic Heart Failure (reduced EF) [ ] Chronic Systolic Heart Failure (reduced EF) [ ] Acute on Chronic Systolic Heart Failure (reduced EF) [ x ] Acute Diastolic Heart Failure (preserved EF) [ ] Chronic Diastolic Heart Failure (preserved EF) [ ] Acute on Chronic Diastolic Heart Failure (preserved EF) [ ] Acute Systolic & Diastolic Heart Failure [ ] Chronic Systolic & Diastolic Heart Failure [ ] Acute on Chronic Heart Failure Systolic & Diastolic Heart Failure [ ] Other, please specify [ ] Unable to determine (Template Last Revised: September 2020) MTDD
== END 2023-07-06 16:27 | disposition home health service (06) | DRG 166 ==
LOC: EC 08:26 → 5NMEDONC 08:52
PROVIDERS: ADMIT Student in an Organized Health Care Education/Training Program; ATTEND Student in an Organized Health Care Education/Training Program
PROC: 07B74ZX Excision of Thorax Lymphatic, Percutaneous Endoscopic Approach, Diagnostic (ICD-10-PCS; principal; 2023-07-01 08:00)
PROC: 0B9C8ZX Drainage of Right Upper Lung Lobe, Via Natural or Artificial Opening Endoscopic, Diagnostic (ICD-10-PCS; 2023-07-01 08:00)
PROC: 0BB88ZX Excision of Left Upper Lobe Bronchus, Via Natural or Artificial Opening Endoscopic, Diagnostic (ICD-10-PCS; 2023-07-01 08:00)
DX: C34.11 Malignant neoplasm of upper lobe, right bronchus or lung (principal); I50.31 Acute diastolic (congestive) heart failure; J18.9 Pneumonia, unspecified organism; J96.01 Acute respiratory failure with hypoxia; E87.20 Acidosis, unspecified; J44.1 Chronic obstructive pulmonary disease with (acute) exacerbation; J44.0 Chronic obstructive pulmonary disease with (acute) lower respiratory infection; C77.1 Secondary and unspecified malignant neoplasm of intrathoracic lymph nodes; I27.20 Pulmonary hypertension, unspecified; I11.0 Hypertensive heart disease with heart failure; E11.9 Type 2 diabetes mellitus without complications; F32.A Depression, unspecified; T38.0X5A Adverse effect of glucocorticoids and synthetic analogues, initial encounter; D72.828 Other elevated white blood cell count; M54.9 Dorsalgia, unspecified; K21.9 Gastro-esophageal reflux disease without esophagitis; N40.0 Benign prostatic hyperplasia without lower urinary tract symptoms; F17.290 Nicotine dependence, other tobacco product, uncomplicated; G89.29 Other chronic pain; Z71.6 Tobacco abuse counseling; Z85.038 Personal history of other malignant neoplasm of large intestine; Z80.1 Family history of malignant neoplasm of trachea, bronchus and lung; Z90.49 Acquired absence of other specified parts of digestive tract; Z87.19 Personal history of other diseases of the digestive system; Z79.51 Long term (current) use of inhaled steroids; Z86.11 Personal history of tuberculosis; Z79.899 Other long term (current) drug therapy; Z86.73 Personal history of transient ischemic attack (TIA), and cerebral infarction without residual deficits; Z98.1 Arthrodesis status
CPT/HCPCS: 31624; 31625; 31629; 71045; 80048; 83036; 83605; 83735; 84145; 84484; 85025; 87070; 87102; 87116; 87205; 87206; 88108; 88305; 88341; 88342; 93005; 93306; 94640; 94760; 99285

== ENCOUNTER → 2023-07-19 | Outpatient (CLI) | payer MEDICARE ==
--- NOTE | 2023-07-19 17:22 | MR ---
EXAMINATION TYPE: MR brain wo/w con DATE OF EXAM: 07/19/2023 4:30 PM CLINICAL INDICATION:Male, 67 years old with history of C34.91 LUNG CANCER; PHH, Hx Colon cancer 2010, Lung cancer 2022 COMPARISON: None TECHNIQUE: Multi planar, multi sequence imaging was performed through the brain including: T1, T2, In version recovery, susceptibility weighted imaging and gradient echo imaging and Diffusion weighted im aging. The patient was then given intravenous contrast and multi planar, T1 fat-saturation images wer e obtained. IV Contrast: 10 cc Gadobutrol FINDINGS: The castanon-white junctions, ventricular system, basal cisterns appear unremarkable. Diffusion-weighted imaging shows no evidence of restricted diffusion to suggest acute/subacute infarct. Intracranial ar terial flow voids are maintained. Midline structures show no abnormality. Scattered foci of high T2 s ignal intensity are seen within the periventricular white matter. The susceptibility weighted images do not reveal any evidence for micro-hemorrhage. After administration of gadolinium, no abnormal enha ncement is seen. The bone marrow signal is abnormal bone marrow signal within the upper cervical spine including the C 1 and C2 vertebral bodies. The bone marrow is predominantly low T1 high T2 signal. Paranasal sinuses and mastoid air cells: No significant paranasal sinus disease. Visualized orbits: Orbital contents are intact. IMPRESSION: 1. No evidence for intra-axial metastatic disease. 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 No evidence of intracranial mass, acute/subacute infarct, or intra-axial abnormal enhan cement. 2. Nonspecific white matter changes, likely related to small vessel ischemic disease.
== END | disposition home or self-care (01) ==
LOC: RADMRIMAIN 15:01
PROVIDERS: ATTEND Internal Medicine Hematology & Oncology
DX: G93.89 Other specified disorders of brain (principal); C34.91 Malignant neoplasm of unspecified part of right bronchus or lung
CPT/HCPCS: 70553; A9585

== ENCOUNTER → 2023-07-21 | Outpatient (CLI) | payer MEDICARE ==
--- NOTE | 2023-07-24 08:58 | PE ---
EXAMINATION TYPE: PET CT fusion skull to thigh DATE OF EXAM: 07/21/2023 CLINICAL INDICATION:Male, 67 years old with history of C34.91 Lung Cancer; TECHNIQUE: Following the intravenous administration of 11.8 mCi of F-18 FDG, whole body images are performed from the skull base to the midthigh. Images are reviewed on the computer in the coronal, a xial, and sagittal planes. Reconstructed rotating images are created on independent workstation and reviewed on the computer. A non-contrast CT is performed in conjunction with the PET scan. Glucose level 163 mg/dL CT DLP: 867 mGycm, Automated exposure control for dose reduction was used. COMPARISON: CT 08/25/2019 06/29/2023, PET/CT None, FINDINGS: Mediastinal SUV mean is 2.3. Hepatic parenchyma SUV mean is 3.2. SKULL BASE AND NECK: Bilateral lower neck FDG avid lymph nodes. * Right 12 mm in short axis max SUV 7.5. * Right 12 mm short axis max SUV 8.4. * Indeterminate lymph node near the angle of the mandible on the right max SUV 3.4 measuring 8 mm in short axis. CHEST, MEDIASTINUM, AND HILAR REGION: * Right perihilar mass with extension into the mediastinum. Max SUV 9.9. * There is extension into the subcarinal region measuring up to 2.3 cm in short axis right low parat wenceslao region measuring up to 2.2 cm in short axis. The right perihilar mass measuring roughly 5.1 x 3.0 cm. Evaluation measurements are limited without IV contrast on CT imaging. Lymph nodes extend in to the prevascular space with FDG avid lymph node on the left superior portion max SUV 5.0 measuring 8 mm in short axis. * Additional scattered right-sided pulmonary nodules measuring 9 mm Max SUV 1.7 the right lung apex 4 wedge-shaped areas more laterally in the lower right upper lung. ABDOMEN AND PELVIS: No suspicious radiotracer activity. MUSCULOSKELETAL STRUCTURES: Scattered osseous metastatic disease: * Abnormal uptake within the sternum correlating with 6 sclerotic area which is subtle max SUV 7.5 * C2 vertebral body max SUV 6.3. * Spinous process of L4 max SUV 4.7. * T12 vertebral body max SUV 8.7 which could be secondary to pathologic fracture at this level. * Bilateral pedicles at L1 max SUV 8.7 on the right and 4.0 on the left. * Bilateral ribs, right rib 8 Max SUV 2.0, left rib 8 2.7. * Suspected degeneration uptake versus metastatic focus of the right temporal mandibular joint with max SUV 5.8. * (Acetabular focus of uptake max SUV 5.4 * Right iliac bone max SUV 6.7. OTHER CT: Atherosclerosis of the carotid bifurcations, coronary arteries and arterial vasculature. Ch olelithiasis. Prostatomegaly. Left inguinal fat-containing hernia. IMPRESSION: 1. Right perihilar mass with metastatic disease to the lower neck lymph nodes, and scattered through out the osseous structures. 2. Possible pathologic fracture of the T12 vertebral body. Consider further evaluation with MRI lumb ar spine with IV contrast.
== END | disposition home or self-care (01) ==
LOC: RADPETMAIN 13:29
PROVIDERS: ATTEND Internal Medicine Hematology & Oncology
DX: C34.91 Malignant neoplasm of unspecified part of right bronchus or lung (principal); R91.8 Other nonspecific abnormal finding of lung field
CPT/HCPCS: 78815; A9552

== ENCOUNTER 2023-08-09 18:23 | Observation (INO) | payer MEDICARE ==
--- NOTE | 2023-08-09 18:29 | ED ---
General Adult HPI - General Source: RN notes reviewed <Radhika Dockery - Last Filed: 08/09/23 18:27> <Tito Dubois - Last Filed: 08/09/23 20:49> <[place] - Last Filed: 08/09/23 22:51> - General Stated complaint: ANNEMARIE Time Seen by Provider: 08/09/23 18:27 - History of Present Illness Initial comments: 67-year-old male presents the emergency department the chief complaint of shortness of breath. Patient reports worsening shortness breath upon exertion 3 days. (Radhika Dockery) This is a 67-year-old male who presents to the emergency department stating that he has a past medical history significant for congestive heart failure well as lung cancer. Patient states the cancer is metastasized to the bones. Exacerbation states last 2 days or difficulty breathing is gotten progressively worse. Also states that he is having some sharp right sided chest pain. Patient denies any fever chills. Patient denies any lightheadedness or disease. Patient denies any abdominal pain. Patient has nausea vomiting. Patient denies any swelling to the legs or calf tenderness. (Tito Dubois) - Related Data Home Medications Medication Instructions Recorded Confirmed busPIRone HCL 30 mg PO BID 11/28/16 08/09/23 DULoxetine HCL [Cymbalta] 30 mg PO DAILY 09/11/18 08/09/23 Pantoprazole [Protonix] 40 mg PO DAILY 09/11/18 08/09/23 oxyCODONE HCL/ACETAMINOPHEN 1 tab PO Q6H PRN 09/11/18 08/09/23 [Percocet 10-325 mg] Losartan [Cozaar] 25 mg PO DAILY 06/30/23 08/09/23 Mirtazapine 45 mg PO HS 06/30/23 08/09/23 amLODIPine [Norvasc] 5 mg PO DAILY 06/30/23 08/09/23 ALPRAZolam [Xanax] 0.5 mg PO BID PRN 08/09/23 08/09/23 Previous Rx's Medication Instructions Recorded Albuterol Inhaler [Ventolin Hfa 1 - 2 puff INHALATION Q6H PRN #1 07/06/23 Inhaler] each Budesonide-Formot 160-4.5 Mcg 2 puff INHALATION RT-BID #1 each 07/06/23 [Symbicort 160-4.5 Mcg Inhaler] Allergies Allergy/AdvReac Type Severity Reaction Status Date / Time No Known Allergies Allergy Verified 08/09/23 21:57 Review of Systems ROS Other: All systems not noted in ROS Statement are negative. <Radhika Dockery - Last Filed: 08/09/23 18:27> ROS Other: All systems not noted in ROS Statement are negative. <Tito Dubois - Last Filed: 08/09/23 20:49> ROS Other: All systems not noted in ROS Statement are negative. <[place] - Last Filed: 08/09/23 22:51> ROS Statement: Those systems with pertinent positive or pertinent negative responses have been documented in the HPI. Past Medical History Past Medical History: Cancer, Heart Failure, COPD, CVA/TIA, GERD/Reflux Additional Past Medical History / Comment(s): states "current lower left abdominal pain with alot of gas",Pt recently admitted 11/28/16 with abdominal pain, esophagitis, infectious colitis and exacerbation of his COPD. He had EGD with bx and colonoscopy with bx-states he has also been diagnosed with colon cancer-no chemo or rad. Other hx: Recent diagnosis of infectious colitis, doudenal and cecal polyps, colon cancer, past chronic pain -in his back and lately abdomin, TIA, tuberculosis 5 yrs ago and completed treatments. History of Any Multi-Drug Resistant Organisms: None Reported Past Surgical History: Appendectomy, Bowel Resection, Orthopedic Surgery, Tonsillectomy Additional Past Surgical History / Comment(s): 12/01/16 EGD with bx and colonoscopy with bx, sx on R forearm to removed a piece of steel from work rel ated accident, cervical fusion. Past Anesthesia/Blood Transfusion Reactions: No Reported Reaction Smoking Status: Current every day smoker - Past Family History Mother History Unknown: Yes Father History Unknown: Yes Additional Family Medical History / Comment(s): Father during his AAA repair. Sister(s) Family Medical History: Cancer Additional Family Medical History / Comment(s): lung cancer <Radhika Dockery - Last Filed: 08/09/23 18:27> General Exam <Radhika Dockery - Last Filed: 08/09/23 18:27> <DuboisTito berrios - Last Filed: 08/09/23 20:49> - General Exam Comments Initial Comments: Visual Physical Exam Vital signs reviewed General: Well-appearing, nontoxic, no acute distress. Head: Normocephalic, atraumatic Eyes: PERRLA, EOMI ENT: Airway patent Chest: Nonlabored breathing Skin: No visual rash, normal skin tone Neuro: Alert and oriented 3 Musculoskeletal: No gross abnormalities (Radhika Dockery) GENERAL: Patient is well-developed and well-nourished. Patient is nontoxic and well- hydrated and is in mild distress. ENT: Neck is soft and supple. No significant lymphadenopathy is noted. Oropharynx is clear. Moist mucous membranes. Neck has full range of motion without eliciting any pain. EYES: The sclera were anicteric and conjunctiva were pink and moist. Extraocular movements were intact and pupils were equal round and reactive to light. Eyelids were unremarkable. PULMONARY: Unlabored respirations. Good breath sounds bilaterally. Patient has Rales diffusely CARDIOVASCULAR: There is a regular rate and rhythm without any murmurs gallops or rubs. ABDOMEN: Soft and nontender with normal bowel sounds. SKIN: Skin is clear with no lesions or rashes and otherwise unremarkable. NEUROLOGIC: Patient is alert and oriented x3. Cranial nerves II through XII are grossly intact. Motor and sensory are also intact. Normal speech, volume and content. Symmetrical smile. MUSCULOSKELETAL: Normal extremities with adequate strength and full range of motion. No lower extremity swelling or edema. No calf tenderness. LYMPHATICS: No significant lymphadenopathy is noted PSYCHIATRIC: Normal psychiatric evaluation. (Tito Dubois) Course Vital Signs 08/09/23 08/09/23 08/09/23 18:27 18:45 18:50 Temperature 98.2 F Pulse Rate 97 120 H Pulse Rate [ Clay Artist ] Respiratory 18 24 Rate Blood Pressure 178/78 163/108 O2 Sat by Pulse 98 98 97 Oximetry 08/09/23 08/09/23 08/09/23 19:00 19:20 19:40 Temperature Pulse Rate 117 H 118 H 115 H Pulse Rate [ 122 H Clay Artist ] Respiratory 26 H 17 21 Rate Blood Pressure 163/108 122/89 117/88 O2 Sat by Pulse 97 96 96 Oximetry 01/10/0108/09/23 08/09/23 20:00 20:20 20:40 Temperature Pulse Rate 112 H 113 H 114 H Pulse Rate [ Clay Artist ] Respiratory 23 16 22 Rate Blood Pressure 130/96 134/93 124/94 O2 Sat by Pulse 96 96 95 Oximetry 08/09/23 08/09/23 08/09/23 21:00 22:00 22:30 Temperature Pulse Rate 113 H 108 H 112 H Pulse Rate [ Clay Artist ] Respiratory 22 20 20 Rate Blood Pressure 110/73 123/86 113/77 O2 Sat by Pulse 95 95 96 Oximetry Medical Decision Making <Radhika Dockery - Last Filed: 08/09/23 18:27> - Lab Data Result diagrams: 08/09/23 18:46 08/09/23 18:46 <Tito Dubois - Last Filed: 08/09/23 20:49> - Lab Data Result diagrams: 08/09/23 18:46 08/09/23 18:46 <[place] - Last Filed: 08/09/23 22:51> - Medical Decision Making I performed the quick note portion of this exam, verbal signature Radhika Dockery PA-C (Radhika Dockery) EKG was interpreted by myself. EKG shows sinus tachycardia 119 bpm NE interval 220 QRS 71 Q-T intervals 390 QTC is 410. Patient's EKG shows no ST segment elevation or depression. Was pt. sent in by a medical professional or institution (FRANDY Donovan, SAFETY AND SECURITY OFFICER, urgent care, hospital, or [facility]...) When possible be specific @ -[No] Did you speak to anyone other than the patient for history (EMS, parent, family, police, friend...)? What history was obtained from this source @ -[No] Did you review nursing and triage notes (agree or disagree)? Why? @ -[I reviewed and agree with nursing and triage notes] Were old charts reviewed (outside hosp., previous admission, EMS record, old EKG, old radiological studies, urgent care reports/EKG's, [facility] records)? Report findings @ -Charts of her lab work on this patient Differential Diagnosis (chest pain, altered mental status, abdominal pain women, abdominal pain men, vaginal bleeding, weakness, fever, dyspnea, syncope, headache, dizziness, GI bleed, back pain, seizure, CVA, palpatations, mental health, musculoskeletal)? @ -Differential Dyspnea: Coronary syndrome, arrhythmia, tamponade, asthma, COPD, pulmonary embolism, pneumonia, pneumothorax, pulmonary effusion, anaphylaxis, diabetic ketoacidosis, flailed chest, pulmonary contusion, diaphragmatic rupture, anemia, neuromuscular, this is not meant to be an all-inclusive list. EKG interpreted by me (3pts min.). @ -[As above] X-rays interpreted by me (1pt min.). @ -Chest x-ray shows some atelectasis CT interpreted by me (1pt min.). @ -[None done] U/S interpreted by me (1pt. min.). @ -[None done] What testing was considered but not performed or refused? (CT, X-rays, U/S, labs)? Why? @ -[None] What meds were considered but not given or refused? Why? @ -[None] Did you discuss the management of the patient with other professionals (professionals i.e. , PA, SAFETY AND SECURITY OFFICER, lab, RT, psych nurse, high school social studies tutor, changeover operator, teacher, escrow officer, case management assistant)? Give summary @ -[No] Was smoking cessation discussed for >3mins.? @ -[No] Was critical care preformed (if so, how long)? @ -[No] Were there social determinants of health that impacted care today? How? (Homelessness, low income, unemployed, alcoholism, drug addiction, transportation, low edu. Level, literacy, decrease access to med. care, snf, rehab)? @ -[No] Was there de-escalation of care discussed even if they declined (Discuss DNR or withdrawal of care, Hospice)? DNR status @ -[No] What co-morbidities impacted this encounter? (DM, HTN, Smoking, COPD, CAD, Cancer, CVA, ARF, Chemo, Hep., AIDS, mental health diagnosis, sleep apnea, morbid obesity)? @ -[None] Was patient admitted / discharged? Hospital course, mention meds given and route, prescriptions, significant lab abnormalities, going to OR and other pertinent info. @ -Patient's d-dimer came back elevated so he'll be getting a CT of his chest. Dr. Villalba will be taking over the care of this patient at 9 PM (Tito Dubois) - Lab Data Lab Results 08/09/23 08/09/23 08/09/23 Range/Units 18:46 18:46 19:13 WBC 12.8 H (3.8-10.6) k/uL RBC 5.28 (4.30-5.90) m/uL Hgb 17.2 (13.0-17.5) gm/dL Hct 49.4 (39.0-53.0) % MCV 93.4 (80.0-100.0) fL MCH 32.5 (25.0-35.0) pg MCHC 34.8 (31.0-37.0) g/dL RDW 12.9 (11.5-15.5) % Plt Count 433 (150-450) k/uL MPV 7.7 Neutrophils % 64 % Lymphocytes % 26 % Monocytes % 6 % Eosinophils % 1 % Basophils % 0 % Neutrophils # 8.1 H (1.3-7.7) k/uL Lymphocytes # 3.4 (1.0-4.8) k/uL Monocytes # 0.7 (0-1.0) k/uL Eosinophils # 0.1 (0-0.7) k/uL Basophils # 0.1 (0-0.2) k/uL D-Dimer (<0.60) mg/L FEU Sodium 139 (137-145) mmol/L Potassium 4.7 (3.5-5.1) mmol/L Chloride 104 (98-107) mmol/L Carbon Dioxide 20 L (22-30) mmol/L Anion Gap 15 mmol/L BUN 18 (9-20) mg/dL Creatinine 1.09 (0.66-1.25) mg/dL Est GFR (CKD-EPI)AfAm 81 (>60 ml/min/1.73 sqM) Est GFR (CKD-EPI)NonAf 70 (>60 ml/min/1.73 sqM) Glucose 124 H (74-99) mg/dL Calcium 10.0 (8.4-10.2) mg/dL Total Bilirubin 0.9 (0.2-1.3) mg/dL AST 36 (17-59) U/L ALT 29 (4-49) U/L Alkaline Phosphatase 80 (38-126) U/L Troponin I 0.015 (0.000-0.034) ng/mL NT-Pro-B Natriuret Pep 126 pg/mL Total Protein 8.1 (6.3-8.2) g/dL Albumin 4.5 (3.5-5.0) g/dL Influenza Type A (PCR) (Not Detectd) Influenza Type B (PCR) (Not Detectd) RSV (PCR) (Not Detectd) SARS-CoV-2 (PCR) (Not Detectd) 08/09/23 08/09/23 Range/Units 19:13 20:04 WBC (3.8-10.6) k/uL RBC (4.30-5.90) m/uL Hgb (13.0-17.5) gm/dL Hct (39.0-53.0) % MCV (80.0-100.0) fL MCH (25.0-35.0) pg MCHC (31.0-37.0) g/dL RDW (11.5-15.5) % Plt Count (150-450) k/uL MPV Neutrophils % % Lymphocytes % % Monocytes % % Eosinophils % % Basophils % % Neutrophils # (1.3-7.7) k/uL Lymphocytes # (1.0-4.8) k/uL Monocytes # (0-1.0) k/uL Eosinophils # (0-0.7) k/uL Basophils # (0-0.2) k/uL D-Dimer 2.42 H (<0.60) mg/L FEU Sodium (137-145) mmol/L Potassium (3.5-5.1) mmol/L Chloride (98-107) mmol/L Carbon Dioxide (22-30) mmol/L Anion Gap mmol/L BUN (9-20) mg/dL Creatinine (0.66-1.25) mg/dL Est GFR (CKD-EPI)AfAm (>60 ml/min/1.73 sqM) Est GFR (CKD-EPI)NonAf (>60 ml/min/1.73 sqM) Glucose (74-99) mg/dL Calcium (8.4-10.2) mg/dL Total Bilirubin (0.2-1.3) mg/dL AST (17-59) U/L ALT (4-49) U/L Alkaline Phosphatase (38-126) U/L Troponin I (0.000-0.034) ng/mL NT-Pro-B Natriuret Pep pg/mL Total Protein (6.3-8.2) g/dL Albumin (3.5-5.0) g/dL Influenza Type A (PCR) Not Detected (Not Detectd) Influenza Type B (PCR) Not Detected (Not Detectd) RSV (PCR) Not Detected (Not Detectd) SARS-CoV-2 (PCR) Not Detected (Not Detectd) Disposition <Radhika Dockery - Last Filed: 08/09/23 18:27> <Tito Dubois - Last Filed: 08/09/23 20:49> Is patient prescribed a controlled substance at d/c from ED?: No Time of Disposition: 22:51 <[place] - Last Filed: 08/09/23 22:51> Clinical Impression: COPD (chronic obstructive pulmonary disease), Lung mass Disposition: ADMITTED IP TO THIS HOSP Condition: Stable Referrals: Arnulfo Blackwell DO [Primary Care Provider] - 1-2 days
[2023-08-09 19:43] LABS: Basophils # (A) 0.1 k/uL (0-0.2); Basophils % (A) 0 %; Eosinophils # (A) 0.1 k/uL (0-0.7); Eosinophils % (A) 1 %; HCT 49.4 % (39.0-53.0); HGB 17.2 gm/dL (13.0-17.5); Lymphocytes # (A) 3.4 k/uL (1.0-4.8); Lymphocytes % (A) 26 %; MCH 32.5 pg (25.0-35.0); MCHC 34.8 g/dL (31.0-37.0); MCV 93.4 fL (80.0-100.0); Mean Platelet Volume 7.7; Monocytes # (A) 0.7 k/uL (0-1.0); Monocytes % (A) 6 %; Neutrophils # (A) 8.1 k/uL (1.3-7.7); Neutrophils % (A) 64 %; Platelet Count 433 k/uL (150-450); RBC 5.28 m/uL (4.30-5.90); RDW 12.9 % (11.5-15.5); WBC 12.8 k/uL (3.8-10.6)
[2023-08-09 19:57] LABS: ALT 29 U/L (4-49); AST 36 U/L (17-59); African American GFR (CKD) 81 (>60 ml/min/1.73 sqM); Albumin 4.5 g/dL (3.5-5.0); Alkaline Phosphatase 80 U/L (38-126); Anion Gap 15 mmol/L; Blood Urea Nitrogen 18 mg/dL (9-20); Carbon Dioxide 20 mmol/L (22-30); Chloride 104 mmol/L (98-107); Glucose 124 mg/dL (74-99); Non-African American GFR(CKD) 70 (>60 ml/min/1.73 sqM); Sodium 139 mmol/L (137-145); Total Bilirubin 0.9 mg/dL (0.2-1.3); Total Protein 8.1 g/dL (6.3-8.2)
[2023-08-09 19:58] LABS: Potassium 4.7 mmol/L (3.5-5.1)
[2023-08-09 20:04] LABS: NT-Pro-B-Type Natriuretic Pept 126 pg/mL
--- NOTE | 2023-08-09 20:15 | XR ---
EXAMINATION TYPE: XR chest 2V DATE OF EXAM: 08/09/2023 6:57 PM CLINICAL INDICATION:Male, 67 years old with history of cough; [facility] COMPARISON: 07/21/2023. TECHNIQUE: XR chest 2V Frontal and lateral views of the chest. FINDINGS: Lungs/Pleura: Increased perihilar fullness in the right with streaky atelectasis compatible with prio r malignancy on PET/CT. There is no evidence of pleural effusion, focal consolidation, or pneumothora x. Pulmonary vascularity: Unremarkable. Heart/mediastinum: Cardiomediastinal silhouette is unremarkable. Musculoskeletal: No acute osseous pathology. There is fixation hardware in the lower cervical spine. IMPRESSION: Streaky atelectasis/right perihilar mass as seen on prior PET/CT.
--- NOTE | 2023-08-09 22:09 | CT ---
CT CHEST FOR PULMONARY EMBOLISM. EXAMINATION TYPE: CT chest angio for PE DATE OF EXAM: 08/09/2023 INDICATION: sob, elevated dimer, known lung cancer CT DLP: 744.1 mGycm, Automated exposure control for dose reduction was used. CONTRAST: Patient injected with 100 ml mL of Isovue 300. COMPARISON: None TECHNIQUE: CT of the chest is performed on a spiral scan at 2 mm thick sections. Study is performed with intravenous contrast timed for evaluation for pulmonary embolism. This will limit additional po rtions of the evaluation. 3-D MIP images reconstructed by the technologist are reviewed on the compu ter in the coronal and sagittal planes. FINDINGS: There is a large mass within the mediastinum extending along the right paratracheal region and in the pretracheal region to the subcarinal region. This encases the right upper lobe pulmonary artery with obvious narrowing. Right middle lobe pulmonary artery encasement is evident without narrowing. The h ilar mass or air measures approximately 5.8 cm AP dimension and mediastinal windows, series 501 image 63. Right infrahilar lymph node is likely present measuring 1.4 cm. Minimal right pleural effusion is present. The ascending aorta diameter at the level of the main pulmonary artery is 3.9 cm. The main pulmona ry artery diameter at the bifurcation is 2.4 cm. There is a 1.1 cm density at the right apex. Series 506 image 27. There is a masslike density consistent with pleural margin measuring 2.8 x 2.0 cm. Series 506 image 4 5. There is a 1.4 cm some patchy infiltrates are in the right perihilar region. Groundglass opacity i n the posterior right lung series 506 and 58. No persistent filling defect to suggest acute pulmonary embolism. Limited CT section through the upper abdomen are unremarkable. IMPRESSION: 1. Large right perihilar mass encasing the right upper lobe pulmonary artery with narrowing. 2. No acute pulmonary embolism. 3. Multiple lung nodules and areas of increased density through the right lung suspicious for metasta tic disease. 4. Small right pleural effusion.
[2023-08-09] MEDS ORDERED: IPRATROPIUM-ALBUTEROL 3 ML NEB INHALATION STA (22:47)
[2023-08-09] MEDS ORDERED: ALBUTEROL NEBULIZED 2.5 MG/3 ML INHALATION STA (22:47)
[2023-08-09] MEDS ORDERED: IPRATROPIUM-ALBUTEROL 3 ML NEB INHALATION PRN (22:49)
[2023-08-09] MEDS ORDERED: ACETAMINOPHEN TAB 325 MG TAB PO PRN (22:49)
[2023-08-09] MEDS ORDERED: NALOXONE 0.4 MG/ML 1 ML VIAL IVP PRN (22:49)
[2023-08-09] MEDS: methylPREDNISolone SOD SUCCI 125 MG/2 ML VIAL IV SCH (23:28)
[2023-08-09] MEDS: SODIUM CHLORIDE 0.9% 1,000 ML IV SCH (23:28)
--- NOTE | 2023-08-10 03:50 | P.HPIM ---
History of Present Illness H&P Date: 08/09/23 Patient is a 67-year-old male with a PMH of recently diagnosed small cell lung cancer, history of colon cancer status post resection (in remission), COPD, type II DM, who presents to the emergency room with complaints of shortness of breath. He reports experiencing gradually worsening shortness of breath with nonproductive cough over the past 3 days which has not improved despite multiple uses of his inhalers. He also reports experiencing substernal chest tightness while in the emergency room during a bout of coughing, stabbing in nature, left- sided, with radiation throughout the front of his chest. Reports that the chest discomfort lasted only a few minutes and has resolved completely. Denies experiencing fever, chills, nausea, vomiting, diaphoresis, or dizziness. Patient reports he quit smoking cigarettes several months ago but continues to smoke cigars. CTA chest in the emergency room revealed a 5.8 cm right perihilar mass encasing the right upper lobe, very artery with narrowing as well as multiple lung nodules suspicious for metastatic disease. EKG revealed sinus tachycardia at [address]/T-wave changes noted as reviewed by me. Laboratory evaluation revealed leukocytosis of 12.8, and troponin 0.015 with a viral respiratory panel unremarkable. The patient's SpO2 is 94% on 2 L nasal cannula oxygen in the emergency room. ED documentation reviewed and case discussed with ED provider. Obese Review of systems: Pertinent positives and negatives as discussed in HPI, a complete review of systems was performed and all other systems are negative. Physical examination: Vital signs reviewed General: non toxic, no distress, appears at stated age, obese Derm: no unusual rashes/lesions, warm Head: atraumatic, normocephalic, symmetric Eyes: EOMI, no lid lag, anicteric sclera, pupils equal round reactive to light ENT: Nose and ears atraumatic Neck: No cervical lymphadenopathy, trachea midline, supple Mouth: no lip lesion, mucus membranes moist Cardiovascular: S1S2 reg, no murmur, positive dorsalis pedis pulse bilateral, no edema Lungs: Diffuse expiratory wheezing with poor air entry, no accessory muscle use Abdominal: soft, nontender to palpation, no guarding Ext: muscle strength 5 out of 5 in all 4 extremities grossly, no gross muscle atrophy, no contractures, Neuro: CN II-XI grossly intact, no gross focal neuro deficits Psych: Alert, oriented, appropriate affect Assessment: Acute hypoxic respiratory failure, likely secondary to acute COPD exacerbation superimposed with small cell lung cancer Type II DM Imaging: CTA chest in the emergency room revealed a 5.8 cm right perihilar mass encasing the right upper lobe, very artery with narrowing as well as multiple lung nodules suspicious for metastatic disease. EKG revealed sinus tachycardia at [address]/T-wave changes noted as reviewed by me. Data Review: Laboratory evaluation revealed leukocytosis of 12.8, and troponin 0.015 with a viral respiratory panel unremarkable. The patient's SpO2 is 94% on 2 L nasal cannula oxygen in the emergency room. Plan: Continue with Solu-Medrol 60 mg IV every 6 hourly Continue DuoNeb around the clock and as needed Continue home Symbicort inhaler Pulmonary and oncology consulted C/w IVFs NS 75 ml/hr Cardiac monitoring DVT prophylaxis: Lovenox subcu The patient is admitted with an anticipated less than 2 midnight stay for evaluation of respiratory failure CODE STATUS: Full Code Discussed with: Patient Anticipated discharge place: Home Past Medical History Past Medical History: Cancer, Heart Failure, COPD, CVA/TIA, GERD/Reflux Additional Past Medical History / Comment(s): states "current lower left abdominal pain with alot of gas",Pt recently admitted 11/28/16 with abdominal pain, esophagitis, infectious colitis and exacerbation of his COPD. He had EGD with bx and colonoscopy with bx-states he has also been diagnosed with colon cancer-no chemo or rad. Other hx: Recent diagnosis of infectious colitis, doudenal and cecal polyps, colon cancer, past chronic pain -in his back and lately abdomin, TIA, tuberculosis 5 yrs ago and completed treatments. History of Any Multi-Drug Resistant Organisms: None Reported Past Surgical History: Appendectomy, Bowel Resection, Orthopedic Surgery, Tonsillectomy Additional Past Surgical History / Comment(s): 12/01/16 EGD with bx and colonoscopy with bx, sx on R forearm to removed a piece of steel from work related accident, cervical fusion. Past Anesthesia/Blood Transfusion Reactions: No Reported Reaction Smoking Status: Current every day smoker - Past Family History Mother History Unknown: Yes Father History Unknown: Yes Additional Family Medical History / Comment(s): Father during his AAA repair. Sister(s) Family Medical History: Cancer Additional Family Medical History / Comment(s): lung cancer Medications and Allergies Home Medications Medication Instructions Recorded Confirmed Type busPIRone HCL 30 mg PO BID 11/28/16 08/09/23 History DULoxetine HCL [Cymbalta] 30 mg PO DAILY 09/11/18 08/09/23 History Pantoprazole [Protonix] 40 mg PO DAILY 09/11/18 08/09/23 History oxyCODONE HCL/ACETAMINOPHEN 1 tab PO Q6H PRN 09/11/18 08/09/23 History [Percocet 10-325 mg] Losartan [Cozaar] 25 mg PO DAILY 06/30/23 08/09/23 History Mirtazapine 45 mg PO HS 06/30/23 08/09/23 History amLODIPine [Norvasc] 5 mg PO DAILY 06/30/23 08/09/23 History Albuterol Inhaler [Ventolin Hfa 1 - 2 puff INHALATION Q6H PRN #1 07/06/23 08/09/23 Rx Inhaler] each Budesonide-Formot 160-4.5 Mcg 2 puff INHALATION RT-BID #1 each 07/06/23 08/09/23 Rx [Symbicort 160-4.5 Mcg Inhaler] ALPRAZolam [Xanax] 0.5 mg PO BID PRN 08/09/23 08/09/23 History Allergies Allergy/AdvReac Type Severity Reaction Status Date / Time No Known Allergies Allergy Verified 08/09/23 21:57 Physical Exam Vitals: Vital Signs Temp Pulse Pulse Resp BP Pulse Ox 08/10/23 03:00 106 H 20 135/89 94 L 08/09/23 23:35 116 H 08/09/23 23:20 112 H 08/09/23 22:30 112 H 20 113/77 96 08/09/23 22:00 108 H 20 123/86 95 08/09/23 21:00 113 H 22 110/73 95 08/09/23 20:40 114 H 22 124/94 95 08/09/23 20:20 113 H 16 134/93 96 08/09/23 20:00 112 H 23 130/96 96 08/09/23 19:40 115 H 21 117/88 96 08/09/23 19:20 118 H 17 122/89 96 08/09/23 19:00 117 H 122 H 26 H 163/108 97 08/09/23 18:50 120 H 24 163/108 97 08/09/23 18:45 98 08/09/23 18:27 98.2 F 97 18 178/78 98 Intake and Output 08/09/23 08/09/23 08/10/23 14:59 22:59 06:59 Other: Weight 102.058 kg Results CBC & Chem 7: 08/09/23 18:46 08/09/23 18:46 Labs: Abnormal Lab Results - Last 24 Hours (Table) 08/09/23 08/09/23 08/09/23 Range/Units 18:46 18:46 20:04 WBC 12.8 H (3.8-10.6) k/uL Neutrophils # 8.1 H (1.3-7.7) k/uL D-Dimer 2.42 H (<0.60) mg/L FEU Carbon Dioxide 20 L (22-30) mmol/L Glucose 124 H (74-99) mg/dL
--- NOTE | 2023-08-10 04:51 | P.CNPUL ---
History of Present Illness Consult date: 08/10/23 Requesting physician: [place] Reason for consult: COPD, lung mass Chief complaint: Shortness of breath for the last 3 days History of present illness: I am seeing this patient in consultation today 08/10/2023 in the emergency room after presenting with progressively worsening shortness of breath over the last 3 days. Patient is a 67-year-old male with past medical history significant for COPD, recently diagnosed metastatic lung cancer, chronic ongoing tobacco dependence, CVA/TIA, hypertension, among other things. Patient has recently been diagnosed with metastatic small cell lung carcinoma. He has a large right sided hilar mass. He had a endobronchial biopsy done July [address] Alvaernga, and there was sampling of a lymph node consistent with small cell lung carcinoma. Follow-up PET scan redemonstrated the right perihilar mass with metastatic disease to the lower neck lymph nodes as well as diffuse osseous metastasis. Patient has become established with an oncologist, he believes it's Dr. Leung. He has not had any systemic treatment. He is considering palliative radiation. Over the last 3 days, the patient has had progressively worsening shortness of breath. He also endorses a persistent nonproductive cough and pleuritic like right-sided chest pain. He also has been wheezing and has chest tightness. Denies any hemoptysis. Denies any fevers. He is currently sitting up in bed, on 3 L/m nasal cannula, in no acute distress. He does not normally wear home oxygen. D-dimer was elevated, the patient did have a follow-up chest CTA. This redemonstrated a large right hilar mass measuring up to 5.8 cm which encases the pulmonary artery. There are multiple other right-sided lung nodules consistent with metastatic disease. There was bilateral trace to small pleural effusions. No obvious pulmonary embolism. No significant focal infiltrates or evidence of pneumonia. Negative for influenza, RSV, COVID-19. CBC has a WBC count of 12.8, hemoglobin 17.2, hematocrit 49.4, platelets 433. CMP unremarkable. Normal saline infusing at 75 mL per hour. Troponin I elevated. NT proBNP 126. He is tachycardic on bedside monitor, sinus mechanism. Afebrile. Vital signs are stable. Review of Systems REVIEW OF SYSTEMS: CONSTITUTIONAL: Denies any recent significant weight loss or weight gain. Denies fevers. EYES: Denies change in vision. EARS, NOSE, MOUTH, THROAT: Denies headaches, denies sore throat. CARDIOVASCULAR: Denies radiating chest pain, palpitations or syncopal episodes. RESPIRATORY: Admits shortness of breath especially with exertion, nonproductive cough, right-sided chest pain with coughing and deep breathing. Denies any hemoptysis. GASTROINTESTINAL: Denies change in appetite, abdominal pain, nausea and vomiting, or diarrhea GENITOURINARY: Denies hematuria, denies infections. MUSKULOSKELETAL: Admits thoracic level back pain. INTEGUMENTARY: Denies rash, denies eczema. NEUROLOGICAL: Denies recent memory loss, no recent seizure activity. PSYCHIATRIC: Denies anxiety, denies depression. HEMATOLOGIC/LYMPHATIC: Denies anemia, denies enlarged lymph node Past Medical History Past Medical History: Cancer, Heart Failure, COPD, CVA/TIA, GERD/Reflux Additional Past Medical History / Comment(s): states "current lower left abdominal pain with alot of gas",Pt recently admitted 11/28/16 with abdominal pain, esophagitis, infectious colitis and exacerbation of his COPD. He had EGD with bx and colonoscopy with bx-states he has also been diagnosed with colon cancer-no chemo or rad. Other hx: Recent diagnosis of infectious colitis, doudenal and cecal polyps, colon cancer, past chronic pain -in his back and lately abdomin, TIA, tuberculosis 5 yrs ago and completed treatments. History of Any Multi-Drug Resistant Organisms: None Reported Past Surgical History: Appendectomy, Bowel Resection, Orthopedic Surgery, Tonsillectomy Additional Past Surgical History / Comment(s): 12/01/16 EGD with bx and colonoscopy with bx, sx on R forearm to removed a piece of steel from work related accident, cervical fusion. Past Anesthesia/Blood Transfusion Reactions: No Reported Reaction Smoking Status: Current every day smoker - Past Family History Mother History Unknown: Yes Father History Unknown: Yes Additional Family Medical History / Comment(s): Father during his AAA repair. Sister(s) Family Medical History: Cancer Additional Family Medical History / Comment(s): lung cancer Medications and Allergies Home Medications Medication Instructions Recorded Confirmed Type busPIRone HCL 30 mg PO BID 11/28/16 08/09/23 History DULoxetine HCL [Cymbalta] 30 mg PO DAILY 09/11/18 08/09/23 History Pantoprazole [Protonix] 40 mg PO DAILY 09/11/18 08/09/23 History oxyCODONE HCL/ACETAMINOPHEN 1 tab PO Q6H PRN 09/11/18 08/09/23 History [Percocet 10-325 mg] Losartan [Cozaar] 25 mg PO DAILY 06/30/23 08/09/23 History Mirtazapine 45 mg PO HS 06/30/23 08/09/23 History amLODIPine [Norvasc] 5 mg PO DAILY 06/30/23 08/09/23 History Albuterol Inhaler [Ventolin Hfa 1 - 2 puff INHALATION Q6H PRN #1 07/06/23 08/09/23 Rx Inhaler] each Budesonide-Formot 160-4.5 Mcg 2 puff INHALATION RT-BID #1 each 07/06/23 08/09/23 Rx [Symbicort 160-4.5 Mcg Inhaler] ALPRAZolam [Xanax] 0.5 mg PO BID PRN 08/09/23 08/09/23 History Allergies Allergy/AdvReac Type Severity Reaction Status Date / Time No Known Allergies Allergy Verified 08/09/23 21:57 Physical Exam Vitals: Vital Signs Temp Pulse Pulse Resp BP Pulse Ox 08/09/23 23:35 116 H 08/09/23 23:20 112 H 08/09/23 22:30 112 H 20 113/77 96 08/09/23 22:00 108 H 20 123/86 95 08/09/23 21:00 113 H 22 110/73 95 08/09/23 20:40 114 H 22 124/94 95 08/09/23 20:20 113 H 16 134/93 96 08/09/23 20:00 112 H 23 130/96 96 08/09/23 19:40 115 H 21 117/88 96 08/09/23 19:20 118 H 17 122/89 96 08/09/23 19:00 117 H 122 H 26 H 163/108 97 08/09/23 18:50 120 H 24 163/108 97 08/09/23 18:45 98 08/09/23 18:27 98.2 F 97 18 178/78 98 Intake and Output 08/09/23 08/09/23 08/10/23 14:59 22:59 06:59 Other: Weight 102.058 kg GENERAL EXAM: Alert, 67-year-old white male , comfortable in no apparent distress. HEAD: Normocephalic and atraumatic EYES: Normal reaction of pupils, equal size. NOSE: Clear with pink turbinates. THROAT: No erythema or exudates. NECK: No masses, no JVD. CHEST: No chest wall deformity. LUNGS: Equal air entry with expiratory wheezes heard throughout. On 3 L/m nasal cannula. No conversational dyspnea or accessory muscle use.. CVS: S1 and S2 normal with no audible murmur, regular rhythm. No extra heart sounds ABDOMEN: No hepatosplenomegaly, active bowel sounds, no guarding or rigidity. SPINE: No scoliosis or deformity. No point tenderness. Negative straight leg raise. No saddle anesthesia. SKIN: No rashes. CENTRAL NERVOUS SYSTEM: No focal deficits, tone is normal in all 4 extremities. EXTREMITIES: There is no peripheral edema, clubbing, or cyanosis. Peripheral pulses are intact. Results - Laboratory Findings CBC and BMP: 08/09/23 18:46 08/09/23 18:46 PT/INR, D-dimer D-Dimer 2.42 mg/L FEU (<0.60) H 08/09/23 20:04 Abnormal lab findings: Abnormal Labs 08/09/23 08/09/23 08/09/23 18:46 18:46 20:04 WBC 12.8 H Neutrophils # 8.1 H D-Dimer 2.42 H Carbon Dioxide 20 L Glucose 124 H - Diagnostic Findings Chest x-ray: image reviewed CT scan - chest: image reviewed Assessment and Plan Assessment: Acute hypoxemic respiratory failure, likely related to acute COPD exacerbation. Chest CTA does not show any pulmonary embolism. It does show a large right perihilar mass redemonstrated measuring up to 5.8 cm encasing the pulmonary artery. There were multiple other lung nodules and areas of increased density throughout the right lung suspicious for metastatic disease. No significant focal consolidations or obvious evidence of pneumonia. There is also trace to small bilateral pleural effusions. Negative for influenza, RSV, COVID-19. Metastatic small cell lung carcinoma, recently diagnosed and has been established with an oncologist, has not yet started systemic treatment. He is considering palliative radiation. Thoracic level back pain, patient has diffuse osseous metastasis and possible pathological fracture of the T12 Hypertension Hyperlipidemia History of CVA/TIA History of colon cancer, status post right colectomy Chronic ongoing tobacco dependence, no longer smoking cigarettes but continues to smoke occasional cigars Obesity, with a BMI of 31.4 kg/m Plan: Patient's medications, labs and imaging reviewed Continue supplemental oxygen. Patient is being treated for acute COPD exacerbation and has been started on a combination of bronchodilators, Symbicort inhaler, and IV Solu-Medrol. D-dimer is elevated, likely related malignancy, no CTA evidence of pulmonary embolism. Smoking cessation encouraged Consult oncology We will continue to follow, and further recommendations are forthcoming I have personally seen and examined the patient, performed the documentation and the assessment and plan as written. Number of minutes spent on the visit:20 Time with Patient: Greater than 30
[2023-08-10] MEDS: oxyCODONE-APAP 10-325MG 1 EACH TAB PO PRN ×3 (05:30→23:59)
[2023-08-10] MEDS: methylPREDNISolone SOD SUCCI 125 MG/2 ML VIAL IV SCH ×4 (05:32→23:58)
[2023-08-10] MEDS: SYMBICORT 160-4.5 MCG INHALER INHALATION SCH ×2 (07:39→19:54)
[2023-08-10] MEDS: IPRATROPIUM-ALBUTEROL 3 ML NEB INHALATION SCH ×4 (07:39→19:54)
[2023-08-10 08:25] LABS: Basophils % (A) 0 %; Eosinophils % (A) 0 %; Lymphocytes # (A) 1.4 k/uL (1.0-4.8); Lymphocytes % (A) 15 %; MCH 31.9 pg (25.0-35.0); MCHC 34.1 g/dL (31.0-37.0); MCV 93.7 fL (80.0-100.0); Mean Platelet Volume 7.3; Monocytes # (A) 0.2 k/uL (0-1.0); Monocytes % (A) 2 %; Neutrophils # (A) 7.4 k/uL (1.3-7.7); Neutrophils % (A) 82 %; Platelet Count 407 k/uL (150-450); RBC 5.02 m/uL (4.30-5.90); RDW 12.8 % (11.5-15.5); WBC 9.1 k/uL (3.8-10.6)
[2023-08-10 08:43] LABS: African American GFR (CKD) 86 (>60 ml/min/1.73 sqM); Anion Gap 16 mmol/L; Blood Urea Nitrogen 21 mg/dL (9-20); Calcium 10.2 mg/dL (8.4-10.2); Carbon Dioxide 20 mmol/L (22-30); Chloride 104 mmol/L (98-107); Glucose 229 mg/dL (74-99); Non-African American GFR(CKD) 74 (>60 ml/min/1.73 sqM); Potassium 4.3 mmol/L (3.5-5.1); Sodium 140 mmol/L (137-145)
[2023-08-10] MEDS: LOSARTAN 25 MG TAB PO SCH (09:51)
[2023-08-10] MEDS: busPIRone HCl 10 MG TAB PO SCH ×2 (09:51→21:07)
[2023-08-10] MEDS: amLODIPine 5 MG TAB PO SCH (09:51)
[2023-08-10] MEDS: DULoxetine HCL 30 MG CAPSULE.DR PO SCH (09:51)
[2023-08-10] MEDS: PANTOPRAZOLE 40 MG TABLET PO SCH (09:51)
[2023-08-10] MEDS: ENOXAPARIN 40 MG/0.4 ML SYRINGE SQ SCH (09:51)
[2023-08-10] MEDS: SODIUM CHLORIDE 0.9% 1,000 ML IV SCH (12:11)
[2023-08-10] MEDS ORDERED: DEXTROSE 50% SYRINGE 50 ML IVP PRN ×2 (13:12)
--- NOTE | 2023-08-10 13:18 | P.PN ---
Subjective Progress Note Date: 08/10/23 Hospital Course: 67-year-old male with a PMH of recently diagnosed small cell lung cancer, history of colon cancer status post resection (in remission), COPD, type II DM, who presents to the emergency room with complaints of shortness of breath. CTA chest in the emergency room revealed a 5.8 cm right perihilar mass encasing the right upper lobe, very artery with narrowing as well as multiple lung nodules suspicious for metastatic disease. EKG revealed sinus tachycardia at 119 bpm w ith no ST/T-wave changes noted as reviewed by me. Laboratory evaluation revealed leukocytosis of 12.8, and troponin 0.015 with a viral respiratory panel unremarkable. The patient's SpO2 is 94% on 2 L nasal cannula oxygen in the emergency room. Patient admitted for COPD exacerbation. Pulmonology and oncology consulted. Subjective: Patient seen and examined at bedside. No acute events overnight. Pertinent positives and negatives as discussed above, a complete review of systems was performed and all other systems are negative. Vitals Signs Reviewed. General: nontoxic, no distress, appears at stated age Derm: warm, dry Head: atraumatic, normocephalic, symmetric Eyes: EOMI, no lid lag, anicteric sclera Mouth: no lip lesion, mucus membranes moist Cardiovascular: S1S2 reg, no murmur Lungs: CTA bilateral, no rhonchi, no rales , no accessory muscle use Abdominal: soft, nontender to palpation, no guarding, no appreciable organomegaly Ext: no gross muscle atrophy, no edema, no contractures Neuro: CN II-XI grossly intact, no focal neuro deficits Psych: Alert, oriented, appropriate affect Data Reviewed Today: Pertinent Labs: WBC 9.1, creatinine 1.05 Imaging: No new imaging Assessment and Plan: Goals of care discussion with patient, plan is to ultimately Palliative radiatio n, most to be DNR/DNI. Active: Acute COPD exacerbation Acute hypoxic respiratory failure Recently diagnosed metastatic small cell lung cancer Nicotine dependence leukocytosis, resolved -On Symbicort twice a day, DuoNeb 4 times a day, every 12 hours as needed, Solu- Medrol 60 IV every 6 hours, monitor mentation -Pulmonology note reviewed, oncology consulted -Also regarding smoking cessation -patient considering palliative radiation Chronic: HTN GERD depression anxiety DVT ppx: lovenox Code status: DNR/DNI Anticipated discharge place: pending clinical course Anticipated discharge time: pending clinical course Objective - Vital Signs Vital signs: Vital Signs Temp 97.9 F 08/10/23 08:40 Pulse 124 H 08/10/23 12:11 Resp 20 08/10/23 08:40 BP 142/85 08/10/23 08:40 Pulse Ox 95 08/10/23 08:40 FiO2 Intake & Output 08/09/23 08/10/23 08/10/23 18:59 06:59 18:59 Weight 102.058 kg - Labs CBC & Chem 7: 08/10/23 08:10 08/10/23 08:10 Labs: Abnormal Lab Results - Last 24 Hours (Table) 08/09/23 08/09/23 08/09/23 Range/Units 18:46 18:46 20:04 WBC 12.8 H (3.8-10.6) k/uL Neutrophils # 8.1 H (1.3-7.7) k/uL D-Dimer 2.42 H (<0.60) mg/L FEU Carbon Dioxide 20 L (22-30) mmol/L BUN (9-20) mg/dL Glucose 124 H (74-99) mg/dL 08/10/23 Range/Units 08:10 WBC (3.8-10.6) k/uL Neutrophils # (1.3-7.7) k/uL D-Dimer (<0.60) mg/L FEU Carbon Dioxide 20 L (22-30) mmol/L BUN 21 H (9-20) mg/dL Glucose 229 H (74-99) mg/dL
--- NOTE | 2023-08-10 13:21 | P.PN ---
Progress Note - Text Progress Note Date: 08/10/23 Advanced Care Planning: Diagnoses: Small cell lung cancer, metastatic Discussion: Person(s) present and participating in discussion: Patient Summary:Would not like any aggressive resuscitative measures. Wants to be DNR/DNI. Considering palliative radiation. A total of 16 minutes of face to face time was spent discussing advanced care planning.
[2023-08-10] MEDS: ALPRAZolam 0.5 MG TAB PO PRN (13:24)
[2023-08-10 16:53] LABS: Glucose,Whole Blood 371 mg/dL (70-110)
[2023-08-10] MEDS: INSULIN ASPART (NovoLOG) 100 UNIT/ML VIAL SQ SCH ×2 (17:29→21:06)
[2023-08-10 21:01] LABS: Glucose,Whole Blood 303 mg/dL (70-110)
[2023-08-10] MEDS: MIRTAZAPINE 45 MG TABLET PO SCH (21:07)
[2023-08-11] MEDS: ALPRAZolam 0.5 MG TAB PO PRN ×2 (00:02→20:51)
[2023-08-11] MEDS: SODIUM CHLORIDE 0.9% 1,000 ML IV SCH ×2 (02:28→15:45)
[2023-08-11] MEDS: methylPREDNISolone SOD SUCCI 125 MG/2 ML VIAL IV SCH ×3 (06:40→18:13)
[2023-08-11 08:07] LABS: Glucose,Whole Blood 256 mg/dL (70-110)
[2023-08-11] MEDS: busPIRone HCl 10 MG TAB PO SCH ×2 (08:08→20:51)
[2023-08-11] MEDS: LOSARTAN 25 MG TAB PO SCH (08:09)
[2023-08-11] MEDS: amLODIPine 5 MG TAB PO SCH (08:09)
[2023-08-11] MEDS: DULoxetine HCL 30 MG CAPSULE.DR PO SCH (08:10)
[2023-08-11] MEDS: PANTOPRAZOLE 40 MG TABLET PO SCH (08:11)
[2023-08-11] MEDS: INSULIN ASPART (NovoLOG) 100 UNIT/ML VIAL SQ SCH ×4 (08:19→20:52)
[2023-08-11] MEDS: ENOXAPARIN 40 MG/0.4 ML SYRINGE SQ SCH (08:20)
--- NOTE | 2023-08-11 08:26 | P.CONS ---
History of Present Illness - Reason for Consult Consult date: 08/10/23 lung cancer Requesting physician: Fuad Ruelas - Chief Complaint SOB - History of Present Illness Patient is a 67 year old male with a significant history of small cell lung carcinoma. He also has history of colon cancer in 2017, and underwent right hemicolectomy on 02/09/17 at [facility]. Was found to have 1.3cm well differentiated Adenocarcinoma invading sub-mucosa. Fully resected, all 17 lymph nodes were negative. He did not require any adjuvant treatment based on stage. He was referred back and was seen on 07/14/23 for a new issue. He had been admitted to [facility] on 06/30/23, with increasing shortness of breath and cough over the prior 2 weeks. He was initially seen at [facility] and then transferred to [facility]. He had a CT angiogram showing a 5 cm mass in the right hilum with bronchovascular compression and postobstructive pneumonia. chest x- ray's there showed right hilar fullness. There were also multiple scattered right pulmonary nodules on CT angiogram. He was seen by pulmonary medicine and had a bronchoscopy with biopsy on 07/01/23 showing small cell carcinoma. PET scan showed primary site in the right lung, with evidence of mediastinal and right neck node involvement, as well as multiple osseous metastasis. MRI brain was negative for metastasis. Unfortunately he has extensive disease, and would not be considered curable. The objective of treatment would be prolongation of life and palliation of symptoms. We discussed prognosis with and without treatment. He did desire active therapy, and it was recommended to be started on MACHINE FANCY STITCHER- 16/carboplatin/Atezolizumab. However since last visit, staff reached out to patient 3 times to schedule treatment, and were finally able to get ahold of patient's spouse who reported he did not want to pursue systemic treatment. He was also referred to rad onc for consideration of radiation to T12. He did f/u with them but states he was not sure if he wanted to receive XRT and would reach out to them when he decided. Patient presented to the emergency room with complaints of increasing shortness of breath and cough over the last 3 days. Chest x-ray revealed streaky atelectasis/right perihilar mass. CTA chest showed large right perihilar mass encasing the right upper lobe pulmonary artery with narrowing. No evidence for pulmonary embolism. Multiple lung nodules and areas of increased density through the right lung. With small right pleural effusion. RSV, COVID, influenza negative. CBC reviewed, WBC 9.1, hemoglobin 16.0, platelets 407,000. Patient is afebrile, SpO2 95% room air. Review of Systems 10 point ROS is negative except as stated in the HPI Past Medical History Past Medical History: Cancer, Heart Failure, COPD, CVA/TIA, GERD/Reflux Additional Past Medical History / Comment(s): states "current lower left abdominal pain with alot of gas",Pt recently admitted 11/28/16 with abdominal pain, esophagitis, infectious colitis and exacerbation of his COPD. He had EGD with bx and colonoscopy with bx-states he has also been diagnosed with colon cancer-no chemo or rad. Other hx: Recent diagnosis of infectious colitis, doudenal and cecal polyps, colon cancer, past chronic pain -in his back and lately abdomin, TIA, tuberculosis 5 yrs ago and completed treatments. History of Any Multi-Drug Resistant Organisms: None Reported Past Surgical History: Appendectomy, Bowel Resection, Orthopedic Surgery, Tonsillectomy Additional Past Surgical History / Comment(s): 12/01/16 EGD with bx and colonoscopy with bx, sx on R forearm to removed a piece of steel from work related accident, cervical fusion. Past Anesthesia/Blood Transfusion Reactions: No Reported Reaction Smoking Status: Current every day smoker - Past Family History Mother History Unknown: Yes Father History Unknown: Yes Additional Family Medical History / Comment(s): Father during his AAA repair. Sister(s) Family Medical History: Cancer Additional Family Medical History / Comment(s): lung cancer Medications and Allergies Home Medications Medication Instructions Recorded Confirmed Type busPIRone HCL 30 mg PO BID 11/28/16 08/09/23 History DULoxetine HCL [Cymbalta] 30 mg PO DAILY 09/11/18 08/09/23 History Pantoprazole [Protonix] 40 mg PO DAILY 09/11/18 08/09/23 History oxyCODONE HCL/ACETAMINOPHEN 1 tab PO Q6H PRN 09/11/18 08/09/23 History [Percocet 10-325 mg] Losartan [Cozaar] 25 mg PO DAILY 06/30/23 08/09/23 History Mirtazapine 45 mg PO HS 06/30/23 08/09/23 History amLODIPine [Norvasc] 5 mg PO DAILY 06/30/23 08/09/23 History Albuterol Inhaler [Ventolin Hfa 1 - 2 puff INHALATION Q6H PRN #1 07/06/23 08/09/23 Rx Inhaler] each Budesonide-Formot 160-4.5 Mcg 2 puff INHALATION RT-BID #1 each 07/06/23 08/09/23 Rx [Symbicort 160-4.5 Mcg Inhaler] ALPRAZolam [Xanax] 0.5 mg PO BID PRN 08/09/23 08/09/23 History Allergies Allergy/AdvReac Type Severity Reaction Status Date / Time No Known Allergies Allergy Verified 08/09/23 21:57 Physical Exam Vitals: Vital Signs Temp Pulse Pulse Resp BP BP Pulse Ox 08/10/23 20:04 115 H 08/10/23 19:54 115 H 08/10/23 16:30 120 H 08/10/23 16:15 122 H 08/10/23 14:55 97.8 F 118 H 20 145/72 96 08/10/23 12:11 124 H 08/10/23 12:01 122 H 08/10/23 08:40 97.9 F 104 H 20 142/85 95 08/10/23 07:53 108 H 08/10/23 07:42 112 H 96 08/10/23 06:08 106 H 20 127/76 95 08/10/23 03:00 106 H 20 135/89 94 L 08/09/23 23:35 116 H 08/09/23 23:20 112 H 08/09/23 22:30 112 H 20 113/77 96 08/09/23 22:00 108 H 20 123/86 95 Intake and Output 08/10/23 08/10/23 08/10/23 06:59 14:59 22:59 Intake Total 1400 Balance 1400 Intake: Intake, IV Titration 900 Amount Sodium Chloride 0.9% 1, 900 000 ml @ 75 mls/hr IV . [id number] KENNY Rx#:[id number] Oral 500 Other: # Voids 1 # Bowel Movements 0 - Constitutional General appearance: no acute distress - EENT Eyes: anicteric sclerae, EOMI ENT: hearing grossly normal - Respiratory Respiratory: right: diminished - Cardiovascular Rhythm: regular Heart sounds: normal: S1, S2 - Gastrointestinal General gastrointestinal: soft, no tenderness - Integumentary Integumentary: no cyanotic - Neurologic grossly intact - Musculoskeletal Musculoskeletal: strength equal bilaterally - Psychiatric Psychiatric: A&O x's 3 Results CBC & Chem 7: 08/10/23 08:10 08/10/23 08:10 Labs: Abnormal Lab Results - Last 24 Hours (Table) 08/10/23 08/10/23 08/10/23 Range/Units 08:10 16:51 20:59 Carbon Dioxide 20 L (22-30) mmol/L BUN 21 H (9-20) mg/dL Glucose 229 H (74-99) mg/dL POC Glucose (mg/dL) 371 H 303 H (70-110) mg/dL Chest x-ray: report reviewed Assessment and Plan (1) Small cell lung cancer Current Visit: Yes Status: Acute Priority: High Code(s): C34.90 - MALIGNANT NEOPLASM OF UNSP PART OF UNSP BRONCHUS OR LUNG SNOMED Code(s): 923829092 (2) COPD (chronic obstructive pulmonary disease) Current Visit: Yes Status: Acute Priority: High Code(s): J44.9 - CHRONIC OBSTRUCTIVE PULMONARY DISEASE, UNSPECIFIED SNOMED Code(s): 93685486 Plan: Small cell lung carcinoma: -Full history in HPI. Biopsy on 07/01/23 revealed small cell carcinoma. PET CT revealed metastatic disease. Plan was to start MACHINE FANCY STITCHER-16/carboplatin/Atezolizumab -Patient was initially agreeable to proceed with systemic treatment, however since last f/u, patient had not returned multiple phone calls from clinic, and spouse finally did return call last week stating patient had decided to not pursue active treatment. He has also f/u with rad onc for consideration of radiation to T12, but states he was not sure if he wanted to receive XRT and would reach out to them when he decided. While speaking to patient regarding the above at todays visit, he appeared to be confused about this, and states " I thought there wasn't anything they could do." Discussed in detail with patient regarding treatment options, prognosis, goals of care and consideration of comfort care if he did not want to pursue treatment. I suggested patient speak to further about this so they can make a decision about what care he would like to receive vs going home on hospice. I will f/u tomorrow morning with patient and spouse to further discuss this
[2023-08-11] MEDS: IPRATROPIUM-ALBUTEROL 3 ML NEB INHALATION SCH ×4 (09:08→18:40)
[2023-08-11] MEDS: SYMBICORT 160-4.5 MCG INHALER INHALATION SCH ×2 (09:08→18:40)
[2023-08-11] MEDS: oxyCODONE-APAP 10-325MG 1 EACH TAB PO PRN ×3 (10:42→20:45)
[2023-08-11 14:01] LABS: Glucose,Whole Blood 336 mg/dL (70-110)
--- NOTE | 2023-08-11 15:46 | P.PN ---
Subjective Progress Note Date: 08/11/23 Hospital Course: 67-year-old male with a PMH of recently diagnosed small cell lung cancer, history of colon cancer status post resection (in remission), COPD, type II DM, who presents to the emergency room with complaints of shortness of breath. CTA chest in the emergency room revealed a 5.8 cm right perihilar mass encasing the right upper lobe, very artery with narrowing as well as multiple lung nodules suspicious for metastatic disease. EKG revealed sinus tachycardia at 119 bpm w ith no ST/T-wave changes noted as reviewed by me. Laboratory evaluation revealed leukocytosis of 12.8, and troponin 0.015 with a viral respiratory panel unremarkable. The patient's SpO2 is 94% on 2 L nasal cannula oxygen in the emergency room. Patient admitted for COPD exacerbation. Pulmonology and oncology consulted. Patient considering hospice. Subjective: Patient seen and examined at bedside. No acute events overnight. Pertinent positives and negatives as discussed above, a complete review of systems was performed and all other systems are negative. Vitals Signs Reviewed. General: nontoxic, no distress, appears at stated age Derm: warm, dry Head: atraumatic, normocephalic, symmetric Eyes: EOMI, no lid lag, anicteric sclera Mouth: no lip lesion, mucus membranes moist Cardiovascular: S1S2 reg, no murmur Lungs: Bilateral rhonchi rales , no accessory muscle use Abdominal: soft, nontender to palpation, no guarding, no appreciable organomegaly Ext: no gross muscle atrophy, no edema, no contractures Neuro: CN II-XI grossly intact, no focal neuro deficits Psych: Alert, oriented, appropriate affect Data Reviewed Today: Pertinent Labs: A1c 8, glucose ranged between 183 - 303 Imaging: No new imaging Assessment and Plan: Active: Acute COPD exacerbation Acute hypoxic respiratory failure Recently diagnosed metastatic small cell lung cancer Nicotine dependence leukocytosis, resolved -On Symbicort twice a day, DuoNeb 4 times a day, every 12 hours as needed, Solu-Medrol 60 IV every 6 hours, monitor mentation -Pulmonology following -Also counseling counseled regarding smoking cessation -Oncology following -Patient considering hospice, consulted Type 2 diabetes, A1c 8 -Sliding scale insulin, monitor for hypoglycemia Chronic: HTN GERD depression anxiety DVT ppx: lovenox Code status: DNR/DNI Anticipated discharge place: pending clinical course Anticipated discharge time: pending clinical course Objective - Vital Signs Vital signs: Vital Signs Temp 97.5 F L 08/11/23 14:00 Pulse 105 H 08/11/23 15:42 Resp 18 08/11/23 14:00 BP 139/77 08/11/23 14:00 Pulse Ox 94 L 08/11/23 14:00 FiO2 Intake & Output 08/10/23 08/11/23 08/11/23 18:59 06:59 18:59 Intake Total 1400 Balance 1400 Intake: Intake, IV Titration 900 Amount Sodium Chloride 0.9% 1, 900 000 ml @ 75 mls/hr IV . [id number] KENNY Rx#:[id number] Oral 500 Other: # Voids 1 # Bowel Movements 0 - Labs CBC & Chem 7: 08/10/23 08:10 08/10/23 08:10 Labs: Abnormal Lab Results - Last 24 Hours (Table) 08/10/23 08/10/23 08/11/23 Range/Units 16:51 20:59 08:06 POC Glucose (mg/dL) 371 H 303 H 256 H (70-110) mg/dL Hemoglobin A1c (<=6.0) % 08/11/23 08/11/23 Range/Units 08:15 14:00 POC Glucose (mg/dL) 336 H (70-110) mg/dL Hemoglobin A1c 8.0 H (<=6.0) %
--- NOTE | 2023-08-11 16:43 | P.PN ---
Subjective Progress Note Date: 08/11/23 NO acute events. Reporting persisting SOB. Held family meeting with patient and today Objective - Vital Signs Vital signs: Vital Signs Temp 97.5 F L 08/11/23 14:00 Pulse 105 H 08/11/23 15:42 Resp 18 08/11/23 14:00 BP 139/77 08/11/23 14:00 Pulse Ox 94 L 08/11/23 14:00 FiO2 Intake & Output 08/10/23 08/11/23 08/11/23 18:59 06:59 18:59 Intake Total 1400 Balance 1400 Intake: Intake, IV Titration 900 Amount Sodium Chloride 0.9% 1, 900 000 ml @ 75 mls/hr IV . [id number] KENNY Rx#:[id number] Oral 500 Other: # Voids 1 # Bowel Movements 0 - Constitutional General appearance: Present: average body habitus, no acute distress - EENT Eyes: Present: anicteric sclerae, EOMI ENT: Present: hearing grossly normal - Respiratory Details: breathing mild labored - Cardiovascular Details: skin warm and dry - Integumentary Integumentary: Absent: cyanotic - Musculoskeletal Musculoskeletal: Present: strength equal bilaterally - Psychiatric Psychiatric: Present: A&O x's 3 - Labs CBC & Chem 7: 08/10/23 08:10 08/10/23 08:10 Labs: Abnormal Lab Results - Last 24 Hours (Table) 08/10/23 08/10/23 08/11/23 Range/Units 16:51 20:59 08:06 POC Glucose (mg/dL) 371 H 303 H 256 H (70-110) mg/dL Hemoglobin A1c (<=6.0) % 08/11/23 08/11/23 Range/Units 08:15 14:00 POC Glucose (mg/dL) 336 H (70-110) mg/dL Hemoglobin A1c 8.0 H (<=6.0) % Assessment and Plan (1) Small cell lung cancer Current Visit: Yes Status: Acute Priority: High Code(s): C34.90 - MALIGNANT NEOPLASM OF UNSP PART OF UNSP BRONCHUS OR LUNG SNOMED Code(s): 331620964 (2) COPD (chronic obstructive pulmonary disease) Current Visit: Yes Status: Acute Priority: High Code(s): J44.9 - CHRONIC OBSTRUCTIVE PULMONARY DISEASE, UNSPECIFIED SNOMED Code(s): 82987502 Plan: Small cell lung carcinoma: -Full history in HPI. Biopsy on 07/01/23 revealed small cell carcinoma. PET CT revealed metastatic disease. Plan was to start HEAD CHOPPER-16/carboplatin/Atezolizumab -Patient was initially agreeable to proceed with systemic treatment, however since last f/u, patient had not returned multiple phone calls from clinic, and spouse finally did return call last week stating patient had decided to not pursue active treatment. He has also f/u with rad onc for consideration of radiation to T12, but states he was not sure if he wanted to receive XRT and would reach out to them when he decided. While speaking to patient regarding the above, he appeared to be confused about this, and states " I thought there wasn't anything they could do." Discussed in detail with patient regarding treatment options, prognosis, goals of care and consideration of comfort care if he did not want to pursue treatment. I suggested patient speak to further about this so they can make a decision about what care he would like to receive vs going home on hospice. I will f/u tomorrow morning with patient and spouse to further discuss this *Family meeting held today. Had in depth discussion today with patient and spouse about diagnosis, prognosis with and without treatment and treatment options. After long discussion, pt decided that he did not want to pursue any active systemic treatment or palliaitive radiation and would like to see hospice team to discuss options. Consult has been placed. Let family know to please do not hesitate to reach out to our service if they have any further questions or concerns or change their mind about receiving treatment Time with Patient: Greater than 30
--- NOTE | 2023-08-11 17:05 | P.PN ---
Subjective Progress Note Date: 08/11/23 Principal diagnosis: Acute exacerbation of COPD and small cell lung cancer I am seeing this patient in consultation today 08/10/2023 in the emergency room after presenting with progressively worsening shortness of breath over the last 3 days. Patient is a 67-year-old male with past medical history significant for COPD, recently diagnosed metastatic lung cancer, chronic ongoing tobacco dependence, CVA/TIA, hypertension, among other things. Patient has recently been diagnosed with metastatic small cell lung carcinoma. He has a large right sided hilar mass. He had a endobronchial biopsy done July [address] Alvarenga, and there was sampling of a lymph node consistent with small cell lung carcinoma. Follow-up PET scan redemonstrated the right perihilar mass with me tastatic disease to the lower neck lymph nodes as well as diffuse osseous metastasis. Patient has become established with an oncologist, he believes it's Dr. Leung. He has not had any systemic treatment. He is considering palliative radiation. Over the last 3 days, the patient has had progressively worsening shortness of breath. He also endorses a persistent nonproductive cough and pleuritic like right-sided chest pain. He also has been wheezing and has chest tightness. Denies any hemoptysis. Denies any fevers. He is currently sitting up in bed, on 3 L/m nasal cannula, in no acute distress. He does not normally wear home oxygen. D-dimer was elevated, the patient did have a follow-up chest CTA. This redemonstrated a large right hilar mass measuring up to 5.8 cm which encases the pulmonary artery. There are multiple other right-sided lung nodules consistent with metastatic disease. There was bilateral trace to small pleural effusions. No obvious pulmonary embolism. No significant focal infiltrates or evidence of pneumonia. Negative for influenza, RSV, COVID-19. CBC has a WBC count of 12.8, hemoglobin 17.2, hematocrit 49.4, platelets 433. CMP unremarkable. Normal saline infusing at 75 mL per hour. Troponin I elevated. NT proBNP 126. He is tachycardic on bedside monitor, sinus mechanism. Afebrile. Vital signs are stable. Patient was reevaluated today on 08/11/23, I saw him again in the ER today, feeling better breathing easier, patient is yet to be seen by oncology pulmonary-landry is feeling better and less cough and less wheezing less shortness of breath, remains on bronchodilators, and steroids, blood sugar seems to be a bit high, and I will cut down his Solu-Medrol dose. Otherwise we'll continue his updrafts, and will be seen hopefully today by medical oncology Objective - Vital Signs Vital signs: Vital Signs Temp 97.5 F L 08/11/23 14:00 Pulse 105 H 08/11/23 15:42 Resp 18 08/11/23 14:00 BP 139/77 08/11/23 14:00 Pulse Ox 94 L 08/11/23 14:00 FiO2 Intake & Output 08/10/23 08/11/23 08/11/23 18:59 06:59 18:59 Intake Total 1400 Balance 1400 Intake: Intake, IV Titration 900 Amount Sodium Chloride 0.9% 1, 900 000 ml @ 75 mls/hr IV . [id number] KENNY Rx#:[id number] Oral 500 Other: # Voids 1 # Bowel Movements 0 - Exam Physical Exam: Revealed a 67-year-old white male in no distress Head: Atraumatic normocephalic HEENT:[Neck is supple.] [No neck masses.] [No thyromegaly.] [No JVD.] Chest: [Diminished breath sound bilaterally minimal wheezing on forced expiratory maneuver Cardiac Exam: [Normal S1 and S2, no S3 gallop, no murmur.] Abdomen: [Soft, nontender, no megaly, no rebound, no guarding, normal bowel sounds.] Extremities: [No clubbing, no edema, no cyanosis.] Neurological Exam: [No focal neurologic deficit.] Alert oriented 3 Psychiatric: Normal mood, affect and normal mental status examination Skin: No rashes - Labs CBC & Chem 7: 08/10/23 08:10 08/10/23 08:10 Labs: Abnormal Lab Results - Last 24 Hours (Table) 08/10/23 08/11/23 08/11/23 Range/Units 20:59 08:06 08:15 POC Glucose (mg/dL) 303 H 256 H (70-110) mg/dL Hemoglobin A1c 8.0 H (<=6.0) % 08/11/23 Range/Units 14:00 POC Glucose (mg/dL) 336 H (70-110) mg/dL Hemoglobin A1c (<=6.0) % Assessment and Plan Assessment: Impression: Acute hypoxemic respiratory failure, likely related to acute COPD exacerbation. small cell lung carcinoma, recently diagnosed Thoracic level back pain, patient has diffuse osseous metastasis and possible pathological fracture of the T12 Hypertension Hyperlipidemia History of CVA/TIA History of colon cancer, status post right colectomy Chronic ongoing tobacco dependence, no longer smoking cigarettes but continues to smoke occasional cigars Obesity, with a BMI of 31.4 kg/m Recommendation: Continue bronchodilators Continue Symbicort 1 and IV Solu-Medrol Continue oxygen and titrate accordingly Oncology to see on consultation Will possibly address discharge planning in the next 24 hours assuming his COPD status improves Patient should have follow-up with oncology on outpatient basis post discharge and I should see him post discharge. Time with Patient: Less than 30
[2023-08-11 17:12] LABS: Glucose,Whole Blood 288 mg/dL (70-110)
[2023-08-11 20:17] LABS: Glucose,Whole Blood 296 mg/dL (70-110)
[2023-08-11] MEDS: MIRTAZAPINE 45 MG TABLET PO SCH (20:51)
[2023-08-12] MEDS: methylPREDNISolone SOD SUCCI 125 MG/2 ML VIAL IV SCH ×3 (01:34→12:34)
[2023-08-12] MEDS: MORPHINE SULFATE 4 MG/ML SYRINGE IVP PRN ×2 (01:36→05:36)
[2023-08-12 02:52] VITALS: RESP 18
[2023-08-12] MEDS: oxyCODONE-APAP 10-325MG 1 EACH TAB PO PRN ×2 (03:18→09:51)
[2023-08-12] MEDS: SODIUM CHLORIDE 0.9% 1,000 ML IV SCH (05:40)
[2023-08-12 07:42] LABS: Glucose,Whole Blood 186 mg/dL (70-110)
[2023-08-12 07:50] VITALS: BP 125/66; TEMP 98.3
[2023-08-12] MEDS: INSULIN ASPART (NovoLOG) 100 UNIT/ML VIAL SQ SCH ×2 (08:03→12:34)
[2023-08-12] MEDS: PANTOPRAZOLE 40 MG TABLET PO SCH (08:04)
[2023-08-12] MEDS: busPIRone HCl 10 MG TAB PO SCH (08:04)
[2023-08-12] MEDS: amLODIPine 5 MG TAB PO SCH (08:04)
[2023-08-12] MEDS: DULoxetine HCL 30 MG CAPSULE.DR PO SCH (08:04)
[2023-08-12] MEDS: ENOXAPARIN 40 MG/0.4 ML SYRINGE SQ SCH (08:04)
[2023-08-12] MEDS: SYMBICORT 160-4.5 MCG INHALER INHALATION SCH (08:41)
[2023-08-12] MEDS: IPRATROPIUM-ALBUTEROL 3 ML NEB INHALATION SCH ×2 (08:41→11:36)
[2023-08-12] MEDS: ALPRAZolam 0.5 MG TAB PO PRN (09:51)
--- NOTE | 2023-08-12 11:28 | P.DS ---
Providers Date of admission: 08/09/23 22:49 Expected date of discharge: 08/12/23 Attending physician: Jesus Archer MD Consults: 08/09/23 22:49 Consult Physician Routine Consulting Provider: Andres Alvarenga Consult Reason/Comments: COPD, lung mass Do you want consulting provider notified?: Yes 08/10/23 03:14 Consult Physician Routine Consulting Provider: Phong Leung Consult Reason/Comments: Lung cancer Do you want consulting provider notified?: Yes, Notify in am Primary care physician: [facility] Course: Discharge Diagnosis: Acute COPD exacerbation Acute hypoxic respiratory failure Recently diagnosed metastatic small cell lung cancer Nicotine dependence leukocytosis Type 2 diabetes, A1c 8 Hospital Course: 67-year-old male with a PMH of recently diagnosed small cell lung cancer, history of colon cancer status post resection (in remission), COPD, type II DM, who presents to the emergency room with complaints of shortness of breath. CTA chest in the emergency room revealed a 5.8 cm right perihilar mass encasing the right upper lobe, very artery with narrowing as well as multiple lung nodules suspicious for metastatic disease. EKG revealed sinus tachycardia at [address]/T-wave changes noted as reviewed by me. Laboratory evaluation revealed leukocytosis of 12.8, and troponin 0.015 with a viral respiratory panel unremarkable. The patient's SpO2 is 94% on 2 L nasal cannula oxygen in the emergency room. Patient admitted for COPD exacerbation. Pulmonology and oncology consulted. Patient had discussion with oncology team, and is now proceeding with hospice care. Being Discharged home with hospice. Patient seen and examined at bedside. Vital signs reviewed and stable. General: nontoxic, no distress, appears at stated age Derm: warm, dry Head: atraumatic, normocephalic, symmetric Eyes: EOMI, no lid lag, anicteric sclera Mouth: no lip lesion, mucus membranes moist Cardiovascular: S1S2 reg, no murmur Lungs: Bilateral rhonchi rales , no accessory muscle use Abdominal: soft, nontender to palpation, no guarding, no appreciable organomegaly Ext: no gross muscle atrophy, no edema, no contractures Neuro: CN II-XI grossly intact, no focal neuro deficits Psych: Alert, oriented, appropriate affect A total of 33 minutes of time were spent preparing this complex discharge summary. Patient was discharged on 08/12/23 at 1059. Patient Condition at Discharge: Stable Plan - Discharge Summary New Discharge Prescriptions: Continue busPIRone HCL 30 mg PO BID oxyCODONE HCL/ACETAMINOPHEN [Percocet 10-325 mg] 1 tab PO Q6H PRN PRN Reason: Pain DULoxetine HCL [Cymbalta] 30 mg PO DAILY Pantoprazole [Protonix] 40 mg PO DAILY Albuterol Inhaler [Ventolin Hfa Inhaler] 1 - 2 puff INHALATION Q6H PRN #1 each PRN Reason: Shortness Of Breath Or Wheezing ALPRAZolam [Xanax] 0.5 mg PO BID PRN PRN Reason: Anxiety Mirtazapine 45 mg PO HS Discontinued Losartan [Cozaar] 25 mg PO DAILY amLODIPine [Norvasc] 5 mg PO DAILY Budesonide-Formot 160-4.5 Mcg [Symbicort 160-4.5 Mcg Inhaler] 2 puff INHALATION RT-BID #1 each Discharge Medication List busPIRone HCL 30 mg PO BID 11/28/16 [History] DULoxetine HCL [Cymbalta] 30 mg PO DAILY 09/11/18 [History] Pantoprazole [Protonix] 40 mg PO DAILY 09/11/18 [History] oxyCODONE HCL/ACETAMINOPHEN [Percocet 10-325 mg] 1 tab PO Q6H PRN 09/11/18 [History] Mirtazapine 45 mg PO HS 06/30/23 [History] Albuterol Inhaler [Ventolin Hfa Inhaler] 1 - 2 puff INHALATION Q6H PRN #1 each 07/06/23 [Rx] ALPRAZolam [Xanax] 0.5 mg PO BID PRN 08/09/23 [History] Follow up Appointment(s)/Referral[facility] [NON-STAFF] - 1 Week Arnulfo Blackwell DO [Primary Care Provider] - 1-2 days Patient Instructions/Handouts: Hospice Care (GEN) Discharge Disposition: HOME WITH HOSPICE
[2023-08-12 11:57] VITALS: PULSE 82
[2023-08-12 12:14] LABS: Glucose,Whole Blood 227 mg/dL (70-110)
--- NOTE | 2023-08-12 14:34 | P.PN ---
Subjective Progress Note Date: 08/12/23 I am seeing this patient in consultation today 08/10/2023 in the emergency room after presenting with progressively worsening shortness of breath over the last 3 days. Patient is a 67-year-old male with past medical history significant for COPD, recently diagnosed metastatic lung cancer, chronic ongoing tobacco dependence, CVA/TIA, hypertension, among other things. Patient has recently been diagnosed with metastatic small cell lung carcinoma. He has a large right sided hilar mass. He had a endobronchial biopsy done July [address] Alvarenga, and there was sampling of a lymph node consistent with small cell lung carcinoma. Follow-up PET scan redemonstrated the right perihilar mass with metastatic disease to the lower neck lymph nodes as well as diffuse osseous metastasis. Patient has become established with an oncologist, he believes it's Dr. Leung. He has not had any systemic treatment. He is considering palliative radiation. Over the last 3 days, the patient has had progressively worsening shortness of breath. He also endorses a persistent nonproductive cough and pleuritic like ri ght-sided chest pain. He also has been wheezing and has chest tightness. Denies any hemoptysis. Denies any fevers. He is currently sitting up in bed, on 3 L/m nasal cannula, in no acute distress. He does not normally wear home oxygen. D-dimer was elevated, the patient did have a follow-up chest CTA. This redemonstrated a large right hilar mass measuring up to 5.8 cm which encases the pulmonary artery. There are multiple other right-sided lung nodules consistent with metastatic disease. There was bilateral trace to small pleural effusions. No obvious pulmonary embolism. No significant focal infiltrates or evidence of pneumonia. Negative for influenza, RSV, COVID-19. CBC has a WBC count of 12.8, hemoglobin 17.2, hematocrit 49.4, platelets 433. CMP unremarkable. Normal saline infusing at 75 mL per hour. Troponin I elevated. NT proBNP 126. He is tachycardic on bedside monitor, sinus mechanism. Afebrile. Vital signs are stable. Patient was reevaluated today on 08/11/23, I saw him again in the ER today, feeling better breathing easier, patient is yet to be seen by oncology pulmonary-landry is feeling better and less cough and less wheezing less shortness of breath, remains on bronchodilators, and steroids, blood sugar seems to be a bit high, and I will cut down his Solu-Medrol dose. Otherwise we'll continue his updrafts, and will be seen hopefully today by medical oncology The patient is seen today 08/12/2023 in follow-up on the regular medical floor. He is currently sitting up in bed. Awake and alert in no acute distress. He is maintaining good O2 saturations in the mid 90s on room air. He's been afebrile. Hemodynamically stable. Glucose 186. He is on albuterol as needed. Objective - Vital Signs Vital signs: Vital Signs Temp 98.3 F 08/12/23 07:25 Pulse 82 08/12/23 11:47 Resp 18 08/12/23 07:25 BP 125/66 08/12/23 07:25 Pulse Ox 96 08/12/23 07:25 FiO2 Intake & Output 08/11/23 08/12/23 08/12/23 18:59 06:59 18:59 Intake Total 560 Balance 560 Intake: Oral 560 Other: # Voids 1 3 # Bowel Movements 0 - Exam GENERAL EXAM: Alert, active, pleasant 68-year-old male patient, on room air, fairly comfortable in no apparent distress. HEAD: Normocephalic. EYES: Normal reaction of pupils, equal size. NOSE: Clear with pink turbinates. THROAT: No erythema or exudates. NECK: No masses, no JVD. CHEST: No chest wall deformity. LUNGS: Equal air entry with bilateral scattered rhonchi. CVS: S1 and S2 normal with no audible murmur, regular rhythm. ABDOMEN: No hepatosplenomegaly, normal bowel sounds, no guarding or rigidity. SPINE: No scoliosis or deformity SKIN: No rashes CENTRAL NERVOUS SYSTEM: No focal deficits, tone is normal in all 4 extremities. EXTREMITIES: There is no peripheral edema. No clubbing, no cyanosis. Peripheral pulses are intact. - Labs CBC & Chem 7: 08/10/23 08:10 08/10/23 08:10 Labs: Abnormal Lab Results - Last 24 Hours (Table) 08/11/23 08/11/23 08/12/23 Range/Units 17:10 20:15 07:41 POC Glucose (mg/dL) 288 H 296 H 186 H (70-110) mg/dL 08/12/23 Range/Units 12:14 POC Glucose (mg/dL) 227 H (70-110) mg/dL Assessment and Plan Assessment: Acute hypoxemic respiratory failure, likely related to acute COPD exacerbation. Recovered and on room air Small cell lung carcinoma, recently diagnosed Thoracic level back pain, patient has diffuse osseous metastasis and possible pathological fracture of the T12 Hypertension Hyperlipidemia History of CVA/TIA History of colon cancer, status post right colectomy Chronic ongoing tobacco dependence, no longer smoking cigarettes but continues to smoke occasional cigars Obesity, with a BMI of 31.4 kg/m Plan: The patient was seen and evaluated Currently stable and on room air The patient has decided to go home with hospice Arrangements are being made I have personally seen and examined the patient, performed the documentation and the assessment and plan as written. Number of minutes spent on the visit: 10.
== END 2023-08-12 14:12 | disposition hospice, home (50) ==
LOC: EC 18:23 → 5NMEDONC 22:49
PROVIDERS: ADMIT Internal Medicine; ATTEND Internal Medicine
DX: J44.1 Chronic obstructive pulmonary disease with (acute) exacerbation (principal); J96.01 Acute respiratory failure with hypoxia; C34.90 Malignant neoplasm of unspecified part of unspecified bronchus or lung; C79.51 Secondary malignant neoplasm of bone; C77.0 Secondary and unspecified malignant neoplasm of lymph nodes of head, face and neck; I11.0 Hypertensive heart disease with heart failure; I50.9 Heart failure, unspecified; E78.5 Hyperlipidemia, unspecified; E11.9 Type 2 diabetes mellitus without complications; J98.11 Atelectasis; D72.829 Elevated white blood cell count, unspecified; G89.29 Other chronic pain; R00.0 Tachycardia, unspecified; K21.9 Gastro-esophageal reflux disease without esophagitis; F17.290 Nicotine dependence, other tobacco product, uncomplicated; F32.A Depression, unspecified; F41.9 Anxiety disorder, unspecified; E66.9 Obesity, unspecified; Z68.31 Body mass index [BMI] 31.0-31.9, adult; Z66 Do not resuscitate; Z11.52 Encounter for screening for COVID-19; Z11.59 Encounter for screening for other viral diseases; Z79.51 Long term (current) use of inhaled steroids; Z79.899 Other long term (current) drug therapy; Z85.038 Personal history of other malignant neoplasm of large intestine; Z90.49 Acquired absence of other specified parts of digestive tract; Z86.73 Personal history of transient ischemic attack (TIA), and cerebral infarction without residual deficits; Z87.19 Personal history of other diseases of the digestive system; Z86.11 Personal history of tuberculosis; Z98.1 Arthrodesis status; Z98.890 Other specified postprocedural states; Z71.6 Tobacco abuse counseling; Z80.1 Family history of malignant neoplasm of trachea, bronchus and lung; Z82.49 Family history of ischemic heart disease and other diseases of the circulatory system
CPT/HCPCS: 96376 ×4; 96372 ×3; 96375; 96361 ×2; 96374; 99285; 36415; 94640 ×6; 94760; 93005; 85379; 83880; 80053; 80048; 84484; 85025 ×2; 83036; 87636; 71046; 71275; G0378 ×4; J2270; J2930 ×4; J1650 ×3; Q9967